=== PATIENT | female | born 1960 | race Hispanic/Latino ===

== ENCOUNTER 2020-01-03 02:33 | Emergency (ER) | payer OTHER, SELFPAY ==
--- NOTE | ~2020-01-03 | CT_ITS ---
EXAMINATION: CT abdomen pelvis w con DATE: 01/03/2020 04:01 INDICATION: Lower abdominal pain, hematochezia TECHNIQUE: Computed tomography (CT) of the abdomen and pelvis was performed with 100 cc Omnipaque 350 intravenous contrast. Automated exposure control and iterative reconstruction technique were employe d. Exam dose: 924.43 mGy-cm total exam DLP. COMPARISON: 03/08/2017 Limited abdominal ultrasound FINDINGS: No consolidation at the lung bases. Coronary artery calcifications. Mild cardiomegaly. Mild pericardial thickening or trace pericardial fluid. Small sliding hiatal hernia. The liver, gallbladder, bile ducts, spleen, pancreas and pancreatic duct are unremarkable. Normal mor phology of the adrenal glands. No renal mass lesion or urinary tract calculus or hydroureteronephrosi s. The urinary bladder, uterus and adnexal areas are unremarkable. There is atherosclerotic calcification of the abdominal aorta and iliac arteries. No abdominal aortic aneurysm. No intraperitoneal or retroperitoneal or pelvic mass lesion or adenopathy or ascites. Normal appendix. Mild thickening of the wall of the rectum and sigmoid colon suggesting possible proc tocolitis. Minimal diverticulosis of the sigmoid colon; no CT evidence of diverticulitis. No bowel ob struction or intraperitoneal free air. Bilateral small fat-containing inguinal hernias. No suspicious osteolytic or osteoblastic lesions are noted. Diffuse idiopathic skeletal hyperostosis of the thoracic spine. IMPRESSION: Mild thickening of the wall the rectum and sigmoid colon suggesting possible proctocolit is Minimal diverticulosis of the sigmoid colon Normal appendix Small sliding hiatal hernia Reviewed, dictated and finalized at [facility]. Reviewed, dictated and finalized at [facility]. [facility] [facility] [employer] IMPRESSION: Mild thickening of the wall the rectum and sigmoid colon suggestin g possible proctocolitis Minimal diverticulosis of the sigmoid colon Normal appendix Small sliding hiatal hernia
[2020-01-03 02:35] VITALS: BP 209/96; PULSE 68; RESP 20; TEMP 36.7; O2SAT 100
--- NOTE | 2020-01-03 02:41 | ED.NAVMDI ---
HPI - Nausea/Vomiting/Diarrhea General Chief complaint: Nausea/Vomiting/Diarrhea Stated complaint: N/V Time Seen by Provider: 01/03/20 02:37 Source: family and RN notes reviewed Mode of arrival: other Limitations: language barrier History of Present Illness HPI Narrative: Pt is a 59 y/o female who presents to the ED with c/o rectal bleeding that began yesterday (01/02/20). Pt's spouse was at bedside and translated for the pt. Pt also reports lower ABD pain, but denies dysuria, rectal pain, N/V/D, and a fever. HPI is limited due to the pt's language barrier. MD elicited complaint: other (rectal bleeding) Onset (ago): day(s) (1) Description of diarrhea: other (none) Associated nausea: No Associated abdominal pain: Yes Location of pain: other (lower abdomen) Pain consistency: other (still present) Associated symptoms: denies other symptoms (limited due to pt's language barrier) Related Data Home Medications Medication Instructions Recorded Confirmed atenolol 50 mg PO DAILY 01/03/20 01/03/20 carbamazepine 100 mg PO Q12H 01/03/20 01/03/20 hydrochlorothiazide 12.5 mg PO DAILY 01/03/20 01/03/20 levothyroxine 25 mcg PO DAILY 01/03/20 01/03/20 losartan 100 mg PO DAILY 01/03/20 01/03/20 lovastatin 40 mg PO DAILY 01/03/20 01/03/20 Allergies Allergy/AdvReac Type Severity Reaction Status Date / Time No Known Allergies Allergy Verified 01/03/20 02:38 Review of Systems Review of Systems: ROS unobtainable: other (limited due to pt's language barrier) Constitutional: Constitutional: Denies fever(s) Gastrointestinal: Gastrointestinal: Reports abdominal pain (lower), Denies diarrhea, Denies nausea, Denies vomiting and Reports other (reports: rectal bleeding; denies: rectal pain) Genitourinary: Genitourinary: Denies dysuria PMFSH Past Medical History Medical History (Updated 01/03/20 @ 05:13 by Justo Sage MD) Epilepsy HTN (hypertension) Hyperlipidemia Hyperthyroidism Migraines Surgical History Surgical History (Updated 01/03/20 @ 02:47 by Tash Fairbanks) Hx of section Social History Social History (Updated 01/03/20 @ 02:47 by Tash Fairbanks) Smoking status: Never smoker Gender identity (if verbalized by the patient): Female Exam Narrative: Exam Narrative: GENERAL: Well-appearing, well-nourished, and in no acute distress. HEAD: Normocephalic, atraumatic. ENT: Mucous membranes moist. CHEST: Clear to auscultation. No respiratory distress. HEART: Regular rate and rhythm. Normal peripheral pulses. ABDOMEN: Soft, mild midline lower abdominal discomfort without rebound or guarding, nondistended, normal active bowel sounds. EXTREMITIES: Normal range of motion. No edema. NEURO: Alert and oriented x3. PSYCH: Normal mood and affect. Course Course Emergency Course: Patient informed of results. Discussed treatment plan. Discharge home with antibiotics as well as pain medication nausea medication. Vital Signs Vital signs: Vital Signs Temperature 98.0 F 01/03/20 02:35 Pulse Rate 68 01/03/20 02:35 Respiratory Rate 20 01/03/20 02:35 Blood Pressure 209/96 H 01/03/20 02:35 Pulse Oximetry 100 01/03/20 02:35 Temperature 98.0 F 01/03/20 02:35 Pulse Rate 65 01/03/20 04:39 Respiratory Rate 16 01/03/20 04:39 Blood Pressure 140/72 01/03/20 04:39 Pulse Oximetry 100 01/03/20 04:39 MDM - Nausea/Vomiting/Diarrhea Lab Data Result diagrams: 01/03/20 02:55 01/03/20 03:46 Labs: Lab Results 01/03/20 01/03/20 01/03/20 Range/Units 02:55 02:58 03:24 WBC 4.7 (4.5-10.0) K/mm3 RBC 4.35 (4.2-5.4) M/mm3 Hgb 13.4 (12.0-15.0) g/dL Hct 40.2 (37.0-47.0) % MCV 92.4 (80-100) fl MCH 30.8 (26-34) pg MCHC 33.3 (32-36) g/dl RDW 11.9 (11.5-14.5) % Plt Count 149 L (150-375) k/mm3 MPV 11.5 H (7.4-10.4) fl Immature Gran % (Auto) 0.2 (0-0.5) % Neut % (Auto) 49.4 (45.5-73.1) % Lymph % (A
[2020-01-03 03:03] LABS: Basophils Percent Auto 0.8 % (0.2-1.2); Eosinophils Absolute Auto 0.2 K/mm3 (0-0.3); Eosinophils Percent Auto 3.2 % (0-4.4); Hematocrit 40.2 % (37.0-47.0); Hemoglobin 13.4 g/dL (12.0-15.0); Immature Granulocyte Absolute 0.01 K/mm3 (0.00-0.031); Immature Granulocyte Percent A 0.2 % (0-0.5); Lymphocytes Absolute Auto 1.79 K/mm3 (0.9-3.2); Lymphocytes Percent Auto 37.9 % (18.3-44.2); Mean Corpuscular HGB Conc 33.3 g/dl (32-36); Mean Corpuscular Hemoglobin 30.8 pg (26-34); Mean Corpuscular Volume 92.4 fl (80-100); Mean Platelet Volume 11.5 fl (7.4-10.4); Monocytes Absolute Auto 0.4 K/mm3 (0.1-0.6); Monocytes Percent Auto 8.5 % (2.6-8.5); Neutrophils Absolute Auto 2.3 K/mm3 (1.3-6.7); Neutrophils Percent Auto 49.4 % (45.5-73.1); Platelet Count Result 149 k/mm3 (150-375); Red Blood Count 4.35 M/mm3 (4.2-5.4); Red Cell Distribution Width 11.9 % (11.5-14.5); White Blood Count 4.7 K/mm3 (4.5-10.0)
[2020-01-03 03:10] LABS: Add Urine Microscopic? YES; Appearance Urine Clear (Clear); Bacteria Urine Trace /hpf; Bilirubin Urine Negative (Negative); Blood Urine Negative (Negative); Color Urine Yellow (Yellow); Glucose Urine UA Negative (Negative); Ketones Urine Negative (Negative); Leukocyte Esterase Ur 2+ LEU/UL (Negative); Mucus Urine Rare /lpf; Nitrate Urine Negative (Negative); Protein Urine Negative (Negative); RBC Urine 0-2 /hpf (0-2); Specific Grav Ur 1.015 (1.001-1.035); Squamous Epithelial Cell Urine Few /hpf (Few); Urobilinogen Urine Negative mg/dL (<2.0); WBC Urine 0-3 /hpf
[2020-01-03] MEDS: ONDANSETRON INJ 4 MG/2 ML VIAL IV PUSH (03:12)
[2020-01-03] MEDS: MORPHINE SULFATE 4 MG/ML INJ IV PUSH (03:29)
[2020-01-03 03:42] LABS: Alanine Aminotransferase 18 U/L (4-35); Albumin Level 3.8 g/dL (3.5-5.1); Alkaline Phosphatase 75 U/L (38-126); Aspartate Amino Transferase 22 U/L (14-36); Bilirubin,Total 0.1 mg/dL (0.2-1.3); Blood Urea Nitrogen 10 mg/dL (7-17); Calcium 8.9 mg/dL (8.4-10.2); Carbon Dioxide 27 mmol/L (22-30); Chloride 104 mmol/L (98-107); Estimated Glomerular Filt Rate > 60; Glucose 113 mg/dL (65-105); Lipase 94 U/L (23-300); Potassium 3.6 mmol/L (3.4-5.0); Sodium 139 mmol/L (137-145)
[2020-01-03 03:48] LABS: Blood Urea Nitrogen 9 mg/dL (8-26); Estimated Glomerular Filt Rate > 60
[2020-01-03 04:39] VITALS: BP 140/72; PULSE 65; RESP 16; O2SAT 100
[2020-01-03 05:28] VITALS: BP 135/70; PULSE 68; RESP 18; O2SAT 98
== END 2020-01-03 05:29 | disposition home or self-care (01) ==
PROVIDERS: Emergency Provider Emergency Medicine; PCP Registered Nurse
DX: K51.30 Ulcerative (chronic) rectosigmoiditis without complications (principal); G40.909 Epilepsy, unspecified, not intractable, without status epilepticus; I10 Essential (primary) hypertension; E78.5 Hyperlipidemia, unspecified; E03.9 Hypothyroidism, unspecified
CPT/HCPCS: 36415; 74177; 80053; 81001; 83690; 85025; 96374; 96375; 99284; J2270; J2405; Q9967

== ENCOUNTER 2020-04-27 15:12 | Emergency (ER) | payer OTHER, SELFPAY ==
--- NOTE | ~2020-04-27 | XR_ITS ---
EXAMINATION: XR tibia fibula RT 2V DATE: 04/27/2020 16:52 INDICATION: Right lower leg injury. TECHNIQUE: 2 views of right tibia and fibula on 3 radiographs were obtained. COMPARISON: None. FINDINGS: There is a fracture of lateral tibial plateau with up to 1.8 cm depression of the articular surface. There is an oblique fracture of fibular head and neck with 2 mm displacement. There is an o blique fracture of distal fibula with medial aspect of the fracture line 1 mm proximal to the level o f the tibial plafond. The distal fracture fragment demonstrates 4 mm posterior displacement. There ar e tiny osteophytes in all 3 compartments of the right knee joint. There is a large right knee joint e ffusion. IMPRESSION: 1. Depression fracture of lateral tibial plateau. 2. Oblique fractures of proximal and distal aspects of the fibula. 3. Large knee joint effusion. Reviewed, dictated and finalized at location [facility].
--- NOTE | ~2020-04-27 | CT_ITS ---
EXAMINATION: CT brain wo con DATE: 04/27/2020 16:57 INDICATION: Head injury. TECHNIQUE: Computed tomography (CT) of the head was performed without intravenous contrast. The mA wa s adjusted according to patient size. Iterative reconstruction technique was employed. The dose-lengt h product was 681.00 mGy-cm. COMPARISON: Head CT 12/15/2005 FINDINGS: There are old infarcts in the left basal ganglia. There is no intracranial hemorrhage, acut e infarction, or abnormal intracranial mass lesion. The ventricles are normal in size. The orbits are normal. There is mild mucosal thickening in the paranasal sinuses. The mastoid air cells are normal. There is right posterior scalp soft tissue swelling. IMPRESSION: 1. 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 Reviewed, dictated and finalized at location [facility].
--- NOTE | ~2020-04-27 | CT_ITS ---
EXAMINATION: CT cervical spine wo con DATE: 04/27/2020 16:57 INDICATION: Head injury. TECHNIQUE: Computed tomography (CT) of the cervical spine was performed without intravenous contrast. Automated exposure control and iterative reconstruction technique were employed. The dose-length pro duct was 486.99 mGy-cm. COMPARISON: None FINDINGS: Bone alignment is normal. Vertebral body heights and intervertebral disc heights are normal . The following disc levels are specifically discussed: C2-C3: There is no uncovertebral joint osteoarthritis. There is no facet joint osteoarthritis. There is no neural foraminal stenosis. There is no central canal stenosis. C3-C4: There is no uncovertebral joint osteoarthritis. There is no facet joint osteoarthritis. There is no neural foraminal stenosis. There is mild central canal stenosis. C4-C5: There is no uncovertebral joint osteoarthritis. There is mild right facet joint osteoarthritis . There is no neural foraminal stenosis. There is no central canal stenosis. C5-C6: There is no uncovertebral joint osteoarthritis. There is no facet joint osteoarthritis. There is no neural foraminal stenosis. There is no central canal stenosis. C6-C7: There is no uncovertebral joint osteoarthritis. There is no facet joint osteoarthritis. There is no neural foraminal stenosis. There is no central canal stenosis. C7-T1: There is no uncovertebral joint osteoarthritis. There is mild bilateral facet joint osteoarthr itis. There is no neural foraminal stenosis. There is no central canal stenosis. IMPRESSION: 1. No fracture. 2. Mild cervical spondylosis. Reviewed, dictated and finalized at location [facility].
--- NOTE | ~2020-04-27 | XR_ITS ---
EXAMINATION: XR ankle RT min 3V DATE: 04/27/2020 15:47 INDICATION: Right ankle injury and swelling. TECHNIQUE: 4 views of right ankle were obtained. COMPARISON: None. FINDINGS: There is an oblique fracture of distal fibula with medial aspect of the fracture line 1 mm distal to the level of the tibial plafond. The distal fracture fragment demonstrates 4 mm lateral dis placement and 3 mm posterior displacement. There is widening of the medial ankle mortise. There are c alcifications distal to medial malleolus. There is mild osteoarthritis of talonavicular joint. There is an enthesophyte at the posterior aspect of calcaneal tuberosity. Ankle soft tissue swelling is not ed. IMPRESSION: 1. Oblique fracture of distal fibula. 2. Widening of the medial ankle mortise. Calcifications distal to medial malleolus may be an acute av ulsion fracture or findings from old injury. Reviewed, dictated and finalized at location [facility]. IMPRESSION: 1. Oblique fracture of distal fibula. 2. Widening of the medial ankle mortise. Calcifications distal to medial malleo charito may be an acute avulsion fracture or findings from old injury.
--- NOTE | ~2020-04-27 | XR_ITS ---
EXAMINATION: XR femur RT min 2V DATE: 04/27/2020 16:52 INDICATION: Fall. TECHNIQUE: 2 views of right femur on 4 radiographs were obtained. COMPARISON: None. FINDINGS: There is a depression fracture of lateral tibial plateau. There is an oblique fracture of f ibular head and neck. The right knee demonstrate tiny osteophytes in all 3 compartments. There is a l arge knee joint effusion. IMPRESSION: 1. Depression fracture of right lateral tibial plateau. 2. Oblique fracture of fibular head and neck. 3. Large right knee joint effusion. Reviewed, dictated and finalized at location [facility].
--- NOTE | ~2020-04-27 | XR_ITS ---
EXAMINATION: XR pelvis 1-2V DATE: 04/27/2020 16:52 INDICATION: Fall. TECHNIQUE: An anteroposterior view of the pelvis was obtained. COMPARISON: None. FINDINGS: Bone alignment is normal. No fracture. There is mild lumbar spondylosis. There is mild oste oarthritis of the hips. IMPRESSION: 1. Mild osteoarthritis of the hips. Reviewed, dictated and finalized at location [facility].
[2020-04-27 15:18] VITALS: BP 144/65; PULSE 62; RESP 18; TEMP 37.2; O2SAT 100
--- NOTE | 2020-04-27 16:13 | ED.GENADULT ---
HPI - General Adult General Chief complaint: Extremity Injury, Lower Stated complaint: fall, ankle injury Time Seen by Provider: 04/27/20 16:12 Source: patient Mode of arrival: ambulatory Limitations: no limitations History of Present Illness HPI narrative: 59-year-old female patient presents to the [facility] with complaints of right leg pain after having a fall today. Patient states she was holding a basket of laundry and tripped and fell down some steps landing on some concrete. Patient states that she hit the entire right side of her body. Patient states that she did hit her head but denies loss of consciousness. Denies any neck pain. Denies any chest pain or shortness of breath. Denies any abdominal pain. Patient is having some right hip pain, leg pain, knee pain lower extremity pain and ankle pain. Patient denies taking anything for pain prior to arrival. Patient is Guamanian-speaking and does have her daughter at the bedside interpreting. Related Data Home Medications Medication Instructions Recorded Confirmed atenolol 50 mg PO DAILY 01/03/20 01/03/20 carbamazepine 100 mg PO Q12H 01/03/20 01/03/20 hydrochlorothiazide 12.5 mg PO DAILY 01/03/20 01/03/20 levothyroxine 25 mcg PO DAILY 01/03/20 01/03/20 losartan 100 mg PO DAILY 01/03/20 01/03/20 lovastatin 40 mg PO DAILY 01/03/20 01/03/20 Allergies Allergy/AdvReac Type Severity Reaction Status Date / Time No Known Allergies Allergy Verified 04/27/20 16:32 Review of Systems Review of Systems: Narrative: CONSTITUTIONAL: Denies fever, chills, or sweats. EYES: Denies visual changes, redness, or discharge. ENT: Denies rhinorrhea, congestion, sore throat, or otalgia. Positive head pain CARDIOVASCULAR: Denies chest pain, palpitations, or edema. RESPIRATORY: Denies cough or dyspnea. GASTROINTESTINAL: Denies abdominal pain, nausea, vomiting, or diarrhea. GENITOURINARY: Denies dysuria or hematuria. SKIN: Denies rash or itching. MUSCULOSKELETAL: Denies back pain, joint pain, or myalgia. Positive right leg pain NEUROLOGIC: Denies headache, numbness, or weakness. PSYCHIATRIC: Denies anxiety or depression. [facility] Past Medical History Medical History Epilepsy HTN (hypertension) Hyperlipidemia Hyperthyroidism Migraines Surgical History Surgical History Hx of section Social History Social History Smoking status: Never smoker Gender identity (if verbalized by the patient): Female Comments At the time of my signature I agree with nursing past medical history, surgical, social, and family history. There is no relevant family history pertinent to the presenting complaint. Exam Narrative: Exam Narrative: GENERAL: Well-appearing, well-nourished, and in no acute distress. HEAD: Normocephalic, patient has what appears to be a hematoma on the right side of the parietal area. No open area no bleeding noted. EYES: PERRLA and EOMI. ENT: Nares clear, no rhinorrhea or epistaxis. Mucous membranes moist. Posterior pharynx no erythema, tonsil larger, exudates or lesions present. Bilateral TMs are clear no erythema or foreign bodies to the canal. NECK: Supple, no lymphadenopathy. No surface trauma, no soft tissue or muscle tenderness or spasm noted. Trachea midline. No subq emphysema or crepitus. No nitza tenderness, step-offs or deformity to firm Palpation at posterior midline. FROM without limitation or pain, normal flexion, extension,Lateral bending, rotation, and axial load. CHEST: Clear to auscultation. No respiratory distress. HEART: Regular rate and rhythm. No murmur heard. Normal peripheral pulses. ABDOMEN: Soft, nontender, nondistended, normal active bowel sounds. EXTREMITIES: Patient has an obvious deformity to the right leg. Patient does have swelling to the right ankle but does have a 2+ DP pulses noted.
--- NOTE | 2020-04-27 16:32 | PC.NURSE ---
pt at xray at this time
[2020-04-27 18:09] VITALS: BP 126/64; PULSE 55; RESP 16; TEMP 36.8; O2SAT 98
[2020-04-27 19:05] VITALS: BP 114/64; PULSE 53; RESP 16; TEMP 36.5; O2SAT 97
== END 2020-04-27 19:15 | disposition short-term general hospital (02) ==
PROVIDERS: Emergency Provider Nurse Practitioner Family; PCP Registered Nurse
DX: S82.141A Displaced bicondylar fracture of right tibia, initial encounter for closed fracture (principal); S82.831A Other fracture of upper and lower end of right fibula, initial encounter for closed fracture; G40.909 Epilepsy, unspecified, not intractable, without status epilepticus; I10 Essential (primary) hypertension; E78.5 Hyperlipidemia, unspecified; E05.90 Thyrotoxicosis, unspecified without thyrotoxic crisis or storm; M16.0 Bilateral primary osteoarthritis of hip; M47.812 Spondylosis without myelopathy or radiculopathy, cervical region; W10.9XXA Fall (on) (from) unspecified stairs and steps, initial encounter
CPT/HCPCS: 29505; 70450; 72125; 72170; 73552; 73590; 73610; 96374; 99285; J3010

== ENCOUNTER 2021-05-18 15:18 | Outpatient (CLI) | payer OTHER, SELFPAY ==
--- NOTE | ~2021-05-18 | MR_ITS ---
EXAMINATION: MR lumbar spine wo con EXAM DATE: 05/18/2021 16:36 INDICATION: Lumbosacral radiculopathy. Low back pain, right leg pain, symptoms one year. TECHNIQUE: Multi-sequential, multiplanar MR images of the lumbar spine were obtained without contrast . Sagittal T1, T2, T2 fat saturation images. Axial T2 weighted images. There is no prior study for comparison. FINDINGS: Some metallic artifact in the retroperitoneum. The conus medullaris terminates at the T12-L 1 level and has normal signal intensity and morphology. The vertebral bodies are aligned in the AP d imension. Vertebral body and disc heights are well-maintained. Lower lumbar disc desiccation. There a re no suspicious marrow signal abnormalities. Level by level evaluation: T12-L1: Disc does not extend beyond the endplate margin. Facet arthropathy: None. Neural foraminal stenosis: No stenosis. Central canal stenosis: No stenosis. L1-L2: Disc does not extend beyond the endplate margin. Facet arthropathy: Mild. Neural foraminal stenosis: No stenosis. Central canal stenosis: No stenosis. L2-L3: There is a mild diffuse disc bulge. Facet arthropathy: Mild to moderate. Neural foraminal stenosis: Mild left. Central canal stenosis: No stenosis. L3-L4: There is a mild diffuse disc bulge. Facet arthropathy: Mild to moderate. Neural foraminal stenosis: Mild to moderate left, mild right. Central canal stenosis: No stenosis. L4-L5: There is a mild to moderate diffuse disc bulge, asymmetric to the right. Facet arthropathy: Mild to moderate. Neural foraminal stenosis: Mild to moderate left, mild right. Central canal stenosis: Mild. L5-S1: [id number] Facet arthropathy: Mild to moderate. Neural foraminal stenosis: Mild to moderate bilateral, right greater than left. Central canal stenosis: Mild. IMPRESSION: 1. Mild to moderate lumbar spondylosis. Reviewed, dictated and finalized at location [facility].
== END 2021-05-18 15:19 | disposition home or self-care (01) ==
PROVIDERS: Visit Provider Registered Nurse
DX: M47.896 Other spondylosis, lumbar region (principal)
CPT/HCPCS: 72148

== ENCOUNTER 2022-02-14 07:39 | Outpatient (CLI) | payer OTHER, SELFPAY ==
--- NOTE | ~2022-02-14 | US_ITS ---
EXAMINATION: US abdomen complete EXAM DATE: 02/14/2022 08:13 INDICATION: Abdominal Distension. TECHNIQUE: Multiple grayscale and Doppler images of the complete abdomen were obtained (by a technolo gist who performed the scan) and subsequently reviewed. Comparison is made to prior examination from 03/08/2017. FINDINGS: The abdominal aorta is normal in caliber. Visualized portion IVC is patent. The pancreatic head a nd body are normal in appearance. The pancreatic tail is not visualized. The liver has normal echogenicity and contour. There are no focal liver lesions identified. There is no evidence of intrahepatic biliary duct dilation. Portal venous flow was seen in the hepatopedal , normal direction and has normal Doppler waveform. Common bile duct measures 5 mm, which is normal. The gallbladder wall is normal in thickness, with ex pected amount of distention. No sonographic evidence of pericholecystic fluid. There is no cholelit hiases. Technologist performing exam reports patient did not demonstrate sonographic Crooks's sign. Please note that this sign is less reliable in patients who have received pain medication. Right kidney: There is normal contour and echogenicity. It measures 10.1 x 3.8 x 5.1 centimeters. There are no focal renal lesions identified. There is no hydronephrosis. Left kidney: There is normal contour and echogenicity. It measures 11.0 x 4.2 x 6.2 centimeters. T here are no focal renal lesions identified. There is no hydronephrosis. The spleen measures 11 centimeters and is morphologically normal. IMPRESSION: 1. Unremarkable complete abdominal ultrasound exam. Reviewed, dictated and finalized at location [facility].
== END 2022-02-14 07:40 | disposition home or self-care (01) ==
PROVIDERS: PCP Registered Nurse; Visit Provider Registered Nurse
DX: R14.0 Abdominal distension (gaseous) (principal)
CPT/HCPCS: 76700

== ENCOUNTER 2022-10-13 09:45 | Emergency (ER) | payer OTHER, SELFPAY ==
--- NOTE | ~2022-10-13 | CT_ITS ---
EXAMINATION: CT abdomen pelvis w con DATE: 10/13/2022 11:29 INDICATION: Left lower quadrant abdominal pain, diarrhea TECHNIQUE: Computed tomography (CT) of the abdomen and pelvis was performed with 100 CC Omnipaque 350 intravenous contrast. Automated exposure control and iterative reconstruction technique were employe d. Exam dose: 1029.42 mGy-cm total exam DLP. COMPARISON: 02/14/2022 20 abdominal ultrasound examination 01/03/2020 CT abdomen pelvis FINDINGS: The lung bases are clear of infiltrate or consolidation. Heart size is within normal range. There is trace pericardial fluid. No pleural effusion. Small sliding hiatal hernia. Diffuse hepatic steatosis. No hepatic, splenic, pancreatic, adrenal or renal space-occupying mass les ion is detected. The gallbladder is present. No gallbladder wall thickening or pericholecystic fluid or fat stranding. No bile duct or pancreatic duct dilatation. No urinary tract calculus or hydroureteronephrosis. The urinary bladder, uterus and adnexal areas are unremarkable. Small bilateral fat-containing inguinal hernias and very small fat-containing umbilical hernia. There is atherosclerotic calcification of the abdominal aorta and iliac arteries but no abdominal aor tic aneurysm. Normal appendix. Minimal sigmoid colon diverticulosis; no CT evidence of diverticulitis. There is thickening of the wall the rectum and colon suggesting possible proctocolitis. No bowel obst ruction or intraperitoneal free air. Diffuse idiopathic skeletal hyperostosis of the thoracic spine. No suspicious osteolytic or osteoblastic lesions. IMPRESSION: Small sliding hiatal hernia Hepatic steatosis Normal appendix Minimal sigmoid diverticulosis; no evidence of diverticulitis Thickening of the wall the rectum and much of the colon suggesting proctocolitis Reviewed, dictated and finalized at [facility]. Reviewed, dictated and finalized at location [facility]. ONAL SERVICE MANAGER IMPRESSION: Small sliding hiatal hernia Hepatic steatosis Normal appendix Minimal sigmoid diverticulosis; no evidence of diverticulitis Thickening of the wall the rectum and much of the colon suggesting proctocoliti s
[2022-10-13 10:06] VITALS: BP 156/84; PULSE 77; RESP 16; TEMP 36.6; O2SAT 100
--- NOTE | 2022-10-13 10:27 | ED.NAVMDI ---
HPI - Nausea/Vomiting/Diarrhea General Chief complaint: Nausea/Vomiting/Diarrhea Stated complaint: diarrhea Time Seen by Provider: 10/13/22 10:19 Limitations: language barrier History of Present Illness HPI Narrative: Patient is a healthy 61-year-old female here for evaluation of diarrhea over the past day and a half. Patient reports about 8 episodes of loose watery stools yesterday and about 3 episodes today. The diarrhea is associated with a diffuse crampy abdominal pain. Patient denies blood or pus in her stools. She states the diarrhea came on after eating Thanksgiving dinner, although her family members ate the same meal and are not having diarrhea. Denies any fevers, nausea, vomiting, recent antibiotic use. She is not immunocompromised. Related Data Home Medications Medication Instructions Recorded Confirmed atenolol 50 mg tablet 50 mg PO DAILY 01/03/20 01/03/20 carbamazepine 100 mg 100 mg PO Q12H 01/03/20 01/03/20 capsule,extended release [id number] hydrochlorothiazide 12.5 mg capsule 12.5 mg PO DAILY 01/03/20 01/03/20 levothyroxine 25 mcg tablet 25 mcg PO DAILY 01/03/20 01/03/20 losartan 100 mg PO DAILY 01/03/20 01/03/20 lovastatin 40 mg tablet 40 mg PO DAILY 01/03/20 01/03/20 Allergies Allergy/AdvReac Type Severity Reaction Status Date / Time No Known Allergies Allergy Verified 10/13/22 11:44 Review of Systems Review of Systems: Gen: Denies fevers or chills Eyes: Denies eye pain or visual change ENT: Denies congestion Respiratory: Denies shortness of breath or cough CV: Denies chest pain or palpitations GI: Reports diarrhea and abdominal pain. Denies nausea, emesis denies burning, urgency, frequency or hematuria Musculoskeletal: Denies back pain or muscle pain Neuro: Denies numbness, tingling, weakness or focal weakness Skin: Denies rash Except as documented, all other systems reviewed and negative [facility] Past Medical History Medical History (Updated 10/13/22 @ 12:17 by Elizabeth Peralta PA-C) Epilepsy HTN (hypertension) Hyperlipidemia Hyperthyroidism Migraines Surgical History Surgical History Hx of section Social History Social History Smoking status: Never smoker Gender identity (if verbalized by the patient): Female Exam Narrative: APPEARANCE: Well appearing, no pain in distress, well-nourished. Head: Normocephalic and atraumatic. EYES: PERRLA/EOMI, conjunctivae clear NOSE: No nasal drainage EARS: External ear normal in appearance THROAT: Oropharynx is clear. Mucous membranes are moist. NECK: Supple. No adenopathy, no masses. RESPIRATORY: Airway patent, respirations nonlabored. Clear to auscultation bilaterally, no rales, rhonchi, wheezing. CARDIOVASCULAR: Regular rate and rhythm without murmurs, rubs, or gallops. ABDOMINAL: Hyperactive bowel sounds. Tender to palpation in left lower quadrant. Soft, nondistended. No rebound tenderness or guarding. MUSCULOSKELETAL: Extremities are warm and well-perfused. Moves all extremities well. No edema. NEURO: Normal speech. No focal neurologic deficits. SKIN: Skin is warm and dry. No rashes. PSYCHIATRIC: Normal affect/mood.. Course Vital Signs Vital signs: Vital Signs Temperature 97.8 F 10/13/22 10:06 Pulse Rate 77 10/13/22 10:06 Respiratory Rate 16 10/13/22 10:06 Blood Pressure 156/84 H 10/13/22 10:06 Pulse Oximetry 100 10/13/22 10:06 Oxygen Delivery Room Air 10/13/22 10:06 Temperature 97.8 F 10/13/22 10:06 Pulse Rate 70 10/13/22 12:42 Respiratory Rate 15 10/13/22 12:42 Blood Pressure 144/82 H 10/13/22 12:42 Pulse Oximetry 100 10/13/22 12:42 Oxygen Delivery Room Air 10/13/22 10:06 MDM - Nausea/Vomiting/Diarrhea MDM Narrative Medical decision making narrative: 61-year-old female here for evaluation of abdominal pain and diarrhea over the past
[2022-10-13 10:42] LABS: Basophils Percent Auto 0.9 % (0.2-1.2); Eosinophils Absolute Auto 0.1 K/mm3 (0-0.3); Eosinophils Percent Auto 2.3 % (0-4.4); Hematocrit 40.7 % (37.0-47.0); Hemoglobin 13.8 g/dL (12.0-15.0); Immature Granulocyte Absolute 0.01 K/mm3 (0.00-0.031); Immature Granulocyte Percent A 0.2 % (0-0.5); Lymphocytes Absolute Auto 1.48 K/mm3 (0.9-3.2); Mean Corpuscular HGB Conc 33.9 g/dl (32-36); Mean Corpuscular Hemoglobin 32.5 pg (26-34); Mean Corpuscular Volume 95.8 fl (80-100); Mean Platelet Volume 10.5 fl (7.4-10.4); Monocytes Absolute Auto 0.3 K/mm3 (0.1-0.6); Monocytes Percent Auto 6.7 % (2.6-8.5); Neutrophils Absolute Auto 2.4 K/mm3 (1.3-6.7); Neutrophils Percent Auto 55.9 % (45.5-73.1); Platelet Count Result 180 k/mm3 (150-375); Red Blood Count 4.25 M/mm3 (4.2-5.4); Red Cell Distribution Width 12.1 % (11.5-14.5); White Blood Count 4.4 K/mm3 (4.5-10.0)
[2022-10-13] MEDS: LACTATED RINGERS 1,000 ML 999 ML IV CONT (10:45)
[2022-10-13] MEDS: DICYCLOMINE HCL INJ 20 MG/2 ML VIAL IM (10:47)
[2022-10-13 10:59] LABS: Alanine Aminotransferase 23 U/L (6-35); Albumin Level 4.5 g/dL (3.5-5.1); Alkaline Phosphatase 65 U/L (38-126); Anion Gap 9 mmol/L (8-16); Aspartate Amino Transferase 29 U/L (14-36); Bilirubin,Total 0.5 mg/dL (0.2-1.3); Blood Urea Nitrogen 11 mg/dL (7-17); Calcium 8.2 mg/dL (8.4-10.2); Carbon Dioxide 23 mmol/L (22-30); Chloride 106 mmol/L (98-107); Estimated CRCL calculation 99 ml/min; Estimated Glomerular Filt Rate > 60; Glucose 100 mg/dL (65-110); Phosphorus 3.5 mg/dL (2.5-4.5); Potassium 4.2 mmol/L (3.4-5.0); Sodium 138 mmol/L (137-145)
[2022-10-13 12:42] VITALS: BP 144/82; PULSE 70; RESP 15; O2SAT 100
== END 2022-10-13 12:43 | disposition home or self-care (01) ==
PROVIDERS: Emergency Provider Physician Assistant; PCP Registered Nurse
DX: K62.89 Other specified diseases of anus and rectum (principal); G40.909 Epilepsy, unspecified, not intractable, without status epilepticus; I10 Essential (primary) hypertension; E78.5 Hyperlipidemia, unspecified; E05.90 Thyrotoxicosis, unspecified without thyrotoxic crisis or storm; K44.9 Diaphragmatic hernia without obstruction or gangrene; K76.0 Fatty (change of) liver, not elsewhere classified; K57.30 Diverticulosis of large intestine without perforation or abscess without bleeding
CPT/HCPCS: 36415; 74177; 80053; 83735; 84100; 85025; 96360; 96372; 99284; J0500; J7120; Q9967

== ENCOUNTER 2023-09-27 08:24 | Outpatient (CLI) | payer OTHER, SELFPAY ==
--- NOTE | ~2023-09-27 | MM_ITS ---
EXAMINATION: MM screening enid BI w donny HISTORY: Screening mammogram TECHNIQUE: Craniocaudal and mediolateral oblique 3-D tomosynthesis images were obtained and synthetic 2-D images were generated. CAD analysis was submitted and interpreted. COMPARISON: 06/14/2019, 06/11/2018 lateral screening mammogram examinations BREAST PARENCHYMAL COMPOSITION: There are scattered areas of fibroglandular density. FINDINGS: There is no evidence of suspicious mass, calcification, or architectural distortion to sugg est malignancy in either breast. There has been no suspicious interval change. IMPRESSION: 1. No mammographic evidence of malignancy. 2. Recommend routine screening mammography in one year. BI-RADS Category 1: Negative Reviewed, dictated and finalized at location B. HT RADIO OPERATOR
== END 2023-09-27 08:25 | disposition home or self-care (01) ==
PROVIDERS: PCP Registered Nurse; Visit Provider Registered Nurse
DX: Z12.31 Encounter for screening mammogram for malignant neoplasm of breast (principal)
CPT/HCPCS: 77063; 77067

== ENCOUNTER 2024-04-30 01:16 | Day surgery (SDC) | payer OTHER, SELFPAY ==
[2024-04-14 15:05] VITALS: BMI 39.2
[2024-04-30 06:47] VITALS: BP 190/80; PULSE 66; RESP 20; TEMP 36.1; O2SAT 99
[2024-04-30] MEDS: LACTATED RINGERS 1,000 ML 150 ML IV CONT (07:01)
[2024-04-30 07:08] VITALS: BP 169/73
[2024-04-30] MEDS: ONDANSETRON INJ 4 MG/2 ML VIAL IV PUSH (07:36)
--- NOTE | 2024-04-30 07:49 | PM.HPGS ---
History of Present Illness History of Present Illness Consent: Risks, benefits, and alternatives have been discussed and questions answered. Patient agrees to proceed with procedure. Chief complaint: Personal Hx. colon polyps Narrative: Tania Corado is a 63 year old female with last colonoscopy 6 years ago Review of Systems Review of Systems: All systems reviewed & are unremarkable except as noted in HPI and below PMFSH Past Medical History Medical History (Updated 04/30/24 @ 07:53 by Junior Coelho MD) Colon cancer screening Epilepsy HTN (hypertension) Hyperlipidemia Hyperthyroidism Migraines Surgical History Surgical History Hx of section Social History Social History Smoking status: Never smoker Alcohol intake: never Substance use: never Substance use type: does not use Living arrangements: with family Gender identity (if verbalized by the patient): Female Spiritual care concerns: No Meds Home Medications and Allergies Home Medications Medication Instructions Recorded Confirmed Type atenolol 50 mg tablet 50 mg PO DAILY 01/03/20 04/15/24 History amlodipine 2.5 mg tablet 2.5 mg PO DAILY 04/15/24 04/15/24 History atorvastatin 40 mg tablet 40 mg PO HS 04/15/24 04/15/24 History carbamazepine 200 mg 300 mg PO TID 04/15/24 04/15/24 History tablet,extended release,12 hr gabapentin 300 mg capsule 900 mg PO HS 04/15/24 04/15/24 History levothyroxine 75 mcg tablet 75 mcg PO DAILY 04/15/24 04/15/24 History losartan 100 1 tablet PO DAILY 04/15/24 04/15/24 History mg-hydrochlorothiazide 12.5 mg tablet mv,Ca,csc-rdaw-sryug acid-lutein 1 tablet PO DAILY 04/15/24 04/15/24 History 18 mg iron-400 mcg-6 mg tablet (One-A-Day Women's Healthy Skin) Allergies Allergy/AdvReac Type Severity Reaction Status Date / Time No Known Allergies Allergy Verified 04/30/24 06:46 Vital Signs Vital Signs - 24 hr 04/30/24 06:47 04/30/24 07:08 Temperature 96.9 F L Pulse Rate 66 Respiratory Rate 20 Blood Pressure 190/80 H 169/73 H Pulse Oximetry 99 Oxygen Delivery Room Air Exam Const: General: comfortable and no acute distress HENMT: Face/Nose/Sinus: Normal nares present Eyes: General: appearance normal, both eyes and all related structures Neck: Neck: no JVD Resp: Auscultation: clear to auscultation bilaterally Cardio: Rate: regular rate Rhythm: regular rhythm GI: Inspection: non-distended GI Palp: Yes Soft to palpation Skin: General skin exam: normal color Neuro: General: gait normal Speech: normal speech Extrem: General: normal to inspection Psych: Mental Status: mental status grossly normal Assessment and Plan Assessment and plan (1) Colon cancer screening: Code(s): Z12.11 - Encounter for screening for malignant neoplasm of colon Status: Acute Assessment and Plan: colonoscopy
--- NOTE | 2024-04-30 08:01 | P.PNAN_ITS ---
Anes - Initial Pre Proc Eval Procedure: Operation Date: 04/30/24 08:00 Proposed Procedures p Colonoscopy - Junior Coelho MD Date/Time: 04/30/24 08:01 Surgeon: Junior Coelho MD Pre Op Diagnosis: Personal Hx. colon polyps Patient Data Age: 63 Gender: F Height: 1.52 m Weight: 87.7 kg Last Vital Signs Temp 96.9 F L 04/30/24 06:47 Pulse 66 04/30/24 06:47 Resp 20 04/30/24 06:47 BP 169/73 H 04/30/24 07:08 Pulse Ox 99 04/30/24 06:47 O2 Del Method Room Air 04/30/24 06:47 Allergies Allergy/AdvReac Type Severity Reaction Status Date / Time No Known Allergies Allergy Verified 04/30/24 06:46 Home Medications Medication Instructions Recorded Confirmed Type atenolol 50 mg tablet 50 mg PO DAILY 01/03/20 04/15/24 History amlodipine 2.5 mg tablet 2.5 mg PO DAILY 04/15/24 04/15/24 History atorvastatin 40 mg tablet 40 mg PO HS 04/15/24 04/15/24 History carbamazepine 200 mg 300 mg PO TID 04/15/24 04/15/24 History tablet,extended release,12 hr gabapentin 300 mg capsule 900 mg PO HS 04/15/24 04/15/24 History levothyroxine 75 mcg tablet 75 mcg PO DAILY 04/15/24 04/15/24 History losartan 100 1 tablet PO DAILY 04/15/24 04/15/24 History mg-hydrochlorothiazide 12.5 mg tablet mv,Ca,pmt-cgsx-wetnu acid-lutein 1 tablet PO DAILY 04/15/24 04/15/24 History 18 mg iron-400 mcg-6 mg tablet (One-A-Day Women's Healthy Skin) Patient hx anesthesia problems: none Family hx anesthesia problems: none Results Review: All pre-operative results and documents have been reviewed as part of the pre- operative evaluation. [facility] Past Medical History Medical History (Updated 04/30/24 @ 07:53 by Junior Coelho MD) Colon cancer screening Epilepsy HTN (hypertension) Hyperlipidemia Hyperthyroidism Migraines Surgical History Surgical History Hx of section Social History Social History Smoking status: Never smoker Alcohol intake: never Substance use: never Substance use type: does not use Living arrangements: with family Gender identity (if verbalized by the patient): Female Spiritual care concerns: No Anes - Eval Final PreProcedure Day of Procedure 04/30/24 08:01 Patient weight: obese Heart: regular rate and rhythm Lungs: clear to auscultation Airway: Mallampati scale class II Neurological: alert and oriented Last oral intake: >/= 8 hours ASA classification: III Emergent: no Anesthetic plan: proceed Anesthesia type and monitoring: general GIVS and standard monitoring Results Review: All pre-operative results and documents have been reviewed as part of the pre- operative evaluation. Informed Consent: The patient's anesthetic plan and its attendant risks and benefits were discussed with the patient/family/POA. Questions were solicited and answers provided to the satisfaction of the patient/family/POA.
[2024-04-30 08:06] VITALS: BP 125/65; PULSE 70; RESP 20; O2SAT 98
[2024-04-30 08:16] VITALS: BP 130/68; PULSE 63; RESP 23; O2SAT 98
[2024-04-30 08:26] VITALS: BP 152/64; PULSE 62; RESP 23; O2SAT 98
== END 2024-04-30 08:36 | disposition home or self-care (01) ==
PROVIDERS: PCP Registered Nurse; Visit Provider Internal Medicine Gastroenterology
PROC: 0DJD8ZZ Inspection of Lower Intestinal Tract, Via Natural or Artificial Opening Endoscopic (ICD-10-PCS; CPT 45378; principal; 2024-04-30 08:00)
DX: Z12.11 Encounter for screening for malignant neoplasm of colon (principal); Z86.010 Personal history of colon polyps; K57.30 Diverticulosis of large intestine without perforation or abscess without bleeding; K64.8 Other hemorrhoids; G40.909 Epilepsy, unspecified, not intractable, without status epilepticus; I10 Essential (primary) hypertension; E78.5 Hyperlipidemia, unspecified; E05.90 Thyrotoxicosis, unspecified without thyrotoxic crisis or storm
CPT/HCPCS: 45378; J2405; J2704; J7120

== ENCOUNTER 2024-08-10 15:43 | Emergency (ER) | payer BC, SELFPAY ==
--- NOTE | 2024-08-10 15:49 | ED.GENADULT ---
HPI - General Adult General Chief complaint: Extremity Problem,Nontraumatic Stated complaint: Body Pain/Swollen Hand Source: patient and RN notes reviewed Mode of arrival: ambulatory Limitations: no limitations History of Present Illness HPI narrative: Patient is a 63-year-old female who presents to the [facility] with complaints of generalized joint pain. Patient states that she has been experiencing bilateral shoulder pain for quite some time. She was told by her primary care physician that it was arthritis. She states that she has been taking Tylenol Arthritis without any relief. Patient states that on Friday, she developed bilateral hand pain with swelling to her 3rd and 4th fingers bilaterally. She states that she feels as if she is unable to make a fist bilaterally without discomfort since the pain and swelling started. She denies known injury. States that she is also experiencing intermittent discomfort to bilateral hips. Denies injury. Denies difficulty walking. Denies leg swelling. Patient denies chest pain, shortness of breath, recent illness, fever. Related Data Home Medications Medication Instructions Recorded Confirmed atenolol 50 mg tablet 50 mg PO DAILY 01/03/20 08/10/24 amlodipine 2.5 mg tablet 2.5 mg PO DAILY 04/15/24 08/10/24 atorvastatin 40 mg tablet 40 mg PO HS 04/15/24 08/10/24 carbamazepine 200 mg 300 mg PO TID 04/15/24 08/10/24 tablet,extended release,12 hr gabapentin 300 mg capsule 900 mg PO HS 04/15/24 08/10/24 levothyroxine 75 mcg tablet 75 mcg PO DAILY 04/15/24 08/10/24 losartan 100 1 tablet PO DAILY 04/15/24 08/10/24 mg-hydrochlorothiazide 12.5 mg tablet mv,Ca,bkj-xzzi-tbtik acid-lutein 1 tablet PO DAILY 04/15/24 08/10/24 18 mg iron-400 mcg-6 mg tablet (One-A-Day Women's Healthy Skin) Allergies Allergy/AdvReac Type Severity Reaction Status Date / Time No Known Allergies Allergy Verified 08/10/24 15:54 Review of Systems Review of Systems: CONSTITUTIONAL: Denies fever, chills, or sweats. EYES: Denies visual changes, redness, or discharge. ENT: Denies otalgia and sore throat CARDIOVASCULAR: Denies chest pain, palpitations, or edema. RESPIRATORY: Denies cough or dyspnea. GASTROINTESTINAL: Denies abdominal pain, nausea, vomiting, or diarrhea. GENITOURINARY: Denies dysuria or hematuria. SKIN: Denies rash or itching. MUSCULOSKELETAL: Denies back pain or myalgia. Reports joint pain. NEUROLOGIC: Denies headache, numbness, or weakness. Pertinent positives per HPI. [facility] Past Medical History Medical History Colon cancer screening Epilepsy HTN (hypertension) Hyperlipidemia Hyperthyroidism Migraines Surgical History Surgical History Hx of section Social History Social History Smoking status: Never smoker Alcohol intake: never Substance use: never Substance use type: does not use Living arrangements: with family Gender identity (if verbalized by the patient): Female Spiritual care concerns: No Comments At the time of my signature, I reviewed and agree with the nursing past medical, surgical, social, and family history. There is no relevant family history pertinent to the patient complaint. Exam Narrative: GENERAL: This is a well-nourished, well-developed patient, in no apparent distress. HEAD: normocephalic, atraumatic. EYES: Sclera clear/white. Vision is grossly intact. EARS: External ears normal. Hearing grossly intact. NOSE: External nose normal with no obvious nasal discharge, nares without redness, no rhinorrhea. THROAT: Mucous membranes moist, posterior pharynx clear. NECK: Neck supple, non-tender without lymphadenopathy, masses or thyromegaly. CARDIOVASCULAR: Regular rate and rhythm without murmurs, gallops, or rubs. RESPIRATORY: Clear to auscultation. Breath cydney
[2024-08-10 15:52] VITALS: BP 136/71; PULSE 55; RESP 16; TEMP 36.4; O2SAT 100
[2024-08-10 15:58] VITALS: BP 136/71; PULSE 55; RESP 16; TEMP 36.4; O2SAT 100
== END 2024-08-10 16:07 | disposition home or self-care (01) ==
PROVIDERS: Emergency Provider Nurse Practitioner
DX: M19.042 Primary osteoarthritis, left hand (principal); M19.041 Primary osteoarthritis, right hand; I10 Essential (primary) hypertension; E78.5 Hyperlipidemia, unspecified; Z79.899 Other long term (current) drug therapy
CPT/HCPCS: 99213; G0463

== ENCOUNTER 2024-08-28 08:53 | Outpatient (CLI) | payer BC, SELFPAY ==
--- NOTE | ~2024-08-28 | XR_ITS ---
EXAM: XR shoulder LT min 2V DATE: 08/28/2024 09:05 HISTORY: Pain of left shoulder joint, GENERAL, LIMITED ROM . COMPARISON: None available. FINDINGS: Decreased mineralization. No fracture or dislocation. No lytic or blastic lesion. Mild deg enerative change at the AC joint and glenohumeral joint. No erosion or periosteal change. Soft tissue s within normal limits. IMPRESSION: Osteopenia. 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 Reviewed, dictated and finalized at location [facility].
== END 2024-08-28 08:54 | disposition home or self-care (01) ==
LOC: ANHIMG 08:54
PROVIDERS: Visit Provider Registered Nurse
DX: M85.812 Other specified disorders of bone density and structure, left shoulder (principal); M19.012 Primary osteoarthritis, left shoulder
CPT/HCPCS: 73030

== ENCOUNTER 2024-12-04 08:41 | Outpatient (CLI) | payer BC, SELFPAY ==
--- NOTE | ~2024-12-04 | XR_ITS ---
EXAMINATION: XR chest 2V Exam Date/Time: 12/04/2024 8:53 INSPECTOR PRECISION HISTORY: Pleuritic pain Comparison: None. RESULT: Lines, tubes, and devices: None. Lungs and pleura: Low volumes with crowding, otherwise clear. Cardiomediastinal silhouette: Stable. Other: No acute osseous or upper abdominal finding. IMPRESSION: No acute cardiopulmonary process. Reviewed, dictated and finalized at location [facility]. ECTOR PRECISION
--- OUTSIDE RECORDS SUMMARY | 2024-12-09 08:38 | XMS_ITS | Patient Health Summary ---
Author Organization [facility] Address [address] [place] [address] Care Team Providers Care Gift Officer Name Role Phone Almita Laurent CLAIMS SUPERVISOR-BRANCH BILLING PAYROLL CLERK Primary Care Pro vider Note from [facility],non-owned Affiliates and Associated Physician Practices is amultiple site organization consisting of ambulatory clinics and hospital sitesin [place], [place], [place] and [place]. This disclosure is being madepursuant to the Care Everywhere program and may not contain all information available regarding this patient. Last updated 18.[facility] Allergies No known active allergies Medications * Be aware that medications may not be up to date on this document. Alwaysverify current medications with the patient. * losartan - hydroCHLOROthiazide (HYZAAR) 50-12.5 MG tablet Take 1 tablet by mouth once daily Reasons: High Blood Pressure Disorder * atenolol (TENORMIN) 50 MG tablet Take 50 mg by mouth once daily Reasons: High Blood Pressure Disorder * lovastatin (MEVACOR) 40 MG tablet Take 40 mg by mouth at bedtime * propranolol (INDERAL) 40 MG tablet Take 40 mg by mouth every 8 hours * gabapentin (NEURONTIN) 300 MG capsule Take 300 mg by mouth 3 times daily Active Problems Problem Noted Date Diagnosed Date Closed fracture of right distal fibula 0 Closed fracture of right distal tibia 04/28/2020 Closed fracture of upper end of right fibula 10/2020 Closed fracture of right tibial plateau 04/28/20 20 Bimalleolar ankle fracture, right, closed, initial encounter 04/28/2020 Fall 04/28/2020 Vitamin D deficiency 04/28/2020 Peripheral tear of lateral m eniscus of right knee as current injury Closed displaced fracture of lateral malleolus of right fibula Social History Tobacco Use Types Packs/Day Years Used Date Smoking Tobacco: Never Smokeless Tobacco: Never Tobacco Cessation:Counseling Given: Yes Alcohol Use Standard Drinks/Week Comments Not Currently 0 (1 standard drink = 0.6 oz pur e alcohol) AUDIT-C Answer Date Recorded Q1: How often do you have a drink containing alc ohol? Never 05/01/2020 Average Number of Drinks Not on file 020 Frequency of Binge Drinking Not on file 04/17 Sex and Gender Information Value Date Recorded Sex Assigned at Not on file Gender Identity Not on file Sexual Orientation Not on file Last Filed Vital Signs Vital Sign Reading Time Taken Comments Blood Pressure 160/77 05/05/2020 12:03 PM CDT Pulse 63 05/05/2020 12:03 PM CDT Temperature 36.7 ??C (98 ??F) 05/05/2020 12:03 PM CDT Respiratory Rate 18 05/05/2020 12:03 PM CDT Oxygen Saturation 97% 05/05/2020 12:03 PM CDT Inhaled Oxygen Concentration - - Weight 81.6 kg (180 lb) 06/11/2021 9:59 AM CDT Height 157.5 cm (5' 2 ) 06/11/2021 9:59 AM CDT Body Mass Index 32.92 06/11/2021 9:59 AM CDT Medical Devices Implanted Type Area Software Database Architect Device Identifier Shelf Expiration Date Model / Serial / Lot Plate 3 Hl Lck Tib Rt Prox Std Crv Alps Implanted:Qty: 1 on 05/03/2020 by Dorothy Acosta MD at [facility] Right: [employer] [id number] / / Screw 3.5mm 18mm 2.5mm Slf-Tap Sm Hex Implanted:Qty: 1 on 05/03/2020 by Dorothy Acosta MD at [facility] Right: Ankle [employer] [id number] / / Screw 4mm 2.5mm 20mm P/T Canc Sm Hex Implanted:Qty: 1 on 05/03/2020 by Dorothy Acosta MD at [facility] Right: Ankle [employer] [id number] / / Screw 4mm 18mm 2.5mm P/T Slf-Tap Sm Hex Implanted:Qty: 1 on 05/03/2020 by Dorothy Acosta MD at [facility] Right: Ankle [employer] [id number] / / Plate 6 Hl 2 Comp Colr 73mm 1/3 Tblr Implanted:Qty: 1 on 05/03/2020 by Dorothy Acosta MD at [facility] Right: Ankle [employer] [id number] / / Screw 3.5mm 60mm 2.2mm Mldir Lck Sq Drv Implanted:Qty: 1 on 05/03/2020 by Dorothy Acosta MD at [facility] Right: [employer] [id number] / / Screw 3.5mm 28mm Ft Nonlock Hex Drv Elb Implanted:Qty: 1 on 05/03/2020 by Dorothy Acosta MD at [facility] Right: [employer] [id number] / / Screw 3.5mm 58mm T15 Slf-Tap Lck Tpr Implanted:Qty: 1 on 05/03/2020 by Dorothy Acosta MD at [facility] Right: [employer] [id number] / / Screw 3.5mm 60mm T15 Lck Slf-Tap Tip Tpr Implanted:Qty: 3 on 05/03/2020 by Dorothy Acosta MD at [facility] Right: [employer] [id number] / / Screw 3.5mm 65mm T15 Lck Slf-Tap Tip Tpr Implanted:Qty: 2 on 05/03/2020 by Dorothy Acosta MD at [facility] Right: [employer] [id number] / / Wire K 1.6mm 150mm 1 End Troc Pnt Ss Sm Implanted:Qty: 1 on 05/03/2020 by Dorothy Acosta MD at [facility] Right: [employer] [id number] / / Screw 3.5mm 14mm 2.5mm Slf-Tap Sm Hex Implanted:Qty: 2 on 05/03/2020 by Dorothy Acosta MD at [facility] Right: Ankle [employer] [id number] / / Explanted Type Area Software Database Architect Device Identifier Shelf Expiration Date Model / Serial / Lot Screw 3.5mm 75mm T15 Lck Lopro Slf-Tap Explanted:Qty: 1 on 05/03/2020 by Dorothy Acosta MD at [facility] Right: [employer] [id number] / / Procedures * XR KNEE RIGHT 3VW(Performed 06/11/2021) Performed for Closed fracture of right tibial plateau with routine healing, subsequent encounter * XR ANKLE RIGHT 3VW OR MORE(Performed 06/11/2021) Performed for Bimalleolar ankle fracture, right, closed, initial encounter * XR ANKLE RIGHT 3VW OR MORE(Performed 03/12/2021) Performed for Closed displaced fracture of lateral malleolus of right fibula with routine healing, subsequent encounter * XR KNEE RIGHT 3VW(Performed 03/12/2021) Performed for Closed fracture of right tibial plateau with routine healing, subsequent encounter * XR KNEE RIGHT 3VW(Performed 10/30/2020) Performed for Closed fracture of right tibial plateau with routine healing, subsequent encounter * XR ANKLE RIGHT 3VW OR MORE(Performed 10/30/2020) Performed for Other closed fracture of distal end of right fibula with routine healing, subsequent encounter * XR KNEE RIGHT 3VW(Performed 09/18/2020) Performed for Closed fracture of right tibial plateau with routine healing, subsequent encounter * XR ANKLE RIGHT 3VW OR MORE(Performed 09/18/2020) Performed for Other closed fracture of distal end of right fibula with routine healing, subsequent encounter * XR KNEE RIGHT 3VW(Performed 07/17/2020) Performed for Closed fracture of right tibial plateau with routine healing, subsequent encounter * XR ANKLE RIGHT 3VW OR MORE(Performed 07/17/2020) Performed for Other closed fracture of distal end of right fibula with routine healing, subsequent encounter * XR ANKLE RIGHT 3VW OR MORE(Performed 06/19/2020) Performed for Closed fracture of right tibial plateau with routine healing, subsequent encounter * XR KNEE RIGHT 3VW(Performed 06/19/2020) Performed for Closed fracture of right tibial plateau with routine healing, subsequent encounter * XR ANKLE RIGHT 3VW OR MORE(Performed 05/22/2020) Performed for Closed displaced fracture of lateral malleolus of right fibula with routine healing, subsequent encounter * XR KNEE RIGHT 3VW(Performed 05/22/2020) Performed for Closed fracture of right tibial plateau with routine healing, subsequent encounter * BASIC METABOLIC PANEL (CALCIUM TOTAL)(Performed 05/05/2020) Performed for Closed fracture of right tibial plateau, initial encounter, Closed fracture of distalend of right fibula, unspecified fracture morphology, initial encounter * CBC W/O DIFFERENTIAL(Performed 05/05/2020) Performed for Closed fracture of right tibial plateau, initial encounter, Closed fracture of distalend of right fibula, unspecified fracture morphology, initial encounter * XR KNEE RIGHT 2VW OR LESS(Performed 05/04/2020) Performed for Closed displaced pilon fracture of right tibia, initial encounter * BASIC METABOLIC PANEL (CALCIUM TOTAL)(Performed 05/04/2020) Performed for Closed fracture of right tibial plateau, initial encounter, Closed fracture of distalend of right fibula, unspecified fracture morphology, initial encounter * CBC W/O DIFFERENTIAL(Performed 05/04/2020) Performed for Closed fracture of right tibial plateau, initial encounter, Closed fracture of distalend of right fibula, unspecified fracture morphology, initial encounter * XR KNEE RIGHT 2VW OR LESS(Performed 05/03/2020) Performed for Closed fracture of right tibial plateau, initial encounter * XR FOOT RIGHT 3VW OR MORE(Performed 05/03/2020) Performed for Closed fracture of distal end of right fibula, unspecified fracture morphology, initial encounter * XR ANKLE RIGHT 3VW OR MORE(Performed 05/03/2020) Performed for Other closed fracture of distal end of right fibula, initial encounter * FL KP SURGERY(Performed 05/03/2020) Performed for Closed fracture of right tibial plateau, initial encounter * ENDOTRACHEAL TUBE NOTE(Performed 05/03/2020) * OPEN REDUCTION INTERNAL FIXATION (ORIF) TIBIAL PLATEAU/PROXIMAL(Performed 05/03/2020) Performed for Closed fracture of right tibial plateau, initial encounter, Closed bimalleolar fracture of right ankle, initial encounter * BASIC METABOLIC PANEL (CALCIUM TOTAL)(Performed 05/03/2020) Performed for Closed fracture of right tibial plateau, initial encounter, Closed fracture of distalend of right fibula, unspecified fracture morphology, initial encounter * CBC W/O DIFFERENTIAL(Performed 05/03/2020) Performed for Closed fracture of right tibial plateau, initial encounter, Closed fracture of distalend of right fibula, unspecified fracture morphology, initial encounter * PTT [facility](Performed 05/02/2020) * PT-INR [facility](Performed 05/02/2020) * BASIC METABOLIC PANEL (CALCIUM TOTAL)(Performed 05/02/2020) Performed for Closed fracture of right tibial plateau, initial encounter, Closed fracture of distalend of right fibula, unspecified fracture morphology, initial encounter * CBC W/O DIFFERENTIAL(Performed 05/02/2020) Performed for Closed fracture of right tibial plateau, initial encounter, Closed fracture of distalend of right fibula, unspecified fracture morphology, initial encounter * ABO TYPE: RETYPE-PATIENT RESULT ONLY(Performed 05/01/2020) * TYPE + SCREEN PANEL(Performed 05/01/2020) * BASIC METABOLIC PANEL (CALCIUM TOTAL)(Performed 05/01/2020) Performed for Closed fracture of right tibial plateau, initial encounter, Closed fracture of distalend of right fibula, unspecified fracture morphology, initial encounter * CBC W/O DIFFERENTIAL(Performed 05/01/2020) Performed for Closed fracture of right tibial plateau, initial encounter, Closed fracture of distalend of right fibula, unspecified fracture morphology, initial encounter * BASIC METABOLIC PANEL (CALCIUM TOTAL)(Performed 04/30/2020) Performed for Closed fracture of right tibial plateau, initial encounter, Closed fracture of distalend of right fibula, unspecified fracture morphology, initial encounter * CBC W/O DIFFERENTIAL(Performed 04/30/2020) Performed for Closed fracture of right tibial plateau, initial encounter, Closed fracture of distalend of right fibula, unspecified fracture morphology, initial encounter * BASIC METABOLIC PANEL (CALCIUM TOTAL)(Performed 04/29/2020) Performed for Closed fracture of right tibial plateau, initial encounter, Closed fracture of distalend of right fibula, unspecified fracture morphology, initial encounter * CBC W/O DIFFERENTIAL(Performed 04/29/2020) Performed for Closed fracture of right tibial plateau, initial encounter, Closed fracture of distalend of right fibula, unspecified fracture morphology, initial encounter * VITAMIN D 25-HYDROXY(Performed 04/28/2020) Performed for Closed fracture of right tibial plateau, initial encounter, Fall, initial encounter * BASIC METABOLIC PANEL (CALCIUM TOTAL)(Performed 04/28/2020) Performed for Closed fracture of right tibial plateau, initial encounter, Closed fracture of distalend of right fibula, unspecified fracture morphology, initial encounter * CBC W/O DIFFERENTIAL(Performed 04/28/2020) Performed for Closed fracture of right tibial plateau, initial encounter, Closed fracture of distalend of right fibula, unspecified fracture morphology, initial encounter * PT EVAL AND TREAT ORTHO/TRAUMA(Performed 04/28/2020) Performed for Closed fracture of right tibial plateau, initial encounter, Closed fracture of distalend of right fibula, unspecified fracture morphology, initial encounter * CT KNEE RIGHT WO CONTRAST(Performed 04/28/2020) Performed for Right leg pain * XR KNEE RIGHT 2VW OR LESS(Performed 04/27/2020) Performed for Right leg pain * XR ANKLE RIGHT 3VW OR MORE(Performed 04/27/2020) Performed for Right leg pain * XR STRESS ANY JOINT(Performed 04/27/2020) Performed for Right leg pain * XR KNEE RIGHT 2VW OR LESS(Performed 04/27/2020) Performed for Right leg pain * XR ANKLE RIGHT 3VW OR MORE(Performed 04/27/2020) Performed for Right leg pain * XR TIBIA FIBULA RIGHT 2VW(Performed 04/27/2020) Performed for Right leg pain Results * XR KNEE RIGHT 3VW (06/11/2021 9:18 AM CDT) Only the most recent of7 resultswithin the time period is included. Anatomical Region Laterality Modality Lower Extremity Radiographic Charisse ging 06/11/2021 9:48 AM CDT Impressions 06/11/2021 9:48 AM CDT IMPRESSION: Internally fixated tibial plateau fracture, unchanged in alignment. This report was electronically signed by CHAS DE LA TORRE MD ??on 06/11/2021 9:48 AM . Narrative 06/11/2021 9:48 AM CDT Exam: ??XR KNEE RIGHT 3VW History: ??S82.141D: Closed fracture of right tibial plateau with routine healing, subsequent encounter Comparison: 03/12/2021 Findings: This patient is status post open reduction and internal fixation of a tibial plateau fracture with a plate, screws, and K wires. The hardware is intact and the osseous alignment is unchanged. The joint spaces are normal. There is no effusion. Procedure Note Chas De La Torre MD - 06/11/2021 Exam: XR KNEE RIGHT 3VW History: S82.141D: Closed fracture of right tibial plateau with routine healing, subsequent encounter Comparison: 03/12/2021 Findings: This patient is status post open reduction and internal fixation of a tibial plateau fracture with a plate, screws, and K wires. The hardwareis intact and the osseous alignment is unchanged. The joint spaces are normal. There is no effusion. IMPRESSION: Internally fixated tibial plateau fracture, unchanged in alignment. This report was electronically signed by CHAS DE LA TORRE MD on06/11/2021 9:48 AM . Dorothy Acosta MD DIAGNOSTIC IMAGING ORDERABLES * XR ANKLE RIGHT 3VW OR MORE (06/11/2021 9:18 AM CDT) Only the most recent of10 resultswithin the time period is included. Anatomical Region Laterality Modality Lower Extremity Radiographic Charisse ging 06/11/2021 9:50 AM CDT Impressions 06/11/2021 9:51 AM CDT IMPRESSION: Distal fibular fracture with internal fixation, unchanged in alignment. This report was electronically signed by CHAS DE LA TORRE MD ??on 06/11/2021 9:51 AM . Narrative 06/11/2021 9:51 AM CDT Exam: ??XR ANKLE RIGHT 3VW History: ??S82.841A: Bimalleolar ankle fracture, right, closed, initial encounter Comparison: 03/12/2021. Findings: Postsurgical changes of open reduction and internal fixation of a distal fibular fracture with a plate and screws are redemonstrated. The hardware is intact and the osseous alignment is unchanged. Small ossific fragments and spurs at the medial malleolus unchanged. The joint spaces are normal. Osteopenia and soft tissue swelling are redemonstrated. Procedure Note Chas De La Torre MD - 06/11/2021 Exam: XR ANKLE RIGHT 3VW History: S82.841A: Bimalleolar ankle fracture, right, closed, initial encounter Comparison: 03/12/2021. Findings: Postsurgical changes of open reduction and internal fixation of a distal fibular fracture with a plate and screws are redemonstrated. Thehardware is intact and the osseous alignment is unchanged. Small ossificfragments and spurs at the medial malleolus unchanged. The joint spaces arenormal. Osteopenia and soft tissue swelling are redemonstrated. IMPRESSION: Distal fibular fracture with internal fixation, unchanged in alignment. This report was electronically signed by CHAS DE LA TORRE MD on06/11/2021 9:51 AM . Dorothy Acosta MD DIAGNOSTIC IMAGING ORDERABLES * (ABNORMAL) CBC W/O DIFFERENTIAL (05/05/2020 1:59 AM CDT) Only the most recent of8 resultswithin the time period is included. WBC 6.3 3.5 - 10.5 10? 3 /uL 05/05/2020 3:[address] [facility] RBC 3.50(L) 3.90 - 5.00 10? 6 /uL 05/05/2020 3:[address] [facility] Hemoglobin 10.8(L) 12.0 - 15.5 g/dL 05/05/2020 3:[address] [facility] Hematocrit 32.3(L) 35.0 - 45.0 % 05/05/2020 3:[address] [facility] MCV 92.3 81.0 - 97.0 fL 05/05/2020 3:11 AM [facility] MCH 30.9 28.0 - 34.0 pg 05/05/2020 3:[address] [facility] MCHC 33.4 32.0 - 36.0 g/dL 05/05/2020 3:11 AM [facility] Platelet Count 204 150 - 400 10? 3 /uL 05/05/2020 3:[address] [facility] RDW-SD 41.4 36.0 - 50.0 fL 05/05/2020 3:[address] [facility] RDW-CV 12.5 11.2 - 14.8 % 05/05/2020 3:[address] [facility] MPV 10.8 9.3 - 12.8 fL 05/05/2020 3:[address] [facility] nRBC Absolute 0.00 0 10? 3 /uL 05/05/2020 3:[address] [facility] nRBC Auto 0.0 0 /100 WBC 05/05/2020 3:[address] [facility] Blood BLOOD SPECIMEN / Unknown Lab Venipuncture / Unknown 05/05/2020 1:59 AM CDT 05/05/2020 2:54 AM CDT Eusebio Pederson MD LAB - HEMATOLOGY ORD ERABLES [address] [address] [phone] * (ABNORMAL) BASIC METABOLIC PANEL (CALCIUM TOTAL) (05/05/2020 1:59 AM CDT) Only the most recent of8 resultswithin the time period is included. BUN 8 7 - 26 mg/dL 05/05/2020 3:[address] [facility] Creatinine 0.5(L) 0.6 - 1.2 mg/dL 05/05/2020 3:[address] [facility] Sodium 139 136 - 145 mmol/L 05/05/2020 3:[address] [facility] Potassium 3.7 3.5 - 4.5 mmol/L 05/05/2020 3:[address] [facility] Chloride 105 98 - 107 mmol/L 05/05/2020 3:[address] [facility] CO2 24 22 - 29 mmol/L 05/05/2020 3:[address] [facility] Glucose 126(H) 70 - 115 mg/dL 05/05/2020 3:34 AM CDT [facility] Calcium 8.5 8.4 - 10.2 mg/dL 05/05/2020 3:34 AM CDT [facility] Anion Gap 14 8 - 18 05/05/2020 3:34 AM CDT [facility] BUN/Creatinine Ratio 16 7 - 23 05/05/2020 3:34 AM CDT [facility] Osmolality Calculated 288 270 - 300 mOsm/kg 05/05/2020 3:34 AM CDT [facility] eGFR >60 >60 mL/min/1.7 3 m2 05/05/2020 3:34 AM CDT [facility] Blood BLOOD SPECIMEN / Unknown Lab Venipuncture / Unknown 05/05/2020 1:59 AM CDT 05/05/2020 2:54 AM CDT Eusebio Pederson MD LAB - CHEMISTRY [facility] [address] [address], [facility] [phone] * XR KNEE RIGHT 2VW OR LESS (05/04/2020 7:44 AM CDT) Only the most recent of4 resultswithin the time period is included. Anatomical Region Laterality Modality Lower Extremity Radiographic Charisse ging 05/04/2020 12:5 5 PM CDT Impressions 05/05/2020 1:58 PM CDT FINDINGS/IMPRESSION: Redemonstrated postoperative appearance of subluxation for a tibial plateau fracture with a fixation plate, multiple screws, and K wire placement. Instrumentation appears intact. Osseous alignment is grossly unchanged. Radiopaque graft material is again seen in the proximal tibial metaphysis. A drain is unchanged in position. External brace is again seen. No new fractures are identified. Dictated by Constance Ferraro MD (residential pest control technician). I, Dr. EBEN GTZ have personally reviewed and interpreted this examination/study. This report was electronically signed by EBEN GTZ ??on 05/05/2020 1:58 PM . Narrative 05/05/2020 1:58 PM CDT EXAMINATION: XR KNEE RIGHT 2VW OR LESS HISTORY: S82.871A: Closed displaced pilon fracture of right tibia, initial encounter COMPARISON: Right knee radiograph dated 05/03/2020 Procedure Note Eben Gtz DO - 05/05/2020 EXAMINATION: XR KNEE RIGHT 2VW OR LESS HISTORY: S82.871A: Closed displaced pilon fracture of right tibia,initial encounter COMPARISON: Right knee radiograph dated 05/03/2020 FINDINGS/IMPRESSION: Redemonstrated postoperative appearance of subluxation for a tibial plateau fracture with a fixation plate, multiple screws, and K wire placement. Instrumentation appears intact. Osseous alignment is grossly unchanged. Radiopaque graft material is again seen in the proximaltibial metaphysis. A drain is unchanged in position. External brace is again seen. No new fractures are identified. Dictated by Constance Ferraro MD (residential pest control technician). IDr. EBEN have personally reviewed and interpreted this examination/study. This report was electronically signed by EBEN GTZ on 05/05/2020 1:58 PM . Caroline Rao MD DIAGNOSTIC IMAGING O RDERABLES * XR FOOT RIGHT 3VW OR MORE (05/03/2020 8:23 PM CDT) Anatomical Region Laterality Modality Ankle / Foot Radiographic Charisse ging 05/04/2020 9:25 AM CDT Impressions 05/05/2020 1:14 PM CDT IMPRESSION: Expected postoperative changes of internal fixation of a tibial plateau fracture. Expected postoperative changes of internal fixation of lateral and posterior malleoli fractures. Dictated by Meron Mejia DO (resident). Dr. EBEN Gill have personally reviewed and interpreted this examination/study. This report was electronically signed by EBEN GTZ ??on 05/05/2020 1:14 PM . Narrative 05/05/2020 1:14 PM CDT ORDER DATE: 05/03/2020 8:23 PM EXAMINATION: XR ANKLE RIGHT 3VW OR MORE, XR FOOT RIGHT 3VW OR MORE, XR KNEE RIGHT 2VW OR LESS HISTORY: S82.831A: Other closed fracture of distal end of right fibula, initial encounter COMPARISON: Right knee and ankle x-rays from 04/27/2020, CT right knee without contrast from 04/28/2020 FINDINGS: Knee: A brace is present which obscures some bony detail. There has been interval plate and screw fixation and K wire placement through the proximal tibial plateau fracture with hardware appearing intact and alignment improved. There is radio dense material seen in the central proximal tibia which may represent grafting material. A drain is present. There are small locules of gas seen in the suprapatellar joint space, likely postoperative. Ankle: Splint material is present which obscures some soft tissue and bony detail. There has been interval plate and screw fixation of the right distal fibula with improvement in alignment of the lateral and posterior malleoli fractures. Hardware appears intact. Foot: Redemonstrated findings as described above. No new findings seen within the foot within the limitation of overlying splint material obscuring some soft tissue and bony detail. Procedure Note Eben Gtz DO - 05/05/2020 ORDER DATE: 05/03/2020 8:23 PM EXAMINATION: XR ANKLE RIGHT 3VW OR MORE, XR FOOT RIGHT 3VW OR MORE, XR KNEE RIGHT 2VW OR LESS HISTORY: S82.831A: Other closed fracture of distal end of right fibula, initial encounter COMPARISON: Right knee and ankle x-rays from 04/27/2020, CT right knee withoutcontrast from 04/28/2020 FINDINGS: Knee: A brace is present which obscures some bony detail. There has been interval plate and screw fixation and K wire placement through the proximal tibial plateau fracture with hardware appearing intact and alignment improved. There is radio dense material seen in the central proximal tibia which may represent grafting material. A drain ispresent. There are small locules of gas seen in the suprapatellar joint space, likely postoperative. Ankle: Splint material is present which obscures some soft tissue and bony detail. There has been interval plate and screw fixation of the right distal fibula with improvement in alignment of the lateral and posterior malleoli fractures. Hardware appears intact. Foot: Redemonstrated findings as described above. No new findings seen within the foot within the limitation of overlying splint material obscuringsome soft tissue and bony detail. IMPRESSION: Expected postoperative changes of internal fixation of a tibial plateau fracture. Expected postoperative changes of internal fixation of lateral and posterior malleoli fractures. Dictated by Meron Mejia DO (resident). I, Dr. EBEN GTZ have personally reviewed and interpreted this examination/study. This report was electronically signed by EBEN GTZ on 05/05/2020 1:14 PM . Osmel Orellana MD DIAGNOSTIC CHARISSE GING ORDERABLES * FL KP SURGERY (05/03/2020 6:25 PM CDT) Narrative [facility] RADIOLOGY - 05/03/2020 6:33 PM CDT Fluoroscopy was used for this exam in the OR. Please see the Operative report. Dorothy Acosta MD FLUOROSCOPY ORDERA BLENiharika [facility] RADIOLOGY * ETT LINE PERFORMABLE (05/03/2020 2:57 PM CDT) Narrative Abdifatah Pacheco, DO - 05/03/2020 2:57 PM CDT Abdifatah Pacheco, DO ? 05/03/2020 ??2:58 PM Endotracheal Tube Placement: ? Patient Location: OR. Intubation Event Date/Time: ??05/03/2020 2:15 PM Procedure: intubation (50331). Procedure Section: ?? Sedation: IV sedation. Indications for Airway Management: ??airway protection Induction: standard IV Patient Position: ??sniffing and supine Mask Ventilation: easy. Blade Type: Soy Blade Size: 3 Laryngoscopy View: grade 1 (full cords) Intubation Adjuncts: stylet Tube: endotracheal tube Placement: oral Tube type: cuff - inflated Tube Size (MM): 7 Depth of Insertion (CM): 22 Measured From: lips Cuff volume (mL): ??10 Cuff Inflated With: air Number of Attempts: 1. Ventilation between attempts: No. Placement Verified By: CO2 monitor, chest auscultation, bilateral breath sounds and direct visualization Tube secured with: ??adhesive tape. Difficult Airway? ??No. Procedure Start Time: 05/03/2020 2:15 PM. Staff Section ?? Anesthesia Provider: Tristan Escalera MD, Performed the procedure Shanice Dawson MD GENERAL ANESTHESIA ORDERABLES * PTT [facility] (05/02/2020 2:27 AM CDT) APTT 26.7 23.0 - 38.4 Seconds 05/02/2020 3:03 AM CDT [facility] Comment:Suggested therapeuti c range for full dose I.V. unfractionated heparin therapy for venous thromboembolism is 71 to 109 seconds. Blood BLOOD SPECIMEN / Unknown Lab Venipuncture / Unknown 05/02/2020 2:27 AM CDT 05/02/2020 2:41 AM CDT Eusebio Pederson MD LAB - COAGULATION OR DERABLES Performing Organization Address City/[facility]/ZIP Co de Phone Number [place] [phone] [phone] * PT-INR [facility] (05/02/2020 2:27 AM CDT) PT 13.4 12.1 - 14.8 Seconds 05/02/2020 3:50 AM CDT [facility] INR 1.1 See Comment 05/02/2020 3:50 AM CDT [facility] Comment:The suggested therap eutic range for standard coumadin (warfarin) therapy is an INR of 2.0-3.0. For high-risk patients (Mechanical Mitral Valve Prosthesis, etc.), the suggested prophylactic therapeutic range is an INR of 2.5-3.5. Blood BLOOD SPECIMEN / Unknown Lab Venipuncture / Unknown 05/02/2020 2:27 AM CDT 05/02/2020 2:41 AM CDT Eusebio Pederson MD LAB - COAGULATION OR DERABLES [address] [id number] [phone] * RETYPE PATIENT (05/01/2020 6:54 AM CDT) ABO 05/01/2020 8:30 AM CDT [facility] Rh Type 05/01/2020 8:30 AM CDT [facility] Typem 05/01/2020 8:30 AM CDT [facility] Interpretation 05/01/2020 8:30 AM CDT [facility] Blood BLOOD SPECIMEN / Unknown Lab Venipuncture / Unknown 05/01/2020 6:54 AM CDT 05/01/2020 7:18 AM CDT Narrative [facility] - 05/01/2020 8:30 AM CDT Re-type confirmed per [facility] Blood Bank policies & procedures. Results documented in department. Dorothy Acosta MD LAB - BLOOD BANK O RDERABLES Performing Organization Address [facility]/ZIP Co de Phone Number [facility] [address] [place] [address] * TYPE + SCREEN PANEL (05/01/2020 6:15 AM CDT) Pathologist [facility] Antibody Screen NEG 0 7:28 AM CDT [facility] ABO Rh O POS 05/01/2020 7:28 AM CDT [facility] Blood Bank BLOOD SPECIMEN / Unknown Lab Venipuncture / Unknown 05/01/2020 6:15 AM CDT 05/01/2020 6:41 AM CDT Eusebio Pederson MD LAB - BLOOD BANK ORD ERABLES Performing Organization Address [facility] de Phone Number [facility] [address] [place] [address] * (ABNORMAL) VITAMIN D 25-HYDROXY (04/28/2020 9:58 AM CDT) Pathologist [facility] Vitamin D, 25 Hydroxy 18.3(L) See comment: ng/mL 04/28/2020 12:34 PM CDT [facility] Comment: The recommendations for 25-Hydroxy Vitamin D clinical decision points are as follows: ? Deficient: ? <20.0 ng/mL ? Insufficient: ??20.0 - 29.9 ng/mL ? Sufficient: ? > or =30.0 ng/mL If the 25-Hydroxy Vitamin D results are inconsitent with clinical evidence, it is recommended that follow-up testing using a method such as LC/MS/MS be performed to confirm the result. Reference: ?The Endocrine Society Clinical Practice Guidelines. 2011 ? Blood BLOOD SPECIMEN / Unknown Lab Venipuncture / Unknown 04/28/2020 9:58 AM CDT 04/28/2020 10:13 AM CDT Keara Arguello CLAIMS SUPERVISOR-CHILD PSYCHOMETRIST LAB - CHEMISTR Y ORDERABLES Performing Organization Address City/State/[facility] Co de Phone Number [address] [address], [facility] [phone] * CT KNEE RIGHT WO CONTRAST (04/28/2020 12:18 AM CDT) Anatomical Region Laterality Modality Lower Extremity Computed Tomogra phy 04/28/2020 12:2 4 AM CDT Impressions 04/28/2020 1:01 PM CDT IMPRESSION: 1. Split depressed fracture of the lateral tibial plateau with approximately 1.3 cm of depression of the fracture fragment. 2. Mildly displaced fracture of the fibular head extending inferiorly into the proximal fibular diaphysis. 3. Knee joint lipohemarthrosis. Report dictated by Gurjit Motta DO (residential pest control technician). I, Dr. Anna SALOMON M.D. have personally reviewed and interpreted this examination/study. This report was electronically signed by Anna SALOMON M.D. ??on 04/28/2020 1:01 PM . Narrative 04/28/2020 1:01 PM CDT EXAMINATION: Computed tomography (CT) of the right knee without contrast HISTORY: M79.604: Right leg pain TECHNIQUE: CT of the right knee was performed without contrast according to standard protocol. COMPARISON: Concurrent right knee radiographs. FINDINGS: There is a split depressed fracture of the lateral tibial plateau with approximately 1.3 cm of depression of the fracture fragment. There is an additional, mildly displaced fracture of the fibular head which extends inferiorly into the proximal fibular diaphysis. The distal femur and patella are intact. There is a knee joint lipohemarthrosis. Mild soft tissue swelling is noted over the anterior aspect of the patella and patellar tendon. Mild fat stranding is noted along the lateral aspect of the knee and lower leg. Posterior splint material is partially imaged. Procedure Note Elise Salomon MD - 04/28/2020 EXAMINATION: Computed tomography (CT) of the right knee without contrast HISTORY: M79.604: Right leg pain TECHNIQUE: CT of the right knee was performed without contrast according to standard protocol. COMPARISON: Concurrent right knee radiographs. FINDINGS: There is a split depressed fracture of the lateral tibial plateau with approximately 1.3 cm of depression of the fracture fragment. There is an additional, mildly displaced fracture of the fibular head which extends inferiorly into the proximal fibular diaphysis. The distal femur and patella are intact. There is a knee joint lipohemarthrosis. Mild soft tissue swelling is noted over the anterior aspect of the patella and patellar tendon. Mild fat stranding is noted along the lateral aspect of the knee and lower leg. Posterior splint material is partially imaged. IMPRESSION: 1. Split depressed fracture of the lateral tibial plateau with approximately 1.3 cm of depression of the fracture fragment. 2. Mildly displaced fracture of the fibular head extending inferiorlyinto the proximal fibular diaphysis. 3. Knee joint lipohemarthrosis. Report dictated by Gurjit Motta DO (residential pest control technician). Dr. Anna Gill M.D. have personally reviewed and interpretedthis examination/study. This report was electronically signed by Anna SALOMON M.D. on 04/28/2020 1:01 PM . Eusebio Pederson MD CT ORDERABLES * XR STRESS ANY JOINT (04/27/2020 11:27 PM CDT) Anatomical Region Laterality Modality Lower Extremity, Upper Extremity Radiographic Imaging 04/28/2020 1:08 PM CDT Impressions 04/28/2020 2:52 PM CDT FINDINGS/IMPRESSION: AP portable stress view only. Redemonstrated comminuted fracture of the lateral malleolus with increased displacement under stress. Widening of the medial clear space up to 9 mm under stress suggest ligamentous injury. Report dictated by Constance Ferraro MD (residential pest control technician). Dr. EBEN Gill have personally reviewed and interpreted this examination/study. This report was electronically signed by EBEN GTZ ??on 04/28/2020 2:52 PM . Narrative 04/28/2020 2:52 PM CDT EXAMINATION: XR STRESS ANY JOINT HISTORY: M79.604: Right leg pain COMPARISON: Right ankle radiograph dated 04/27/2020 at 9:09 PM Procedure Note Eben Gtz DO - 04/28/2020 EXAMINATION: XR STRESS ANY JOINT HISTORY: M79.604: Right leg pain COMPARISON: Right ankle radiograph dated 04/27/2020 at 9:09 PM FINDINGS/IMPRESSION: AP portable stress view only. Redemonstrated comminuted fracture of the lateral malleolus withincreased displacement under stress. Widening of the medial clear space up to 9 mm under stress suggest ligamentous injury. Report dictated by Constance Ferraro MD (residential pest control technician). Dr. EBEN Gill have personally reviewed and interpreted this examination/study. This report was electronically signed by EBEN GTZ on 04/28/2020 2:52 PM . Eusebio Pederson MD DIAGNOSTIC IMAGING O RDERABLES * XR TIBIA FIBULA RIGHT 2VW (04/27/2020 9:27 PM CDT) Anatomical Region Laterality Modality Lower Extremity Radiographic Charisse ging 04/27/2020 10:1 6 PM CDT Impressions 04/28/2020 2:42 PM CDT IMPRESSION: Lateral malleolus, posterior malleolus, fibular head and lateral tibial plateau fractures as described above. Dictated by Jose E Valdez MD (residential pest control technician). Dr. EBEN Gill have personally reviewed and interpreted this examination/study. This report was electronically signed by EBEN GTZ ??on 04/28/2020 2:42 PM . Narrative 04/28/2020 2:42 PM CDT EXAMINATION: 1.XR KNEE RIGHT 2VW OR LESS 2.XR TIBIA FIBULA RIGHT 2VW 3.XR ANKLE RIGHT 3VW OR MORE DATE: 04/27/2020 9:29 PM HISTORY: Right leg pain COMPARISON: No prior study is available for comparison. FINDINGS: Knee: There is a lateral tibial plateau fracture with significant depression of at least 1 cm. There is no significant splitting of the fracture. The medial plateau appears intact. There is mild subluxation of the knee. There is a displaced fibular head fracture. There is a large joint effusion with layering hemorrhage. Tibia-fibula: Redemonstrated lateral tibial plateau and fibular head fractures. There is a displaced lateral tibial plateau fracture, better seen on the ankle radiograph. A splint is present. Ankle: There is a comminuted lateral tibial plateau fracture which starts at approximately the level of the talar dome and extends proximally. A minimally displaced posterior malleolus fracture is suggested on the lateral view. There is no gross disruption of the ankle mortise on this nonstressed view. Procedure Note Eben Gtz, - 04/28/2020 EXAMINATION: 1.XR KNEE RIGHT 2VW OR LESS 2.XR TIBIA FIBULA RIGHT 2VW 3.XR ANKLE RIGHT 3VW OR MORE DATE: 04/27/2020 9:29 PM HISTORY: Right leg pain COMPARISON: No prior study is available for comparison. FINDINGS: Knee: There is a lateral tibial plateau fracture with significant depression of at least 1 cm. There is no significant splitting of the fracture. The medial plateau appears intact. There is mild subluxationof the knee. There is a displaced fibular head fracture. There is a large joint effusion with layering hemorrhage. Tibia-fibula: Redemonstrated lateral tibial plateau and fibular head fractures. There is a displaced lateral tibial plateau fracture, better seen on the ankle radiograph. A splint is present. Ankle: There is a comminuted lateral tibial plateau fracture whichstarts at approximately the level of the talar dome and extends proximally. A minimally displaced posterior malleolus fracture is suggested on the lateral view. There is no gross disruption of the ankle mortise on this nonstressed view. IMPRESSION: Lateral malleolus, posterior malleolus, fibular head and lateral tibial plateau fractures as described above. Dictated by Jose E Valdez MD (residential pest control technician). I, Dr. EBEN GTZ have personally reviewed and interpreted this examination/study. This report was electronically signed by EBEN GTZ on 04/28/2020 2:42 PM . Eusebio Pederson MD [facility]AGNOSTIC [facility] Care Teams Gift Officer Relationship Specialty Start Date End Date Almita Laurent APRN-SOUTH [address] [place] [phone] PCP - General 05/26/19
--- OUTSIDE RECORDS SUMMARY | 2024-12-09 08:38 | XMS_ITS | Referral Summary ---
Author Organization [facility] Address [address] [place] [address] Care Team Providers Care Customer Retention Specialist Name Role Phone Almita Laurent Surinder ADMINISTRATIVE PROFESSIONAL-SENIOR DYNAMICS CRM DEVELOPER Primary Care Pro vider Source Comments [facility],non-owned Affiliates and Associated Physician Practices is amultiple site organization consisting of ambulatory clinics and hospital sitesin [place], [place], [place] and [place]. This disclosure is being madepursuant to the Care Everywhere program and may not contain all information available regarding this patient. Last updated 18.[facility] Allergies No known active allergies Medications * Be aware that medications may not be up to date on this document. Alwaysverify current medications with the patient. Medication Sig Dispensed Refills Start Date End Date Status losartan - hydroCHLOROthiazide (HYZAAR) 50-12.5 MG tabletIndications:Hyperten jennifer Take 1 tablet by mouth once daily Reasons: High Blood Pressure Disorder Active atenolol (TENORMIN) 50 MG tabletIndications:Hyperten jennifer Take 50 mg by mouth once daily Reasons: High Blood Pressure Disorder Active lovastatin (MEVACOR) 40 MG tablet Take 40 mg by mouth at bedtime Active propranolol (INDERAL) 40 MG tablet Take 40 mg by mouth every 8 hours Active gabapentin (NEURONTIN) 300 MG capsule Take 300 mg by mouth 3 times daily Active Active Problems Problem Noted Date Diagnosed Date [...] Mass Index 32.92 06/11/2021 9:59 AM CDT Functional Status Functional Status Response Date of Assess ment Is person deaf or have serious hearing difficult y? No 05/01/2020 Is person blind or have serious difficulty seein g? No 05/01/2020 Does person have serious dif ficulty walking/climbing stairs? No 05/01/2020 Does person have difficulty dressing/bathing? No 05/01/2020 Does person have difficulty doing errands alone? No 05/01/2020 Cognitive Status Response Date of Assessm ent Does person have difficulty concentrating/remembering/making decisions? No 05/01/2020 Plan of Treatment Not on file Goals Goal Patient Goal Type Associated Problems Recent Progress Patient-Stated? Author Mobility General Improving(02/16 9:58 AM CDT) No Roberta Bailey RN Note: Expected end date: ongoing The goal is to maintain or improve your mobility at the optimum level for you. Interventions: Medical Devices Implanted Type [employer] Device Identifier Shelf Expiration Date Model / Serial / Lot Plate 3 Hl Lck Tib Rt Prox Std Crv Alps Implanted:Qty: 1 on 05/03/2020 by Dorothy Acosta MD at [facility] Right: Tibia [employer] [id number] / / Screw 3.5mm 18mm 2.5mm Slf-Tap Sm Hex Implanted:Qty: 1 on 05/03/2020 by Dorothy Acosta MD at [facility] Right: Ankle [employer] [id number] / / Screw 4mm 2.5mm 20mm P/T Canc Sm Hex Implanted:Qty: 1 on 05/03/2020 by Dorothy Acosta MD at [facility] Right: Ankle [employer] [id number] / / Screw 4mm 18mm 2.5mm P/T Slf-Tap Sm Hex Implanted:Qty: 1 on 05/03/2020 by Dorothy Acosta MD at [facility] Right: Ankle [employer] [id number] / / Plate 6 Hl 2 Comp Colr 73mm 1/3 Tblr Implanted:Qty: 1 on 05/03/2020 by Dorothy Acosta MD at [facility] Right: Ankle [employer] [id number] / / Screw 3.5mm 60mm 2.2mm Mldir Lck Sq Drv Implanted:Qty: 1 on 05/03/2020 by Dorothy Acosta MD at [facility] Right: [employer] [id number] / / Screw 3.5mm 28mm Ft Nonlock Hex Drv Elb Implanted:Qty: 1 on 05/03/2020 by Dorothy Acosta MD at [facility] Right: [employer] [id number] / / Screw 3.5mm 58mm T15 Slf-Tap Lck Tpr Implanted:Qty: 1 on 05/03/2020 by Dorothy Acosta MD at [facility] Right: [employer] [id number] / / Screw 3.5mm 60mm T15 Lck Slf-Tap Tip Tpr Implanted:Qty: 3 on 05/03/2020 by Dorothy Acosta MD at [facility] Right: [employer] [id number] / / Screw 3.5mm 65mm T15 Lck Slf-Tap Tip Tpr Implanted:Qty: 2 on 05/03/2020 by Dorothy Acosta MD at [facility] Right: [employer] [id number] / / Wire K 1.6mm 150mm 1 End Troc Pnt Ss Sm Implanted:Qty: 1 on 05/03/2020 by Dorothy Acosta MD at [facility] Right: [employer] [id number] / / Screw 3.5mm 14mm 2.5mm Slf-Tap Sm Hex Implanted:Qty: 2 on 05/03/2020 by Dorothy Acosta MD at [facility] Right: Ankle [employer] [id number] / / Explanted Type [employer] Device Identifier Shelf Expiration Date Model / Serial / Lot Screw 3.5mm 75mm T15 Lck Lopro Slf-Tap Explanted:Qty: 1 on 05/03/2020 by Dorothy Acosta MD at [facility] Right: [employer] [id number] / / Procedures Procedure Name Priority Date/Time Associated Diagnosis Comments BASIC METABOLIC PANEL (CALCIUM TOTAL) Routine 05/05/2020 1:59 AM CDT Closed fracture of right tibial plateau, initial encounter Closed fracture of distal end of right fibula, unspecified fracture morphology, initial encounter from Last 3 Months or Most Recently Relevant to Health Maintenance Results * (ABNORMAL) BASIC METABOLIC PANEL (CALCIUM TOTAL) (05/05/2020 1:59 AM CDT) BUN 8 7 - 26 mg/dL 05/05/2020 3:34 AM [facility] Creatinine 0.5(L) 0.6 - 1.2 mg/dL 05/05/2020 3:34 AM [facility] Sodium 139 136 - 145 mmol/L 05/05/2020 3:34 AM [facility] Potassium 3.7 3.5 - 4.5 mmol/L 05/05/2020 3:34 AM [facility] Chloride 105 98 - 107 mmol/L 05/05/2020 3:34 AM [facility] CO2 24 22 - 29 mmol/L 05/05/2020 3:34 AM [facility] Glucose 126(H) 70 - 115 mg/dL 05/05/2020 3:34 AM [facility] Calcium 8.5 8.4 - 10.2 mg/dL 05/05/2020 3:34 AM [facility] Anion Gap 14 8 - 18 05/05/2020 3:34 AM [facility] BUN/Creatinine Ratio 16 7 - 23 05/05/2020 3:34 AM [facility] Osmolality Calculated 288 270 - 300 mOsm/kg 05/05/2020 3:34 AM [facility] eGFR >60 >60 mL/min/1.7 3 m2 05/05/2020 3:34 AM [facility] Blood BLOOD SPECIMEN / Unknown Lab Venipuncture / Unknown 05/05/2020 1:59 AM CDT 05/05/2020 2:54 AM T Eusebio Pederson MD LAB - CHEMISTRY KELLY ZHOU [facility] Organization Address City/State/ZIP Co de Phone Number [address] [address], [facility] [phone] from Last 3 Months or Most Recently Relevant to Health Maintenance Advance Directives * Full Code (Latest Code Status on File) Date Activated Date Inactivated Comments 04/28/2020 3:46 AM 05/05/2020 5:26 PM Care Teams Customer Retention Specialist Relationship Specialty Start Date End Date Almita Laurent APRN-SOUTH [facility] [place] [phone] PCP - General 05/26/19
--- OUTSIDE RECORDS SUMMARY | 2024-12-09 08:38 | XMS_ITS | Clinical Summary ---
Author Organization [facility] Address [address] [facility] [address] [place] [address] Phone Care Team Providers Care Portal Architect Name Role Phone Almita Laurent APRN Primary Care Provider [phone] Social History Tobacco Use Types Packs/Day Years Used Date Smoking Tobacco: Never Assessed Comments Unknown Sex and Gender Information Value Date Recorded Sex Assigned at Not on file Legal Sex Female 1:15 PM CDT Gender Identity Not on file Sexual Orientation Not on file Plan of Treatment Health Maintenance Due Date Last Done Comments Hepatitis C Virus (HCV) Screening 1961 Pap Smear 1982 Cervical Cancer Screening (CCS) 1991 HPV/Cotest 1991 Cologuard 2011 Immunochemical Fecal Occult Blood 2011 Mammogram 2011 Zoster Immunization (1 of 2) 2011 Pneumococcal Immunization (50+ years) (2 of 2 - PCV) 03/15/2015 03/15/2014 Colonoscopy 01/29/2024 01/28/2019 Colorectal Cancer Screening 01/29/2024 Influenza Immunization (#1) 07/18/202408/17, 07/30/2019, 09/01/2018, Additional history exists SARS-COV-2 Immunization ( season) 2024 09/05/2021, 03/03/2021, 02/03/2021 Respiratory Syncytial Virus (RSV) Immunization (Adult) (1 - 1-dose 75+ series) 2036 01/28/2019 DTaP/Tdap/Td Immunization Discontinued 03/15/2014, 08/2008 Pneumococcal Immunization Combined Discontinued 03/15/2014 TdaP Immunization Completed 03/15/2014, 02/25/2008 Hepatitis B Immunization Aged Out No longer eligible based on patient's age to complete this topic Meningococcal Immunization (ACWY) Aged Out No longer eligible based on patient's age to complete this topic Rotavirus Immunization Aged Out No lo nger eligible based on patient's age to complete this topic Procedures Procedure Name Priority Date/Time Associated Diagnosis Comments COLONOSCOPY Routine 01/28/2019 from Last 3 Months or Most Recently Relevant to Health Maintenance Results * COLONOSCOPY (01/28/2019) Zak T Zain DO PROCEDURE/MINOR SURGICAL ORDERA BLES Final Result from Last 3 Months or Most Recently Relevant to Health Maintenance Care Teams Portal Architect Relationship Specialty Start Date End Date Almita Laurent APRN [address] [place] [address] PCP - General Advanced Practice Nurse 09/02/17
--- OUTSIDE RECORDS SUMMARY | 2024-12-09 08:38 | XMS_ITS | Data Portability ---
Author Organization [facility] Address [address] [place] [address] Care Team Providers Care Balloon Artist Name Role Phone ALMITA MARTINEZ Primary Care Provider [phone] [place] Orthopedic Surgeon VIET DANGELO Neurologist Unavailable Chiropractor Unavailable Assessment No assessment recorded. Plan of Treatment Reminders Order Date Submit Date Provider Last Modified By Organization Details Last Modified Time Details Appointments ANY 30 2024 03:00P Cricket Arzola Not available Not available Not available Lab HbA1c (hemog lobin A1c), blood 2022 023 [email or web address] In-Office Order, Internal Use Only DO Not Attach Compendium DO Not Attach Compendium, Do Not Delete/merge, [id number] 08/08/2023 16:44:47 glucos e, finger stick, blood 2022 023 [email or web address] In-Office Order, Internal Use Only DO Not Attach Compendium DO Not Attach Compendium, Do Not Delete/merge, [id number] 08/08/2023 16:44:47 HbA1c (hemog lobin A1c), blood 2023 024 [email or web address] In-Office Order, Internal Use Only DO Not Attach Compendium DO Not Attach Compendium, Do Not Delete/merge, [id number] 01/08/2024 17:24:05 glucos e, finger stick, blood 2023 024 yarauz In-Office Order, Internal Use Only DO Not Attach Compendium DO Not Attach Compendium, Do Not Delete/merge, [id number] 01/08/2024 17:24:07 HbA1c (hemog lobin A1c), blood 2023 024 thai In-Office Order, Internal Use Only DO Not Attach Compendium DO Not Attach Compendium, Do Not Delete/merge, [id number] 05/04/2024 15:41:26 glucos e, finger stick, blood 2023 024 thai In-Office Order, Internal Use Only DO Not Attach Compendium DO Not Attach Compendium, Do Not Delete/merge, [id number] 05/04/2024 15:41:27 lipid panel, serum 2023 024 ADRIENNE BARTLETT, [address], [address], [place], [address], 05/06/2024 08:34:23 CMP, serum or plasma 2023 024 ADRIENNE BARTLETT, [address], [address], [place], [address], 05/06/2024 08:34:24 urinal ysis, comple te 2023 024 ADRIENNE BARTLETT, Malcolm lucita [address], [address], [place], [address], 05/06/2024 08:34:27 CBC w/ auto diff 2023 024 [facility]ENNE [facility]ARTLETT, [facility] [address], [address], [place], [address], 05/06/2024 08:34:28 TSH, ultra- sensit daphne, serum 2023 024 ADRIENNE BARTLETT, [facility] [address], [address], [place], [address], 05/06/2024 08:34:26 HbA1c (hemog lobin A1c), blood 2023 024 ADRIENNE In-Office Order, Internal Use Only DO Not Attach Compendium DO Not Attach Compendium, Do Not Delete/merge, [id number] 08/29/2024 09:08:46 glucos e, finger stick, blood 2023 024 ADRIENNE In-Office Order, Internal Use Only DO Not Attach Compendium DO Not Attach Compendium, Do Not Delete/merge, [id number] 08/30/2024 09:59:56 TSH, ultra- sensit daphne, serum 2023 ADRIENNE [facility], [address], [address], [place], [address], 08/30/2024 16:12:16 rf (rheum atoid factor ), serum 2023 ADRIENNE [facility], [address], [address], [place], [address], 08/30/2024 16:12:19 ESR (eryth rocyte sedime ntatio n rate), blood 2023 ADRIENNE [facility], [address], [place], [address], 08/30/2024 16:12:18 FER (antin uclear antibo dies) screen , serum 2023 ADRIENNE [facility], [address], [address], [place], [address], 08/30/2024 16:12:15 HbA1c (hemog lobin A1c), blood 2024 025 [email or web address] In-Office Order, Internal Use Only DO Not Attach Compendium DO Not Attach Compendium, Do Not Delete/merge, [id number] 12/01/2024 17:44:50 glucos e, finger stick, blood 2024 025 yarauz In-Office Order, Internal Use Only DO Not Attach Compendium DO Not Attach Compendium, Do Not Delete/merge, [id number] 12/01/2024 17:44:55 Referral gastro entero logist referr al 2023 024 ADRIENNEARABELLA kay MD, [address], [address], [place], [address], 04/30/2024 09:58:34 Procedures None record ed. Surgeries None record ed. Imaging XR, should er, 2 or more view 2023 024 [facility], [address] [address] [facility] [address], [place], [address], 08/28/2024 15:34:47 XR, chest, 2 view 2024 025 [facility], [address], [place], [address], 12/04/2024 15:03:18 MAMMO, screen ing, bilate ral 2024 025 [facility], [address], [place], [address], 12/07/2024 17:09:37 Medication Orders Ozempi c 1 mg/dos e (4 mg/3 mL) subcut aneous pen inject or 2022 023 [place] [facility], [address], [address], [place], [place], [id number], 01/08/2024 16:14:19 gabape ntin 300 mg capsul e 2022 023 [place] [employer] [facility], [address] [place] [address], [id number], 09/02/2023 15:39:47 terbin afine HCl 250 mg tablet 2022 023 [facility], [address] [place] [address], [id number], 12/01/2024 15:10:36 losart an 100 mg-hyd rochlo rothia zide 12.5 mg tablet 2022 023 [facility], [address] [place] [address], [id number], 09/02/2023 15:39:48 atenol ol 50 mg tablet 2022 023 [facility], [address] [place] [address], [id number], 09/02/2023 15:39:52 amlodi pine 2.5 mg tablet 2022 023 [facility], [address] [place] [address], [id number], 09/02/2023 15:39:51 levoth yroxin e 75 mcg tablet 2022 023 [facility], [address] [place] [address], [id number], 09/02/2023 15:39:46 valacy clovir 1 gram tablet 2022 023 [facility], [address] [place] [address], [id number], 08/08/2023 16:44:46 atorva statin 40 mg tablet 2022 023 [facility], [address] [place] [address], [id number], 09/02/2023 15:39:51 carbam azepin e ER 200 mg tablet ,exten ded releas e,12 hr 2022 023 [facility], [address] [place] [address], [id number], 09/03/2023 14:56:10 gabape ntin 300 mg capsul e 2023 024 [facility], [address] [place] [address], [id number], 08/10/2024 18:06:17 losart an 100 mg-hyd rochlo rothia zide 12.5 mg tablet 2023 024 [facility], [address] [place] [address], [id number], 05/03/2024 15:39:28 atenol ol 50 mg tablet 2023 024 [facility], [address] [place] [address], [id number], 05/03/2024 15:39:22 amlodi pine 2.5 mg tablet 2023 024 [facility], [address] [place] [address], [id number], 05/03/2024 15:39:27 levoth yroxin e 75 mcg tablet 2023 024 [facility], [address] [place] [address], [id number], 05/03/2024 15:39:25 valacy clovir 1 gram tablet 2023 024 [facility], [address] [place] [address], [id number], 02/03/2024 16:38:13 atorva statin 40 mg tablet 2023 024 [facility], [address] [place] [address], [id number], 05/03/2024 15:39:26 carbam azepin e ER 200 mg tablet ,exten ded releas e,12 hr 2023 024 [facility], [address] [place] [address], [id number], 05/03/2024 15:39:29 gabape ntin 300 mg capsul e 2023 024 [facility], [address] [place] [address], [id number], 05/04/2024 16:50:11 terbin afine HCl 250 mg tablet 2023 025 [facility], [address] [place] [address], [id number], 12/01/2024 15:21:32 losart an 100 mg-hyd rochlo rothia zide 12.5 mg tablet 2023 024 [facility], [address] [place] [address], [id number], 06/01/2024 15:12:45 atenol ol 50 mg tablet 2023 024 [facility], [address] [place] [address], [id number], 06/01/2024 15:12:46 amlodi pine 2.5 mg tablet 2023 024 [facility], [address] [place] [address], [id number], 06/01/2024 15:12:53 levoth yroxin e 75 mcg tablet 2023 024 [facility], [address] [place] [address], [id number], 06/01/2024 15:12:42 atorva statin 40 mg tablet 2023 024 [facility], [address] [place] [address], [id number], 06/01/2024 15:12:53 carbam azepin e ER 200 mg tablet ,exten ded releas e,12 hr 2023 024 [facility], [address] [place] [address], [id number], 06/07/2024 16:13:18 gabape ntin 300 mg capsul e 2023 [facility], [address] [place] [address], [id number], 11/30/2024 14:51:08 losart an 100 mg-hyd rochlo rothia zide 12.5 mg tablet 2023 [facility], [address] [place] [address], [id number], 11/30/2024 14:51:19 atenol ol 50 mg tablet 2023 [facility], [address] [place] [address], [id number], 11/30/2024 14:51:13 amlodi pine 2.5 mg tablet 2023 [facility], [address] [place] [address], [id number], 11/30/2024 14:51:16 Maxitr ol 3.5 mg/mL- 10,000 unit/m L-0.1% eye drops, suspen jennifer 2023 [facility], [address] [place] [address], [id number], 12/01/2024 15:21:31 levoth yroxin e 75 mcg tablet 2023 [facility], [address] [place] [address], [id number], 09/01/2024 15:57:07 atorva statin 40 mg tablet 2023 [facility], [address] [place] [address], [id number], 11/30/2024 14:51:12 carbam azepin e ER 200 mg tablet ,exten ded releas e,12 hr 2023 024 [facility], [address] [place] [address], [id number], 12/02/2024 14:18:35 Voltar en Arthri tis Pain 1 % topica l gel 2023 025 [facility], [address] [place] [address], [id number], 12/01/2024 15:21:34 Depo-M edrol 80 mg/mL suspen jennifer for inject ion 2023 024 [email or web address] Not available 12/01/2024 15:05:07 levoth yroxin e 75 mcg tablet 2024 025 [facility], [address] [place] [address], [id number], 12/01/2024 16:02:59 benzon atate 200 mg capsul e 2024 025 [facility], [address] [place] [address], [id number], 12/02/2024 14:18:35 gabape ntin 300 mg capsul e 2024 025 [facility], [address] [place] [address], [id number], 12/01/2024 16:24:01 atorva statin 40 mg tablet 2024 025 [facility], [address] [place] [address], [id number], 12/01/2024 16:23:59 carbam azepin e ER 200 mg tablet ,exten ded releas e,12 hr 2024 025 [facility], [address] [place] [address], [id number], 12/01/2024 16:23:59 losart an 100 mg-hyd rochlo rothia zide 12.5 mg tablet 2024 025 [facility], [address] [place] [address], [id number], 12/01/2024 17:38:41 atenol ol 50 mg tablet 2024 025 [facility], [address] [place] [address], [id number], 12/01/2024 16:24:00 amlodi pine 2.5 mg tablet 2024 [facility], [address] [place] [address], [id number], 12/01/2024 16:24:01 Patient TargetsNo targets recorded. Patient Instructions Encounter Date Encounter Id Patient Instructions Last Modified By Organization Details Last Modified Time 08/08/2023 [id number] alergias: instrucciones de cuidado - [allergies: care instructions] yarauz Not available 08/08/2023 16:44:46 C??MO manejar la s alergias: instrucciones de cuidado - [managing your allergies: care instructions] yarauz Not available 08/08/2023 16:44:46 prediabetes: instrucciones de cuidado - [prediabetes: care instructions] yarauz Not available 08/08/2023 16:44:47 A healthy lifestyle: care instructions yarauz Not available 08/08/2023 16:44:47 aprenda sobre la presi??n arterial kristine - [learning about high blood pressure] yarauz Not available 08/08/2023 16:44:46 vacuna contra la influenza (gripe): instrucciones de cuidado - [influenza (flu) vaccine: care instructions] yarauz Not available 08/08/2023 16:44:47 colesterol alto: instrucciones de cuidado - [high cholesterol: care instructions] yarauz Not available 08/08/2023 16:44:47 epilepsia: instrucciones de cuidado - [epilepsy: care instructions] yarauz Not available 08/08/2023 16:44:47 aprenda acerca d el peso saludable - [learning about healthy weight] yarauz Not available 08/08/2023 16:44:47 ??ndice de masa corporal: instrucciones de cuidado - [body mass index: care instructions] yarauz Not available 08/08/2023 16:44:46 A healthy lifestyle: care instructions yarauz Not available 08/08/2023 16:44:47 Hypoglycemia/Hyp er glycemia symptoms Uncontrolled Hypertension potential risks, heart attack, , stroke, kidney failure etc. Hypertension is the silent Killer Take your Hypertension medication daily keep appointments stop concentrated sugars--follow 1500 meal plan exercise 50-60 minutes daily on most days see eye doctor once a year see dentist every 6 months eat small frequent meals do not skip meals/breakfast avoid citric, spicy, fatty foods do not lay down soon after eating--wait at least 2 hours may use??OTC?Tums/P epcid/Omeprazole as needed if symptoms persist return for re-evaluation yarauz Not available 08/08/2023 16:19:44 01/08/2024 [id number] alergias: instrucciones de cuidado - [allergies: care instructions] yarauz Not available 01/08/2024 17:23:56 C??MO manejar la s alergias: instrucciones de cuidado - [managing your allergies: care instructions] yarauz Not available 01/08/2024 17:23:56 prediabetes: instrucciones de cuidado - [prediabetes: care instructions] yarauz Not available 01/08/2024 17:23:57 A healthy lifestyle: care instructions yarauz Not available 01/08/2024 17:23:56 aprenda sobre la presi??n arterial kristine - [learning about high blood pressure] yarauz Not available 01/08/2024 17:23:57 colesterol alto: instrucciones de cuidado - [high cholesterol: care instructions] yarauz Not available 01/08/2024 17:23:57 epilepsia: instrucciones de cuidado - [epilepsy: care instructions] yarauz Not available 01/08/2024 17:23:57 aprenda acerca d el peso saludable - [learning about healthy weight] yarauz Not available 01/08/2024 17:23:56 ??ndice de masa corporal: instrucciones de cuidado - [body mass index: care instructions] yarauz Not available 01/08/2024 17:23:57 Hypoglycemia/Hyp er glycemia symptoms Uncontrolled Hypertension potential risks, heart attack, , stroke, kidney failure etc. Hypertension is the silent Killer Take your Hypertension medication daily keep appointments stop concentrated sugars--follow 1500 meal plan exercise 50-60 minutes daily on most days see eye doctor once a year see dentist every 6 months eat small frequent meals do not skip meals/breakfast avoid citric, spicy, fatty foods do not lay down soon after eating--wait at least 2 hours may use??OTC?Tums/P epcid/Omeprazole as needed if symptoms persist return for re-evaluation yarauz Not available 01/08/2024 17:08:21 05/04/2024 [id number] alergias: instrucciones de cuidado - [allergies: care instructions] yarauz Not available 05/04/2024 15:41:21 C??MO manejar la s alergias: instrucciones de cuidado - [managing your allergies: care instructions] yarauz Not available 05/04/2024 15:41:21 prediabetes: instrucciones de cuidado - [prediabetes: care instructions] yarauz Not available 05/04/2024 15:41:20 A healthy lifestyle: care instructions yarauz Not available 05/04/2024 15:41:21 aprenda sobre la presi??n arterial kristine - [learning about high blood pressure] yarauz Not available 05/04/2024 15:41:21 colesterol alto: instrucciones de cuidado - [high cholesterol: care instructions] yarauz Not available 05/04/2024 15:41:21 epilepsia: instrucciones de cuidado - [epilepsy: care instructions] yarauz Not available 05/04/2024 15:41:21 aprenda acerca d el peso saludable - [learning about healthy weight] yarauz Not available 05/04/2024 15:41:21 ??ndice de masa corporal: instrucciones de cuidado - [body mass index: care instructions] yarauz Not available 05/04/2024 15:41:21 Hypoglycemia/Hyp er glycemia symptoms Uncontrolled Hypertension potential risks, heart attack, , stroke, kidney failure etc. Hypertension is the silent Killer Take your Hypertension medication daily keep appointments stop concentrated sugars--follow 1500 meal plan exercise 50-60 minutes daily on most days see eye doctor once a year see dentist every 6 months eat small frequent meals do not skip meals/breakfast avoid citric, spicy, fatty foods do not lay down soon after eating--wait at least 2 hours may use??OTC?Tums/P epcid/Omeprazole as needed if symptoms persist return for re-evaluation yarauz Not available 05/04/2024 15:25:04 08/27/2024 [id number] alergias: instrucciones de cuidado - [allergies: care instructions] yarauz Not available 08/27/2024 16:58:34 C??MO manejar la s alergias: instrucciones de cuidado - [managing your allergies: care instructions] yarauz Not available 08/27/2024 16:58:34 prediabetes: instrucciones de cuidado - [prediabetes: care instructions] yarauz Not available 08/27/2024 16:58:34 A healthy lifestyle: care instructions yarauz Not available 08/27/2024 16:58:34 shoulder stretches: exercises yarauz Not available 08/27/2024 17:03:05 shoulder arthritis: exercises yarauz Not available 08/27/2024 17:03:05 frozen shoulder: exercises yarauz Not available 08/27/2024 17:03:05 aprenda sobre la presi??n arterial kristine - [learning about high blood pressure] yarauz Not available 08/27/2024 16:58:34 vacuna contra la influenza (gripe): instrucciones de cuidado - [influenza (flu) vaccine: care instructions] yarauz Not available 08/27/2024 17:04:37 colesterol alto: instrucciones de cuidado - [high cholesterol: care instructions] yarauz Not available 08/27/2024 16:58:34 epilepsia: instrucciones de cuidado - [epilepsy: care instructions] yarauz Not available 08/27/2024 16:58:34 aprenda acerca d el peso saludable - [learning about healthy weight] yarauz Not available 08/27/2024 16:58:34 ??ndice de masa corporal: instrucciones de cuidado - [body mass index: care instructions] yarauz Not available 08/27/2024 16:58:34 Hypoglycemia/Hyp er glycemia symptoms Uncontrolled Hypertension potential risks, heart attack, , stroke, kidney failure etc. Hypertension is the silent Killer Take your Hypertension medication daily keep appointments stop concentrated sugars--follow 1500 meal plan exercise 50-60 minutes daily on most days see eye doctor once a year see dentist every 6 months eat small frequent meals do not skip meals/breakfast avoid citric, spicy, fatty foods do not lay down soon after eating--wait at least 2 hours may use??OTC?Tums/P epcid/Omeprazole as needed if symptoms persist return for re-evaluation If you develop: increased pain, swelling, warmth, or redness in your shoulder. Red streaks leading from a place on your shoulder. Pus draining from an area of your shoulder. Swollen lymph nodes in your neck, armpits, or groin. A fever. seek immediate reevaluation yarauz Not available 08/27/2024 17:03:04 12/01/2024 [id number] alergias: instrucciones de cuidado - [allergies: care instructions] yarauz Not available 12/01/2024 15:56:10 C??MO manejar la s alergias: instrucciones de cuidado - [managing your allergies: care instructions] yarauz Not available 12/01/2024 15:56:10 prediabetes: instrucciones de cuidado - [prediabetes: care instructions] yarauz Not available 12/01/2024 15:56:10 pleuritis: instrucciones de cuidado - [pleurisy: care instructions] yarauz Not available 12/01/2024 16:21:12 colesterol alto: instrucciones de cuidado - [high cholesterol: care instructions] yarauz Not available 12/01/2024 15:56:10 A healthy lifestyle: care instructions yarauz Not available 12/01/2024 15:56:10 epilepsia: instrucciones de cuidado - [epilepsy: care instructions] yarauz Not available 12/01/2024 15:56:10 aprenda acerca d e las pruebas de detecci??n del c??ncer de seno - [learning about breast cancer screening] yarauz Not available 12/01/2024 16:16:08 aprenda sobre la presi??n arterial kristine - [learning about high blood pressure] yarauz Not available 12/01/2024 15:56:10 aprenda acerca d el peso saludable - [learning about healthy weight] yarauz Not available 12/01/2024 15:56:10 ??ndice de masa corporal: instrucciones de cuidado - [body mass index: care instructions] yarauz Not available 12/01/2024 15:56:10 Hypoglycemia/Hyp er glycemia symptoms Uncontrolled Hypertension potential risks, heart attack, , stroke, kidney failure etc. Hypertension is the silent Killer Take your Hypertension medication daily keep appointments stop concentrated sugars--follow 1500 meal plan exercise 50-60 minutes daily on most days see eye doctor once a year see dentist every 6 months eat small frequent meals do not skip meals/breakfast avoid citric, spicy, fatty foods do not lay down soon after eating--wait at least 2 hours may use??OTC?Tums/P epcid/Omeprazole as needed if symptoms persist return for re-evaluation If you develop: increased pain, swelling, warmth, or redness in your shoulder. Red streaks leading from a place on your shoulder. Pus draining from an area of your shoulder. Swollen lymph nodes in your neck, armpits, or groin. A fever. seek immediate reevaluation thai Not available 12/01/2024 15:49:24 Reason for Referral [employer] Referral for Adenomatous polyp of colon Adenomatous polyp of colon Referring Physician: Almita Martinez, Family Medicine, Encounter Date: 01/08/2024 Results Created Date Observation Date Name Description Value Unit Range Abnormal Flag Note LastModifiedBy Organization Detail LastModifiedTime 08/08/20 23 08/08/2023 HbA1c (hemo globi n A1c), blood HbA1c 5.5 Not Available In-Office Order Internal Use Only DO Not Attach Compendium DO Not Attach Compendium, Do Not Delete/merge, [id number] 08/08/2023 15:42:52 08/08/20 23 08/08/2023 gluco se, finge rstic k, blood Blood Glucose: mg/dl 102 Not Available In-Off ice Order Internal Use Only DO Not Attach Compendium DO Not Attach Compendium, Do Not Delete/merge, [id number] 08/08/2023 15:42:57 01/08/20 24 01/08/2024 HbA1c (hemo globi n A1c), blood HbA1c 5.7 Not Available In-Office Order Internal Use Only DO Not Attach Compendium DO Not Attach Compendium, Do Not Delete/merge, 01/08/2024 16:12:02 01/08/20 24 01/08/2024 gluco se, finge rstic k, blood Blood Glucose: mg/dl 89 Not Available In-Off ice Order Internal Use Only DO Not Attach Compendium DO Not Attach Compendium, Do Not Delete/merge, 01/08/2024 16:12:11 05/04/20 24 05/04/2024 HbA1c (hemo globi n A1c), blood HbA1c 5.8 Not Available In-Office Order Internal Use Only DO Not Attach Compendium DO Not Attach Compendium, Do Not Delete/merge, [id number] 05/04/2024 15:07:40 05/04/20 24 05/04/2024 gluco se, finge rstic k, blood Blood Glucose: mg/dl 95 Not Available In-Off ice Order Internal Use Only DO Not Attach Compendium DO Not Attach Compendium, Do Not Delete/merge, [id number] 05/04/2024 15:07:41 05/05/20 24 05/06/2024 LIPID PANEL cholesterol, total 165 mg/dL 100-19 9 Not Available [facility] ([facility]) [address] [place], [address], 05/06/2024 08:34:23 05/05/20 24 05/06/2024 LIPID PANEL triglyceride s 90 mg/dL 0-149 Not Available [facility] ([facility]) [address] [place], [address], 05/06/2024 08:34:23 05/05/20 24 05/06/2024 LIPID PANEL HDL cholesterol 63 mg/dL >39 Not Available [facility] ([facility]) [address] [place], [address], 05/06/2024 08:34:23 05/05/20 24 05/06/2024 LIPID PANEL VLDL cholesterol joni 17 mg/dL 5-40 Not Available [facility] ([facility]) [address] [place], [address], 05/06/2024 08:34:23 05/05/20 24 05/06/2024 LIPID PANEL LDL chol calc ([facility]) 85 mg/dL 0-99 Not Available [facility] ([facility]) [address] [place], [address], 05/06/2024 08:34:23 05/05/20 24 05/06/2024 COMP. METAB OLIC PANEL (14) glucose 131 mg/dL 70-99 above high normal Not Available [facility] ([facility]) [address] [place], [address], 05/06/2024 08:34:24 05/05/20 24 05/06/2024 COMP. METAB OLIC PANEL (14) BUN 12 mg/dL 8-27 Not Available [facility] ([facility]) [address] [facility] [place], [address], 05/06/2024 08:34:24 05/05/20 24 05/06/2024 COMP. METAB OLIC PANEL (14) creatinine 0.52 mg/dL 0.57-1 .00 below low normal Not Available [facility] ([facility]) [address] [facility] [place], [address], 05/06/2024 08:34:24 05/05/20 24 05/06/2024 COMP. METAB OLIC PANEL (14) eGFR 105 mL/mi n/1.7 3 >59 Not Available [facility] ([facility]) [address] [facility] [place], [address], 05/06/2024 08:34:24 05/05/20 24 05/06/2024 COMP. METAB OLIC PANEL (14) BUN/creatini ne ratio 23 12-28 Not Available [facility] ([facility]) [address] [facility] [place], [address], 05/06/2024 08:34:24 05/05/20 24 05/06/2024 COMP. METAB OLIC PANEL (14) sodium 142 mmol/ L 134-14 4 Not Available [facility] ([facility]) [address] [place], [address], 05/06/2024 08:34:24 05/05/20 24 05/06/2024 COMP. METAB OLIC PANEL (14) potassium 4.1 mmol/ L 3.5-5. 2 Not Available [facility] ([facility]) [address] [place], [address], 05/06/2024 08:34:24 05/05/20 24 05/06/2024 COMP. METAB OLIC PANEL (14) chloride 104 mmol/ L 96-106 Not Available [facility] ([facility]) [address] [place], [address], 05/06/2024 08:34:24 05/05/20 24 05/06/2024 COMP. METAB OLIC PANEL (14) carbon dioxide, total 24 mmol/ L Not Available [facility] ([facility]) [address] [place], [address], 05/06/2024 08:34:24 05/05/20 24 05/06/2024 COMP. METAB OLIC PANEL (14) calcium 9.1 mg/dL 8.7-10 .3 Not Available [facility] ([facility]) [address] [place], [address], 05/06/2024 08:34:24 05/05/20 24 05/06/2024 COMP. METAB OLIC PANEL (14) protein, total 6.3 g/dL 6.0-8. 5 Not Available [facility] ([facility]) [address] [place], [address], 05/06/2024 08:34:24 05/05/20 24 05/06/2024 COMP. METAB OLIC PANEL (14) albumin 4.3 g/dL 3.9-4. 9 Not Available [facility] ([facility]) [address] [place], [address], 05/06/2024 08:34:24 05/05/20 24 05/06/2024 COMP. METAB OLIC PANEL (14) globulin, total 2.0 g/dL 1.5-4. 5 Not Available [facility] ([facility]) [address] [place], [address], 05/06/2024 08:34:24 05/05/20 24 05/06/2024 COMP. METAB OLIC PANEL (14) bilirubin, total 0.3 mg/dL 0.0-1. 2 Not Available [facility] ([facility]) [address] [place], [address], 05/06/2024 08:34:24 05/05/20 24 05/06/2024 COMP. METAB OLIC PANEL (14) alkaline phosphatase 84 IU/L 44-121 Not Available [facility] ([facility]) [address] [facility], [place], [address], 05/06/2024 08:34:24 05/05/20 24 05/06/2024 COMP. METAB OLIC PANEL (14) AST (SGOT) 26 IU/L 0-40 Not Available [facility] ([facility]) [address] [facility], [place], [address], 05/06/2024 08:34:24 05/05/20 24 05/06/2024 COMP. METAB OLIC PANEL (14) ALT (SGPT) 23 IU/L 0-32 Not Available [facility] ([facility]) [address] [facility], [place], [address], 05/06/2024 08:34:24 05/05/20 24 05/06/2024 MICRO SCOPI C EXAMI NATIO N WBC NONE SEEN /hpf 0-5 Not Available [facility] ([facility]) [address] [facility], [place], [address], 05/06/2024 08:34:25 05/05/20 24 05/06/2024 MICRO SCOPI C EXAMI NATIO N RBC 0-2 /hpf 0-2 Not Available [facility] ([facility]) [address] [facility], [place], [address], 05/06/2024 08:34:25 05/05/20 24 05/06/2024 MICRO SCOPI C EXAMI NATIO N epithelial cells (non renal) 0-10 /hpf 0-10 Not Available [facility] ([facility]) [address] [facility], [place], [address], 05/06/2024 08:34:25 05/05/20 24 05/06/2024 MICRO SCOPI C EXAMI NATIO N casts NONE SEEN /lpf nonese en Not Available [facility] ([facility]) [address] [facility], [place], [address], 05/06/2024 08:34:25 05/05/20 24 05/06/2024 MICRO SCOPI C EXAMI NATIO N bacteria NONE SEEN nonese en/few Not Available [facility] ([facility]) [address] [facility], [place], [address], 05/06/2024 08:34:25 05/05/20 24 05/06/2024 TSH RFX ON ABNOR MAL TO FREE T4 TSH 4.440 uIU/m L 0.450- 4.500 Not Available [facility] ([facility]) [address] [facility], [place], [address], 05/06/2024 08:34:26 05/05/20 24 05/06/2024 URINA LYSIS , COMPL ETE specific gravity 1.021 1.005- 1.030 Not Available [facility] ([facility]) [address] [facility], [place], [address], 05/06/2024 08:34:27 05/05/20 24 05/06/2024 URINA LYSIS , COMPL ETE pH 6.0 5.0-7. 5 Not Available [facility] ([facility]) [address] [facility], [place], [address], 05/06/2024 08:34:27 05/05/20 24 05/06/2024 URINA LYSIS , COMPL ETE urine-color YELLOW yellow Not Available [facility] ([facility]) [address] [facility], [place], [address], 05/06/2024 08:34:27 05/05/20 24 05/06/2024 URINA LYSIS , COMPL ETE appearance CLEAR clear Not Available [facility] ([facility]) [address] [facility], [place], [address], 05/06/2024 08:34:27 05/05/20 24 05/06/2024 URINA LYSIS , COMPL ETE WBC esterase NEGATI VE negati ve Not Available [facility] ([facility]) [address] [place], [address], 05/06/2024 08:34:27 05/05/20 24 05/06/2024 URINA LYSIS , COMPL ETE protein NEGATI VE negati ve/tra ce Not Available [facility] ([facility]) [address] [place], [address], 05/06/2024 08:34:27 05/05/20 24 05/06/2024 URINA LYSIS , COMPL ETE glucose NEGATI VE negati ve Not Available [facility] ([facility]) [address] [place], [address], 05/06/2024 08:34:27 05/05/20 24 05/06/2024 URINA LYSIS , COMPL ETE ketones NEGATI VE negati ve Not Available [facility] ([facility]) [address] [place], [address], 05/06/2024 08:34:27 05/05/20 24 05/06/2024 URINA LYSIS , COMPL ETE occult blood NEGATI VE negati ve Not Available [facility] ([facility]) [address] [place], [address], 05/06/2024 08:34:27 05/05/20 24 05/06/2024 URINA LYSIS , COMPL ETE bilirubin NEGATI VE negati ve Not Available [facility] ([facility]) [address] [place], [address], 05/06/2024 08:34:27 05/05/20 24 05/06/2024 URINA LYSIS , COMPL ETE urobilinogen ,semi-qn 0.2 mg/dL 0.2-1. 0 Not Available [facility] ([facility]) [address] [facility], [place], [address], 05/06/2024 08:34:27 05/05/20 24 05/06/2024 URINA LYSIS , COMPL ETE nitrite, urine NEGATI VE negati ve Not Available [facility] ([facility]) [address] [facility], [place], [address], 05/06/2024 08:34:27 05/05/20 24 05/06/2024 URINA LYSIS , COMPL ETE microscopic examination COMMEN T Micro scopi c follo ws if indic ated. Not Available [facility] ([facility]) [address] [facility], [place], [address], 05/06/2024 08:34:27 05/05/20 24 05/06/2024 URINA LYSIS , COMPL ETE microscopic examination SEE BELOW: Micro scopi c was indic ated and was perfo rmed. Not Available [facility] ([facility]) [address] [facility], [place], [address], 05/06/2024 08:34:27 05/05/20 24 05/06/2024 CBC WITH DIFFE RENTI AL/PL ATELE T WBC 3.5 x10e3 /uL 3.4-10 .8 Not Available [facility] ([facility]) [address] [facility], [place], [address], 05/06/2024 08:34:28 05/05/20 24 05/06/2024 CBC WITH DIFFE RENTI AL/PL ATELE T RBC 4.08 x10e6 /uL 3.77-5 .28 Not Available [facility] ([facility]) [address] [facility], [place], [address], 05/06/2024 08:34:28 05/05/20 24 05/06/2024 CBC WITH DIFFE RENTI AL/PL ATELE T hemoglobin 13.1 g/dL 11.1-1 5.9 Not Available [facility] ([facility]) [address] [facility], [place], [address], 05/06/2024 08:34:28 05/05/20 24 05/06/2024 CBC WITH DIFFE RENTI AL/PL ATELE T hematocrit 38.7 % 34.0-4 6.6 Not Available [facility] ([facility]) [address] [facility], [place], [address], 05/06/2024 08:34:28 05/05/20 24 05/06/2024 CBC WITH DIFFE RENTI AL/PL ATELE T MCV 95 fL 79-97 Not Available [facility] ([facility]) [address] [facility], [place], [address], 05/06/2024 08:34:28 05/05/20 24 05/06/2024 CBC WITH DIFFE RENTI AL/PL ATELE T MCH 32.1 pg 26.6-3 3.0 Not Available [facility] ([facility]) [address] [facility], [place], [address], 05/06/2024 08:34:28 05/05/20 24 05/06/2024 CBC WITH DIFFE RENTI AL/PL ATELE T MCHC 33.9 g/dL 31.5-3 5.7 Not Available [facility] ([facility]) [address] [place], [address], 05/06/2024 08:34:28 05/05/20 24 05/06/2024 CBC WITH DIFFE RENTI AL/PL ATELE T RDW 11.6 % 11.7-1 5.4 below low normal Not Available [facility] ([facility]) [address] [place], [address], 05/06/2024 08:34:28 05/05/20 24 05/06/2024 CBC WITH DIFFE RENTI AL/PL ATELE T platelets 156 x10e3 /uL 150-45 0 Not Available [facility] ([facility]) [address] [place], [address], 05/06/2024 08:34:28 05/05/20 24 05/06/2024 CBC WITH DIFFE RENTI AL/PL ATELE T neutrophils 50 % notest ab. Not Available [facility] ([facility]) [address] [facility], [place], [address], 05/06/2024 08:34:28 05/05/20 24 05/06/2024 CBC WITH DIFFE RENTI AL/PL ATELE T lymphs 37 % notest ab. Not Available [facility] ([facility]) [address] [facility], [place], [address], 05/06/2024 08:34:28 05/05/20 24 05/06/2024 CBC WITH DIFFE RENTI AL/PL ATELE T monocytes 8 % notest ab. Not Available [facility] ([facility]) [address] [facility], [place], [address], 05/06/2024 08:34:28 05/05/20 24 05/06/2024 CBC WITH DIFFE RENTI AL/PL ATELE T eos 4 % notest ab. Not Available [facility] ([facility]) [address] [facility], [place], [address], 05/06/2024 08:34:28 05/05/20 24 05/06/2024 CBC WITH DIFFE RENTI AL/PL ATELE T basos 1 % notest ab. Not Available [facility] ([facility]) [address] [facility], [place], [address], 05/06/2024 08:34:28 05/05/20 24 05/06/2024 CBC WITH DIFFE RENTI AL/PL ATELE T neutrophils (absolute) 1.7 x10e3 /uL 1.4-7. 0 Not Available [facility] ([facility]) [address] [facility], [place], [address], 05/06/2024 08:34:28 05/05/20 24 05/06/2024 CBC WITH DIFFE RENTI AL/PL ATELE T lymphs (absolute) 1.3 x10e3 /uL 0.7-3. 1 Not Available [facility] ([facility]) [address] [facility], [place], [address], 05/06/2024 08:34:28 05/05/20 24 05/06/2024 CBC WITH DIFFE RENTI AL/PL ATELE T monocytes(ab solute) 0.3 x10e3 /uL 0.1-0. 9 Not Available [facility] ([facility]) [address] [facility], [place], [address], 05/06/2024 08:34:28 05/05/20 24 05/06/2024 CBC WITH DIFFE RENTI AL/PL ATELE T eos (absolute) 0.1 x10e3 /uL 0.0-0. 4 Not Available [facility] ([facility]) [address] [facility], [place], [address], 05/06/2024 08:34:28 05/05/20 24 05/06/2024 CBC WITH DIFFE RENTI AL/PL ATELE T baso (absolute) 0.0 x10e3 /uL 0.0-0. 2 Not Available [facility] ([facility]) [address] [facility], [place], [address], 05/06/2024 08:34:28 05/05/20 24 05/06/2024 CBC WITH DIFFE RENTI AL/PL ATELE T immature granulocytes 0 % notest ab. Not Available [facility] ([facility]) [address] [facility], [place], [address], 05/06/2024 08:34:28 05/05/20 24 05/06/2024 CBC WITH DIFFE RENTI AL/PL ATELE T immature grans (abs) 0.0 x10e3 /uL 0.0-0. 1 Not Available [facility] ([facility]) [address] [place], [address], 05/06/2024 08:34:28 08/28/2008/29/2024 GLUCO SE glucose 141 mg/dL 70-99 above high normal Not Available [facility] ([facility]) [address] [facility], [place], [address], 08/29/2024 09:08:46 08/28/2008/29/2024 HEMOG LOBIN A1C hemoglobin A1C 6.3 % 4.8-5. 6 above high normal Predi abete s: 5.7 - 6.4 Diabe olvin: >6.4 Glyce doris contr ol for adult s with diabe olvin: <7.0 Not Available [facility] ([facility]) [address] [facility], [place], [address], 08/29/2024 09:08:46 08/28/2008/30/2024 ANTIN UCLEA R AB MULTI PLEX RFX 9 FER direct POSITI VE negati ve abnormal Not Available [facility] ([facility]) [address] [place], [address], 08/30/2024 16:12:15 08/28/2008/30/2024 ANTIN UCLEA R AB MULTI PLEX RFX 9 anti-DNA (ds) Ab qn <1 IU/mL 0-9 Negat daphen <5 Equiv ocal 5 - 9 Posit daphne >9 Not Available [facility] ([facility]) [address] [place], [address], 08/30/2024 16:12:15 08/28/2008/30/2024 ANTIN UCLEA R AB MULTI PLEX RFX 9 retail office manager antibodies <0.2 Not Available [facility] ([facility]) [address] [place], [address], 08/30/2024 16:12:15 08/28/2008/30/2024 ANTIN UCLEA R AB MULTI PLEX RFX 9 palma antibodies <0.2 Not Available [facility] ([facility]) [address] [facility], [place], [address], 08/30/2024 16:12:15 08/28/20 24 08/30/2024 ANTIN UCLEA R AB MULTI PLEX RFX 9 antisclerode rma-70 antibodies <0.2 Not Available [facility] ([facility]) [address] [facility], [place], [address], 08/30/2024 16:12:15 08/28/2008/30/2024 ANTIN UCLEA R AB MULTI PLEX RFX 9 sjogren's anti-ss-A <0.2 Not Available [facility] ([facility]) [address] [facility], [place], [address], 08/30/2024 16:12:15 08/28/20 24 08/30/2024 ANTIN UCLEA R AB MULTI PLEX RFX 9 sjogren's anti-ss-B <0.2 Not Available [facility] ([facility]) [address] [place], [address], 08/30/2024 16:12:15 08/28/20 24 08/30/2024 ANTIN UCLEA R AB MULTI PLEX RFX 9 antichromati n antibodies 0.2 ai 0.0-0. 9 Not Available [facility] ([facility]) [address] [place], [address], 08/30/2024 16:12:15 08/28/2008/30/2024 ANTIN UCLEA R AB MULTI PLEX RFX 9 anti-margarette-1 <0.2 ai 0.0-0. 9 Not Available [facility] ([facility]) [address] [place], [address], 08/30/2024 16:12:15 08/28/20 24 08/30/2024 ANTIN UCLEA R AB MULTI PLEX RFX 9 anti-centrom ere B antibodies >8.0 above high normal Not Available [facility] ([facility]) [address], [place], [address], 08/30/2024 16:12:15 08/28/20 24 08/30/2024 ANTIN UCLEA R AB MULTI PLEX RFX 9 see below: COMMEN T [employer]oa ntibo dy Disea se Assoc iatio n ----- ----- ----- ----- ----- ----- ----- ----- ----- ----- ----- ----- Condi tion Frequ ency ----- ----- ----- ----- - ----- ----- ----- ----- ---- ----- ---- Antin uclea r Antib j carlos, SLE, mixed conne ctive Direc t (FER- D) tissu e disea ses ----- ----- ----- ----- - ----- ----- ----- ----- ---- ----- ---- dsDNA SLE 40 - 60% ----- ----- ----- ----- - ----- ----- ----- ----- ---- ----- ---- Chrom atin Drug induc ed SLE 90% SLE 48 - 97% ----- ----- ----- ----- - ----- ----- ----- ----- ---- ----- ---- SSA (Ro) SLE 25 - 35% Sjogr en's Syndr ome 40 - 70% Neona jayy Lupus 100% ----- ----- ----- ----- - ----- ----- ----- ----- ---- ----- ---- SSB (La) SLE 10% Sjogr en's Syndr ome 30% ----- ----- ----- ----- - ----- ----- ----- ----- --- ----- ---- Sm (anti -Collin h) SLE 15 - 30% ----- ----- ----- ----- - ----- ----- ----- ----- --- ----- ---- BILINGUAL INSIDE SALES REPRESENTATIVE Mixed Conne ctive Tissu e Disea se 95% (U1 nRNP, SLE 30 - 50% anti- ribon ucleo prote in) Polym yosit is and/o r [place] tomyo sitis 20% ----- ----- ----- ----- - ----- ----- ----- ----- ---- ----- ---- Scl-7 0 (anti DNA Scler oderm a (diff use) 20 - 35% topoi randall ase) Crest 13% ----- ----- ----- ----- - ----- ----- ----- ----- ---- ----- ---- Margarette-1 Polym yosit is and/o r [place] tomyo sitis 20 - 40% ----- ----- ----- ----- - ----- ----- ----- ----- ---- ----- ---- Centr omere B Scler oderm a - Crest varia nt 80% Not Available [facility] ([facility]) [address] [facility], [place], [address], 08/30/2024 16:12:15 08/28/20 24 08/29/2024 TSH RFX ON ABNOR MAL TO FREE T4 TSH 1.900 uIU/m L 0.450- 4.500 Not Available [facility] ([facility]) [address] [facility], [place], [address], 08/30/2024 16:12:16 08/28/20 24 08/29/2024 SEDIM ENTAT ION RATE- WESTE RGREN sedimentatio n rate-westerg urszula 6 mm/HR 0-40 Not Available [facility] ([facility]) [address] [facility], [place], [address], 08/30/2024 16:12:18 08/28/20 24 08/29/2024 RHEUM ATOID FACTO R (RF) rheumatoid factor (rf) 10.0 IU/mL <14.0 Not Available [facility] ([facility]) [address] [facility], [place], [address], 08/30/2024 16:12:19 12/01/19 25 12/01/2024 HbA1c (hemo globi n A1c), blood HbA1c 6.1 Not Available In-Office Order Internal Use Only DO Not Attach Compendium DO Not Attach Compendium, Do Not Delete/merge, [id number] 12/01/2024 15:48:55 12/01/19 25 12/01/2024 gluco se, finge rstic k, blood Blood Glucose: mg/dl 123 Not Available In-Off ice Order Internal Use Only DO Not Attach Compendium DO Not Attach Compendium, Do Not Delete/merge, [id number] 12/01/2024 15:48:55 09/29/20 23 09/27/2023 MAMMO , scree kaiden, bilat eral No observ ation record ed. [facility] [address] [facility] [address], [place], [address], 10/02/2023 14:32:55 08/28/20 24 08/28/2024 XR, madi ann, 2 or more view No observ ation record ed. [facility] [address], [place], [address], 12/01/2024 15:52:49 12/04/19 25 12/04/2024 XR, chest , 2 view No observ ation record ed. [facility] [address], [place], [address], 12/07/2024 11:24:37 12/07/19 25 12/07/2024 MAMMO , scree kaiden, bilat eral No observ ation record ed. [facility] [address], [place], [address], 12/08/2024 10:06:41 Result Notes None recorded. Problems Name Problem SNOMED Code Status Onset Date Resolution Date Notes Provider Name and Address Organization Details Recorded Time Polyp of colon 15700839 Completed 201808/30/2020 Rosa Isela Argueta RN null, [place] - [facility] 0 10:23:19 Hemorrhoi ds 31251311 Completed 201808/30/2020 Rosa Isela Argueta RN null, [place] - [facility] 0 10:22:56 Body mass index 30+ - obesity 278483202 Active 2018 Not Available [facility] 3 17:10:16 Subclinic al hypothyro idism 72902305 Active 2019 Not Available [facility] 3 17:10:16 Colitis 20336692 Completed 201910/29/2021 Rosa Isela Argueta RN null, [place] - [facility] 1 15:11:55 Hiatal hernia 92596464 Active 2019 Not Available [facility] 3 17:10:17 Inguinal hernia 357220509 Active 2019 Not Available [facility] 3 17:10:16 Vitamin D deficienc y 37541907 Active 2019 Not Available [facility] 3 17:10:16 Lumbosacr al radiculop athy 0303441 Active 2021 Not Available [facility] 3 17:10:16 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 488950658 Active 2021 Not Available [facility] 3 17:10:16 Diverticu losis of colon 086648758 Active 2021 Not Available [facility] 3 17:10:17 Osteoarth ritis of knee 548571767 Active 2021 Not Available [facility] 3 17:10:16 [place] polyp of colon 083235301 Active 2021 Not Available [facility] 3 17:10:16 Depressio n screening Active 2021 Not Available [facility] 3 17:10:16 Epigastri c pain 87304572 Active 2021 Not Available [facility] 3 17:10:17 Venous stasis 14816730 Active 2021 Not Available [facility] 3 17:10:17 Obesity 165445379 Active 2022 Not Available [facility] 3 17:10:16 Exposure to herpes simplex virus Active 2022 Not Available [facility] 3 17:10:16 Postmenop ausal state 70589294 Active 2022 Not Available [facility] 3 17:10:17 Herpes simplex 16018810 Active 2023 CRICKET Catalan Attn: Accounting ,[address] [place], [address] , [place] - [facility] 4 15:27:39 Mixed hyperlipi demia 384072196 Active 2023 CRICKET Catalan Attn: Accounting ,[address] [facility] [place], [address] , [place] [facility] 4 15:30:59 Multiple skin tags on neck 035444097 Active 2023 CRICKET Catalan Attn: Accounting ,[address] [place], [address] , [place] [facility] 4 15:31:29 Pain of left shoulder joint 44482258402 946944 Active 2023 CRICKET Catalan Attn: Accounting ,[address] [facility], [place], [address] , [place] - [facility] 4 17:16:26 Multiple joint pain 64662502 Active 2024 CRICKET Catalan Attn: Accounting ,[address] [facility], [place], [address] , [place] - [facility] 5 15:54:23 Glucose level outside reference range 899670917 Completed 08/08/2017 Rosa Isela Argueta RN null, [place] - [facility] 7 16:34:19 Allergic rhinitis 12016017 Active Not Available [facility] 3 17:10:17 Impaired glucose tolerance 9491205 Active Not Available [facility] 17:10:17 Obesity 989656442 Completed 01/05/2019 CRICKET Catalan Attn: Accounting ,[address] [facility], [place], [address] , [place] - [facility] 3 17:08:19 Acute sinusitis 77067347 Completed 08/08/2017 Rosa Isela Argueta RN null, [place] [facility] 7 16:34:24 Venous stasis 11645129 Completed 08/30/2020 CRICKET Catalan Attn: Accounting ,[address] [place], [address] , [place] [facility] 3 17:08:19 Foot callus 575281660 Completed 08/08/2017 Rosa Isela Argueta RN null, [place] [facility] 7 16:34:32 Essential hypertens ion 23844768 Active Not Available [facility] 3 17:10:16 Hyperlipi demia 23614972 Active Not Available [facility] 3 17:10:16 Seizure disorder 879563177 Active Not Available [facility] 3 17:10:16 Migraine 57519908 Active Not Available [facility] 17:10:16 Morbid obesity 415380082 Completed 08/30/2020 CHIKIS Fang, [facility] 0 10:23:14 Heel pain 0012927 Completed 08/08/2017 CHIKIS Fang, [facility] 7 16:34:37 Tinea pedis 4157641 Completed 08/08/2017 CHIKIS Fang, [facility] 7 16:35:04 Notes:Some problems listed i n Document: #[id number] could not be added to this patient's chart. Please review this document and add these problems to the patient's chart manually as needed. Problem Notes None recorded. Procedures Surgical History Date Name Laterality Status Provider Name and Address Organization Details Recorded Time 05/04/20 24 Skin Tag Removal completed CRICKET Catalan Attn: Accounting,[address] [place], [address], [facility] 05/07/2024 15:32:36 04/30/20 24 colonoscopy completed Yao Art MA [facility] 05/04/2024 15:16:40 09/27/20 23 Date of Last Mammogram completed Rosa Isela Argueta RN [facility] 01/08/2024 16:09:13 06/20/20 23 Date of Last Pap Smear completed Rosa Isela Argueta RN [facility] 01/08/2024 16:09:47 Knee Surgery completed Yao Art [facility] 05/26/2020 16:41:49 Caesarean Section completed Rosa Isela Argueta RN [facility] 11/25/2014 15:44:27 Tubal Ligation completed Rosa Isela Argueta RN [facility] 11/25/2014 15:32:49 Imaging Results Imaging Date Name Status LastModified by Organiz ation Details LastModified Time 09/27/2023 MAMMO, screening, bilateral completed [address] [place] [address], [address], 10/02/2023 14:32:55 08/28/2024 XR, shoulder, 2 or more view completed [address], [address], 12/01/2024 15:52:49 12/04/2024 XR, chest, 2 view completed [place] [address], [place], [address], 12/07/2024 11:24:37 12/07/2024 MAMMO, screening, bilateral completed [place] [id number], [place], [address], 12/08/2024 10:06:41 Procedure Notes None recorded. Medical Equipment None Reported. Allergies No known drug allergies Medications Name Sig Start Date Stop Date Status Note LastModified by Organization Details LastModified Time amoxicill in 500 mg capsule TIC BY MOUTH THREE TIMES DAILY UNTIL GONE FOR INFECTIO N 08/08 completed Not Available Not Available Not Available Miralax 17 gram/dose oral powder Take 17 g every day by oral route. 09/19 completed Not Available Not Available Not Available atorvasta tin 40 mg tablet Take 1 tablet every day by oral route, for choleste rol. 2024 active Not Available Not Available Not Avai lable metformin 500 mg tablet TAKE ONE TABLET BY MOUTH EVERY DAY FOR DIABETES active Not Available Not Available No t Available Topamax 25 mg tablet Take 1 tablet 3 times a day by oral route. active Not Available Not Available No t Available azithromy cally 250 mg tablet TAKE 2 TABLETS (500 MG) BY ORAL ROUTE ONCE DAILY FOR 1 DAY THEN 1 TABLET (250 MG) BY ORAL ROUTE ONCE DAILY FOR 4 DAYS 12/01 completed Not Available Not Available Not Available benzonata te 200 mg capsule Take 1 capsule 3 times a day by oral route, for cough. 2024 active Not Available Not Available Not Avai lable valacyclo vir 1 gram tablet TAKE ONE TABLET BY MOUTH EVERY DAY active Not Available Not Available No t Available meloxicam 15 mg tablet Take 1 tablet every day by oral route. 06/13 completed Not Available Not Available Not Available carbamaze pine ER 100 mg tablet,ex tended release,1 2 hr TAKE TWO TABLETS BY MOUTH EVERY 12 HOURS active Not Available Not Available No t Available famotidin e 40 mg tablet Take 1 tablet every day by oral route. 04/27 completed Not Available Not Available Not Available lovastati n 40 mg tablet TAKE ONE TABLET BY MOUTH EVERY DAY AT dinner FOR CHOLESTE ROL 08/08 completed Not Available Not Available Not Available clotrimaz ole 1 % vaginal cream Insert 1 applicat orful every day by vaginal route at bedtime. 03/04 completed Not Available Not Available Not Available amlodipin e 2.5 mg tablet Take 1 tablet every day by oral route, for for Hyperten jennifer. 2024 active Not Available Not Available Not Avai lable metronida zole 500 mg tablet Take 1 tablet twice a day by oral route for 7 days. 02/15 completed Not Available Not Available Not Available sulfameth oxazole 800 mg-trimet hoprim 160 mg tablet TAKE ONE TABLET BY MOUTH EVERY TWELVE HOURS FOR 10 DAYS 12/20 completed Not Available Not Available Not Available aspirin 81 mg tablet,de layed release Take 1 tablet twice a day by oral route. 12/18 completed ortho Not Available Not Available Not Available triamcino lone acetonide 0.1 % topical cream APPLY TO THE AFFECTED AREA(S) TWO TIMES A DAY active Not Available Not Available No t Available Depo-Medr ol 80 mg/mL suspensio n for injection Take 1 mL every day by injectio n route for 1 day. 12/01 completed Not Available Not Available Not Available levothyro xine 25 mcg tablet Take 1 tablet every day by oral route. 02/04 completed Not Available Not Available Not Available levothyro xine 75 mcg tablet Take 1 tablet every day by oral route, for thyroid. 2024 active Not Available Not Available Not Avai lable Tessalon Perles 100 mg capsule Take 1 capsule 3 times a day by oral route. 12/01 completed Not Available Not Available Not Available terbinafi ne HCl 250 mg tablet Take 1 tablet every day by oral route. 12/01 completed Not Available Not Available Not Available clonidine HCl 0.2 mg tablet Take 1 tablet every day by oral route. 06/13 completed Not Available Not Available Not Available propranol ol 40 mg tablet Take 1 tablet twice a day by oral route. 2023 active Not Available Not Available Not Avai lable amoxicill in 875 mg tablet TAKE ONE TABLET BY MOUTH EVERY TWELVE HOURS 12/20 completed Not Available Not Available Not Available Metrogel Vaginal 0.75 % (37.5 mg/5 gram) Insert 1 applicat orful every day by vaginal route at bedtime for 5 days. 06/13 completed Not Available Not Available Not Available captopril 12.5 mg tablet Take 1 tablet every day by oral route. 05/22 completed Not Available Not Available Not Available dicyclomi ne 20 mg tablet Take 1 tablet 4 times a day by oral route. 08/30 completed Not Available Not Available Not Available carbamaze pine ER 200 mg tablet,ex tended release,1 2 hr Take 1 tablet 3 times a day by oral route. 2024 active Not Available Not Available Not Avai lable levothyro xine 50 mcg tablet Take 1 tablet every day by oral route. 02/05 completed Not Available Not Available Not Available ferrous sulfate 325 mg (65 mg iron) tablet Take 1 tablet every day by oral route. 04/27 completed Not Available Not Available Not Available neomycin- polymyxin -dexameth 3.5 mg/mL-10, 000 unit/mL-0 .1% eye drops INSTILL ONE DROP IN THE AFFECTED EYE(S) EVERY 3 TO 4 HOURS 12/01 completed Not Available Not Available Not Available gabapenti n 300 mg capsule Take 3 capsules every day by oral route at bedtime, for arthriti s. 2024 active Not Available Not Available Not Avai lable omeprazol e 20 mg capsule,d elayed release TAKE ONE CAPSULE BY MOUTH TWO TIMES A DAY 12/01 completed Not Available Not Available Not Available hydroxyzi ne HCl 25 mg tablet Take 1 tablet every day by oral route. 04/27 completed Not Available Not Available Not Available ergocalci ferol (vitamin D2) 1,250 mcg (50,000 unit) capsule TAKE ONE CAPSULE BY MOUTH EVERY WEEK 01/08 completed Not Available Not Available Not Available Pepcid 20 mg tablet Take 1 tablet twice a day by oral route. 12/01 completed Not Available Not Available Not Available methylpre dnisolone 4 mg tablets in a dose pack Follow the package directio ns 08/08 completed Not Available Not Available Not Available ketoconaz ole 2 % topical cream APPLY TO THE AFFECTED AREA(S) BY TOPICAL ROUTE ONCE DAILY 12/01 completed Not Available Not Available Not Available fluticaso ne propionat e 50 mcg/actua tion nasal spray,kane [place] 1 spray twice a day by intranas al route. 12/01 completed Not Available Not Available Not Available atenolol 50 mg tablet Take 1 tablet every day by oral route, for hyperten jennifer. 2024 active Not Available Not Available Not Avai lable naproxen 500 mg tablet TAKE ONE TABLET BY MOUTH TWICE DAILY 01/06 completed Not Available Not Available Not Available amoxicill in 875 mg-potass ium clavulana te 125 mg tablet Take 1 tablet every 12 hours by oral route for 10 days. 12/18 completed Not Available Not Available Not Available enoxapari n 40 mg/0.4 mL subcutane ous syringe Inject 0.4 mL every day by subcutan eous route. 09/19 completed ortho Not Available Not Available Not Available azithromy cally 500 mg tablet TAKE ONE TABLET BY MOUTH EVERY DAY FOR 3 DAYS 12/20 completed Not Available Not Available Not Available Topamax 50 mg tablet Take 2 tablets twice a day by oral route. 08/03 completed migraine prophyla xis Not Available Not Available Not Available Dulcolax Stool Softener (docusate ) 100 mg capsule Take 1 capsule every day by oral route. 12/29 completed Not Available Not Available Not Available ketorolac 60 mg/2 mL intramusc ular syringe 10/15 completed Not Available Not Available Not Available losartan 100 mg-hydroc hlorothia zide 12.5 mg tablet Take 1 tablet every day by oral route, for hyperten jennifer. 2024 active Not Available Not Available Not Avai lable Calcium 600 + D(3) 600 mg-10 mcg (400 unit) tablet 1-2 tabs by mouth daily 2021 active Not Available Not Available Not Avai lable salicylic acid 26 % topical liquid Apply by topical route. 10/15 completed Not Available Not Available Not Available Zyrtec 10 mg capsule Take by oral route. active Not Available Not Available No t Available Vitamin D3 50 mcg (2,000 unit) capsule Take 1 capsule every day by oral route. 2019 active Not Available Not Available Not Avai lable Hair,Skin and Nails (folic acid-biot in) 66.7 mcg-1,000 mcg tablet Take 1 tablet every day by oral route. 09/19 completed Not Available Not Available Not Available Ozempic 0.25 mg or 0.5 mg (2 mg/1.5 mL) subcutane ous pen injector Inject 1 mg every week by subcutan eous route. 08/08 completed Not Available Not Available Not Available Voltaren Arthritis Pain 1 % topical gel APPLY 2 GRAMS TO THE AFFECTED AREA(S) BY TOPICAL ROUTE 4 TIMES PER DAY 12/01 completed Not Available Not Available Not Available Ozempic 1 mg/dose (4 mg/3 mL) subcutane ous pen injector Inject 1 mg every week by subcutan eous route. 10/15 completed DENIED by insuranc e Not Available Not Available Not Available Vitals Date Recorded Body height Provider Name an d Address Organization Details Last Updated DateTime 08/08/2023 149.86 cm Rosa Isela Argueta RN [place] - [facility] 2022 15:53:59 Date Recorded Body mass index (BMI) Body weight Provider Name and Address Organization Details Last Updated DateTime 08/08/2023 40.2 kg/m2 59497.88 g Rosa Isela Argueta RN [place] [facility] 08/08/2023 15:53:53 Date Recorded Heart rate Provider Name an d Address Organization Details Last Updated DateTime 08/08/2023 68 /min Rosa Isela Argueta RN [facility] 2022 16:00:25 Date Recorded Body temperature Provider Name a nd Address Organization Details Last Updated DateTime 08/08/2023 97.9 [degF] Rosa Isela Argueta RN [facility] 08/08/2023 16:00:53 Date Recorded Body height Provider Name an d Address Organization Details Last Updated DateTime 01/08/2024 149.86 cm Rosa Isela Argueta RN [facility] 2023 16:03:40 Date Recorded Body mass index (BMI) Provider Name and Address Organization Details Last Updated DateTime 01/08/2024 40.4 kg/m2 Yao Art MA [facility] 01/08/2024 16:28:58 Date Recorded Body weight Provider Name an d Address Organization Details Last Updated DateTime 01/08/2024 61975.47 g Yao bailey MA [facility] 01/08/2024 16:28:59 Date Recorded Body temperature Provider Name a nd Address Organization Details Last Updated DateTime 01/08/2024 97.8 [degF] Yao Art MA [facility] 01/08/2024 16:29:28 Date Recorded Heart rate Provider Name an d Address Organization Details Last Updated DateTime 01/08/2024 58 /min Yao bailey MA [facility] 01/08/2024 16:29:42 Date Recorded Oxygen saturation Oxygen saturation in Arterial blood by Pulse oximetry Provider Name and Address Organization Details Last Updated DateTime 01/08/2024 98 % 98 % EMMANUELLE Arthur [facility] 01/08/2024 16:29:44 Date Recorded Body height Provider Name an d Address Organization Details Last Updated DateTime 05/04/2024 149.86 cm Yao bailey MA [facility] 05/04/2024 15:05:59 Date Recorded Body mass index (BMI) Body weight Provider Name and Address Organization Details Last Updated DateTime 05/04/2024 40.4 kg/m2 45404.47 g EMMANUELLE Arthur [facility] 05/04/2024 15:17:50 Date Recorded Body temperature Provider Name a nd Address Organization Details Last Updated DateTime 05/04/2024 97.9 [degF] Yao Art [facility] 05/04/2024 15:18:18 Date Recorded Heart rate Provider Name an d Address Organization Details Last Updated DateTime 05/04/2024 58 /min Yao bailey MA [facility] 05/04/2024 15:18:27 Date Recorded Body height Provider Name an d Address Organization Details Last Updated DateTime 08/27/2024 149.86 cm Rosa Isela Argueta RN [facility] 2023 15:57:49 Date Recorded Body mass index (BMI) Body weight Provider Name and Address Organization Details Last Updated DateTime 08/27/2024 40.5 kg/m2 91700.27 g Ragini Mckeon MA [facility] 08/27/2024 16:08:39 Date Recorded Body temperature Provider Name a nd Address Organization Details Last Updated DateTime 08/27/2024 98.2 [degF] Ragini Mckeon MA [facility] 08/27/2024 16:09:14 Date Recorded Oxygen saturation Oxygen saturation in Arterial blood by Pulse oximetry Provider Name and Address Organization Details Last Updated DateTime 08/27/2024 96 % 96 % Ragini Mckeon MA [facility] 08/27/2024 16:09:35 Date Recorded Heart rate Provider Name an d Address Organization Details Last Updated DateTime 08/27/2024 60 /min Ragini brothers MA [facility] 08/27/2024 16:09:36 Date Recorded Body height Provider Name an d Address Organization Details Last Updated DateTime 11/26/2024 149.86 cm CRICKET Catalan Attn: Accounting [facility], [place], [address], [facility] 11/26/2024 16:49:43 Date Recorded Body height Provider Name an d Address Organization Details Last Updated DateTime 12/01/2024 149.86 cm Rosa Isela Argueta RN [facility] 2024 15:04:48 Date Recorded Body mass index (BMI) Provider Name and Address Organization Details Last Updated DateTime 12/01/2024 41.3 kg/m2 Yao Art [place] [facility] 12/01/2024 15:12:02 Date Recorded Body weight Provider Name an d Address Organization Details Last Updated DateTime 12/01/2024 50658.64 g Yao bailey MA [facility] 12/01/2024 15:12:03 Date Recorded Oxygen saturation Oxygen saturation in Arterial blood by Pulse oximetry Provider Name and Address Organization Details Last Updated DateTime 12/01/2024 98 % 98 % Yao Art MA [facility] 12/01/2024 15:13:53 Date Recorded Heart rate Provider Name an d Address Organization Details Last Updated DateTime 12/01/2024 62 /min Yao bailey [place] - [facility] 12/01/2024 15:13:54 Date Recorded Body temperature Provider Name a nd Address Organization Details Last Updated DateTime 12/01/2024 98.1 [degF] Yao Art MA [facility] 12/01/2024 15:16:34 Date Recorded Systolic blood pressure Diastolic blood pressure Provider Name and Address Organization Details Last Updated DateTime 08/08/2023 120 mm[Hg] 72 mm[Hg] Rosa Isela Argueta RN [facility] 08/08/2023 16:00:31 Date Recorded Systolic blood pressure Diastolic blood pressure Provider Name and Address Organization Details Last Updated DateTime 01/08/2024 118 mm[Hg] 74 mm[Hg] Yao Art [place] [facility] 01/08/2024 16:31:17 Date Recorded Systolic blood pressure Diastolic blood pressure Provider Name and Address Organization Details Last Updated DateTime 05/04/2024 120 mm[Hg] 64 mm[Hg] Yao Art [place] [facility] 05/04/2024 15:19:37 Date Recorded Systolic blood pressure Diastolic blood pressure Provider Name and Address Organization Details Last Updated DateTime 08/27/2024 100 mm[Hg] 70 mm[Hg] Ragini Mckeon [place] [facility] 08/27/2024 16:10:58 Date Recorded Systolic blood pressure Diastolic blood pressure Provider Name and Address Organization Details Last Updated DateTime 12/01/2024 130 mm[Hg] 80 mm[Hg] Yao Art [place] [facility] 12/01/2024 15:17:32 Social History Question Answer Notes LastModified by Organizat ion Details LastModified Time Tobacco Smoking Status Never Smoker Linda [place], [place] - [facility] 11/25/2014 15:39:46 Do You Have An Advance Directive? No [email or web address] Information not available 11/25/2014 What Is Your Level Of Alcohol Consumption? None [email or web address] Information not available 11/25/2014 Are You Blind Or Do You Have Difficulty Seeing? No Information not available 12/29/2020 What Is Your Level Of Caffeine Consumption? Moderate Information not available 04/27/2021 How Much Tobacco Do You Chew? None [email or web address] Information not available 11/25/2014 In The 14 Days Before Symptom Onset, Have You Had Close Contact With A Laboratory-confir med COVID-19 While That Case Was Ill? No Information not available 04/18/2023 In The 14 Days Before Symptom Onset, Have You Had Close Contact With A Person Who Is Under Investigation For COVID-19 While That Person Was Ill? No Information not available 04/18/2023 Have You Been To An Area Known To Be High Risk For COVID-19? No Information not available 05/22/2022 Are You Currently Employed? Yes Information not available 04/27/2021 Are You Deaf Or Do You Have Serious Difficulty Hearing? No Information not available 12/29/2020 What Type Of Diet Are You Following? REGULAR [email or web address] Information not available 11/25/2014 Do You Or Have You Ever Used E-cigarettes Or Vape? 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 No [email or web address] Information not available 11/25/2014 Hard Of Hearing Or Deaf In One Or Both Ears? No [email or web address] Information not available 11/25/2014 Legally Blind In One Or Both Eyes? No Information no t available 11/25/2014 Marital Status [email or web address] Informati on not available 11/25/2014 What Was The Date Of Your Most Recent Tobacco Screening? 12/01/2024 Information not available 12/01/2024 How Many Children Do You Have? 4 Information not available 04/27/2021 Performs Monthly Self-breast Exam? Yes [email or web address] Information no t available 11/25/2014 What Is Your Relationship Status? Information not available 04/18/2023 Do You Use Your Seat Belt Or Car Seat Routinely? Yes Information not available 12/29/2020 Seat Belts Used Routinely Yes [email or web address] Information not available 11/25/2014 Smoke Alarm In Home Yes Information not available 11/25/2014 Do You Have Smoke And Carbon Monoxide Detectors In Your Home? Yes Information not available 12/29/2020 Are You Passively Exposed To Smoke? No Information no t available 12/29/2020 Do You Or Have You Ever Used Smokeless Tobacco? Never Used Smokeless Tobacco Information not available 11/22/2019 How Much Tobacco Do You Smoke? No Information not available 11/25/2014 General Stress Level Medium Information not available 11/25/2014 Do You Feel Stressed (tense, Restless, Nervous, Or Anxious, Or Unable To Sleep At Night)? [id number] Information not available 04/18/2023 Do You Use Any Illicit Or Recreational Drugs? No Information not available 12/29/2020 Do You Use Sunscreen Routinely? Yes [email or web address] Information not available 11/25/2014 Sex: Female Functional Status Question Answer Note LastModified by Organization D etails LastModified Time Are you able to care for yourself? Yes Information n ot available 12/29/2020 What is your exercise level? None Information not available 12/29/2020 Mental Status None recorded. Family History Relationship Description Onset Age of this Age Resolved Age Notes LastModified by Organization Details LastModified Time Mother Essential hypertension Not available 06/13/2016 16:18:35 Father Alive Not availab le 06/13/2016 16:18:35 Father Hypercholest erolemia yarauz Not available 2017 17:07:48 Father Heart disease 60 [email or web address] Not available 2017 17:10:24 Sister Essential hypertension 45 [email or web address] Not available 17:10:48 Sister Hypercholest erolemia yarauz Not available 2017 17:11:00 Sister Cerebrovascu lar accident 47 [email or web address] Not available 16:35:03 Sister Cyst of breast [email or web address] Not available 2018 16:35:40 Sister Essential hypertension yarauz Not available 14:13:51 Brother Cerebrovascu lar accident 48 [email or web address] Not available 16:35:03 Medical History Condition Response High Blood Pressure Y High Cholesterol Y Seizures/Epilepsy Y Allergies Y Gynecological History Statement/Question Response Abnormal Pap N Date of Last Mammogram 09/27/2023 Date of LMP 11/17/2011 On BCP's at Conception? N STIs/STDs N Age at Menarche 9 Current Control Method Tubal Ligat ion Age at First Child 24 If Post Menopausal, Age at Menopause 51 Sexually Active? Y Date of Last Pap Smear 06/20/2023 Sexual Problems? N Obstetrics History GPAL:G 4 P 0 0 0 4 Type Value Living 4 Total 4 Immunizations Vaccine Type Date Status Note Provider Nam e and Address Organization Details Recorded Time COVID-19, mRNA, LNP-S, PF, 30 mcg/0.3 mL dose 1 completed Not Available [facility] 10/15/2023 17:10:17 SARS-COV-2 (COVID-19) vaccine, UNSPECIFIED 1 completed Not Available [facility] 10/15/2023 17:10:17 Influenza, split virus, quadrivalent, preservative 1 completed Not Available [facility] 10/15/2023 17:10:17 zoster recombinant 3 completed Not Available [facility] 10/15/2023 17:10:17 zoster recombinant 3 completed Not Available [facility] 10/15/2023 17:10:17 Influenza, split virus, quadrivalent, PF 6 completed Not Available [facility] 12/04/2019 02:32:38 Influenza, split virus, quadrivalent, preservative 7 completed Not Available [facility] 12/04/2019 02:34:20 Influenza, split virus, quadrivalent, PF 8 completed Not Available [facility] 12/04/2019 02:47:21 Tdap 8 completed Not Available [facility] 10/15/2023 17:10:17 Influenza, split virus, quadrivalent, PF 3 completed Not Available [facility] 10/15/2023 17:10:17 Influenza, split virus, quadrivalent, preservative 9 completed Not Available [facility] 12/04/2019 02:45:26 Influenza, split virus, quadrivalent, preservative 0 completed Rosa Isela Argueta RN null, [place] [facility] 08/30/2020 12:12:34 COVID-19, mRNA, LNP-S, PF, 30 mcg/0.3 mL dose 1 completed Rosa Isela Argu[place] [facility] 09/05/2021 16:47:53 Tdap 2 completed Yao Art [place], [place] [facility] 01/29/2022 17:16:47 Influenza, split virus, quadrivalent, PF 2 completed CRICKET Catalan Attn: Accounting[address] [place], [address], [place] [facility] 08/26/2022 10:33:37 Influenza, split virus, trivalent, preservative 5 completed Not Available [facility] 12/04/2019 02:32:12 Influenza, split virus, quadrivalent, PF 3 completed Rosa Isela Argu[place], [place] [facility] 08/08/2023 16:59:58 Pneumococcal conjugate PCV 13 4 completed CRICKET Catalan Attn: Accounting[address] [place], [address], [place] [facility] 01/12/2024 17:44:31 Influenza, split virus, trivalent, preservative 4 completed Ragini Mckeon MA [facility], [place] - [facility] 08/27/2024 17:31:08 Past Encounters Encounter ID Performer Location Encounter Start Date Encounter Closed Date Diagnosis/Indication Diagnosis SNOMED-CT Code Diagnosis ICD10 Code Diagnosis Note [id number] KENN Hong [facility] [address] [address] 11/25/2014 15:04:28 11/28/2014 19:14:41 Essential hypertension 79995098 will stop Clonidine 0.1 mg as pt not having hot flashes 3 years with no menses Hyperlipidemia 68305126 Seizure disorder 518629199 Migraine 05855672 will increase Topamax 25mg bid to 50 mg bid Morbid obesity 175020016 Heel pain 9910566 Tinea pedis 0338548 milka ent completed 5 months of Lamisil 250mg now symptoms have cleared [id number] [facility] [address] [address] 03/24/2015 14:55:01 03/31/2015 16:31:59 Allergic rhinitis 97513521 Essential hypertension 17038476 will stop Clonidine 0.1 mg as pt not having hot flashes 3 years with no menses Hyperlipidemia 28855726 Discussed test results stressed diet, weight loss, exercise will continue with current therapy Seizure disorder [id number] patient to continue Topiramate 50mg bid for this problem Morbid obesity 407486357 stressed diet weight loss and exercise she has lost 9 pounds since last visit she has been watching her diet Migraine [id number] will continue Topamax 50 mg bid Heel pain 0930781 resol ed she is now using heel cups Impaired g lucose tolerance 0803543 [id number] Almita Martinez [facility] [address] [address] 03/30/2015 16:40:50 04/04/2015 13:32:23 Hyperlipidemia 88456236 Discussed test results stressed diet, weight loss, exercise will continue with current therapy [id number] [facility] [address] [address] 05/26/2015 12:30:08 06/06/2015 17:52:22 Screening for malignant neoplasm of breast 696679005 Gynecologi c examination 41486928 calcium rich foods handout vitamin D 2000 iu daily exercise weight loss diet Obesity 599086933 [id number] [facility] [address] [place] [address] 08/11/2015 15:52:07 08/17/2015 13:45:59 Allergic rhinitis 57540971 Essential hypertension 73174147 Hyperlipidemia 70439392 Discussed test results stressed diet, weight loss, exercise will continue with current therapy Seizure disorder 557783511 patient to continue Topiramate 50mg bid for this problem Morbid obesity 802522057 stressed diet weight loss and exercise she has lost4 pounds since last visit she has been watching her diet Migraine 72454967 will continue Topamax 50 mg bid Impaired g lucose tolerance 4171350 Acute sinusitis 95419196 [id number] [facility] [address] [place] [address] 12/20/2015 15:48:43 12/28/2015 16:32:28 Allergic rhinitis 84340228 J30.9 Essential hypertension 62886648 I10 Hyperlipidemia 80541313 E78.5 stressed diet, weight loss, exercise will continue with current therapy Seizure disorder 0455160 02 G40.909 patient to continue Topiramate 50mg bid for this problem Morbid obesity 862385999 E66.01 stressed diet weight loss and exercise she has lost4 pounds since last visit she has been watching her diet Migraine 58925602 G43.90 9 will continue Topamax 50 mg bid Impaired g lucose tolerance 1193272 R73.02 Tinea pedis 4407651 B35. 3 Venous stasis 06940311 I 87.8 elevate legs wear support hose lose [facility] [id number] [facility] [address] [place] [address] 06/13/2016 15:38:11 06/16/2016 19:10:32 Essential hypertension 40979044 I10 The patient is under increased stress secondary to in the family Denies any CP or SOB + Headaches and visual changes Hyperlipidemia 38872731 E78.5 stressed diet, weight loss, exercise will continue with current therapy Seizure disorder 3666527 02 G40.909 The patient lopez been having auras experienci ng bad taste in mouth which in the past correlated with her having a seizure Will increase Topiramate 50mg bid to 100mg bid for this problem--p atient to proceed initially taking Topamax 50mg in the morning and then 100mg at night for1- 2 weeks she then can increase to 100mg bid Discussed potential side effects Will consider Neurology consult Will consider EEG Morbid obesity 953729187 E66.01 stressed diet weight loss and exercise she has lost6 pounds since last visit she has been watching her diet Migraine 89280816 G43.90 9 The patient is under increased stress secondary to in the family Has been having breakthrou gh migraines for last week The patient will increase Topamax 50 mg bid to 100mg bid--patie nt to proceed initially taking Topamax 50mg in the morning and then 100mg at night for 2 weeks she then can increase to 100mg bid Impaired g lucose tolerance 0742840 R73.02 Tinea pedis 6177328 B35. 3 Venous stasis 52918015 I 87.8 elevate legs wear support hose lose weight Foot callus 501430692 L8 4 use corn and callouses treatment may need to wrap toe/area with mole skin [id number] [facility] [address] [address] 10/15/2016 15:57:57 10/16/2016 18:06:47 Hyperlipidemia 41732292 E78.5 stressed diet, weight loss, exercise will continue with current therapy Essential hypertension 72639627 I10 continue present meds Allergic rhinitis 752329 04 J30.9 Impaired g lucose tolerance 7287123 R73.02 Morbid obesity 223693043 E66.01 stressed diet weight loss and exercise she has gained lost 6 pounds since last visit she has been watching her diet Migraine 75468751 G43.90 9 Has not been having breakthrou gh migraines for last week The patient will continue Topamax 50 mg at noon one then 2 at night--edin l proceed 2 bid tomorrow Obesity 823555761 E66.9 diet weight loss and exercise Seizure disorder 0281036 02 G40.909 The patient lopez been having auras experienci ng bad taste in mouth which in the past correlated with her having a seizure Will continue Topiramate 100mg bid for this problem--a s patient not having any auras now Discussed potential side effects Will consider Neurology consult Will consider EEG Acute pharyngitis 095293 003 J02.9 Right uppe r quadrant pain 865809752 R10.11 Muscle pain 11223737 M79 .1 warm compressio n to right deltoid area may try using a wrist splint if symptoms persist will send for Nerve conduction Study [id number] Almita Martinez [facility] [address] [address] 02/14/2017 15:47:58 02/17/2017 21:58:11 Essential hypertension 76575907 I10 continue present meds Hyperlipidemia 04492101 E78.5 stressed diet, weight loss, exercise will continue with current therapy Allergic rhinitis 144970 04 J30.9 Impaired g lucose tolerance 6261562 R73.02 HA1C 6.0 Morbid obesity 622393245 E66.01 stressed diet weight loss and exercise she has gained lost 6 pounds since last visit she has been watching her diet Migraine 25497494 G43.90 9 Has not been having breakthrou gh migraines for last week The patient will continue Topamax 50 mg at noon one then 2 at night--edin l proceed 2 bid tomorrow Obesity 638726473 E66.9 diet weight loss and exercise Seizure disorder 1553828 02 G40.909 The patient lopez been having auras experienci ng bad taste in mouth which in the past correlated with her having a seizure Will continue Topiramate 100mg bid for this problem--a s patient not having any auras now Discussed potential side effects Will consider Neurology consult Will consider EEG Right uppe r quadrant pain 761485047 R10.11 Abnormal l iver function 16470033 K76.89 [id number] Almita Martinez [facility] [address] [place] [address] 4 08/08/2017 16:04:14 08/19/2017 10:02:44 Essential hypertension 74733970 I10 continue present meds Hyperlipidemia 20465923 E78.5 stressed diet, weight loss, exercise will continue with current therapy Allergic rhinitis 518900 04 J30.9 otc meds Impaired g lucose tolerance 3574702 R73.02 HA1C 6.0 Morbid obesity 132216412 E66.01 stressed diet weight loss and exercise she has gained lost 6 pounds since last visit she has been watching her diet Migraine 56178999 G43.90 9 Has not been having breakthrou gh migraines for last week The patient will continue Topamax 50 mg at noon one then 2 at night--edin l proceed 2 bid tomorrow Obesity 510883398 E66.9 diet weight loss and exercise Seizure disorder 8788081 02 G40.909 The patient lopez been having auras experienci ng bad taste in mouth which in the past correlated with her having a seizure Will continue Topiramate 100mg bid for this problem--a s patient not having any auras now Discussed potential side effects Will consider Neurology consult Will consider EEG Abnormal l iver function 34473877 K76.89 last measuremen t wnl HIV screening 441815352 Z11.4 Screening for malignant neoplasm of colon 230471318 Z12.11 [id number] Gael Ng [facility] [address] [address] 08/11/2017 15:50:37 08/19/2017 09:48:26 HIV screening 358951225 Z11.4 Abnormal l iver function 17161513 K76.89 [id number] Almita Martinez [facility] [address] [place] [address] 12/08/2017 15:47:55 12/16/2017 16:44:20 Essential hypertension 11253581 I10 continue present meds Hyperlipidemia 58343130 E78.5 stressed diet, weight loss, exercise will continue with current therapy Allergic rhinitis 141532 04 J30.9 otc meds Impaired g lucose tolerance 4506746 R73.02 HA1C 6.0 Morbid obesity 005869400 E66.01 stressed diet weight loss and exercise she has gained 6 pounds since last visit Migraine 58812428 G43.90 9 The patient will continue Topamax 50 mg at noon 2 then 2 at night will use Naprosyn for breakthrou gh headaches Obesity 584041188 E66.9 diet weight loss and exercise Seizure disorder 5898240 02 G40.909 The patient lopez been having auras experienci ng bad taste in mouth which in the past correlated with her having a seizure Will continue Topiramate 100mg bid for this problem--a s patient not having any auras now Discussed potential side effects Will consider Neurology consult Will consider EEG Screening for malignant neoplasm of breast 194840555 Z12.31 patient had last mammogram on 06/2015=nor mal needs one she is overdue [id number] [facility] [address] [place] [address] 04/06/2018 15:40:39 04/07/2018 08:31:54 Essential hypertension 20998187 I10 continue present meds Hyperlipidemia 93796804 E78.5 stressed diet, weight loss, exercise will continue with current therapy Allergic rhinitis 693189 04 J30.9 otc meds Impaired g lucose tolerance 2137509 R73.02 HA1C 6.0 Migraine 68395187 G43.90 9 The patient will continue Topamax 50 mg at noon 2 then 2 at night will use Naprosyn for breakthrou gh headaches Obesity 138788121 E66.9 diet weight loss and exercise Seizure disorder 7770988 02 G40.909 The patient lopez been having auras experienci ng bad taste in mouth which in the past correlated with her having a seizure Will continue Topiramate 100mg bid for this problem--a s patient not having any auras now Discussed potential side effects Will consider Neurology consult Will consider EEG Tinea pedis 3421394 B35. 3 [id number] Almita Martinez [facility] [address] [place] [address] 06/08/2018 15:49:54 06/15/2018 13:18:46 Gynecologic examination 25779933 Z01.419 calcium rich foods handout vitamin D 2000 iu daily exercise weight loss diet Obesity 808146743 E66.9 diet weight loss and exercise Screening for malignant neoplasm of breast 136516855 Z12.31 patient had last mammogram on 06/2015=nor mal needs one she is overdue Screening for malignant neoplasm of colon 370823758 Z12.11 Patient has been referred for colonoscop y in the past. SHe has not had it done yet. [id number] [address] [place], [place] [address] 09/01/2018 16:00:40 09/10/2018 17:35:38 Essential hypertension 37985855 I10 continue present meds Hyperlipidemia 89747066 E78.5 stressed diet, weight loss, exercise will continue with current therapy Allergic rhinitis 153252 04 J30.9 otc meds Impaired g lucose tolerance 0332572 R73.02 04/2018 HA1C 5.5 Migraine 67938188 G43.90 9 The patient will continue Topamax 50 mg at noon 2 then 2 at night will use Naprosyn for breakthrou gh headaches Obesity 650938980 E66.9 diet weight loss and exercise Seizure disorder 0886300 02 G40.909 Will continue Topiramate 100mg bid for this problem--a s patient not having any auras now Discussed potential side effects Will consider Neurology consult Will consider EEG Tinea pedis 4958559 B35. 3 Administra tion of influenza vaccine 20328597 Z23 Venous stasis 93763047 I 87.8 elevate legs wear support hose lose weight Pain in bi lateral legs 4507656601 2584032 M79.604 M79.605 [id number] [facility] [address] [place] [address] 01/05/2019 15:51:47 01/07/2019 09:52:20 Essential hypertension 15390442 I10 continue present meds Hyperlipidemia 99238176 E78.5 stressed diet, weight loss, exercise will continue with current therapy Migraine 55149528 G43.90 9 The patient will continue Topamax 50 mg at noon 2 then 2 at night will use Naprosyn for breakthrou gh headaches Allergic rhinitis 841854 04 J30.9 otc meds Impaired g lucose tolerance 5918254 R73.02 04/2018 HA1C 5.5 Obesity 920542571 E66.9 diet weight loss and exercise Seizure disorder 3026608 02 G40.909 Will continue Topamax 100mg bid for this problem--a s patient not having any auras now Discussed potential side effects Will consider Neurology consult Will consider EEG Venous stasis 64701599 I 87.8 elevate legs wear support hose lose weight Depression screening 171 270538 Z13.31 negative [id number] [facility] [address] [place] [address] 01/29/2019 11:46:37 01/29/2019 17:46:13 Gynecologic examination 32092305 Z01.411 Calcium Rich foods handout Vitamin D daily SBE teaching/ handout Screening for malignant neoplasm of breast 468585243 Z12.31 patient had last mammogram on 06/08/2018= normal Urinary tr act infectious disease 28067720 N39.0 Menopause present 970962 006 N95.1 calcium 1800mg daily in diet or supplement Vitamin D 800-2000 IU daily [id number] [facility] [address] [address] 05/26/2019 13:59:52 05/28/2019 08:13:28 Essential hypertension 78127115 I10 continue present meds Seizure disorder 8020354 02 G40.909 Will add Tegretol 100mg XR take at night x1 week then will increase to bid for seizure management --as patient has had 2 recent seizures after no seizures for 30 years--the patient was previously on Tegretol 200mg bid back in 2012-she was switched to Topamax for migraine management and seizure Discussed potential side effects Will send to Neurology consult Will order EEG Hyperlipidemia 94739424 E78.5 stressed diet, weight loss, exercise will continue with current therapy Migraine 40635453 G43.90 9 The patient will continue Topamax 50 mg at noon 2 then 2 at night will use Naprosyn for breakthrou gh headaches Allergic rhinitis 980498 04 J30.9 otc meds Impaired g lucose tolerance 6413338 R73.02 04/2018 HA1C 5.5 Obesity 294158187 E66.9 diet weight loss and exercise Venous stasis 88093682 I 87.8 elevate legs wear support hose lose weight Vitamin D deficiency 347 98515 E55.9 Morbid obesity 529249691 E66.01 stressed diet weight loss and exercise she has lost 4.5 pounds since last visit [id number] Almita Martinez [facility] [address] [address] 07/30/2019 15:53:58 08/05/2019 10:44:18 Essential hypertension 91596783 I10 continue present meds Seizure disorder 7052904 02 G40.909 Patient to continue Tegretol (carbameza pine) 100mg XR take at night x1 week then will increase to bid for seizure management --as patient has had 2 recent seizures after no seizures for 30 years--the patient was previously on Tegretol 200mg bid back in 2012-she was switched to Topamax for migraine management and seizure Discussed potential side effects Patient to follow upwith Neurology Hyperlipidemia 62757988 E78.5 stressed diet, weight loss, exercise will continue with current therapy Migraine 67119535 G43.90 9 Will start Propranolo l 40mg 1 p.o. bid The patient will continue Topamax 50 mg at noon 2 then 2 at night until Neurologis t stops it on f/uwill use Naprosyn for breakthrou gh headaches Allergic rhinitis 804007 04 J30.9 otc meds Impaired g lucose tolerance 0422796 R73.02 05/2019 HA1C 5.5 Obesity 787702582 E66.9 diet weight loss and exercise Diffuse alopecia 4887464 07 L65.9 Topamax will not be refilledNe urologist will stop it at end of month Administra tion of influenza vaccine 88126810 Z23 Acute left otitis media 992948208 H66.92 Body mass index 30+ - obesity 770354264 Z68.33 BMI 33.1Health y weight range 100-808 [id number] [facility]i [facility] [address] [address] 11/22/2019 15:58:59 11/23/2019 09:49:50 Allergic rhinitis 15838129 J30.9 otc meds Acute fron jayy sinusitis 31648789 J01.10 [id number] [facility]enicosteffi [facility] [address] [place] [address] 12/01/2019 15:56:31 12/02/2019 11:09:43 Essential hypertension 63431655 I10 continue present meds Hyperlipidemia 73809761 E78.5 stressed diet, weight loss, exercise will continue with current therapy Seizure disorder 8863863 02 G40.909 Patient to continue Tegretol (carbameza pine) 100mg XR take at night x1 week then will increase to bid for seizure management --as patient has had 2 recent seizures after no seizures for 30 years--the patient was previously on Tegretol 200mg bid back in 2012-she was switched to Topamax for migraine management and seizure Discussed potential side effects Migraine 43597550 G43.90 9 Will continue Propranolo l 40mg 1 p.o. bid The patient has been weaned off Topamax by neurologis twill use Naprosyn for breakthrou gh headaches Allergic rhinitis 343483 04 J30.9 otc meds Impaired g lucose tolerance 9465435 R73.02 05/2019 HA1C 5.5 Obesity 787057311 E66.9 diet weight loss and exercise Body mass index 30+ - obesity 743436142 Z68.33 BMI 33.1Health y weight range 100-125 Subclinica l hypothyroidism 78984661 E02 Depression screening 171 735546 Z13.31 negative [id number] Almita Martinez [facility] [address] [address] 01/14/2020 16:24:20 01/14/2020 18:48:05 Colitis 77007944 K52.9 eat small frequent meals do not skip meals/suri kfast avoid citric, spicy, fatty foods do not lay down soon after eating--wa it at least 2 hours may use OTC Tums/Pepci d/Ranitidi ne as needed if symptoms persist return for re-evaluat ion Follow-up visit 71907901 9 Z09 still having abdominal bloating discomfort but no bleeding Hiatal hernia 33595780 K 44.9 Patient has abdominal bloating and discomfort Inguinal hernia 47503802 0 K40.90 may send for surgical consult [id number] [facility] [address] [address] 02/16/2020 11:42:16 02/17/2020 12:38:00 Essential hypertension 42498996 I10 continue present meds Hyperlipidemia 05534710 E78.5 stressed diet, weight loss, exercise will continue with current therapy Seizure disorder 7273966 02 G40.909 Patient to continue Tegretol (carbameza pine) 100mg XR take at night x1 week then will increase to bid for seizure management --as patient has had 2 recent seizures after no seizures for 30 years--the patient was previously on Tegretol 200mg bid back in 2012-she was switched to Topamax for migraine management and seizure Discussed potential side effects Migraine 40208884 G43.90 9 Will continue Propranolo l 40mg 1 p.o. bid The patient has been weaned off Topamax by neurologis twill use Naprosyn for breakthrou gh headaches Allergic rhinitis 170847 04 J30.9 otc meds-advis ed to start MARTITA as having some allergy symptoms Impaired g lucose tolerance 7751853 R73.02 05/2019 HA1C 5.5 Obesity 346893317 E66.9 diet weight loss and exercise Body mass index 30+ - obesity 083528840 Z68.33 BMI 33.1Health y weight range 100-125 Subclinica l hypothyroidism 61110945 E02 Viral myalgia 754300840 M79.10 achy legs arms prior to having colitis 2 months ago [id number] Almita Martinez [facility] [address] [place] [address] 05/26/2020 16:36:02 05/29/2020 06:18:31 Subclinical hypothyroidism 15059264 E02 Hyperlipidemia 81912709 E78.5 stressed diet, weight loss, exercise will continue with current therapy Essential hypertension 50217501 I10 continue present meds Seizure disorder 4063595 02 G40.909 Patient to continue Tegretol (carbameza pine) 100mg XR take at night x1 week then will increase to bid for seizure management --as patient has had 2 recent seizures after no seizures for 30 years--the patient was previously on Tegretol 200mg bid back in 2012-she was switched to Topamax for migraine management and seizure Discussed potential side effects Migraine 51464452 G43.90 9 Will continue Propranolo l 40mg 1 p.o. bid The patient has been weaned off Topamax by neurologis twill use Naprosyn for breakthrou gh headaches Allergic rhinitis 626704 04 J30.9 otc meds-advis ed to start MARTITA as having some allergy symptoms Impaired g lucose tolerance 5316857 R73.02 05/2019 HA1C 5.5 Obesity 538186983 E66.9 diet weight loss and exercise Body mass index 30+ - obesity 635858977 Z68.33 BMI 33.1Health y weight range 100-125 Constipation 52277114 K5 9.00 Fracture o f tibial plateau 790474454 S82.101D continue follow ups with Ortho Fracture of ankle 750941 01 S82.91XD continue follow ups with Ortho Anemia 997201218 D64.9 Iron rich foods every day Take Iron therapy as directed with vitamina C source Vitamin D deficiency 347 01109 E55.9 vitamin D 2000 IU daily+ calcium rich foods [id number] [facility] [address] [place], [place] [address] 4 08/30/2020 10:09:52 09/01/2020 02:48:24 Persistent insomnia 296356662 G47.09 Patient has tried Melatonin not helpingPat ient has tried Benadryl not helpingPat ient has tried herbal teas not helpingWil l try Hydroxyzin e Administra tion of influenza vaccine 88117379 Z23 [id number] Almita Martinez [facility] [address] [place] [address] 09/19/2020 14:34:21 09/20/2020 07:00:35 Essential hypertension 96297391 I10 continue present meds Hyperlipidemia 68401629 E78.5 stressed diet, weight loss, exercise will continue with current therapy Subclinica l hypothyroidism 82250869 E02 Seizure disorder 7053091 02 G40.909 Patient to continue Tegretol (carbameza pine) 100mg XR take at night x1 week then will increase to bid for seizure management --as patient has had 2 recent seizures after no seizures for 30 years--the patient was previously on Tegretol 200mg bid back in 2012-she was switched to Topamax for migraine management and seizure Discussed potential side effects Migraine 40849133 G43.90 9 Will continue Propranolo l 40mg 1 p.o. bid The patient has been weaned off Topamax by neurologis twill use Naprosyn for breakthrou gh headaches Allergic rhinitis 468122 04 J30.9 otc meds-advis ed to start MARTITA as having some allergy symptoms Impaired g lucose tolerance 6693314 R73.02 05/2019 HA1C 5.5 Obesity 690281989 E66.9 diet weight loss and exercise Body mass index 30+ - obesity 148349408 Z68.33 BMI 33.1Health y weight range 100-125 Constipation 31580741 K5 9.00 Fracture o f tibial plateau 747840905 S82.101D continue follow ups with Orthostart ed gabapentin 300mg 1 three times daily by orthopedic Fracture of ankle 328753 01 S82.91XD continue follow ups with Orthostart ed gabapentin 300mg 1 three times daily by orthopedic Anemia 316593613 D64.9 Iron rich foods every day Take Iron therapy as directed with vitamina C source Vitamin D deficiency 347 61031 E55.9 vitamin D 2000 IU daily+ calcium rich foods Persistent insomnia 1919 04395 G47.09 Patient has tried Melatonin not helpingPat ient has tried Benadryl not helpingPat ient has tried herbal teas not helpingWil l try Hydroxyzin e [id number] Almita Martinez [facility] [address] [address] 12/29/2020 15:30:09 01/01/2021 12:19:02 Essential hypertension 90696534 I10 continue present meds Hyperlipidemia 51338404 E78.5 stressed diet, weight loss, exercise will continue with current therapyLas t lipid levelcho 220trig 145HDL 57LDL 137 Subclinica l hypothyroidism 82982526 E02 TSH 3.0 Seizure disorder 8457187 02 G40.909 Patient to continue Tegretol (carbameza pine) 100mg XR take at night x1 week then will increase to bid for seizure management --as patient has had 2 recent seizures after no seizures for 30 years--the patient was previously on Tegretol 200mg bid back in 2012-she was switched to Topamax for migraine management and seizure Discussed potential side effects Migraine 00033465 G43.90 9 Will continue Propranolo l 40mg 1 p.o. bid The patient has been weaned off Topamax by neurologis twill use Naprosyn for breakthrou gh headaches Allergic rhinitis 514883 04 J30.9 otc meds-advis ed to start MARTITA as having some allergy symptoms Impaired g lucose tolerance 9916830 R73.02 05/2019 HA1C 5.511/14/2 020 HA1c 5.9 Obesity 621624367 E66.9 diet weight loss and exercise Body mass index 30+ - obesity 160848392 Z68.33 BMI 33.1Health y weight range 100-125 Fracture o f tibial plateau 283543557 S82.101D continue follow ups with Orthostart ed gabapentin 300mg 1 three times daily by orthopedic Fracture of ankle 050185 01 S82.91XD continue follow ups with Orthostart ed gabapentin 300mg 1 three times daily by orthopedic Anemia 120657137 D64.9 Iron rich foods every day Take Iron therapy as directed with vitamina C source Vitamin D deficiency 347 44763 E55.9 vitamin D 2000 IU daily+ calcium rich foods Persistent insomnia 1919 46869 G47.09 Patient has tried Melatonin not helpingPat ient has tried Benadryl not helpingPat ient has tried herbal teas not helpingWil l try Melatonin gummies Depression screening 171 389938 Z13.31 negative [id number] Almita Martinez [facility] [address] [address] 04/27/2021 15:19:31 05/01/2021 14:03:04 Essential hypertension 98274327 I10 continue present meds Hyperlipidemia 64798878 E78.5 stressed diet, weight loss, exercise will continue with current therapyLas t lipid levelcho 220trig 145HDL 57LDL 137 Subclinica l hypothyroidism 62613470 E02 TSH 3.0 Migraine 13338627 G43.90 9 Will continue Propranolo l 40mg 1 p.o. bid The patient has been weaned off Topamax by neurologis twill use Naprosyn for breakthrou gh headaches Anemia 776638172 D64.9 Iron rich foods every day Take Iron therapy as directed with vitamina C source Last CBC normal 09/30/2020 Seizure disorder 1803524 02 G40.909 Patient to continue Tegretol (carbameza pine) 100mg XR take at night x1 week then will increase to bid for seizure management --as patient has had 2 recent seizures after no seizures for 30 years--the patient was previously on Tegretol 200mg bid back in 2012-she was switched to Topamax for migraine management and seizure Discussed potential side effects Allergic rhinitis 111521 04 J30.9 otc meds-advis ed to start MARTITA as having some allergy symptoms Impaired g lucose tolerance 0289152 R73.02 05/2019 HA1C 5.511/14/2 020 HA1c 5.9 Obesity 185077265 E66.9 diet weight loss and exercise Body mass index 30+ - obesity 018438237 Z68.33 BMI 33.1Health y weight range 100-125 Fracture o f tibial plateau 810986674 S82.101D continue follow ups with Orthostart ed gabapentin 300mg 1 three times daily by orthopedic Fracture of ankle 289207 01 S82.91XD continue follow ups with Orthostart ed gabapentin 300mg 1 three times daily by orthopedic Vitamin D deficiency 347 48985 E55.9 vitamin D 2000 IU daily+ calcium rich foods Persistent insomnia 1919 43092 G47.09 Patient has tried Melatonin not helpingPat ient has tried Benadryl not helpingPat ient has tried herbal teas not helpingWil l try Melatonin gummies Lumbosacra l radiculopathy 2075963 M54.17 R>L [id number] Almita Martinez [facility] [address] [place] [address] 07/27/2021 15:19:13 07/30/2021 07:24:20 Essential hypertension 12643510 I10 continue present meds12019BUN 12creatini ne 0.61eGFR 100 Hyperlipidemia 44200994 E78.5 stressed diet, weight loss, exercise will continue with current therapyLas t lipid level 09/30/2020 cho 220trig 145HDL 57LDL 137 Subclinica l hypothyroidism 95517325 E02 05/12/2021T SH 2.16 better Migraine 71974748 G43.90 9 Will continue Propranolo l 40mg 1 p.o. bid The patient has been weaned off Topamax by neurologis twill use Naprosyn for breakthrou gh headaches Anemia 928447478 D64.9 Iron rich foods every day Take Iron therapy as directed with vitamina C source Last CBC normal 09/30/2020 Seizure disorder 1440126 02 G40.909 Patient to continue Tegretol (carbameza pine) 100mg XR take at night x1 week then will increase to bid for seizure management --as patient has had 2 recent seizures after no seizures for 30 years--the patient was previously on Tegretol 200mg bid back in 2012-she was switched to Topamax for migraine management and seizure Discussed potential side effects Allergic rhinitis 451424 04 J30.9 otc meds-advis ed to start MARTITA as having some allergy symptoms Impaired g lucose tolerance 3458799 R73.02 05/2019 HA1C 5.511/14/ 020 HA1c 5.9 Obesity 466827787 E66.9 diet weight loss and exercise Body mass index 30+ - obesity 013660015 Z68.33 BMI 33.1Health y weight range 100-125 Fracture o f tibial plateau 552151216 S82.101D continue follow ups with Orthostart ed gabapentin 300mg 1 three times daily by orthopedic patient wants to continue Gabapentin 300mg (same dosage) Vitamin D deficiency 347 33007 E55.9 vitamin D 2000 IU daily+ calcium rich foods Persistent insomnia 1919 28494 G47.09 Patient has tried Melatonin not helpingPat ient has tried Benadryl not helpingPat ient has tried herbal teas not helpingWil l try Melatonin gummies Lumbosacra l radiculopathy 7724900 M54.17 R>LMRI LSS w/o contrast on 05/18/2021 shows DJD, OA, lumbar spondylosi spatient aware of results refuses pain mgmt referral for nowill restart Gabapentin 300mg tid Degenerati ve joint disease involving multiple joints 300938074 M15.9 R>LMRI LSS w/o contrast on 05/18/2021 shows DJD, OA, lumbar spondylosi spatient aware of results refuses pain mgmt referral for nowill restart Gabapentin 300mg tid [id number] Rosa Isela Argueta RN [facility] [address] [address] 09/05/2021 15:41:35 09/10/2021 06:43:43 Administration of SARS-CoV-2 antigen vaccine 128592745 Z23 [id number] [facility] [address] [place] [address] 10/29/2021 15:04:39 10/30/2021 06:40:02 Subclinical hypothyroidism 67514910 E02 05/12/2021T SH 2.16 better Seizure disorder 6497533 02 G40.909 Patient to continue Tegretol (carbameza pine) 100mg XR take at night x1 week then will increase to bid for seizure management --as patient has had 2 recent seizures after no seizures for 30 years--the patient was previously on Tegretol 200mg bid back in 2012-she was switched to Topamax for migraine management and seizure Discussed potential side effects Essential hypertension 39465095 I10 continue present meds12019BUN 12creatini ne 0.61eGFR 100 Hyperlipidemia 27880028 E78.5 stressed diet, weight loss, exercise will continue with current therapyLas t lipid level 09/30/2020 cho 220trig 145HDL 57LDL 137 Migraine 24263062 G43.90 9 Will continue Propranolo l 40mg 1 p.o. bid The patient has been weaned off Topamax by neurologis twill use Naprosyn for breakthrou gh headaches Anemia 178112905 D64.9 Iron rich foods every day Take Iron therapy as directed with vitamina C source Last CBC normal 09/30/2020 Allergic rhinitis 211728 04 J30.9 otc meds-advis ed to start MARTITA as having some allergy symptoms Impaired g lucose tolerance 9347955 R73.02 05/2019 HA1C 5.511/14/2 020 HA1c 5.9 Obesity 190971335 E66.9 diet weight loss and exercise Body mass index 30+ - obesity 591249493 Z68.33 BMI 33.1Health y weight range 100-125 Fracture o f tibial plateau 050375059 S82.101D continue follow ups with Orthostart ed gabapentin 300mg 1 three times daily by orthopedic patient wants to continue Gabapentin 300mg (same dosage) Vitamin D deficiency 347 59377 E55.9 vitamin D 2000 IU daily+ calcium rich foods Persistent insomnia 1919 23343 G47.09 Patient has tried Melatonin not helpingPat ient has tried Benadryl not helpingPat ient has tried herbal teas not helpingWil l try Melatonin gummies Lumbosacra l radiculopathy 9948429 M54.17 R>LMRI LSS w/o contrast on 05/18/2021 shows DJD, OA, lumbar spondylosi spatient aware of results refuses pain mgmt referral for nowill restart Gabapentin 300mg tid Degenerati ve joint disease involving multiple joints 524363076 M15.9 R>LMRI LSS w/o contrast on 05/18/2021 shows DJD, OA, lumbar spondylosi spatient aware of results refuses pain mgmt referral for nowcontinu e Gabapentin 300mg tid Bilateral chronic serous otitis 804936003 H65.23 [id number] [facility] [address] [place] [address] 12/18/2021 16:26:35 12/19/2021 10:55:26 Lumbosacral radiculopathy 7377016 M54.17 R>LMRI LSS w/o contrast on 05/18/2021 shows DJD, OA, lumbar spondylosi spatient aware of results refused pain mgmt referral in the past but wishes to go nowcontinu e Gabapentin 300mg tidPatient referred to pain mgmt - has appt next week Bilateral hip joint pain [id number] 3330164 M25.551 M25.552 04/27/2020 xrays shows Oa Osteoarthr itis of knee 149094842 M17.9 04/27/2020 XR femur shows tiny osteophyte s [id number] Almita Martinez [facility] [address] [place] [address] 01/29/2022 15:29:22 02/01/2022 07:01:49 Hyperlipidemia 40718142 E78.5 stressed diet, weight loss, exercise will continue with current xplrput12cho 220trig 145HDL 57LDL 137 12/31/2021 cho 194trig 131HDL 52LDL 126non-HDL 142 Seizure disorder 8577054 02 G40.909 Patient to continue Tegretol (carbameza pine) 100mg XR take at night x1 week then will increase to bid for seizure management --as patient has had 2 recent seizures after no seizures for 30 years--the patient was previously on Tegretol 200mg bid back in 2012-she was switched to Topamax for migraine management and seizure Discussed potential side effects Vitamin D deficiency 347 21915 E55.9 vitamin D 2000 IU daily+ calcium rich foods Essential hypertension 52890496 I10 continue present meds11BUN 9creatinin e 0.54eGFR 104 Subclin[facility] l hypothyroidism 32266454 E02 05/12/2021T SH 2.16 /2 07/2021TSH 2.7 Migraine 16956728 G43.90 9 Will continue Propranolo l 40mg 1 p.o. bid The patient has been weaned off Topamax by neurologis twill use Naprosyn for breakthrou gh headaches Allergic rhinitis 215052 04 J30.9 otc meds-advis ed to start MARTITA as having some allergy symptoms Impaired g lucose tolerance 8142913 R73.02 05/2019 HA1C 5.511/14/2 020 HA1c 5.912/29/2 021 HA1C 6.4 Obesity 285774133 E66.9 diet weight loss and exercise Body mass index 30+ - obesity 350765944 Z68.33 BMI 40.1Health y weight range 100-125 Lumbosacra l radiculopathy 2691037 M54.17 R>LMRI LSS w/o contrast on 05/18/2021 shows DJD, OA, lumbar spondylosi spatient aware of results refuses pain mgmt referral for nowill restart Gabapentin 300mg tid Degenerati ve joint disease involving multiple joints 188947100 M15.9 R>LMRI LSS w/o contrast on 05/18/2021 shows DJD, OA, lumbar spondylosi spatient aware of results refuses pain mgmt referral for nowcontinu e Gabapentin 300mg tid Swollen abdomen 90523931 R14.0 Diverticul osis of colon 256301095 K57.30 high fiber dietie metamucil or fibercon Hiatal hernia 52016211 K 44.9 Patient has abdominal bloating and discomfort after mealswill try pepcid 20mg bid Adenomatou s polyp of colon 512750876 D12.6 01/28/2019 colonoscop y shows adenomatou s polypneeds repeat colonoscop y in 2023 Vaginitis 58171289 N76.0 Administra tion of diphtheria, pertussis, and tetanus vaccine 132259388 Z23 Numbness of hand 7139694 04 R20.0 anni finger numbnessco ntinue wrist splintstry NSAIDS PRNMay need a NCS/Neurol ogy referral at later time Depression screening 171 521081 Z13.31 negative [id number] Almita Martinez, [facility] [address] [place] [address] 03/04/2022 15:36:35 03/06/2022 14:21:22 Essential hypertension 43926333 I10 BP Goal: {{Less than 140/90* Le ss than 150/90}}BP Controlled : {{yes no*} }Healthy Weight: {{4'10= 91-118 lbs 4'11= 94-123 lbs 5'= 97-127 lbs 5'1= 100-131 lbs* 5'2= 104-135 5' 3= 107-140 lbs 5'4= 110-144 lbs 5'5= 115-149 lbs 5'6= 118-154 lbs 5'7= 121-158 lbs 5'8= 125-163 lbs 5'9= 128-168 lbs 5'10= 132-173 lbs 5'11= 136-178 lbs 6'= 140-183 lbs 6'1= 144-188 lbs 6'2= 148-193 lbs 6'3= 152-199 lbs 6'4= 156-204 lbs}}Discu ssed: Low sodium balanced diet, moderate exercise at least 3-4 times per week for an average of 40 minutesNex t Visit: {{1 2 3* 4 5 6 7 8 9 10 11 12} }{{week(s) month(s)* }}11/14/20 21BUN 9creatinin e 0.54eGFR 104 02/02/2022 BUN 10Creat 0.69 continue Losartan 100mg/Hydr ochlorothi azide 12.5mg dailyconti nue Atenolol 50mg one tab dailystart amlodipine 2.5mg dailycheck b/p at home keep logB/P elevated today L arm 180/100 will give Captopril 12.5mg onceRechec k b/p 172/92 L arm after 15 minutes after 5 more minutes 138/92 L arm Subclinica l hypothyroidism 26596210 E02 05/12/2021T SH 2.16 rquafu91/2 07/2021TSH 2.703/19/ 022TSH 3.17 Body mass index 30+ - obesity 539391944 Z68.33 BMI 41Healthy weight range 100-125 Swollen abdomen 61188441 R14.0 she had been having mid epigastric abdominal pain and swelling after eating. It is uncomforta ble. She denies any nausea or vomiting. She denies blood per os or rectum. She was given a trial Pepcid 20mg bid. Patient does have history of hiatal hernia. Her amylase/li pase, H Pylori, hepatic function were all normal. Her abdominal u/s was all normal. CT abd/Pelvis from [facility] shows sliding hiatal herniadive rticulosis of sigmoid colonbilat eral fat containing inguinal herniaspat ient tried on Pepcid 20mg bid did not helpWill try on Omeprazole 20mg bid 1/2 hour before mealswill send for EGD Hiatal hernia 10866937 K 44.9 Patient has abdominal bloating and discomfort after mealsTried pepcid 20mg bid not helpingPat ient will now try Omeprazole 20mg bidGet an EGD Epigastric pain 03770780 R10.13 she had been having mid epigastric abdominal pain and swelling after eating. It is uncomforta ble. She denies any nausea or vomiting. She denies blood per os or rectum. She was given a trial Pepcid 20mg bid. Patient does have history of hiatal hernia. Her amylase/li pase, H Pylori, hepatic function were all normal. Her abdominal u/s was all normal. CT abd/Pelvis from [facility] shows sliding hiatal herniadive rticulosis of sigmoid colonbilat eral fat containing inguinal herniaspat ient tried on Pepcid 20mg bid did not helpWill try on Omeprazole 20mg bid 1/2 hour before mealswill send for EGD Lumbosacra l radiculopathy 1354106 M54.17 R>LMRI LSS w/o contrast on 05/18/2021 shows DJD, OA, lumbar spondylosi sPatient aware of results getting telehealth with pain mgmtShe voices concern as pain management doctor she was sent to has not seen her in person and at the last phone consult sent her a medrol dose oleg for her hands/wris t when he is supposed to be treating her low back/radic ulopathy going down leg to foot.Kerry nue Gabapentin 300mg tidWill review consult note from pain management Venous stasis 38374172 I 87.8 elevate legs wear support hose lose weight [id number] Almita Martinez [facility] [address] [place] [address] 05/22/2022 15:26:04 05/23/2022 15:41:54 Essential hypertension 66234842 I10 BP Goal: {{Less than 140/90* Le ss than 150/90}}BP Controlled : {{yes no*} }Healthy Weight: {{4'10= 91-118 lbs 4'11= 94-123 lbs 5'= 97-127 lbs 5'1= 100-131 lbs* 5'2= 104-135 5' 3= 107-140 lbs 5'4= 110-144 lbs 5'5= 115-149 lbs 5'6= 118-154 lbs 5'7= 121-158 lbs 5'8= 125-163 lbs 5'9= 128-168 lbs 5'10= 132-173 lbs 5'11= 136-178 lbs 6'= 140-183 lbs 6'1= 144-188 lbs 6'2= 148-193 lbs 6'3= 152-199 lbs 6'4= 156-204 lbs}}Discu ssed: Low sodium balanced diet, moderate exercise at least 3-4 times per week for an average of 40 minutesNex t Visit: {{1 2 3* 4 5 6 7 8 9 10 11 12} }{{week(s) month(s)* }}11/14/20 21BUN 9creatinin e 0.54eGFR 104 02/02/2022 BUN 10Creat 0.69 continue Losartan 100mg/Hydr ochlorothi azide 12.5mg dailyconti nue Atenolol 50mg one tab dailystart amlodipine 2.5mg dailycheck b/p at home keep logB/P elevated today L arm 180/100 will give Captopril 12.5mg onceRechec k b/p 172/92 L arm after 15 minutes after 5 more minutes 138/92 L arm Hyperlipidemia 70538049 E78.5 stressed diet, weight loss, exercise will continue with current hpgiiyl94cho 220trig 145HDL 57LDL 137 12/31/2021 cho 194trig 131HDL 52LDL 126non-HDL 142 Subclinica l hypothyroidism 01084988 E02 05/12/2021T SH 2.16 itfnqr21/2 07/2021TSH 2.703/05/01 022TSH 3.17 Allergic rhinitis 263776 04 J30.9 otc meds-advis ed to start MARTITA as having some allergy symptoms Impaired g lucose tolerance 4803012 R73.02 05/2019 HA1C 5.511/14/2 020 HA1c 5.912/29/2 021 HA1C 6.407/06/2 022 HA1C 6.3 Body mass index 30+ - obesity 394291082 Z68.33 BMI 40Healthy weight range 100-125 Epigastric pain 44012672 R10.13 she had been having mid epigastric abdominal pain and swelling after eating. It is uncomforta ble. She denies any nausea or vomiting. She denies blood per os or rectum. She was given a trial Pepcid 20mg bid. Patient does have history of hiatal hernia. Her amylase/li pase, H Pylori, hepatic function were all normal. Her abdominal u/s was all normal. CT abd/Pelvis from [facility] shows sliding hiatal herniadive rticulosis of sigmoid colonbilat eral fat containing inguinal herniaspat ient tried on Pepcid 20mg bid did not helpWill try on Omeprazole 20mg bid 1/2 hour before mealswill send for EGD Hiatal hernia 29368446 K 44.9 Patient has abdominal bloating and discomfort after mealsTried pepcid 20mg bid not helpingPat ient will now try Omeprazole 20mg bidGet an EGD Lumbosacra l radiculopathy 8497416 M54.17 R>LMRI LSS w/o contrast on 05/18/2021 shows DJD, OA, lumbar spondylosi sPatient aware of results getting telehealth with pain mgmtShe voices concern as pain management doctor she was sent to has not seen her in person and at the last phone consult sent her a medrol dose oleg for her hands/wris t when he is supposed to be treating her low back/radic ulopathy going down leg to foot.Will review consult note from pain management -pt doesnt want to continue consult with pain mgmt at this timewill have the patient increase gabapentin 600mg at HS to 900mg at HS Venous stasis 86296511 I 87.8 elevate legs wear support hose lose weight Depression screening 171 227796 Z13.31 negative [id number] TEO [facility] [address] [address] 08/23/2022 15:39:55 08/26/2022 11:46:07 Essential hypertension 62503055 I10 BP Goal: {{Less than 140/90* Le ss than 150/90}}BP Controlled : {{yes no*} }Healthy Weight: {{4'10= 91-118 lbs 4'11= 94-123 lbs 5'= 97-127 lbs 5'1= 100-131 lbs* 5'2= 104-135 5' 3= 107-140 lbs 5'4= 110-144 lbs 5'5= 115-149 lbs 5'6= 118-154 lbs 5'7= 121-158 lbs 5'8= 125-163 lbs 5'9= 128-168 lbs 5'10= 132-173 lbs 5'11= 136-178 lbs 6'= 140-183 lbs 6'1= 144-188 lbs 6'2= 148-193 lbs 6'3= 152-199 lbs 6'4= 156-204 lbs}}Discu ssed: Low sodium balanced diet, moderate exercise at least 3-4 times per week for an average of 40 minutesNex t Visit: {{1 2 3* 4 5 6 7 8 9 10 11 12} }{{week(s) month(s)* }}11/14/20 21BUN 9creatinin e 0.54eGFR 104 02/02/2022 BUN 10Creat 0.69 continue Losartan 100mg/Hydr ochlorothi azide 12.5mg dailyconti nue Atenolol 50mg one tab dailystart amlodipine 2.5mg dailycheck b/p at home keep logB/P elevated today L arm 180/100 will give Captopril 12.5mg onceRechec k b/p 172/92 L arm after 15 minutes after 5 more minutes 138/92 L arm Hyperlipidemia 65075708 E78.5 stressed diet, weight loss, exercise will continue with current vdehgzs20cho 220trig 145HDL 57LDL 137 12/31/2021 cho 194trig 131HDL 52LDL 126non-HDL 142 Impaired g lucose tolerance 3780243 R73.02 05/2019 HA1C 5.511//2 020 HA1c 5.912// 021 HA1C 6.407/04/18 022 HA1C 6.310/05/18 022 HA1C 5.4did not tolerate metformins tarted on Ozempic 0.25mg once weekly on 05/22/2022 Has lost 11 poundsPati ent wants to continue treatment Subclinica l hypothyroidism 40570743 E02 05/12/2021T SH 2.16 /2 07/2021TSH 2.703/05/01 022TSH 3.17 Allergic rhinitis 830352 04 J30.9 ot meds-advis ed to start MARTITA as having some allergy symptoms Body mass index 30+ - obesity 799503349 Z68.33 BMI 38.1Health y weight range 100-125 Epigastric pain 62101506 R10.13 she had been having mid epigastric abdominal pain and swelling after eating. It is uncomforta ble. She denies any nausea or vomiting. She denies blood per os or rectum. She was given a trial Pepcid 20mg bid. Patient does have history of hiatal hernia. Her amylase/li pase, H Pylori, hepatic function were all normal. Her abdominal u/s was all normal. CT abd/Pelvis from [facility] shows sliding hiatal herniadive rticulosis of sigmoid colonbilat eral fat containing inguinal herniaspat ient tried on Pepcid 20mg bid did not helpWill try on Omeprazole 20mg bid 1/2 hour before mealsNeeds to get EGD Hiatal hernia 83005369 K 44.9 Patient has abdominal bloating and discomfort after mealsTried pepcid 20mg bid not helpingPat ient will now try Omeprazole 20mg bidGet an EGD-referr al given on 03/04/2022- patient did not want to go to [facility] Lumbosacra l radiculopathy 7632977 M54.17 R>LMRI LSS w/o contrast on 05/18/2021 shows DJD, OA, lumbar spondylosi sPatient aware of results getting telehealth with pain mgmtShe voices concern as pain management doctor she was sent to has not seen her in person and at the last phone consult sent her a medrol dose oleg for her hands/wris t when he is supposed to be treating her low back/radic ulopathy going down leg to foot.Will review consult note from pain management -pt doesnt want to continue consult with pain mgmt at this timewill have the patient increase gabapentin 600mg at HS to 900mg at HS Venous stasis 51744834 I 87.8 elevate legs wear support hose lose weight Depression screening 171 844284 Z13.31 PHQ2-9 negative Administra tion of influenza vaccine 50955337 Z23 Mental hea lth screening 713916491 Z13.39 NADIRA-7 negative Eruption 117171914 R21 Onychomyco sis of toenails 113862560 B35.1 Great toenails dark black thickened Diarrhea 03319014 R19.7 Traveler's diarrhea Acute sero us otitis media of left ear 5581629648 281495 H65.02 [id number] TEO Catalan[facility] [address] [address] 12/20/2022 15:24:39 12/25/2022 10:48:57 Subclinical hypothyroidism 54565922 E02 05/12/2021T SH 2.16 /2 07/2021TSH 2.703/05/01 022TSH 3.1705/2021TSH 1.79 Hyperlipidemia 15055472 E78.5 stressed diet, weight loss, exercise will continue with current jppwutp76cho 220trig 145HDL 57LDL 137 12/31/2021 cho 194trig 131HDL 52LDL 126non-HDL 142 Essential hypertension 14891091 I10 BP Goal: {{Less than 140/90* Le ss than 150/90}}BP Controlled : {{yes no*} }Healthy Weight: {{4'10= 91-118 lbs 4'11= 94-123 lbs 5'= 97-127 lbs 5'1= 100-131 lbs* 5'2= 104-135 5' 3= 107-140 lbs 5'4= 110-144 lbs 5'5= 115-149 lbs 5'6= 118-154 lbs 5'7= 121-158 lbs 5'8= 125-163 lbs 5'9= 128-168 lbs 5'10= 132-173 lbs 5'11= 136-178 lbs 6'= 140-183 lbs 6'1= 144-188 lbs 6'2= 148-193 lbs 6'3= 152-199 lbs 6'4= 156-204 lbs}}Discu ssed: Low sodium balanced diet, moderate exercise at least 3-4 times per week for an average of 40 minutesNex t Visit: {{1 2 3* 4 5 6 7 8 9 10 11 12} }{{week(s) month(s)* }}11/14/20 21BUN 9creatinin e 0.54eGFR 104 02/02/2022 BUN 10Creat 0.69 continue Losartan 100mg/Hydr ochlorothi azide 12.5mg dailyconti nue Atenolol 50mg one tab dailystart amlodipine 2.5mg dailycheck b/p at home keep logB/P elevated today L arm 180/100 will give Captopril 12.5mg onceRechec k b/p 172/92 L arm after 15 minutes after 5 more minutes 138/92 L arm Impaired g lucose tolerance 3441637 R73.02 05/2019 HA1C 5.511/14/2 020 HA1c 5.912/29/2 021 HA1C 6.407/06/2 022 HA1C 6.310/07/2 022 HA1C 5.402/03/2 023 HA1C 5.4did not tolerate metformins tarted on Ozempic 0.25mg once weekly on 05/22/2022 Has lost 11 poundsPati ent wants to continue treatment Obesity 819638235 E66.9 diet weight loss and exerciseBM I 38.5Health y weight range 100-125 Allergic rhinitis 127495 04 J30.9 otc meds-advis ed to start MARTITA as having some allergy symptoms Body mass index 30+ - obesity 166721371 Z68.33 BMI 38.5Health y weight range 100-125 Epigastric pain 14320728 R10.13 she had been having mid epigastric abdominal pain and swelling after eating. It is uncomforta ble. She denies any nausea or vomiting. She denies blood per os or rectum. She was given a trial Pepcid 20mg bid. Patient does have history of hiatal hernia. Her amylase/li pase, H Pylori, hepatic function were all normal. Her abdominal u/s was all normal. CT abd/Pelvis from [facility] shows sliding hiatal herniadive rticulosis of sigmoid colonbilat eral fat containing inguinal herniaspat ient tried on Pepcid 20mg bid did not helpWill try on Omeprazole 20mg bid 1/2 hour before mealsNeeds to get EGD Hiatal hernia 80458908 K 44.9 Patient has abdominal bloating and discomfort after mealsTried pepcid 20mg bid not helpingPat ient will now try Omeprazole 20mg bidGet an EGD-referr al given on 03/04/2022- patient did not want to go to [facility] Lumbosacra l radiculopathy 9260589 M54.17 R>LMRI LSS w/o contrast on 05/18/2021 shows DJD, OA, lumbar spondylosi sPatient aware of results getting telehealth with pain mgmtShe voices concern as pain management doctor she was sent to has not seen her in person and at the last phone consult sent her a medrol dose oleg for her hands/wris t when he is supposed to be treating her low back/radic ulopathy going down leg to foot.Will review consult note from pain management -pt doesnt want to continue consult with pain mgmt at this timewill have the patient increase gabapentin 600mg at HS to 900mg at HS [facility] screening 880260504 Z13.39 NADIRA-7 negative Venous stasis 67739279 I 87.8 elevate legs wear support hose lose weight Depression screening 171 618806 Z13.31 PHQ2-9 negative Onychomyco sis of toenails 534241880 B35.1 Great toenails dark black thickened Exposure t o herpes simplex virus 1754796169 61739 Z20.828 Positive for HSV Adenomatou s polyp of colon 946963467 D12.6 01/28/2019 colonoscop y shows adenomatou s polypneeds repeat colonoscop y in [id number] Almita Martinez [facility] [address] [address] 04/18/2023 15:28:07 04/21/2023 15:08:50 Body mass index 30+ - obesity 517188149 Z68.33 BMI 38.Healthy weight range 100-125 Hyperlipidemia 76813406 E78.5 stressed diet, weight loss, exercise will continue with current owswcbe36cho 220trig 145HDL 57LDL 137 12/31/2021 cho 194trig 131HDL 52LDL 126non-HDL 142 Essential hypertension 40096883 I10 BP Goal: {{Less than 140/90* Le ss than 150/90}}BP Controlled : {{yes no*} }Healthy Weight: {{4'10= 91-118 lbs 4'11= 94-123 lbs 5'= 97-127 lbs 5'1= 100-131 lbs* 5'2= 104-135 5' 3= 107-140 lbs 5'4= 110-144 lbs 5'5= 115-149 lbs 5'6= 118-154 lbs 5'7= 121-158 lbs 5'8= 125-163 lbs 5'9= 128-168 lbs 5'10= 132-173 lbs 5'11= 136-178 lbs 6'= 140-183 lbs 6'1= 144-188 lbs 6'2= 148-193 lbs 6'3= 152-199 lbs 6'4= 156-204 lbs}}Discu ssed: Low sodium balanced diet, moderate exercise at least 3-4 times per week for an average of 40 minutesNex t Visit: {{1 2 3* 4 5 6 7 8 9 10 11 12} }{{week(s) month(s)* }}11/14/20 21BUN 9creatinin e 0.54eGFR 104 02/02/2022 BUN 10Creat 0.69 continue Losartan 100mg/Hydr ochlorothi azide 12.5mg dailyconti nue Atenolol 50mg one tab dailystart amlodipine 2.5mg dailycheck b/p at home keep log Impaired g lucose tolerance 7594415 R73.02 05/2019 HA1C 5.511/14/2 020 HA1c 5.912/29/2 021 HA1C 6.407/06/2 022 HA1C 6.310/07/2 022 HA1C 5.402/03/2 023 HA1C 5.4did not tolerate metformin Patient wants to continue treatment [facility] hypothy[facility] 60581679 E02 05/12/2021T SH 2.16 eubikq35/2 07/2021TSH 2.703/19/2 022TSH 3.1705/2021TSH 1.79 Obesity 668844218 E66.9 diet weight loss and exerciseBM I 38.5Health y weight range 100-125 Allergic rhinitis 870431 04 J30.9 otc meds-advis ed to start MARTITA as having some allergy symptoms Epigastric pain 36205537 R10.13 she had been having mid epigastric abdominal pain and swelling after eating. It is uncomforta ble. She denies any nausea or vomiting. She denies blood per os or rectum. She was given a trial Pepcid 20mg bid. Patient does have history of hiatal hernia. Her amylase/li pase, H Pylori, hepatic function were all normal. Her abdominal u/s was all normal. CT abd/Pelvis from [facility] shows sliding hiatal herniadive rticulosis of sigmoid colonbilat eral fat containing inguinal herniaspat ient tried on Pepcid 20mg bid did not helpWill try on Omeprazole 20mg bid 1/2 hour before mealsNeeds to get EGD Hiatal hernia 48920481 K 44.9 Patient has abdominal bloating and discomfort after mealsTried pepcid 20mg bid not helpingPat ient will now try Omeprazole 20mg bidGet an EGD-referr al given on 03/04/2022- patient did not want to go to [facility] Lumbosacra l radiculopathy 6792845 M54.17 R>LMRI LSS w/o contrast on 05/18/2021 shows DJD, OA, lumbar spondylosi sPatient aware of results getting telehealth with pain mgmtShe voices concern as pain management doctor she was sent to has not seen her in person and at the last phone consult sent her a medrol dose oleg for her hands/wris t when he is supposed to be treating her low back/radic ulopathy going down leg to foot.Will review consult note from pain management -pt doesnt want to continue consult with pain mgmt at this timewill have the patient increase gabapentin 600mg at HS to 900mg at HS Venous stasis 26952993 I 87.8 elevate legs wear support hose lose weight Onychomyco sis of toenails 389976506 B35.1 Great toenails dark black thickened Depression screening 171 935505 Z13.31 PHQ2-9 negative [facility] screening 207459873 Z13.39 NADIRA-7 negative Adenomatou s polyp of colon 521141847 D12.6 01/28/2019 colonoscop y shows adenomatou s polypneeds repeat colonoscop y in 9436-3195 Herpes simplex 11254533 B00.9 Seizure disorder 2192648 02 G40.909 Patient to continue Tegretol (carbameza pine) 100mg XR take at night x1 week then will increase to bid for seizure management --as patient has had 2 recent seizures after no seizures for 30 years--the patient was previously on Tegretol 200mg bid back in 2012-she was switched to Topamax for migraine management and seizure [id number] TEO Catalan[facility] [address] [address] 06/20/2023 15:31:27 06/23/2023 14:13:05 Gynecologic examination 76288874 Z01.411 Calcium Rich foods handout Vitamin D daily SBE teaching/ handout Screening for malignant neoplasm of breast 445334151 Z12.31 patient had last mammogram on 06/08/2018= normal Depression screening 171 291199 Z13.31 PHQ2-9 negative [facility] screening 260379391 Z13.39 NADIRA-7 negative Postmenopausal state 764 76987 Z78.0 vitamin DCalciumwe ight bearing exercises Diverticul osis of colon 432373802 K57.30 high fiber dietie metamucil or fibercon Internal hemorrhoids 904 13985 K64.8 ? ? increase waterincre ase fiber Change in stool consistency 542693167 R19.5 passed two balls in stool last weekshe brought them in a container for eval Screening for disorder 248456440 Z13.9 [id number] Almita Martinez [facility] [address] [place] [address] 08/08/2023 15:20:56 08/11/2023 14:30:17 Hyperlipidemia 69630063 E78.5 stressed diet, weight loss, exercise will continue with current pytedfn09cho 220trig 145HDL 57LDL 137 12/31/2021 cho 194trig 131HDL 52LDL 126non-HDL 142 05/03/2023 cho 189Trig 157HDL 57LDL 105 Essential hypertension 80428897 I10 BP Goal: {{Less than 140/90* Le ss than 150/90}}BP Controlled : {{yes no*} }Healthy Weight: {{4'10= 91-118 lbs 4'11= 94-123 lbs 5'= 97-127 lbs 5'1= 100-131 lbs* 5'2= 104-135 5' 3= 107-140 lbs 5'4= 110-144 lbs 5'5= 115-149 lbs 5'6= 118-154 lbs 5'7= 121-158 lbs 5'8= 125-163 lbs 5'9= 128-168 lbs 5'10= 132-173 lbs 5'11= 136-178 lbs 6'= 140-183 lbs 6'1= 144-188 lbs 6'2= 148-193 lbs 6'3= 152-199 lbs 6'4= 156-204 lbs}}Discu ssed: Low sodium balanced diet, moderate exercise at least 3-4 times per week for an average of 40 minutesNex t Visit: {{1 2 3* 4 5 6 7 8 9 10 11 12} }{{week(s) month(s)* }}11/14/20 21BUN 9creatinin e 0.54eGFR 104 02/02/2022 BUN 10Creat 0.69 continue Losartan 100mg/Hydr ochlorothi azide 12.5mg dailyconti nue Atenolol 50mg one tab dailystart amlodipine 2.5mg dailycheck b/p at home keep log Impaired g lucose tolerance 6687245 R73.02 05/2019 HA1C 5.511/14/2 020 HA1c 5.912/29/2 021 HA1C 6.407/06/2 022 HA1C 6.310/07/2 022 HA1C 5.402/03/2 023 HA1C 5.4did not tolerate metformin Patient wants to continue treatment Allergic rhinitis 218371 04 J30.9 otc meds-advis ed to start MARTITA as having some allergy symptoms Migraine 62548969 G43.90 9 Will continue Propranolo l 40mg 1 p.o. bidThe patient has been weaned off Topamax by neurologis twill use Naprosyn for breakthrou gh headaches Seizure disorder 7933394 02 G40.909 Patient to continue Tegretol (carbameza pine) 100mg XR take at night x1 week then will increase to bid for seizure management --as patient has had 2 recent seizures after no seizures for 30 years--the patient was previously on Tegretol 200mg bid back in 2012-she was switched to Topamax for migraine management and seizurePat ient started taking Carbamezap ine ER 200mg 1 p.o. tid [facility] hypothyroidism 99697318 E02 05/12/2021T SH 2.16 omvfhr56/2 07/2021TSH 2.703/19/2 022TSH 3.1705/2021TSH 1.7906/2022TSH 1.90 Body mass index 30+ - obesity 507336791 Z68.33 BMI 40Healthy weight range 100-125 Obesity 389694723 E66.9 diet weight loss and exerciseBM I 40Healthy weight range 100-125 Epigastric pain 92023536 R10.13 she had been having mid epigastric abdominal pain and swelling after eating. It is uncomforta ble. She denies any nausea or vomiting. She denies blood per os or rectum. She was given a trial Pepcid 20mg bid. Patient does have history of hiatal hernia. Her amylase/li pase, H Pylori, hepatic function were all normal. Her abdominal u/s was all normal. CT abd/Pelvis from [facility] shows sliding hiatal herniadive rticulosis of sigmoid colonbilat eral fat containing inguinal herniaspat ient tried on Pepcid 20mg bid did not helpWill try on Omeprazole 20mg bid 1/2 hour before mealsNeeds to get EGD Hiatal hernia 09694425 K 44.9 Patient has abdominal bloating and discomfort after mealsTried pepcid 20mg bid not helpingPat ient will now try Omeprazole 20mg bidGet an EGD-referr al given on 03/04/2022- patient did not want to go to [facility] Lumbosacra l radiculopathy 0039957 M54.17 R>LMRI LSS w/o contrast on 05/18/2021 shows DJD, OA, lumbar spondylosi sPatient aware of results getting telehealth with pain mgmtShe voices concern as pain management doctor she was sent to has not seen her in person and at the last phone consult sent her a medrol dose oleg for her hands/wris t when he is supposed to be treating her low back/radic ulopathy going down leg to foot.Will review consult note from pain management -pt doesnt want to continue consult with pain mgmt at this timewill have the patient increase gabapentin 600mg at HS to 900mg at HS Venous stasis 07729455 I 87.8 elevate legs wear support hose lose weight Onychomyco sis of toenails 954224006 B35.1 Great toenails dark black thickened Adenomatou s polyp of colon 951288955 D12.6 01/28/2019 colonoscop y shows adenomatou s polypneeds repeat colonoscop y in 8186-5934 Herpes simplex 71745097 B00.9 Gave prophylaxi s treatment for 1 year Depression screening 171 688465 Z13.31 PHQ2-9 negative [facility] screening 783896209 Z13.39 NADIRA-7 negative Administra tion of influenza vaccine 81899916 Z23 [id number] Almita Martinez, [facility] [address] [place] [address] 01/08/2024 15:54:18 01/14/2024 11:19:19 Essential hypertension 69060749 I10 BP Goal: {{Less than 140/90* Le ss than 150/90}}BP Controlled : {{yes no*} }Healthy Weight: {{4'10= 91-118 lbs 4'11= 94-123 lbs 5'= 97-127 lbs 5'1= 100-131 lbs* 5'2= 104-135 5' 3= 107-140 lbs 5'4= 110-144 lbs 5'5= 115-149 lbs 5'6= 118-154 lbs 5'7= 121-158 lbs 5'8= 125-163 lbs 5'9= 128-168 lbs 5'10= 132-173 lbs 5'11= 136-178 lbs 6'= 140-183 lbs 6'1= 144-188 lbs 6'2= 148-193 lbs 6'3= 152-199 lbs 6'4= 156-204 lbs}}Discu ssed: Low sodium balanced diet, moderate exercise at least 3-4 times per week for an average of 40 minutesNex t Visit: {{1 2 3* 4 5 6 7 8 9 10 11 12} }{{week(s) month(s)* }}11/14/20 21BUN 9creatinin e 0.54eGFR 104 02/02/2022 BUN 10Creat 0.69 continue Losartan 100mg/Hydr ochlorothi azide 12.5mg dailyconti nue Atenolol 50mg one tab dailystart amlodipine 2.5mg dailycheck b/p at home keep log Hyperlipidemia 37455552 E78.5 stressed diet, weight loss, exercise will continue with current ceddvys69cho 220trig 145HDL 57LDL 137 12/31/2021 cho 194trig 131HDL 52LDL 126non-HDL 142 05/03/2023 cho 189Trig 157HDL 57LDL 105 Seizure disorder 7572625 02 G40.909 Patient to continue Tegretol (carbameza pine) 100mg XR take at night x1 week then will increase to bid for seizure management --as patient has had 2 recent seizures after no seizures for 30 years--the patient was previously on Tegretol 200mg bid back in 2012-she was switched to Topamax for migraine management and seizurePat ient started taking Carbamezap ine ER 200mg 1 p.o. tid Migraine 03240347 G43.90 9 Will continue Propranolo l 40mg 1 p.o. bidThe patient has been weaned off Topamax by neurologis twill use Naprosyn for breakthrou gh headaches [facility] hypothyroidism 87617196 E02 05/12/2021T SH 2.16 orzklp03/2 07/2021TSH 2.703/19/2 022TSH 3.1705/2021TSH 1.7906/2022TSH 1.90 Body mass index 30+ - obesity 780698738 Z68.33 BMI 40.4Health y weight range 100-125 Obesity 185058873 E66.9 diet weight loss and exerciseBM I 40Healthy weight range 100-125 Impaired g lucose tolerance 9428086 R73.02 05/2019 HA1C 5.511/14/2 020 HA1c 5.912/29/2 021 HA1C 6.407/06/2 022 HA1C 6.310/07/2 022 HA1C 5.402/03/2 023 HA1C 5.4did not tolerate metformin Patient wants to continue treatment Allergic rhinitis 407011 04 J30.9 otc meds-advis ed to start MARTITA as having some allergy symptoms Epigastric pain 25311175 R10.13 she had been having mid epigastric abdominal pain and swelling after eating. It is uncomforta ble. She denies any nausea or vomiting. She denies blood per os or rectum. She was given a trial Pepcid 20mg bid. Patient does have history of hiatal hernia. Her amylase/li pase, H Pylori, hepatic function were all normal. Her abdominal u/s was all normal. CT abd/Pelvis from [facility] shows sliding hiatal herniadive rticulosis of sigmoid colonbilat eral fat containing inguinal herniaspat ient tried on Pepcid 20mg bid did not helpWill try on Omeprazole 20mg bid 1/2 hour before mealsNeeds to get EGD Hiatal hernia 97181525 K 44.9 Patient has abdominal bloating and discomfort after mealsTried pepcid 20mg bid not helpingPat ient will now try Omeprazole 20mg bidGet an EGD-referr al given on 03/04/2022- patient did not want to go to [facility] Lumbosacra l radiculopathy 4198313 M54.17 R>LMRI LSS w/o contrast on 05/18/2021 shows DJD, OA, lumbar spondylosi sPatient aware of results getting telehealth with pain mgmtShe voices concern as pain management doctor she was sent to has not seen her in person and at the last phone consult sent her a medrol dose oleg for her hands/wris t when he is supposed to be treating her low back/radic ulopathy going down leg to foot.Will review consult note from pain management -pt doesnt want to continue consult with pain mgmt at this timewill have the patient increase gabapentin 600mg at HS to 900mg at HS Venous stasis 63997633 I 87.8 elevate legs wear support hose lose weight Onychomyco sis of toenails 818883403 B35.1 Great toenails dark black thickened Adenomatou s polyp of colon 785270684 D12.6 01/28/2019 colonoscop y shows adenomatou s polypneeds repeat colonoscop y in 2023 Herpes simplex 46917842 B00.9 Gave prophylaxi s treatment for 1 year Depression screening 171 522525 Z13.31 PHQ2-9 negative [facility] 074137975 Z13.39 NADIRA-7 negative Administra tion of pneumococcal vaccine 81461621 Z23 [id number] TEO Catalan[facility] [address] [place] [address] 05/04/2024 14:59:26 05/10/2024 09:26:40 Essential hypertension 22635156 I10 BP Goal: {{Less than 140/90* Le ss than 150/90}}BP Controlled : {{yes no*} }Healthy Weight: {{4'10= 91-118 lbs 4'11= 94-123 lbs 5'= 97-127 lbs 5'1= 100-131 lbs* 5'2= 104-135 5' 3= 107-140 lbs 5'4= 110-144 lbs 5'5= 115-149 lbs 5'6= 118-154 lbs 5'7= 121-158 lbs 5'8= 125-163 lbs 5'9= 128-168 lbs 5'10= 132-173 lbs 5'11= 136-178 lbs 6'= 140-183 lbs 6'1= 144-188 lbs 6'2= 148-193 lbs 6'3= 152-199 lbs 6'4= 156-204 lbs}}Discu ssed: Low sodium balanced diet, moderate exercise at least 3-4 times per week for an average of 40 minutesNex t Visit: {{1 2 3* 4 5 6 7 8 9 10 11 12} }{{week(s) month(s)* }}11/14/20 21BUN 9creatinin e 0.54eGFR 104 02/02/2022 BUN 10Creat 0.69 05/03/2023 BUN 9Creat 0.58eGFR 103 continue Losartan 100mg/Hydr ochlorothi azide 12.5mg dailyconti nue Atenolol 50mg one tab dailyconti nue amlodipine 2.5mg dailycheck b/p at home keep log Hyperlipidemia 25849460 E78.5 stressed diet, weight loss, exercise will continue with current eejrsjm18cho 220trig 145HDL 57LDL 137 12/31/2021 cho 194trig 131HDL 52LDL 126non-HDL 142 05/03/2023 cho 189Trig 157HDL 57LDL 105 05/05/2024 cho 165trig 90HDL 63LDL 85??Avoid all breads, potatoes, cereal, pasta, rice, margarine, refined sugars, milk yogurt, ice cream, juices, soda (including diet), beer, and manmade or manufactur ed desserts.? ? Enjoy steak, fish, chicken (no skin), pork, butter, vegetables , beans, nuts, whole eggs,?? cheese (low fat or skim), cream in your coffee. Aries davila hypothyroidism 02854042 E02 05/12/2021T SH 2.16 elqajx32/2 07/2021TSH 2.703/19/2 022TSH 3.1705/2021TSH 1.7906/2022TSH 1.90 Body mass index 30+ - obesity 834974738 Z68.33 BMI 40.4Health y weight range 100-125 Impaired g lucose tolerance 1180712 R73.02 05/2019 HA1C 5.511/14/2 020 HA1c 5.912/29/2 021 HA1C 6.407/06/2 022 HA1C 6.310/07/2 022 HA1C 5.402/03/2 023 HA1C 5.4did not tolerate metformin Patient wants to continue treatment Obesity 037264763 E66.8 diet weight loss and exerciseBM I 40.4Health y weight range 100-125 Seizure disorder 5376411 02 G40.909 Patient to continue Tegretol (carbameza pine) 100mg XR take at night x1 week then will increase to bid for seizure management --as patient has had 2 recent seizures after no seizures for 30 years--the patient was previously on Tegretol 200mg bid back in 2012-she was switched to Topamax for migraine management and seizurePat ient started taking Carbamezap ine ER 200mg 1 p.o. tid Migraine 05014979 G43.90 9 Will continue Propranolo l 40mg 1 p.o. bidThe patient has been weaned off Topamax by neurologis twill use Naprosyn for breakthrou gh headaches Allergic rhinitis 574798 04 J30.9 otc meds-advis ed to start MARTITA as having some allergy symptoms Epigastric pain 14817890 R10.13 she had been having mid epigastric abdominal pain and swelling after eating. It is uncomforta ble. She denies any nausea or vomiting. She denies blood per os or rectum. She was given a trial Pepcid 20mg bid. Patient does have history of hiatal hernia. Her amylase/li pase, H Pylori, hepatic function were all normal. Her abdominal u/s was all normal. CT abd/Pelvis from [facility] shows sliding hiatal herniadive rticulosis of sigmoid colonbilat eral fat containing inguinal herniaspat ient tried on Pepcid 20mg bid did not helpWill try on Omeprazole 20mg bid 1/2 hour before mealsNeeds to get EGD Hiatal hernia 77853524 K 44.9 Patient has abdominal bloating and discomfort after mealsTried pepcid 20mg bid not helpingPat ient will now try Omeprazole 20mg bidGet an EGD-referr al given on 03/04/2022- patient did not want to go to [facility] Lumbosacra l radiculopathy 6716777 M54.17 R>LMRI LSS w/o contrast on 05/18/2021 shows DJD, OA, lumbar spondylosi sPatient aware of results getting telehealth with pain mgmtShe voices concern as pain management doctor she was sent to has not seen her in person and at the last phone consult sent her a medrol dose oleg for her hands/wris t when he is supposed to be treating her low back/radic ulopathy going down leg to foot.Will review consult note from pain management -pt doesnt want to continue consult with pain mgmt at this timewill have the patient increase gabapentin 600mg at HS to 900mg at HS Venous stasis 95752836 I 87.8 elevate legs wear support hose lose weight Onychomyco sis of toenails 897623849 B35.1 Great toenails dark black thickened Adenomatou s polyp of colon 646849355 D12.6 01/28/2019 colonoscop y shows adenomatou s polypneeds repeat colonoscop y in 2023Had normal repeat colonoscop y on 04/30/2024 no polyps seen but had hemorrhoid s and diverticul osis Herpes simplex 99073674 B00.9 Gave prophylaxi s treatment for 1 year Depression screening 171 926301 Z13.31 PHQ2-9 negative Mixed hyperlipidemia 267 683848 E78.2 stressed diet, weight loss, exercise will continue with current wknneyu45cho 220trig 145HDL 57LDL 137 12/31/2021 cho 194trig 131HDL 52LDL 126non-HDL 142 05/03/2023 cho 189Trig 157HDL 57LDL 105 05/05/2024 cho 165trig 90HDL 63LDL 85??Avoid all breads, potatoes, cereal, pasta, rice, margarine, refined sugars, milk yogurt, ice cream, juices, soda (including diet), beer, and manmade or manufactur ed desserts.? ? Enjoy steak, fish, chicken (no skin), pork, butter, vegetables , beans, nuts, whole eggs,?? cheese (low fat or skim), cream in your coffee. Multiple s kin tags on neck 928507549 L91.8 patient wants removal of 2 skin tag s on neck bothering her with clothesPat ient doesnt want tissue to send for pathology secondary to insurance [id number] Almita Martinez [facility] [address] [address] 08/27/2024 15:54:34 08/30/2024 09:57:25 Mixed hyperlipidemia 411412962 E78.2 stressed diet, weight loss, exercise will continue with current qzsdkxh78cho 220trig 145HDL 57LDL 137 12/31/2021 cho 194trig 131HDL 52LDL 126non-HDL 142 05/03/2023 cho 189Trig 157HDL 57LDL 105 05/05/2024 cho 165trig 90HDL 63LDL 85Avoid all breads, potatoes, cereal, pasta, rice, margarine, refined sugars, milk yogurt, ice cream, juices, soda (including diet), beer, and manmade or manufactur ed desserts. Enjoy steak, fish, chicken (no skin), pork, butter, vegetables , beans, nuts, whole eggs, cheese (low fat or skim), cream in your coffee.man ages with LSM and Atorvastat in 40mg daily Essential hypertension 20288956 I10 BP Goal: {{Less than 140/90* Le ss than 150/90}}BP Controlled : {{yes no*} }Healthy Weight: {{4'10= 91-118 lbs 4'11= 94-123 lbs 5'= 97-127 lbs 5'1= 100-131 lbs* 5'2= 104-135 5' 3= 107-140 lbs 5'4= 110-144 lbs 5'5= 115-149 lbs 5'6= 118-154 lbs 5'7= 121-158 lbs 5'8= 125-163 lbs 5'9= 128-168 lbs 5'10= 132-173 lbs 5'11= 136-178 lbs 6'= 140-183 lbs 6'1= 144-188 lbs 6'2= 148-193 lbs 6'3= 152-199 lbs 6'4= 156-204 lbs}}Discu ssed: Low sodium balanced diet, moderate exercise at least 3-4 times per week for an average of 40 minutesNex t Visit: {{1 2 3* 4 5 6 7 8 9 10 11 12} }{{week(s) month(s)* }}11/14/20 21BUN 9creatinin e 0.54eGFR 104 02/02/2022 BUN 10Creat 0.69 05/03/2023 BUN 9Creat 0.58eGFR 103 continue Losartan 100mg/Hydr ochlorothi azide 12.5mg dailyconti nue Atenolol 50mg one tab dailyconti nue amlodipine 2.5mg dailycheck b/p at home keep log [facility] hypothy[facility] 44305978 E02 05/12/2021T SH 2.16 djkhuj86/2 07/2021TSH 2.703/05/01 022TSH 3.1705/2021TSH 1.7906/2022TSH 1.9006/2023TSH 4.440 pt voices taking medication Body mass index 30+ - obesity 296419885 Z68.33 BMI 40.4Health y weight range 100-125 Seizure disorder 7500264 02 G40.909 Patient to continue Tegretol (carbameza pine) 100mg XR take at night x1 week then will increase to bid for seizure management --as patient has had 2 recent seizures after no seizures for 30 years--the patient was previously on Tegretol 200mg bid back in 2012-she was switched to Topamax for migraine management and seizurePat ient started taking Carbamezap ine ER 200mg 1 p.o. tid Hyperlipidemia 97960112 E78.5 stressed diet, weight loss, exercise will continue with current xiebgxg12cho 220trig 145HDL 57LDL 137 12/31/2021 cho 194trig 131HDL 52LDL 126non-HDL 142 05/03/2023 cho 189Trig 157HDL 57LDL 105 05/05/2024 cho 165trig 90HDL 63LDL 85Avoid all breads, potatoes, cereal, pasta, rice, margarine, refined sugars, milk yogurt, ice cream, juices, soda (including diet), beer, and manmade or manufactur ed desserts. Enjoy steak, fish, chicken (no skin), pork, butter, vegetables , beans, nuts, whole eggs, cheese (low fat or skim), cream in your coffee. Impaired g lucose tolerance 2076867 R73.02 05/2019 HA1C 5.511/14/2 020 HA1c 5.912//2 021 HA1C 6.407//2 022 HA1C 6.310/07/2 022 HA1C 5.402/03/2 023 HA1C 5.4did not tolerate metformin Patient wants to continue treatment with LSM Obesity 901552812 E66.01 diet weight loss and exerciseBM I 40.4Health y weight range 100-125 Migraine 92547811 G43.90 9 Will continue Propranolo l 40mg 1 p.o. bidThe patient has been weaned off Topamax by neurologis twill use Naprosyn for breakthrou gh headaches Allergic rhinitis 303367 04 J30.9 otc meds-advis ed to start MARTITA as having some allergy symptoms Epigastric pain 99531570 R10.13 she had been having mid epigastric abdominal pain and swelling after eating. It is uncomforta ble. She denies any nausea or vomiting. She denies blood per os or rectum. She was given a trial Pepcid 20mg bid. Patient does have history of hiatal hernia. Her amylase/li pase, H Pylori, hepatic function were all normal. Her abdominal u/s was all normal. CT abd/Pelvis from [facility] shows sliding hiatal herniadive rticulosis of sigmoid colonbilat eral fat containing inguinal herniaspat ient tried on Pepcid 20mg bid did not helpWill try on Omeprazole 20mg bid 1/2 hour before mealsNeeds to get EGD Hiatal hernia [id number] K 44.9 Patient has abdominal bloating and discomfort after mealsTried pepcid 20mg bid not helpingPat ient will now try Omeprazole 20mg bidGet an EGD-referr al given on 03/04/2022- patient did not want to go to [facility] Lumbosacra l radiculopathy [id number] M54.17 R>LMRI LSS w/o contrast on 05/18/2021 shows DJD, OA, lumbar spondylosi sPatient aware of results getting telehealth with pain mgmtShe voices concern as pain management doctor she was sent to has not seen her in person and at the last phone consult sent her a medrol dose oleg for her hands/wris t when he is supposed to be treating her low back/radic ulopathy going down leg to foot.Will review consult note from pain management -pt doesnt want to continue consult with pain mgmt at this timewill have the patient increase gabapentin 600mg at HS to 900mg at HS Venous stasis [id number] I 87.8 elevate legs wear support hose lose weight Adenomatou s polyp of colon [id number] D12.6 01/28/2019 colonoscop y shows adenomatou s polypneeds repeat colonoscop y in 2023Had normal repeat colonoscop y on 04/30/2024 no polyps seen but had hemorrhoid s and diverticul osis Herpes simplex 75057231 B00.9 Gave prophylaxi s treatment for 1 year Multiple joint pain 3567 8005 M25.50 c/o left shoulder pain, neck pain, hand pain, back painswelli ng of handsdropp ing thingsfeel s weak Pain of le ft shoulder joint [id number] M25.512 seen at [facility] for this problemtak ing Gabapentin 300mg 3 at nightNapro syn 500mgadvis ed on NSAIDS BBBdoesnt want to go to PT right now Administra tion of influenza vaccine 81204782 Z23 Subconjunc tival hemorrhage of left eye [id number] 04466 H11.32 [id number] Almita Martinez, SOW MANAGER-[facility] [address] [place] [address] 12/01/2024 14:58:42 12/02/2024 13:09:54 Essential hypertension [id number] I10 BP Goal: {{Less than 140/90* Le ss than 150/90}}BP Controlled : {{yes* no} }Healthy Weight: {{4'10= 91-118 lbs 4'11= 94-123 lbs 5'= 97-127 lbs 5'1= 100-131 lbs* 5'2= 104-135 5' 3= 107-140 lbs 5'4= 110-144 lbs 5'5= 115-149 lbs 5'6= 118-154 lbs 5'7= 121-158 lbs 5'8= 125-163 lbs 5'9= 128-168 lbs 5'10= 132-173 lbs 5'11= 136-178 lbs 6'= 140-183 lbs 6'1= 144-188 lbs 6'2= 148-193 lbs 6'3= 152-199 lbs 6'4= 156-204 lbs}}Discu ssed: Low sodium balanced diet, moderate exercise at least 3-4 times per week for an average of 40 minutesNex t Visit: {{1 2 3* 4 5 6 7 8 9 10 11 12} }{{week(s) month(s)* }}11/14/20 21BUN 9creatinin e 0.54eGFR 104 02/02/2022 BUN 10Creat 0.69 05/03/2023 BUN 9Creat 0.58eGFR 103 continue Losartan 100mg/Hydr ochlorothi azide 12.5mg dailyconti nue Atenolol 50mg one tab dailyconti nue amlodipine 2.5mg dailycheck b/p at home keep log Hyperlipidemia 32710215 E78.5 stressed diet, weight loss, exercise will continue with current podbnnj82cho 220trig 145HDL 57LDL 137 12/31/2021 cho 194trig 131HDL 52LDL 126non-HDL 142 05/03/2023 cho 189Trig 157HDL 57LDL 105 05/05/2024 cho 165trig 90HDL 63LDL 85Avoid all breads, potatoes, cereal, pasta, rice, margarine, refined sugars, milk yogurt, ice cream, juices, soda (including diet), beer, and manmade or manufactur ed desserts. Enjoy steak, fish, chicken (no skin), pork, butter, vegetables , beans, nuts, whole eggs, cheese (low fat or skim), cream in your coffee. Migraine 04689843 G43.90 9 Will continue Propranolo l 40mg 1 p.o. bidThe patient has been weaned off Topamax by neurologis twill use Naprosyn for breakthrou gh headaches Seizure disorder [id number] 02 G40.909 Patient to continue Tegretol (carbameza pine) 100mg XR take at night x1 week then will increase to bid for seizure management --as patient has had 2 recent seizures after no seizures for 30 years--the patient was previously on Tegretol 200mg bid back in 2012-she was switched to Topamax for migraine management and seizurePat ient started taking Carbamezap ine ER 200mg 1 p.o. tid Body mass index 30+ - obesity 919514616 Z68.33 BMI 41.3Health y weight range 100-125 Mixed hyperlipidemia 267 410569 E78.2 stressed diet, weight loss, exercise will continue with current goxvegc79cho 220trig 145HDL 57LDL 137 12/31/2021 cho 194trig 131HDL 52LDL 126non-HDL 142 05/03/2023 cho 189Trig 157HDL 57LDL 105 05/05/2024 cho 165trig 90HDL 63LDL 85Avoid all breads, potatoes, cereal, pasta, rice, margarine, refined sugars, milk yogurt, ice cream, juices, soda (including diet), beer, and manmade or manufactur ed desserts. Enjoy steak, fish, chicken (no skin), pork, butter, vegetables , beans, nuts, whole eggs, cheese (low fat or skim), cream in your coffee.man ages with LSM and Atorvastat in 40mg daily Subclinica l hypothyroidism 06544242 E02 05/12/2021T SH 2.16 iszdfc53/2 07/2021TSH 2.703/05/01 022TSH 3.1705/2021TSH 1.7906/2022TSH 1.9006/2023TSH 4.440 pt voices taking medication 08/28/2024 TSH 1.9 Impaired g lucose tolerance 8117906 R73.02 05/2019 HA1C 5.511/14/2 020 HA1c 5.912/29/2 021 HA1C 6.407/06/2 022 HA1C 6.310/07/2 022 HA1C 5.402/03/2 023 HA1C 5.410/14/2 024 HA1C 6.3%did not tolerate metformin Patient wants to continue treatment with L[facility] Obesity 224264411 E66.01 diet weight loss and exerciseBM I 41.3Health y weight range 100-125 Allergic rhinitis 681164 04 J30.9 otc meds-advis ed to start MARTITA as having some allergy symptoms Epigastric pain 28057421 R10.13 she had been having mid epigastric abdominal pain and swelling after eating. It is uncomforta ble. She denies any nausea or vomiting. She denies blood per os or rectum. She was given a trial Pepcid 20mg bid. Patient does have history of hiatal hernia. Her amylase/li pase, H Pylori, hepatic function were all normal. Her abdominal u/s was all normal. CT abd/Pelvis from [facility] shows sliding hiatal herniadive rticulosis of sigmoid colonbilat eral fat containing inguinal herniaspat ient tried on Pepcid 20mg bid did not helpWill try on Omeprazole 20mg bid 1/2 hour before mealsNeeds to get EGD Hiatal hernia 80789583 K 44.9 Patient has abdominal bloating and discomfort after mealsTried pepcid 20mg bid not helpingPat ient will now try Omeprazole 20mg bidGet an EGD-referr al given on 03/04/2022- patient did not want to go to [facility] she feels better from this problem on 12/01/2024 Lumbosacra l radiculopathy 9557971 M54.17 R>LMRI LSS w/o contrast on 05/18/2021 shows DJD, OA, lumbar spondylosi sPatient aware of results getting telehealth with pain mgmtShe voices concern as pain management doctor she was sent to has not seen her in person and at the last phone consult sent her a medrol dose oleg for her hands/wris t when he is supposed to be treating her low back/radic ulopathy going down leg to foot.Will review consult note from pain management -pt doesnt want to continue consult with pain mgmt at this timewill have the patient increase gabapentin 600mg at HS to 900mg at HS Venous stasis 93001319 I 87.8 elevate legs wear support hose lose weight Adenomatou s polyp of colon 543457937 D12.6 01/28/2019 colonoscop y shows adenomatou s polypneeds repeat colonoscop y in 2023Had normal repeat colonoscop y on 04/30/2024 no polyps seen but had hemorrhoid s and diverticul osis Herpes simplex 37922388 B00.9 Gave prophylaxi s treatment for 1 year Multiple joint pain 3567 8005 M25.50 c/o left shoulder pain, neck pain, hand pain, back painswelli ng of handsdropp ing thingsfeel s weak2023 FER positivean ti-centrom ere B antibodies >8+Patient given referral to rheumatolo gist t has appt 12/10/2024 Pain of le ft shoulder joint [id number] 9237033 M25.512 seen at [facility] for this problemtak ing Gabapentin 300mg 3 at nightNapro syn 500mgadvis ed on NSAIDS BBBdoesnt want to go to PT right noworder for shoulder x ray given on 10/2024 shoulder xray shows osteopenia weight bearing exercises, calcium plus vitamin W3ttifthtm cular arthritis of L shoulder Postnasal discharge on posterior wall of pharynx 011897022 R09.82 Screening for malignant neoplasm of breast 889619288 Z12.31 patient had last mammogram on 06/08/2018= normal Pleuritic pain 0830150 R 07.81 R chest wallvoltar en gel prn Health Concerns Section Related Observation LastModified by Organization Detai ls LastModified Time None Recorded Concern Status LastModified by Organization Details LastModified Time None Recorded Advance Directives Directive N: Payers Encounter Date Sequence Insurance Name Policy Number Policy Byers Covered Member ID Byers Member ID Guarantor Name 08/08/2023 2 *SELF PAY* Tita Corado 08/08/2023 1 [facility] [id number] Tania Corado [id number] Tania Garciairez 01/08/2024 1 [facility] [id number] Tania Garciairez [id number] Tania Garciairez 05/04/2024 1 [facility] [id number] Tania Corado [id number] Tania Garciairez 08/27/2024 1 [employer] [id number] Tania Corado [id number] Tania Corado 12/01/2024 2 *SELF PAY* Tita Corado 12/01/2024 1 [employer] [id number] Tania Corado [id number] Tania Corado Notes Date Note Type Note Provider Name and Address Organization Details Recorded Time 08/08/20 23 text/htm l HeadacheReported bypatient.Onset/Timing:better Context:not related to trauma Associated Symptoms:no vomiting; no sensitivity to light; tearing/watery eyes; no confusion; no slurred speech; no preceeding aura; no double vision; normal feeling/sensation; no motor paralysis; no dizziness; no sleep disturbances; no nosebleeds; no hoarseness; no sore throat; no hearing lossHyperlipidemiaReported bypatient.Control:usually well controlled; improving; at goal Compliance:compliant; compliant with diet; exercises Complications:no coronary artery disease; no peripheral artery disease; no cardiovascular disease Risk Factors:hypertension;obesityHy pertension F/UReported bypatient.Associated Symptoms:no dizziness; no lightheadedness; no chest pain; no shortness of breath; no palpitations; no edema; no calf pain with exertion Lifestyle:regular exercise; limiting/avoiding salt Medications:taking medications as directed; no side effects from medicationSeizureReported bypatient.Onset/Timing:age/jorge e of onset: 15; no seizures in 30 years until now Context:warnings; automatisms; loss of awareness Aggravating Factors:triggers Alleviating Factors:medications that helped; Topamax Associated Symptoms:no incontinence; no amnesia; no tongue biting; no Johnathan's paralysis; no postictal soreness; no postictal fatigue/tiredness; no postictal headache; no postictal confusion; no physical trauma from seizure; no muscle twitches; no dizziness; no weak spells; no hearing loss; no ringing/roaring in ears; no fullness in ears; no nausea; no vomiting; no palpitations; no moodiness; no headache; no problems with sleep; no memory troubleSinusitis/AllergyReport ed bypatient.Associated Symptoms:no nasal discharge; no fever; no weight loss; no hemoptysis; no hematemesis; no difficulty breathing; no feeling of strangulation; no nausea or vomiting; no headache; no facial pain; no sinus pain; no sore throat; no thick phlegm in throat; no nasal passage blockage; no ear fullness; no eye itching; no pain behind the eyes; no skin itching;nasal discharge from both nostrils;constantly clearing the throat;nasal itching Onset/Timing:resolved Quality:no pain; no itching; no hoarseness; no throbbing; minimal discomfort; improving Duration:resolved Severity:no pain; does not limit daily activities; no frequent breathing through the mouth; no nosebleeds (epistaxis); no snoring Context:no recent upper respiratory infection; no recent sick contacts; not worse with seasonal allergen exposure; not worse around animals; not worse around pollen; not worse around dust; not worse around molds; not worse with environmental exposure; not worse when mowing grass; not worse with certain foods; not worse with odors Risk Factors:no current smoking or tobacco use; no history of smoking; no increased stress; no family history of allergies; no history of nasal trauma; no allergy to aspirin; no history of nasal polyps; no history of asthma; no chemotherapy; no DM; no HIV; no immunodeficiency Aggravating factors:not worse with change in medication; not worse during an upper respiratory infection (a cold); not worse when allergies are active 62y/o HF presents for medication refills she feels fairly well. She has not seen Neurology lately. Initially she saw neurologist for recurrence of seizures. SHe has not had any other seizures. She was ordered higher dose of carbamazapine 100mg (2) tabs bid. . She has been taking Carbamezapine XR 200mg 1 tid.. She wants to continue to get carbamazapine from this office.She denies any migraines. She is watching her diet and trying to lose weight but not exercising.Her TSH still showing subclinical hypothyroidism.She denies any CP, syncope, pre-syncope, edema, headache or SOB. She is aware her MRI shows degenerative disk disease at several levels. Has now consulted pain management via telephone. Reports she was told to lose weight and stretching exercises. Reports that she has been having mid epigastric abdominal pain and swelling after eating. It is uncomfortable. She denies any nausea or vomiting. She denies blood per os or rectum. She did not get EGD yet.Also c/o anni wrist /hand /fingers numbness for a few months she is using wrist splints. She doesnt want to take Metformin 500mg feels its makes her hair fall off. She reports she has to get ozempic via mail service or [employer] to get coverage.The patient wants to get influenza vaccine. She has no contraindication. CRICKET Catalan Attn: Accounting,[address] [place] [address], [id number], [facility] 08/08/2023 16:55:57 01/08/20 24 text/htm l HeadacheReported bypatient.Onset/Timing:better Context:not related to trauma Associated Symptoms:no vomiting; no sensitivity to light; tearing/watery eyes; no confusion; no slurred speech; no preceeding aura; no double vision; normal feeling/sensation; no motor paralysis; no dizziness; no sleep disturbances; no nosebleeds; no hoarseness; no sore throat; no hearing lossHyperlipidemiaReported bypatient.Control:usually well controlled; improving; at goal Compliance:compliant; compliant with diet; exercises Complications:no coronary artery disease; no peripheral artery disease; no cardiovascular disease Risk Factors:hypertension;obesityHy pertension F/UReported bypatient.Associated Symptoms:no dizziness; no lightheadedness; no chest pain; no shortness of breath; no palpitations; no edema; no calf pain with exertion Lifestyle:regular exercise; limiting/avoiding salt Medications:taking medications as directed; no side effects from medicationSeizureReported bypatient.Onset/Timing:age/jorge e of onset: 15; no seizures in 30 years until now Context:warnings; automatisms; loss of awareness Aggravating Factors:triggers Alleviating Factors:medications that helped; Topamax Associated Symptoms:no incontinence; no amnesia; no tongue biting; no Johnathan's paralysis; no postictal soreness; no postictal fatigue/tiredness; no postictal headache; no postictal confusion; no physical trauma from seizure; no muscle twitches; no dizziness; no weak spells; no hearing loss; no ringing/roaring in ears; no fullness in ears; no nausea; no vomiting; no palpitations; no moodiness; no headache; no problems with sleep; no memory troubleSinusitis/AllergyReport ed bypatient.Associated Symptoms:no nasal discharge; no fever; no weight loss; no hemoptysis; no hematemesis; no difficulty breathing; no feeling of strangulation; no nausea or vomiting; no headache; no facial pain; no sinus pain; no sore throat; no thick phlegm in throat; no nasal passage blockage; no ear fullness; no eye itching; no pain behind the eyes; no skin itching;nasal discharge from both nostrils;constantly clearing the throat;nasal itching Onset/Timing:resolved Quality:no pain; no itching; no hoarseness; no throbbing; minimal discomfort; improving Duration:resolved Severity:no pain; does not limit daily activities; no frequent breathing through the mouth; no nosebleeds (epistaxis); no snoring Context:no recent upper respiratory infection; no recent sick contacts; not worse with seasonal allergen exposure; not worse around animals; not worse around pollen; not worse around dust; not worse around molds; not worse with environmental exposure; not worse when mowing grass; not worse with certain foods; not worse with odors Risk Factors:no current smoking or tobacco use; no history of smoking; no increased stress; no family history of allergies; no history of nasal trauma; no allergy to aspirin; no history of nasal polyps; no history of asthma; no chemotherapy; no DM; no HIV; no immunodeficiency Aggravating factors:not worse with change in medication; not worse during an upper respiratory infection (a cold); not worse when allergies are active 63y/o HF presents for medication refills she feels fairly well. She has not seen Neurology lately. Initially she saw neurologist for recurrence of seizures. SHe has not had any other seizures. She was ordered higher dose of carbamazapine 100mg (2) tabs bid. . She has been taking Carbamezapine XR 200mg 1 tid.. She wants to continue to get carbamazapine from this office.She denies any migraines. She is watching her diet and trying to lose weight but not exercising.Her TSH still showing subclinical hypothyroidism.She denies any CP, syncope, pre-syncope, edema, headache or SOB. She is aware her MRI shows degenerative disk disease at several levels. Has now consulted pain management via telephone. Reports she was told to lose weight and stretching exercises. Reports that she has been having mid epigastric abdominal pain and swelling after eating. It is uncomfortable. She denies any nausea or vomiting. She denies blood per os or rectum. She did not get EGD yet.Also c/o anni wrist /hand /fingers numbness for a few months she is using wrist splints. She doesnt want to take Metformin 500mg feels its makes her hair fall off. She reports she has to get ozempic via mail service or [employer] to get coverage. TEO Catalan- Attn: Accounting,[address] [place], [address], [place] [facility] 01/12/2024 17:46:08 05/04/20 24 text/htm l HeadacheReported bypatient.Onset/Timing:better Context:not related to trauma Associated Symptoms:no vomiting; no sensitivity to light; tearing/watery eyes; no confusion; no slurred speech; no preceeding aura; no double vision; normal feeling/sensation; no motor paralysis; no dizziness; no sleep disturbances; no nosebleeds; no hoarseness; no sore throat; no hearing lossHyperlipidemiaReported bypatient.Control:usually well controlled; improving; at goal Compliance:compliant; compliant with diet; exercises Complications:no coronary artery disease; no peripheral artery disease; no cardiovascular disease Risk Factors:hypertension;obesityHy pertension F/UReported bypatient.Associated Symptoms:no dizziness; no lightheadedness; no chest pain; no shortness of breath; no palpitations; no edema; no calf pain with exertion Lifestyle:regular exercise; limiting/avoiding salt Medications:taking medications as directed; no side effects from medicationSeizureReported bypatient.Onset/Timing:age/jorge e of onset: 15; no seizures in 30 years until now Context:warnings; automatisms; loss of awareness Aggravating Factors:triggers Alleviating Factors:medications that helped; Topamax Associated Symptoms:no incontinence; no amnesia; no tongue biting; no Johnathan's paralysis; no postictal soreness; no postictal fatigue/tiredness; no postictal headache; no postictal confusion; no physical trauma from seizure; no muscle twitches; no dizziness; no weak spells; no hearing loss; no ringing/roaring in ears; no fullness in ears; no nausea; no vomiting; no palpitations; no moodiness; no headache; no problems with sleep; no memory troubleSinusitis/AllergyReport ed bypatient.Associated Symptoms:no nasal discharge; no fever; no weight loss; no hemoptysis; no hematemesis; no difficulty breathing; no feeling of strangulation; no nausea or vomiting; no headache; no facial pain; no sinus pain; no sore throat; no thick phlegm in throat; no nasal passage blockage; no ear fullness; no eye itching; no pain behind the eyes; no skin itching;nasal discharge from both nostrils;constantly clearing the throat;nasal itching Onset/Timing:resolved Quality:no pain; no itching; no hoarseness; no throbbing; minimal discomfort; improving Duration:resolved Severity:no pain; does not limit daily activities; no frequent breathing through the mouth; no nosebleeds (epistaxis); no snoring Context:no recent upper respiratory infection; no recent sick contacts; not worse with seasonal allergen exposure; not worse around animals; not worse around pollen; not worse around dust; not worse around molds; not worse with environmental exposure; not worse when mowing grass; not worse with certain foods; not worse with odors Risk Factors:no current smoking or tobacco use; no history of smoking; no increased stress; no family history of allergies; no history of nasal trauma; no allergy to aspirin; no history of nasal polyps; no history of asthma; no chemotherapy; no DM; no HIV; no immunodeficiency Aggravating factors:not worse with change in medication; not worse during an upper respiratory infection (a cold); not worse when allergies are active 63y/o HF presents for medication refills she feels fairly well. She has not seen Neurology lately. Initially she saw neurologist for recurrence of seizures. SHe has not had any other seizures. She was ordered higher dose of carbamazapine 100mg (2) tabs bid. . She has been taking Carbamezapine XR 200mg 1 tid.. She wants to continue to get carbamazapine from this office.She denies any migraines. She is watching her diet and trying to lose weight but not exercising.Her TSH still showing subclinical hypothyroidism.She denies any CP, syncope, pre-syncope, edema, headache or SOB. She is aware her MRI shows degenerative disk disease at several levels. Has now consulted pain management via telephone. Reports she was told to lose weight and stretching exercises. Reports that she has been having mid epigastric abdominal pain and swelling after eating. It is uncomfortable. She denies any nausea or vomiting. She denies blood per os or rectum. She did not get EGD yet. She had a normal colonoscopy 04/2024 revealing internal hemorrhoids and diverticulosis. SHe is to get a repeat colonoscopy in 10 years.Also c/o anni wrist /hand /fingers numbness for a few months she is using wrist splints. She doesnt want to take Metformin 500mg feels its makes her hair fall off. CRICKET Catalan Attn: Accounting,[address] [place] [address], [id number], [place] - [facility] 05/07/2024 15:33:17 08/27/20 24 text/htm l HeadacheReported bypatient.Onset/Timing:better Context:not related to trauma Associated Symptoms:no vomiting; no sensitivity to light; tearing/watery eyes; no confusion; no slurred speech; no preceeding aura; no double vision; normal feeling/sensation; no motor paralysis; no dizziness; no sleep disturbances; no nosebleeds; no hoarseness; no sore throat; no hearing lossHyperlipidemiaReported bypatient.Control:usually well controlled; improving; at goal Compliance:compliant; compliant with diet; exercises Complications:no coronary artery disease; no peripheral artery disease; no cardiovascular disease Risk Factors:hypertension;obesityHy pertension F/UReported bypatient.Associated Symptoms:no dizziness; no lightheadedness; no chest pain; no shortness of breath; no palpitations; no edema; no calf pain with exertion Lifestyle:regular exercise; limiting/avoiding salt Medications:taking medications as directed; no side effects from medicationSeizureReported bypatient.Onset/Timing:age/jorge e of onset: 15; no seizures in 30 years until now Context:warnings; automatisms; loss of awareness Aggravating Factors:triggers Alleviating Factors:medications that helped; Topamax Associated Symptoms:no incontinence; no amnesia; no tongue biting; no Johnathan's paralysis; no postictal soreness; no postictal fatigue/tiredness; no postictal headache; no postictal confusion; no physical trauma from seizure; no muscle twitches; no dizziness; no weak spells; no hearing loss; no ringing/roaring in ears; no fullness in ears; no nausea; no vomiting; no palpitations; no moodiness; no headache; no problems with sleep; no memory troubleSinusitis/AllergyReport ed bypatient.Associated Symptoms:no nasal discharge; no fever; no weight loss; no hemoptysis; no hematemesis; no difficulty breathing; no feeling of strangulation; no nausea or vomiting; no headache; no facial pain; no sinus pain; no sore throat; no thick phlegm in throat; no nasal passage blockage; no ear fullness; no eye itching; no pain behind the eyes; no skin itching;nasal discharge from both nostrils;constantly clearing the throat;nasal itching Onset/Timing:resolved Quality:no pain; no itching; no hoarseness; no throbbing; minimal discomfort; improving Duration:resolved Severity:no pain; does not limit daily activities; no frequent breathing through the mouth; no nosebleeds (epistaxis); no snoring Context:no recent upper respiratory infection; no recent sick contacts; not worse with seasonal allergen exposure; not worse around animals; not worse around pollen; not worse around dust; not worse around molds; not worse with environmental exposure; not worse when mowing grass; not worse with certain foods; not worse with odors Risk Factors:no current smoking or tobacco use; no history of smoking; no increased stress; no family history of allergies; no history of nasal trauma; no allergy to aspirin; no history of nasal polyps; no history of asthma; no chemotherapy; no DM; no HIV; no immunodeficiency Aggravating factors:not worse with change in medication; not worse during an upper respiratory infection (a cold); not worse when allergies are active 63y/o HF presents for medication refills she feels fairly well. She has not seen Neurology lately. Initially she saw neurologist for recurrence of seizures. SHe has not had any other seizures. She was ordered higher dose of carbamazapine 100mg (2) tabs bid. . She has been taking Carbamezapine XR 200mg 1 tid. She wants to continue to get carbamazapine from this office.She denies any migraines. She is watching her diet and trying to lose weight but not exercising.Her TSH still showing subclinical hypothyroidism.She denies any CP, syncope, pre-syncope, edema, headache or SOB. She is aware her MRI shows degenerative disk disease at several levels. Has now consulted pain management via telephone. Reports she was told to lose weight and stretching exercises. Also c/o anni wrist /hand /fingers numbness for a few months she is using wrist splints. She is c/o left shoulder pain, neck pain, hand pain, back pain for several weeks. She has some swelling of hands/fingers and she is dropping things while at work. She feels weak. She doesnt want to go to PT at present time. She wonders if she is eligible for disability. Advised will need to check with disability office.She woke up with red left eye a few days ago denies any pain or drainage.Reports that she has been having mid epigastric abdominal pain and swelling after eating. It is uncomfortable. She denies any nausea or vomiting. She denies blood per os or rectum. She did not get EGD yet. She had a normal colonoscopy 04/2024 revealing internal hemorrhoids and diverticulosis. SHe is to get a repeat colonoscopy in 10 years.She doesnt want to take Metformin 500mg feels its makes her hair fall off.Patient wants to get influenza vaccine. She has no contraindications. CRICKET Catalan Attn: Accounting,[address] [place], [address], [facility] 08/27/2024 17:23:18 12/01/19 25 text/htm l HeadacheReported bypatient.Onset/Timing:better Context:not related to trauma Associated Symptoms:no vomiting; no sensitivity to light; tearing/watery eyes; no confusion; no slurred speech; no preceeding aura; no double vision; normal feeling/sensation; no motor paralysis; no dizziness; no sleep disturbances; no nosebleeds; no hoarseness; no sore throat; no hearing lossHyperlipidemiaReported bypatient.Control:usually well controlled; improving; at goal Compliance:compliant; compliant with diet; exercises Complications:no coronary artery disease; no peripheral artery disease; no cardiovascular disease Risk Factors:hypertension;obesityHy pertension F/UReported bypatient.Associated Symptoms:no dizziness; no lightheadedness; no chest pain; no shortness of breath; no palpitations; no edema; no calf pain with exertion Lifestyle:regular exercise; limiting/avoiding salt Medications:taking medications as directed; no side effects from medicationSeizureReported bypatient.Onset/Timing:age/jorge e of onset: 15; no seizures in 30 years until now Context:warnings; automatisms; loss of awareness Aggravating Factors:triggers Alleviating Factors:medications that helped; Topamax Associated Symptoms:no incontinence; no amnesia; no tongue biting; no Johnathan's paralysis; no postictal soreness; no postictal fatigue/tiredness; no postictal headache; no postictal confusion; no physical trauma from seizure; no muscle twitches; no dizziness; no weak spells; no hearing loss; no ringing/roaring in ears; no fullness in ears; no nausea; no vomiting; no palpitations; no moodiness; no headache; no problems with sleep; no memory troubleSinusitis/AllergyReport ed bypatient.Associated Symptoms:no nasal discharge; no fever; no weight loss; no hemoptysis; no hematemesis; no difficulty breathing; no feeling of strangulation; no nausea or vomiting; no headache; no facial pain; no sinus pain; no sore throat; no thick phlegm in throat; no nasal passage blockage; no ear fullness; no eye itching; no pain behind the eyes; no skin itching;nasal discharge from both nostrils;constantly clearing the throat;nasal itching Onset/Timing:resolved Quality:no pain; no itching; no hoarseness; no throbbing; minimal discomfort; improving Duration:resolved Severity:no pain; does not limit daily activities; no frequent breathing through the mouth; no nosebleeds (epistaxis); no snoring Context:no recent upper respiratory infection; no recent sick contacts; not worse with seasonal allergen exposure; not worse around animals; not worse around pollen; not worse around dust; not worse around molds; not worse with environmental exposure; not worse when mowing grass; not worse with certain foods; not worse with odors Risk Factors:no current smoking or tobacco use; no history of smoking; no increased stress; no family history of allergies; no history of nasal trauma; no allergy to aspirin; no history of nasal polyps; no history of asthma; no chemotherapy; no DM; no HIV; no immunodeficiency Aggravating factors:not worse with change in medication; not worse during an upper respiratory infection (a cold); not worse when allergies are active 64y/o HF presents for medication refills she feels fairly well. She has not seen Neurology lately. Initially she saw neurologist for recurrence of seizures. SHe has not had any other seizures. She was ordered higher dose of carbamazapine 100mg (2) tabs bid. . She has been taking Carbamezapine XR 200mg 1 tid. She wants to continue to get carbamazapine from this office.She denies any migraines. She is watching her diet and trying to lose weight but not exercising.Her TSH still showing subclinical hypothyroidism.She denies any CP, syncope, pre-syncope, edema, headache or SOB. She is aware her MRI shows degenerative disk disease at several levels. Has now consulted pain management via telephone. Reports she was told to lose weight and stretching exercises. Also c/o anni wrist /hand /fingers numbness for a few months she is using wrist splints. She is c/o left shoulder pain, neck pain, hand pain, back pain for several weeks. She has some swelling of hands/fingers and she is dropping things while at work. She feels weak. She doesnt want to go to PT at present time. She has been using arthritis creams to help her with discomfort.Her 08/2024 labs came back positive for FER and anti-centromere B antibodies >8+. Her L shoulder xray shows osteopenia and polyarticular arthritis of the shoulder. She was referred to media sales representative for further management and has appointment at end of month.Reports that she has been having mid epigastric abdominal pain and swelling after eating. It is uncomfortable. She denies any nausea or vomiting. She denies blood per os or rectum. She did not get EGD yet. She had a normal colonoscopy 04/2024 revealing internal hemorrhoids and diverticulosis. SHe is to get a repeat colonoscopy in 10 years.She doesnt want to take Metformin 500mg feels its makes her hair fall off. Her HA1C today is 6.1.She has had a cold for over 2 weeks she continues to cough worse at night. She has taken multiple otc cough medicines but yet she is still coughing some mucous. She denies any fever. Reports her sister told her to get Tessalon Perles. Reports she has been having some R lateral chest wall pain for a few days. It hurts to breathe in sometimes.Patient is requesting an order for mammogram as she is due. CRICKET Catalan Attn: Accounting,[address] [place] [address], [phone], [facility] 12/01/2024 17:46:20 OBGyn Episode Ob Episode Information Episode Created Date Number of Fetuses Patient Bloodtype Patient rh Status Prepregnancy Weight lbs Domestic Partner Domestic Partner Phone Father Name Mail Order Biller Status 05/26/20 15 1 CLOSED Fetus Data First Name Last Name Admitted to NICU Weight (g) Sex Living Outcome Pediatric Complications Fetus ID Race Codes Race Delivery Type [id number] Cody Calculation Initial Cody Date Initial Exam Date Initial Exam Provider Initial Ultrasound Date Last Menstrual Period Date Ultra Sound Weeks Gestation 0 Eighteen To Twenty Week Cody Update Ultra Sound Date Fundal Height At Umbil Quickening Date Ultra Sound Latest Weeks Gestation Final Cody Confirmed By Final Cody Confirmed Date Final Cody Date Ultra Sound Latest Days Gestation 0 0 Menstrual History Last Menstrual Date Menses Monthly On Bcp Conception Prior Menses Frequency Hcg Plus Date Menarche Onset Age Delivery Information Delivery Date Delivery Type Labor Anesthesia Weeks Gestation Incision Type Labor Labor Length Hrs Delivered By Post Complications Tubal Sterilization Discharge Date Comments 0 Discharge Information Feeding Method Contraceptive Method Maternal HG B and HCT Levels Ob Episode Information Episode Created Date Number of Fetuses Patient Bloodtype Patient rh Status Prepregnancy Weight lbs Domestic Partner Domestic Partner Phone Father Name Mail Order Biller Status 05/26/20 15 1 CLOSED Fetus Data First Name Last Name Admitted to NICU Weight (g) Sex Living Outcome Pediatric Complications Fetus ID Race Codes Race Delivery Type [id number] Vaginal Cody Calculation Initial Cody Date Initial Exam Date Initial Exam Provider Initial Ultrasound Date Last Menstrual Period Date Ultra Sound Weeks Gestation 0 Eighteen To Twenty Week Cody Update Ultra Sound Date Fundal Height At Umbil Quickening Date Ultra Sound Latest Weeks Gestation Final Cody Confirmed By Final Cody Confirmed Date Final Cody Date Ultra Sound Latest Days Gestation 0 0 Menstrual History Last Menstrual Date Menses Monthly On Bcp Conception Prior Menses Frequency Hcg Plus Date Menarche Onset Age Delivery Information Delivery Date Delivery Type Labor Anesthesia Weeks Gestation Incision Type Labor Labor Length Hrs Delivered By Post Complications Tubal Sterilization Discharge Date Comments 7 Discharge Information Feeding Method Contraceptive Method Maternal HG B and HCT Levels Ob Episode Information Episode Created Date Number of Fetuses Patient Bloodtype Patient rh Status Prepregnancy Weight lbs Domestic Partner Domestic Partner Phone Father Name Mail Order Biller Status 05/26/20 15 1 CLOSED Fetus Data First Name Last Name Admitted to NICU Weight (g) Sex Living Outcome Pediatric Complications Fetus ID Race Codes Race Delivery Type [id number] Vaginal Cody Calculation Initial Cody Date Initial Exam Date Initial Exam Provider Initial Ultrasound Date Last Menstrual Period Date Ultra Sound Weeks Gestation 0 Eighteen To Twenty Week Cody Update Ultra Sound Date Fundal Height At Umbil Quickening Date Ultra Sound Latest Weeks Gestation Final Cody Confirmed By Final Cody Confirmed Date Final Cody Date Ultra Sound Latest Days Gestation 0 0 Menstrual History Last Menstrual Date Menses Monthly On Bcp Conception Prior Menses Frequency Hcg Plus Date Menarche Onset Age Delivery Information Delivery Date Delivery Type Labor Anesthesia Weeks Gestation Incision Type Labor Labor Length Hrs Delivered By Post Complications Tubal Sterilization Discharge Date Comments 4 Discharge Information Feeding Method Contraceptive Method Maternal HG B and HCT Levels Ob Episode Information Episode Created Date Number of Fetuses Patient Bloodtype Patient rh Status Prepregnancy Weight lbs Domestic Partner Domestic Partner Phone Father Name Mail Order Biller Status 05/26/20 15 1 CLOSED Fetus Data First Name Last Name Admitted to NICU Weight (g) Sex Living Outcome Pediatric Complications Fetus ID Race Codes Race Delivery Type [id number] Vaginal Cody Calculation Initial Cody Date Initial Exam Date Initial Exam Provider Initial Ultrasound Date Last Menstrual Period Date Ultra Sound Weeks Gestation 0 Eighteen To Twenty Week Cody Update Ultra Sound Date Fundal Height At Umbil Quickening Date Ultra Sound Latest Weeks Gestation Final Cody Confirmed By Final Cody Confirmed Date Final Cody Date Ultra Sound Latest Days Gestation 0 0 Menstrual History Last Menstrual Date Menses Monthly On Bcp Conception Prior Menses Frequency Hcg Plus Date Menarche Onset Age Delivery Information Delivery Date Delivery Type Labor Anesthesia Weeks Gestation Incision Type Labor Labor Length Hrs Delivered By Post Complications Tubal Sterilization Discharge Date Comments 9 Discharge Information Feeding Method Contraceptive Method Maternal HG B and HCT Levels
--- OUTSIDE RECORDS SUMMARY | 2024-12-09 08:38 | XMS_ITS | Clinical Summary ---
Author Organization [facility] [employer] Address [address] [place] [address] Care Team Providers Care Administrative Services Assistant Name Role Phone Almita Laurent DANCE HALL HOSTESS-BLOCKER AND POLISHER GOLD WHEEL Primary Care Pro vider Source Comments [facility],non-owned Affiliates and Associated Physician Practices is amultiple site organization consisting of ambulatory clinics and hospital sitesin [place], [place]. This disclosure is being madepursuant to the Care Everywhere program and may not contain all information available regarding this patient. Last updated 18.[facility] [employer] Allergies No known active allergies Medications * [...] Mass Index 32.92 06/11/2021 9:59 AM CDT Plan of Treatment Health Maintenance Due Date Last Done Comments COLOGUARD (AGES 45-75) - COLON CA SCREENING 1961 COLON MONITORING 1961 COLONOSCOPY - COLON CA SCREENING 1961 CT COLONOGRAPHY - COLON CA SCREENING 1961 Colorectal Cancer Screening 1961 FIT - COLON CA SCREENING 1961 FLEX SIG - COLON CA SCREENING 1961 PAP SMEAR 1961 HIV SCREENING 1976 HEPATITIS C SCREENING 11/20/1979 DTAP/TDAP/TD VACCINES (1 - Tdap) 1980 PNEUMOCOCCAL VACCINE 50+ (1 of 1 - PCV) 2011 ZOSTER VACCINE (1 of 2) 2011 MAMMOGRAM 02/22/2015 02/22/2013 Respiratory Syncytial Virus (RSV) Vaccine Pt: or over 60 yrs (1 - Risk 60-74 years 1-dose series) 2021 SCREENING FOR DIABETES 05/05/2023 0, 05/04/2020, 05/03/2020, Additional history exists COVID-19 VACCINE ( - 2023- season) 2024 INFLUENZA VACCINE (#1) 2024 DEPRESSION SCREENING 11/17/2024 HEPATITIS B VACCINE Aged Out No longe r eligible based on patient's age to complete this topic HIB VACCINE Aged Out No longer eligi ble based on patient's age to complete this topic HPV VACCINE Aged Out No longer eligi ble based on patient's age to complete this topic MENINGOCOCCAL (Group B) VACCINE Aged Out No longer eligible based on patient's age to complete this topic MENINGOCOCCAL VACCINE Aged Out No ruddy mati eligible based on patient's age to complete this topic PNEUMOCOCCAL VACCINE Aged Out No long er eligible based on patient's age to complete this topic Goals Goal Patient Goal Type Associated Problems Recent Progress Patient-Stated? Author Mobility General Improving(02/16 9:58 AM CDT) Roberta Irving, RN Note: Expected end date: ongoing The goal is to maintain or improve your mobility at the optimum level for you. Interventions: Medical Devices Implanted Type Area Power Regulator Device Identifier Shelf Expiration Date Model / Serial / Lot Plate 3 Hl Lck Tib Rt Prox Std Crv Alps Implanted:Qty: 1 on 05/03/2020 by Dorothy Acosta MD at [facility] Right: [employer] [id number] / / Screw 3.5mm 18mm 2.5mm Slf-Tap Sm Hex Implanted:Qty: 1 on 05/03/2020 by Dorothy Acosta MD at [facility] Right: [employer] [id number] / / Screw 4mm 2.5mm 20mm P/T Canc Sm Hex Implanted:Qty: 1 on 05/03/2020 by Dorothy cAosta MD at [facility] Right: [employer] [id number] / / Screw 4mm 18mm 2.5mm P/T Slf-Tap Sm Hex Implanted:Qty: 1 on 05/03/2020 by Dorothy Acosta MD at [facility] Right: [employer] [id number] / / Plate 6 Hl 2 Comp Colr 73mm 1/3 Tblr Implanted:Qty: 1 on 05/03/2020 by Dorothy Acosta MD at [facility] Right: [employer] [id number] / / Screw 3.5mm 60mm 2.2mm Mldir Lck Sq Drv Implanted:Qty: 1 on 05/03/2020 by Dorothy Acosta MD at [facility] Right: [employer] [id number] / / Screw 3.5mm 28mm Ft Nonlock Hex Drv Elb Implanted:Qty: 1 on 05/03/2020 by Dorothy Acosta MD at [facility] Right: [employer] [id number] / / Screw 3.5mm 58mm T15 Slf-Tap Lck Tpr Implanted:Qty: 1 on 05/03/2020 by Dorothy Acosta MD at [facility] Right: [employer] [id number] / / Screw 3.5mm 60mm T15 Lck Slf-Tap Tip Tpr Implanted:Qty: 3 on 05/03/2020 by Dorothy Acosta MD at [facility] Right: [employer] [id number] / / Screw 3.5mm 65mm T15 Lck Slf-Tap Tip Tpr Implanted:Qty: 2 on 05/03/2020 by Dorothy Acosta MD at [facility] Right: [employer] [id number] / / Wire K 1.6mm 150mm 1 End Troc Pnt Ss Sm Implanted:Qty: 1 on 05/03/2020 by Dorothy Acosta MD at [facility] Right: [employer] [id number] / / Screw 3.5mm 14mm 2.5mm Slf-Tap Sm Hex Implanted:Qty: 2 on 05/03/2020 by Dorothy Acosta MD at [facility] Right: [employer] [id number] / / Explanted Type Area Power Regulator Device Identifier Shelf Expiration Date Model / Serial / Lot Screw 3.5mm 75mm T15 Lck Lopro Slf-Tap Explanted:Qty: 1 on 05/03/2020 by Dorothy Acosta MD at [facility] Right: [employer] [id number] / / Procedures Procedure Name Priority Date/Time [...] 7 - 26 mg/dL 05/05/2020 3:34 AM [facility] Creatinine 0.5(L) 0.6 - 1.2 mg/dL 05/05/2020 3:34 AM [facility] Sodium 139 136 - 145 mmol/L 05/05/2020 3:34 AM [facility] Potassium 3.7 3.5 - 4.5 mmol/L 05/05/2020 3:34 AM [facility] Chloride 105 98 - 107 mmol/L 05/05/2020 3:34 AM [facility] CO2 24 22 - 29 mmol/L 05/05/2020 3:34 AM [facility] Glucose 126(H) 70 - 115 mg/dL 05/05/2020 3:34 AM T [facility] Calcium 8.5 8.4 - 10.2 mg/dL 05/05/2020 3:34 AM T [facility] Anion Gap 14 8 - 18 05/05/2020 3:34 AM T [facility] BUN/Creatinine Ratio 16 7 - 23 05/05/2020 3:34 AM T [facility] Osmolality Calculated 288 270 - 300 mOsm/kg 05/05/2020 3:34 AM T [facility] eGFR >60 >60 mL/min/1.7 3 m2 05/05/2020 3:34 AM T [facility] Blood BLOOD SPECIMEN / Unknown Lab Venipuncture / Unknown 05/05/2020 1:59 AM CDT 05/05/2020 2:54 AM CDT Eusebio Pederson MD LAB - CHEMISTRY KELLY [facility] Organization Address City/State/[facility] Co de Phone Number [facility] [address] [place] [phone] [phone] from Last 3 Months or Most Recently Relevant to Health Maintenance Advance Directives * Full Code (Latest Code Status on File) Date Activated Date Inactivated Comments 04/28/2020 3:46 AM 05/05/2020 5:26 PM Care Teams Administrative Services Assistant Relationship Specialty Start Date End Date Almita Laurent, DAISY-SOUTH [address] [place] [phone] PCP - General 05/26/19
--- OUTSIDE RECORDS SUMMARY | 2024-12-09 08:39 | XMS_ITS | Referral Summary ---
Author Organization [facility] Address [address] [place] [address] Care Team Providers Care Hospice Fellow Name Role Phone Mehran Sterlingsteffi ISA Primary Care Provider [phone] Allergies No known active allergies Medications atenoloL (TENORMIN) 50 mg tablet Take 50 mg by mouth daily Active losartan-hydroC HLOROthiazide (HYZAAR) 50-12.5 mg per tablet Take 1 tablet by mouth daily Active lovastatin (MEVACOR) 40 mg tablet Take 40 mg by mouth nightly Active propranoloL (INDERAL) 40 mg tablet Take 40 mg by mouth every 8 (eight) hours Active carBAMazepine ER (CARBATROL) 200 mg 12 hr capsule Take 1 capsule (200 mg total) by mouth 2 (two) times a day 180 capsule 3 07/18/2020 Active Active Problems Problem Noted Date Diagnosed Date 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 She has no tolerability issues with medication. I have renewed her carbamazepine ER 200 mg b.i.d., and I plan on seeing her back on a yearly or as needed basis. Medication monitoring encounter 07/18/2020 Assessment & Plan (07/18/2020 4:31 PM CDT): I will obtain a carbamazepine level, CBC, electrolyte panel for medication monitoring of her carbamazepine usage. 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 Gender Identity Not on file Sexual Orientation Not on file Last Filed Vital Signs Vital Sign Reading Time Taken Comments Blood Pressure 130/72 07/18/2020 3:53 PM CDT Pulse 77 07/18/2020 3:53 PM CDT Temperature 36.5 ??C (97.7 ??F) 07/18/2020 3:53 PM CD T Respiratory Rate - - Oxygen Saturation - - Inhaled Oxygen Concentration - - Weight 95.2 kg (209 lb 12.8 oz) 07/18/2020 3:53 PM CDT Height 157.5 cm (5' 2 ) 07/18/2020 3:53 PM CDT Body Mass Index 38.37 07/18/2020 3:53 PM CDT Plan of Treatment Not on file Insurance [employer] Care Teams Hospice Fellow Relationship Specialty Start Date End Date Almita Laurent NP [address] [place] [address] PCP - General Nurse Practitioner 06/21/20
--- OUTSIDE RECORDS SUMMARY | 2024-12-09 08:39 | XMS_ITS | Continuity of Care Document ---
Author Organization [employer] [facility] Address [address] [facility] [address] [place] [address] Phone Care Team Providers Care Fiber Design Engineer Name Role Phone Will PT, ABBY, Staci Unavailable Unavailable Procedures Procedure Date Therapeutic Activities Neuromuscular Re-Ed Manual Therapy Therapeutic Exercise Hot or Cold Pack Therapeutic Activities Therapeutic Exercise Hot or Cold Pack Neuromuscular Re-Ed Manual Therapy Neuromuscular Re-Ed Therapeutic Activities Manual Therapy Therapeutic Exercise Hot or Cold Pack Therapeutic Activities Neuromuscular Re-Ed Manual Therapy Therapeutic Exercise Neuromuscular Re-Ed Therapeutic Activities Manual Therapy Therapeutic Exercise Therapeutic Activities Neuromuscular Re-Ed Therapeutic Exercise Manual Therapy Hot or Cold Pack Therapeutic Activities Neuromuscular Re-Ed Therapeutic Exercise Hot or Cold Pack Manual Therapy Therapeutic Activities Hot or Cold Pack Therapeutic Exercise Neuromuscular Re-Ed Manual Therapy Therapeutic Activities Therapeutic Exercise Hot or Cold Pack Neuromuscular Re-Ed Manual Therapy Therapeutic Activities Progress Note Therapeutic Exercise Neuromuscular Re-Ed Hot or Cold Pack Therapeutic Activities Manual Therapy Therapeutic Exercise Neuromuscular Re-Ed Hot or Cold Pack Therapeutic Activities Manual Therapy Therapeutic Exercise Neuromuscular Re-Ed Hot or Cold Pack Neuromuscular Re-Ed Therapeutic Activities Therapeutic Exercise Hot or Cold Pack Manual Therapy Therapeutic Exercise Therapeutic Activities Neuromuscular Re-Ed Hot or Cold Pack Manual Therapy Therapeutic Activities Neuromuscular Re-Ed Therapeutic Exercise Manual Therapy Hot or Cold Pack Therapeutic Activities Therapeutic Exercise Neuromuscular Re-Ed Manual Therapy Hot or Cold Pack Therapeutic Activities Neuromuscular Re-Ed Therapeutic Exercise Hot or Cold Pack Manual Therapy Neuromuscular Re-Ed Therapeutic Activities Therapeutic Exercise Manual Therapy Hot or Cold Pack Manual Therapy Neuromuscular Re-Ed Therapeutic Activities Therapeutic Exercise Hot or Cold Pack Therapeutic Activities Hot or Cold Pack Neuromuscular Re-Ed Manual Therapy Therapeutic Exercise PT Evaluation Moderate Complexity Neuromuscular Re-Ed Therapeutic Exercise Advance Directives Directive Yes / No Effective Date File Name No Information Encounters Encounter Description Practice Location Reason(s) For Visit Diagnoses Date Provider Providers Copied on Encounter [facility] [address], [place], [place], [id number], tel:[phone] [place] No Information 1 Lehnen Staci. . Referring Provider: María Ulrich, [address] [place] [address], [address]. tel:[phone] [facility] [address], [place], [place], [id number], [place] tel:[phone] [place] No Information 1 Lehnen Staci. . Referring Provider: María Ulrich, [address] [place] [address], [address]. tel:[phone] [facility] [address] [place] [address], [place], [place], [id number], tel:[phone] [place] No Information 1 Lehnen Staci. . Referring Provider: María Ulrich, [address] [place] [address], [address]. tel:[phone] [facility] [address] [address], [place], [place], [id number], tel:[phone] [place] No Information 1 Lehnen Staci. . Referring Provider: María Ulrich [address] [place] [address], [address]. tel:[phone] [facility] [address] [address], [place], [place], [id number], [place] tel:[phone] [place] No Information 0 0 Lehnen Staci. . Referring Provider: María Ulrich, [address] [place] [address], [address]. tel:[phone] [facility] [address] [facility] [address], [place], [place], [id number], [place] tel:[phone] [place] No Information Dec-2 8-202 [address] [place] [address] [facility], [address], [place], [address], [place]. tel:[phone] Referring Provider: María Ulrich, [address] [place] [address], [address]. tel:[phone], [place], [place], [id number], [place] tel:[phone] [place] No Information Dec-2 3-202 [place] [address] [facility], [address], [place], [address], [place]. tel:[phone] Referring Provider: María Ulrich, [address] [place] [address], [address]. tel:[phone] [facility] [address] [place], [place] [address], [place], [place], [address], [place] tel:[phone] [place] No Information Dec-2 1-202 0 Lehnen Staci. . Referring Provider: María Ulrich, [address] [place] [address], [address]. tel:[phone] [address], [place], [address], [place] tel:[phone] [place] No Information Dec-1 4202 0 Lehnen Staci. . Referring Provider: María Ulrich [address] [place] [address], [address]. tel:[phone], [place], [place], [address], [place] tel:[phone] [place] No Information Dec-1 1-202 0 Lehnen Staci. . Referring Provider: María Ulrich, [address] [place] [address], [address]. tel:[phone], [place], [place], [address], [place] tel:[phone] [place] No Information Dec-0 7-202 0 [place] Janelle. . Referring Provider: María Ulrich, [address] [place] [address], [address]. tel:[phone] [facility] [address] [place], [place] [address], [place], [place], [address], tel:[phone] [place] No Information Dec-0 4-202 0 Lehnen Staci. . Referring Provider: María Ulrich, [address] [place] [address], [address]. tel:[phone] [address], [place], [address], [place] tel:[phone] [place] No Information Nov-3 0-202 0 Lehnen Staci. . Referring Provider: María Ulrich, [address] [place] [address], [address]. tel:[phone] [facility] [address] [place], [place] [address], [place], [id number], [place] tel:[phone] [place] No Information Nov-2 7-202 0 Lehnen Staci. . Referring Provider: María Ulrich, [address] [place] [address], [address]. tel:[phone] [address], [place], [address], [place] tel:[phone] [place] No Information Nov-2 3-202 0 Lehnen Staci. . Referring Provider: María Ulrich, [address] [place] [address], [address]. tel:[phone] [facility] [address] [place], [place] [address], [place], [place], [address], [place] tel:[phone] [place] No Information Nov-2 0-202 0 Lehnen Staci. . Referring Provider: María Ulrich [address] [place] [address], [address]. tel:[phone] [address] [address] [address], [place], [place], [address], tel:[phone] [place] No Information 6 0 Lehnen Staci. . Referring Provider: María Ulrich, [address] [place] [address], [address]. tel:[phone] [address], [place], [id number], tel:[phone] [place] No Information 3-202 0 Lehnen Staci. . Referring Provider: María Ulrich, [address] [place] [address], [address]. tel:[phone] [address] [address], [place], [place], [address], tel:[phone] [place] No Information 9202 0 Lehnen Staci. . Referring Provider: María Ulrich, [address] [place] [address], [address]. tel:[phone], [id number], tel:[phone] [place] No Information 0 6202 0 Lehnen Staci. . Referring Provider: María Ulrich, [address] [place] [address], [address]. tel:[phone], [id number], tel:[phone] [place] No Information 0 4-202 0 [place] Maribell. . Referring Provider: María Ulrich [address] [place] [address], [address]. tel:[phone] Family History Family Member Type Diagnosis Age At Onset No Information Payers Payer name Insurance type Covered republican ID Eusebio domingo(s) Nakul [id number] Social History Type Description Quantity Date Captured Comments Sex Female Smoking Status No Information Chief Complaint And Reason For Visit No Information Reason For Referral Reason For Referral No Information History Of Present Illness Encounter Date Complaint History Of Prese nt Illness No Information Functional Status Date Functional Assessmen t No Information Instructions Date Instruction Additional Infor branden Giving encouragement to exercise Related to Overweight Assessments Type Assessment Date No Information Patient Care Teams Name Effective Dates (start - stop) Status Members No Information
--- OUTSIDE RECORDS SUMMARY | 2024-12-09 08:39 | XMS_ITS | Clinical Summary ---
Author Organization [facility] [place] [facility] Address [address] [place] [address] Care Team Providers Care Recreation Programmer Name Role Phone Mehran Sterlingsteffi ISA Primary Care Provider [phone] Allergies No known active allergies Medications atenoloL [...] usage. Fall 04/28/2020 Vitamin D deficiency 04/28/2020 Surgical History Surgery Date Site/Laterality Comments LEG SURGERY SECTION EAR SURGERY Medical History Medical History Date Comments Seizures (HCC) Family History Medical History Relation Name Comments Hypertension Brother 1 No Known Problems Brother 2 Hypertension Brother 3 Diabetes Father Heart attack Father Hypertension Mother No Known Problems Sister 1 No Known Problems Sister 2 No Known Problems Sister 3 Diabetes Sister 4 Hypertension Sister 4 Stroke Sister 4 Relation Name Status Comments Brother 1 Alive Brother 2 Alive Brother 3 Alive Father Alive Mother Alive Sister 1 Alive Sister 2 Alive Sister 3 Alive Sister 4 Alive Social History Tobacco Use Types Packs/Day Years Used Date Smoking Tobacco: Never Smokeless Tobacco: Never Comments Unknown Sex and Gender Information Value Date Recorded Sex Assigned at Not on file 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 Gender Identity Not on file Sexual Orientation Not on file Obstetrics History Last Filed Vital Signs Vital Sign Reading [...] 07/18/2020 3:53 PM CDT Plan of Treatment Health Maintenance Due Date Last Done Comments Cervical Cancer Screening 1961 Colon Cancer Screening-Colonoscopy 1961 Depression Screening 1961 Hepatitis C Screening 1961 Hepatitis B Screening 1979 Regular Well Visit/Exam 18-64 1979 Zoster Vaccine (1 of 2) 2011 Breast Cancer Screening-Mammogram 02/22/2014 02/22/2013, 02/22/2013 DTaP/Tdap/Td Vaccine (3 - Td or Tdap) 03/15/2024 03/15/2014, 02/25/2008 Influenza Vaccine (#1) 2024 9, 09/01/2018, 08/11/2017, Additional history exists Pneumococcal vaccine <65 Aged Out 03/15/2014 No longer eligible based on patient's age to complete this topic Insurance [employer] OOS Care Teams Recreation Programmer Relationship Specialty Start Date End Date Almita Laurent NP [address] [place] [address] PCP - General Nurse Practitioner 06/21/20
== END 2024-12-04 08:42 | disposition home or self-care (01) ==
PROVIDERS: Visit Provider Registered Nurse
DX: R07.81 Pleurodynia (principal)
CPT/HCPCS: 71046

== ENCOUNTER 2024-12-07 15:35 | Outpatient (CLI) | payer BC, SELFPAY ==
--- NOTE | ~2024-12-07 | MM_ITS ---
EXAMINATION: MM screening enid BI w donny HISTORY: Screening TECHNIQUE: Craniocaudal and mediolateral oblique 3-D tomosynthesis images were obtained and synthetic 2-D images were generated. CAD analysis was submitted and interpreted. COMPARISON: Comparison to multiple prior studies sequentially, with oldest reviewed study dated 06/11. BREAST PARENCHYMAL COMPOSITION: Not Dense: The breasts are almost entirely fatty. FINDINGS: There is no evidence of suspicious mass, calcification, or architectural distortion to sugg est malignancy in either breast. There has been no suspicious interval change. IMPRESSION: 1. No mammographic evidence of malignancy. 2. Recommend routine screening mammography in one year. BI-RADS Category 1: Negative Reviewed, dictated and finalized at location A. ITORY DEVELOPMENT MANAGER
--- OUTSIDE RECORDS SUMMARY | 2024-12-09 19:52 | XMS_ITS | Referral Summary ---
Author Organization 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
--- OUTSIDE RECORDS SUMMARY | 2024-12-09 19:52 | XMS_ITS | Clinical Summary ---
Author Organization [facility] Address [address] [place] [address] Phone Care Team Providers Care Sales Representative Church Furniture Name Role Phone Unavailable Primary Care Provider Unavailabl e Family History Medical History Relation Name Comments Breast Cancer Neg Hx Ovarian Cancer Neg Hx Social History Tobacco Use Types Packs/Day Years Used Date Smoking Tobacco: Never Assessed Comments Unknown Sex and Gender Information Value Date Recorded Sex Assigned at Not on file Legal Sex Female 8:58 AM CDT Gender Identity Not on file Sexual Orientation Not on file Plan of Treatment Health Maintenance Due Date Last Done Comments DTAP/TDAP/TD VACCINES (1 - Tdap) 1980 CERVICAL CANCER SCREENING 1991 COLORECTAL SCREENING 2006 Colorectal Cancer Screening 2006 FIT-DNA Q 3 years 2006 FIT/FOBT Q 1 year 2006 Flex Sig/CT Colonography Q 5 years 2006 ZOSTER VACCINE (1 of 2) 2011 BREAST CANCER SCREENING 02/22/2014 02/22/2013 INFLUENZA VACCINE (#1) 2024 RSV VACCINE (60+ or ) (1 - 1-dose 75+ series) 2036 PNEUMOCOCCAL VACCINE 0-64 YEARS Aged Out No longer eligible based on patient's age to complete this topic Procedures Procedure Name Priority Date/Time Associated Diagnosis Comments MAMMO SCREEN BILAT W OR WO CAD Routine 02/22/2013 1:08 PM CDT Other screening mammogram from Last 3 Months or Most Recently Relevant to Health Maintenance Results * MAMMO DIGITAL SCREEN BILAT (02/22/2013 1:08 PM CDT) Anatomical Region Laterality Modality Breast Bilateral Mammography 02/22/2013 1:07 PM CDT Narrative 02/24/2013 7:44 AM CDT BILATERAL DIGITAL SCREENING MAMMOGRAM WITH CAD , ??Feb 22, 2013 01:07:00 PM INDICATION: Routine screening. TECHNIQUE: Standard images were obtained of both breasts on a digital system. ??CAD was utilized. ?? COMPARISON: Made to multiple prior studies from [facility] dating back to June 2002. BREAST COMPOSITION: Predominantly fatty replaced. FINDINGS: No dominant masses, suspicious calcifications, parenchymal asymmetry or areas of architectural distortion are identified in either breast. OVERALL ASSESSMENT: ??BI-RADS Category 1: Negative. RECOMMENDATIONS: Recommend continued annual mammography. Dictated from [facility] Procedure Note Og Arnold MD - 02/24/2013 BILATERAL DIGITAL SCREENING MAMMOGRAM WITH CAD , Feb 22, 2013 01:07:00 PM INDICATION: Routine screening. TECHNIQUE: Standard images were obtained of both breasts on a digital system. CAD was utilized. COMPARISON: Made to multiple prior studies from [facility] dating back to June 2002. BREAST COMPOSITION: Predominantly fatty replaced. FINDINGS: No dominant masses, suspicious calcifications, parenchymal asymmetry or areas of architectural distortion are identified in either breast. OVERALL ASSESSMENT: BI-RADS Category 1: Negative. RECOMMENDATIONS: Recommend continued annual mammography. Dictated from [facility] Only [facility] MAMMO ORDERABLES Final Res ult from Last 3 Months or Most Recently Relevant to Health Maintenance
--- OUTSIDE RECORDS SUMMARY | 2024-12-09 19:52 | XMS_ITS | Clinical Summary ---
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
--- OUTSIDE RECORDS SUMMARY | 2024-12-09 19:52 | XMS_ITS | Clinical Summary ---
Author Organization [facility] [employer] Address [address] [place] [address] Care Team Providers Care Lacquer Maker Name Role Phone Almita Laurent SCORER HELPER-DELIVERY MAN Primary Care Pro vider Source Comments [facility],non-owned Affiliates and Associated Physician Practices is amultiple site organization consisting of ambulatory clinics and hospital sitesin [place], [place], [place] and [place]. This disclosure is being madepursuant to the Care Everywhere program and may not contain all information available regarding this patient. Last updated 18.[facility] [employer] Allergies No known active allergies Medications * [...] you. Interventions: Medical Devices Implanted Type Area Corporate Giving Manager Device Identifier Shelf Expiration Date Model / Serial / Lot Plate 3 Hl Lck Tib Rt Prox Std Crv Alps Implanted:Qty: 1 on 05/03/2020 by Dorothy Acosta MD at [facility] Right: [employer] [id number] / / Screw 3.5mm 18mm 2.5mm Slf-Tap Sm Hex Implanted:Qty: 1 on 05/03/2020 by Dorothy Acosta MD at [facility] Right: [employer] [id number] / / Screw 4mm 2.5mm 20mm P/T Canc Sm Hex Implanted:Qty: 1 on 05/03/2020 by Dorothy Acosta MD at [facility] Right: [employer] [id number] / / Screw 4mm 18mm 2.5mm P/T Slf-Tap Sm Hex Implanted:Qty: 1 on 05/03/2020 by Dorothy Acosta MD at [facility] Right: [employer] [id number] / / Plate 6 Hl 2 Comp Colr 73mm 1/3 Tblr Implanted:Qty: 1 on 05/03/2020 by Dorothy Acosta MD at [facility] Right: Ank[employer] [id number] / / Screw 3.5mm 60mm 2.2mm Mldir Lck Sq Drv Implanted:Qty: 1 on 05/03/2020 by Dorothy Acosta MD at [facility] Right: [employer] [id number] / / Screw 3.5mm 28mm Ft Nonlock Hex Drv Elb Implanted:Qty: 1 on 05/03/2020 by Dorothy Acosta MD at [facility] Right: [employer] [id number] / / Screw 3.5mm 58mm T15 Slf-Tap Lck Tpr Implanted:Qty: 1 on 05/03/2020 by Dorothy Acosta MD at [facility] Right: [employer] [id number] / / Screw 3.5mm 60mm T15 Lck Slf-Tap Tip Tpr Implanted:Qty: 3 on 05/03/2020 by Dorothy Acosta MD at [facility] Right: [employer] [id number] / / Screw 3.5mm 65mm T15 Lck Slf-Tap Tip Tpr Implanted:Qty: 2 on 05/03/2020 by Dorothy Acosta MD at [facility] Right: [employer] [id number] / / Wire K 1.6mm 150mm 1 End Troc Pnt Ss Sm Implanted:Qty: 1 on 05/03/2020 by Dorothy Acosta MD at [facility] Right: [employer] [id number] / / Screw 3.5mm 14mm 2.5mm Slf-Tap Sm Hex Implanted:Qty: 2 on 05/03/2020 by Dorothy Acosta MD at [facility] Right: Ankle [employer] [id number] / / Explanted Type Area Corporate Giving Manager Device Identifier Shelf Expiration Date Model / Serial / Lot Screw 3.5mm 75mm T15 Lck Lopro Slf-Tap Explanted:Qty: 1 on 05/03/2020 by Dorothy Acosta MD at [facility] Right: [employer] [id number] / / Procedures Procedure Name Priority Date/Time [...] 26 mg/dL 05/05/2020 3:34 AM [facility] Creatinine 0.5(L) 0.6 - 1.2 mg/dL 05/05/2020 3:34 AM [facility] Sodium 139 136 - 145 mmol/L 05/05/2020 3:34 AM [facility] Potassium 3.7 3.5 - 4.5 mmol/L 05/05/2020 3:34 AM [facility] Chloride 105 98 - 107 mmol/L 05/05/2020 3:34 AM [facility] CO2 24 22 - 29 mmol/L 05/05/2020 3:34 AM [facility] Glucose 126(H) 70 - 115 mg/dL 05/05/2020 3:34 AM [facility] Calcium 8.5 8.4 - 10.2 mg/dL 05/05/2020 3:34 AM [facility] Anion Gap 14 8 - 18 05/05/2020 3:34 AM T [facility] BUN/Creatinine Ratio 16 7 - 23 05/05/2020 3:34 AM T [facility] Osmolality Calculated 288 270 - 300 mOsm/kg 05/05/2020 3:34 AM T [facility] eGFR >60 >60 mL/min/1.7 3 m2 05/05/2020 3:34 AM T [facility] Blood BLOOD SPECIMEN / Unknown Lab Venipuncture / Unknown 05/05/2020 1:59 AM CDT 05/05/2020 2:54 AM CDT Eusebio Pederson MD LAB - CHEMISTRY [facility] Address City/State/[place] Phone Number [facility] [address] [place] [phone] [phone] from Last 3 Months or Most Recently Relevant to Health Maintenance Advance Directives * Full Code (Latest Code Status on File) Date Activated Date Inactivated Comments 04/28/2020 3:46 AM 05/05/2020 5:26 PM Care Teams Lacquer Maker Relationship Specialty Start Date End Date Almita Laurent, [facility]TH [address] [place] [address] PCP - General 05/26/19
--- OUTSIDE RECORDS SUMMARY | 2024-12-09 19:52 | XMS_ITS | Clinical Summary ---
Author Organization [facility] Address [address] [facility] [address] [place] [address] Phone Care Team Providers Care Paint Line Supervisor Name Role Phone Almita Laurent APRN Primary Care Provider [phone] Social History Tobacco Use Types Packs/Day Years [...] Recently Relevant to Health Maintenance Care Teams Paint Line Supervisor Relationship Specialty Start Date End Date Almita Laurent APRN [address] [place] [address] PCP - General Advanced Practice Nurse 09/02/17
--- OUTSIDE RECORDS SUMMARY | 2024-12-09 19:52 | XMS_ITS | Patient Health Summary ---
Author Organization [facility] Address [address] [place] [address] Care Team Providers Care Senior Compliance Officer Name Role Phone Almita Laurent ADVERTISING MATERIAL DISTRIBUTOR-BAKING FACTORY WORKER Primary Care Pro vider Note from [facility],non-owned Affiliates and Associated Physician Practices is amultiple site organization consisting of ambulatory clinics and hospital sitesin [place], [place], [place] and [place]. This disclosure is being madepursuant to the Care Everywhere program and may not contain all information available regarding this patient. Last updated 18.[facility] Allergies No known active allergies Medications * [...] AM CDT Medical Devices Implanted Type Area Overlock Hemmer Device Identifier Shelf Expiration Date Model / Serial / Lot Plate 3 Hl Lck Tib Rt Prox Std Crv Alps Implanted:Qty: 1 on 05/03/2020 by Dorothy Aocsta MD at [facility] Right: [employer] 8162-35-803 / / Screw 3.5mm 18mm 2.5mm Slf-Tap Sm Hex Implanted:Qty: 1 on 05/03/2020 by Dorothy Acosta MD at [facility] Right: [employer] [id number] / / Screw 4mm 2.5mm 20mm P/T Canc Sm Hex Implanted:Qty: 1 on 05/03/2020 by Dorothy Acosta MD at [facility] Right: [employer] [id number] / / Screw 4mm 18mm 2.5mm P/T Slf-Tap Sm Hex Implanted:Qty: 1 on 05/03/2020 by Dorothy Acosta MD at [facility] Right: [employer] [id number] / / Plate 6 Hl 2 Comp Colr 73mm 1/3 Tblr Implanted:Qty: 1 on 05/03/2020 by Dorothy Acosta MD at [facility] Right: [employer] [id number] / / Screw 3.5mm 60mm 2.2mm Mldir Lck Sq Drv Implanted:Qty: 1 on 05/03/2020 by Dorothy Acosta MD at [facility] Right: [employer] 8163-35-060 / / Screw 3.5mm 28mm Ft Nonlock Hex Drv Elb Implanted:Qty: 1 on 05/03/2020 by Dorothy Acosta MD at [facility] Right: [employer] 8150-37-028 / / Screw 3.5mm 58mm T15 Slf-Tap Lck Tpr Implanted:Qty: 1 on 05/03/2020 by Dorohty Acosta MD at [facility] Right: [employer] 8161-35-058 / / Screw 3.5mm 60mm T15 Lck Slf-Tap Tip Tpr Implanted:Qty: 3 on 05/03/2020 by Dorothy Acosta MD at [facility] Right: [employer] [id number] / / Screw 3.5mm 65mm T15 Lck Slf-Tap Tip Tpr Implanted:Qty: 2 on 05/03/2020 by Dorothy Acosta MD at [facility] Right: [employer] 8161-35-065 / / Wire K 1.6mm 150mm 1 End Troc Pnt Ss Sm Implanted:Qty: 1 on 05/03/2020 by Dorothy Acosta MD at [facility] Right: [employer] [id number] / / Screw 3.5mm 14mm 2.5mm Slf-Tap Sm Hex Implanted:Qty: 2 on 05/03/2020 by Dorothy Acosta MD at [facility] Right: [employer] [id number] / / Explanted Type Area Overlock Hemmer Device Identifier Shelf Expiration Date Model / Serial / Lot Screw 3.5mm 75mm T15 Lck Lopro Slf-Tap Explanted:Qty: 1 on 05/03/2020 by Dorothy Acosta MD at [facility] Right: [employer] [id number] / / Procedures * XR KNEE RIGHT [...] 81.0 - 97.0 fL 05/05/2020 3:11 AM [facility] MCH 30.9 28.0 - 34.0 pg 05/05/2020 3:[address] [facility] MCHC 33.4 32.0 - 36.0 g/dL 05/05/2020 3:11 AM [facility] Platelet Count 204 150 - 400 10? [...] Pederson MD LAB - HEMATOLOGY ORD ERABLES [address] [address] [phone] * (ABNORMAL) BASIC METABOLIC PANEL (CALCIUM TOTAL) [...] - 10.2 mg/dL 05/05/2020 3:34 AM CDT [facility] Anion Gap 14 8 - 18 05/05/2020 3:[address] [facility] BUN/Creatinine Ratio 16 7 - 23 05/05/2020 3:[address] [facility] Osmolality Calculated 288 270 - 300 mOsm/kg 05/05/2020 3:[address] [facility] eGFR >60 >60 mL/min/1.7 3 m2 05/05/2020 3:[address] [facility] Blood BLOOD SPECIMEN / Unknown Lab Venipuncture / Unknown 05/05/2020 1:59 AM CDT 05/05/2020 2:54 AM CDT Eusebio Pederson MD LAB - CHEMISTRY KELLY ZHOU [address] [address], [facility] [phone] * XR KNEE RIGHT 2VW OR LESS [...] are identified. Dictated by Constance Ferraro MD (memory care program resident). I, Dr. EBEN GTZ have personally reviewed [...] are identified. Dictated by Constance Ferraro MD (memory care program resident). IDr. EBEN have personally reviewed and interpreted [...] KP SURGERY (05/03/2020 6:25 PM CDT) Narrative [facility] - 05/03/2020 6:33 PM CDT Fluoroscopy was used for this exam in the OR. Please see the Operative report. Dorothy Acosta MD FLUOROSCOPY ORDERA BLENiharika [facility] * ETT LINE PERFORMABLE (05/03/2020 2:57 PM CDT) Narrative Abdifatah Pacheco, DO - 05/03/2020 2:57 PM CDT Abdifatah Pacheco, DO ? 05/03/2020 ??2:58 PM Endotracheal Tube Placement: ? Patient Location: OR. Intubation Event Date/Time: ??05/03/2020 2:15 PM Procedure: intubation (25971). Procedure Section: ?? Sedation: IV sedation. Indications [...] Dawson MD GENERAL ANESTHESIA ORDERABLES * PTT [facility] (05/02/2020 2:27 AM CDT) APTT 26.7 23.0 - 38.4 Seconds 05/02/2020 3:[address] [facility] Comment:Suggested therapeuti c range for full dose I.V. unfractionated heparin therapy for venous thromboembolism is 71 to 109 seconds. Blood BLOOD SPECIMEN / Unknown Lab Venipuncture / Unknown 05/02/2020 2:27 AM CDT 05/02/2020 2:41 AM CDT Eusebio Pederson MD LAB - COAGULATION OR DERABLES Performing Organization Address City/[facility]/ZIP Co de Phone Number [place] [phone] [phone] * PT-INR [facility] (05/02/2020 2:27 AM CDT) PT 13.4 12.1 - 14.8 Seconds 05/02/2020 3:[address] [facility] INR 1.1 See Comment 05/02/2020 3:[address] [facility] Comment:The suggested therap eutic range for standard coumadin (warfarin) therapy is an INR of 2.0-3.0. For high-risk patients (Mechanical Mitral Valve Prosthesis, etc.), the suggested prophylactic therapeutic range is an INR of 2.5-3.5. Blood BLOOD SPECIMEN / Unknown Lab Venipuncture / Unknown 05/02/2020 2:27 AM CDT 05/02/2020 2:41 AM CDT Eusebio Pederson MD LAB - COAGULATION OR DERABLES [address] [address] [phone] * RETYPE PATIENT (05/01/2020 6:54 AM CDT) ABO 05/01/2020 8:30 AM CDT [facility] Rh Type 05/01/2020 8:30 AM CDT [facility] Typem 05/01/2020 8:30 AM CDT [facility] Interpretation 05/01/2020 8:30 AM CDT [facility] Blood BLOOD SPECIMEN / Unknown Lab Venipuncture / Unknown 05/01/2020 6:54 AM CDT 05/01/2020 7:18 AM CDT Narrative [facility] - 05/01/2020 8:30 AM CDT Re-type confirmed per [facility] Blood Bank policies & procedures. Results documented in department. Dorothy Acosta MD LAB - BLOOD BANK O RDERABLES Performing Organization Address [facility]/ZIP Co de Phone Number [facility] [address] [place] [address] * TYPE + SCREEN PANEL (05/01/2020 6:15 AM CDT) Pathologist [facility] Antibody Screen NEG 0 7:28 AM CDT [facility] ABO Rh O POS 05/01/2020 7:28 AM CDT [facility] Blood Bank BLOOD SPECIMEN / Unknown Lab Venipuncture / Unknown 05/01/2020 6:15 AM CDT 05/01/2020 6:41 AM CDT Eusebio Pederson MD LAB - BLOOD BANK ORD ERABLES Performing Organization Address [facility] de Phone Number [facility] [address] [place] [address] * (ABNORMAL) VITAMIN D 25-HYDROXY (04/28/2020 9:58 AM CDT) Pathologist [facility] Vitamin D, 25 Hydroxy 18.3(L) See comment: ng/mL 04/28/2020 12:34 PM CDT [facility] Comment: The recommendations for 25-Hydroxy [...] CDT 04/28/2020 10:13 AM CDT Keara Arguello ADVERTISING MATERIAL DISTRIBUTOR-SHINGLES ROOFER HELPER LAB - CHEMISTR Y ORDERABLES Performing Organization Address City/State/[facility] Co de Phone Number [address] [address], [facility] [phone] * CT KNEE RIGHT WO CONTRAST (04/28/2020 [...] lipohemarthrosis. Report dictated by Gurjit Motta DO (memory care program resident). I, Dr. Anna SALOMON M.D. have personally [...] lipohemarthrosis. Report dictated by Gurjit Motta DO (memory care program resident). Dr. Anna Gill M.D. have personally reviewed [...] injury. Report dictated by Constance Ferraro MD (memory care program resident). Dr. EBEN Gill have personally reviewed and [...] injury. Report dictated by Constance Ferraro MD (memory care program resident). Dr. EBEN Gill have personally reviewed and [...] above. Dictated by Jose E Valdez MD (memory care program resident). Dr. EBEN Gill have personally reviewed and [...] above. Dictated by Jose E Valdez MD (memory care program resident). I, Dr. EBEN GTZ have personally reviewed and interpreted this examination/study. This report was electronically signed by EBEN GTZ on 04/28/2020 2:42 PM . Eusebio Pederson MD [facility] Care Teams Senior Compliance Officer Relationship Specialty Start Date End Date Almita Laurent APRN-SOUTH [address] [place] [id number] PCP - General 05/26/19
--- OUTSIDE RECORDS SUMMARY | 2024-12-09 19:52 | XMS_ITS | Referral Summary ---
Author Organization [facility] Address [address] [place] [address] Care Team Providers Care Research Methods Instructor Name Role Phone Almita Laurent Surinder DIGITAL TECHNICIAN-COMPUTER EDUCATION TEACHER Primary Care Pro vider Source Comments [facility],non-owned Affiliates and Associated Physician Practices is amultiple site organization consisting of ambulatory clinics and hospital sitesin [place], [place], [place] and [place]. This disclosure is being madepursuant to the Care Everywhere program and may not contain all information available regarding this patient. Last updated 18.[facility] Allergies No known active allergies Medications * [...] you. Interventions: Medical Devices Implanted Type Area Associate Media Planner Device Identifier Shelf Expiration Date Model / Serial / Lot Plate 3 Hl Lck Tib Rt Prox Std Crv Alps Implanted:Qty: 1 on 05/03/2020 by Dorothy Acosta MD at [facility] Right: [employer] 8162-35-803 / / Screw 3.5mm 18mm 2.5mm Slf-Tap Sm Hex Implanted:Qty: 1 on 05/03/2020 by Dorothy Acosta MD at [facility] Right: [employer] [id number] / / Screw 4mm 2.5mm 20mm P/T Canc Sm Hex Implanted:Qty: 1 on 05/03/2020 by Dorothy Acosta MD at [facility] Right: [employer] [id number] / / Screw 4mm 18mm 2.5mm P/T Slf-Tap Sm Hex Implanted:Qty: 1 on 05/03/2020 by Dorothy Acosta MD at [facility] Right: [employer] [id number] / / Plate 6 Hl 2 Comp Colr 73mm 1/3 Tblr Implanted:Qty: 1 on 05/03/2020 by Dorothy Acosta MD at [facility] Right: [employer] [id number] / / Screw 3.5mm 60mm 2.2mm Mldir Lck Sq Drv Implanted:Qty: 1 on 05/03/2020 by Dorothy Acosta MD at [facility] Right: [employer] 8163-35-060 / / Screw 3.5mm 28mm Ft Nonlock Hex Drv Elb Implanted:Qty: 1 on 05/03/2020 by Dorothy Acosta MD at [facility] Right: [employer] 8150-37-028 / / Screw 3.5mm 58mm T15 Slf-Tap Lck Tpr Implanted:Qty: 1 on 05/03/2020 by Dorothy Acosta MD at [facility] Right: [employer] 8161-35-058 / / Screw 3.5mm 60mm T15 Lck Slf-Tap Tip Tpr Implanted:Qty: 3 on 05/03/2020 by Dorothy Acosta MD at [facility] Right: [employer] [id number] / / Screw 3.5mm 65mm T15 Lck Slf-Tap Tip Tpr Implanted:Qty: 2 on 05/03/2020 by Dorothy Acosta MD at [facility] Right: [employer] 8161-35-065 / / Wire K 1.6mm 150mm 1 End Troc Pnt Ss Sm Implanted:Qty: 1 on 05/03/2020 by Dorothy Acosta MD at [facility] Right: [employer] [id number] / / Screw 3.5mm 14mm 2.5mm Slf-Tap Sm Hex Implanted:Qty: 2 on 05/03/2020 by Dorothy Acosta MD at [facility] Right: [employer] [id number] / / Explanted Type Area Associate Media Planner Device Identifier Shelf Expiration Date Model / Serial / Lot Screw 3.5mm 75mm T15 Lck Lopro Slf-Tap Explanted:Qty: 1 on 05/03/2020 by Dorothy Acosta MD at [facility] Right: [employer] [id number] / / Procedures Procedure Name Priority Date/Time [...] 7 - 26 mg/dL 05/05/2020 3:34 AM [facility] Creatinine 0.5(L) 0.6 - 1.2 mg/dL 05/05/2020 3:34 AM [facility] Sodium 139 136 - 145 mmol/L 05/05/2020 3:34 AM [facility] Potassium 3.7 3.5 - 4.5 mmol/L 05/05/2020 3:34 AM [facility] Chloride 105 98 - 107 mmol/L 05/05/2020 3:34 AM [facility] CO2 24 22 - 29 mmol/L 05/05/2020 3:34 AM [facility] Glucose 126(H) 70 - 115 mg/dL 05/05/2020 3:34 AM [facility] Calcium 8.5 8.4 - 10.2 mg/dL 05/05/2020 3:34 AM [facility] Anion Gap 14 8 - 18 05/05/2020 3:34 AM [facility] BUN/Creatinine Ratio 16 7 - 23 05/05/2020 3:34 AM [facility] Osmolality Calculated 288 270 - 300 mOsm/kg 05/05/2020 3:34 AM [facility] eGFR >60 >60 mL/min/1.7 3 m2 05/05/2020 3:34 AM [facility] Blood BLOOD SPECIMEN / Unknown Lab Venipuncture / Unknown 05/05/2020 1:59 AM CDT 05/05/2020 2:54 AM T Eusebio Pederson MD LAB - CHEMISTRY KELLY ZHOU [facility] Organization Address City/State/ZIP Co de Phone Number [address] [address], [facility] [phone] from Last 3 Months or Most Recently Relevant to Health Maintenance Advance Directives * Full Code (Latest Code Status on File) Date Activated Date Inactivated Comments 04/28/2020 3:46 AM 05/05/2020 5:26 PM Care Teams Research Methods Instructor Relationship Specialty Start Date End Date Almita Laurent APRN-SOUTH [facility] [place] [phone] PCP - General 05/26/19
== END 2024-12-07 15:36 | disposition home or self-care (01) ==
PROVIDERS: Visit Provider Registered Nurse
DX: Z12.31 Encounter for screening mammogram for malignant neoplasm of breast (principal)
CPT/HCPCS: 77063; 77067

== ENCOUNTER 2025-04-12 11:08 | Emergency (ER) | payer BC, SELFPAY ==
--- NOTE | ~2025-04-12 | XR_ITS ---
Clinical Indication: Weakness PA and lateral views of the chest: Comparison: 12/04/2024 Findings: The lungs are clear, without evidence of focal consolidation or pleural effusion. Cardiome diastinal silhouette is within normal limits. Bones and soft tissues are unremarkable. Impression: Normal chest. Reviewed, dictated and finalized at location . Impression: Normal chest.
--- OUTSIDE RECORDS SUMMARY | 2025-04-12 11:10 | XMS_ITS | Clinical Summary ---
Author Organization [facility] Address [address] [facility] [address] [place] [address] Phone Care Team Providers Care Associate Loan Officer Name Role Phone Almita Laurent APRN Primary Care Provider [phone]- [phone] Social History Tobacco Use Types Packs/Day Years [...] Recently Relevant to Health Maintenance Care Teams Associate Loan Officer Relationship Specialty Start Date End Date Almita Laurent APRN [address] [place] [address] PCP - General Advanced Practice Nurse 09/02/17
--- OUTSIDE RECORDS SUMMARY | 2025-04-12 11:11 | XMS_ITS | Data Portability ---
Author Organization [facility] Richard Schumacher Address [address] [place] [address] Care Team Providers Care Private Equity Associate Name Role Phone ALMITA MARTINEZ Primary Care Provider PHOEBE AL Orthopedic Surgeon [phone] VIET DANGELO Neurologist Unavailable Chiropractor Unavailable Assessment No assessment recorded. Plan of Treatment Reminders Order Date Submit Date Provider Last Modified By Organization Details Last Modified Time Details Appointments ANY 2024 03:30P M TEO Catalan-Bc Not available Not available Not available ANY 2024 03:15P M TEO Catalan-Anival Not available Not available Not available Lab TSH + free T4, serum 2024 025 [facility], [facility] [facility], [address], [place], [address], 03/27/2025 09:12:17 T3, free, serum or plasma 2024 025 [facility], [address] [facility], [address], [place], [address], 03/27/2025 09:12:18 HbA1c (hemoglob in A1c), blood 2024 025 thai In-Office Order, Internal Use Only DO Not Attach Compendium DO Not Attach Compendium, Do Not Delete/merge, [id number] 12/01/2024 17:44:50 glucose, fingersti ck, blood 2024 025 [facility] Order, Internal Use Only DO Not Attach Compendium DO Not Attach Compendium, Do Not Delete/merge, [id number] 12/01/2024 17:44:55 HbA1c (hemoglob in A1c), blood 2023 ADRIENNE In-Office Order, Internal Use Only DO Not Attach Compendium DO Not Attach Compendium, Do Not Delete/merge, [id number] 08/29/2024 09:08:46 glucose, fingersti ck, blood 2023 ADRIENNE In-Office Order, Internal Use Only DO Not Attach Compendium DO Not Attach Compendium, Do Not Delete/merge, [id number] 08/30/2024 09:59:56 TSH, ultra-sen sitive, serum 2023 [facility], [address], [address], [place], [address], 08/30/2024 16:12:16 rf (rheumato id factor), serum 2023 [facility], [address] [facility] [address] [facility] [address], [address], [place], [address], 08/30/2024 16:12:19 ESR (erythroc yte sedimenta tion rate), blood 2023 [facility], [address] [facility], [address], [place], [address], 08/30/2024 16:12:18 FER (antinucl ear antibodie s) screen, serum 2023 [facility], [address] [facility] [address], [address], [place], [address], 08/30/2024 16:12:15 HbA1c (hemoglob in A1c), blood 2023 thai In-Office Order, Internal Use Only DO Not Attach Compendium DO Not Attach Compendium, Do Not Delete/merge, [id number] 05/04/2024 15:41:26 glucose, fingersti ck, blood 2023 024 [email or web address] In-Office Order, Internal Use Only DO Not Attach Compendium DO Not Attach Compendium, Do Not Delete/merge, [id number] 05/04/2024 15:41:27 lipid panel, serum 2023 024 [facility], [address], [place], [address], 05/06/2024 08:34:23 CMP, serum or plasma 2023 024 [facility], [address] [facility] [address], [place], [address], 05/06/2024 08:34:24 urinalysi s, complete 2023 024 [facility], [address] [facility] [facility] [address], [address], [place], [address], 05/06/2024 08:34:27 CBC w/ auto diff 2023 024 [facility], [address] [facility] [address], [place], [address], 05/06/2024 08:34:28 TSH, ultra-sen sitive, serum 2023 024 [facility], [address] [address], [address], [place], [address], 05/06/2024 08:34:26 HbA1c (hemoglob in A1c), blood 2023 024 thai In-Office Order, Internal Use Only DO Not Attach Compendium DO Not Attach Compendium, Do Not Delete/merge, [id number] 01/08/2024 17:24:05 glucose, fingersti ck, blood 2023 024 thai In-Office Order, Internal Use Only DO Not Attach Compendium DO Not Attach Compendium, Do Not Delete/merge, [id number] 01/08/2024 17:24:07 Referral gastroent erologist referral 2023 024 ADRIENNE kay MD, [address], [address], [place], [address], 04/30/2024 09:58:34 Procedures None recorded. Surgeries None recorded. Imaging XR, chest, 2 view 2024 025 [facility], [facility] [address], [place], [address], 12/04/2024 15:03:18 MAMMO, screening , bilateral 2024 025 [facility], [facility] [address], [place], [address], 12/07/2024 17:09:37 XR, shoulder, 2 or more view 2023 024 [facility], [facility] [address], [place], [address], 08/28/2024 15:34:47 Medication Orders levothyro xine 75 mcg tablet 2024 025 [facility], [address] [place] [address], [id number], 03/10/2025 16:51:29 gabapenti n 300 mg capsule 2024 025 [facility], [address] [place] [address], [id number], 03/10/2025 16:51:29 atorvasta tin 40 mg tablet 2024 025 [employer] [facility], [address] [place] [address], [id number], 03/10/2025 16:51:28 propranol ol 40 mg tablet 2024 025 [facility], [address] [place] [address], [id number], 03/10/2025 16:51:29 carbamaze pine ER 200 mg tablet,ex tended release,1 2 hr 2024 [facility], [address] [place] [address], [id number], 03/10/2025 16:51:27 losartan 100 mg-hydroc hlorothia zide 12.5 mg tablet 2024 025 [facility], [address] [place] [address], [id number], 03/10/2025 16:51:29 atenolol 50 mg tablet 2024 025 [facility], [address] [place] [address], [id number], 03/10/2025 16:51:28 amlodipin e 2.5 mg tablet 2024 025 [facility], [address] [place] [address], [id number], 03/10/2025 16:51:27 levothyro xine 75 mcg tablet 2024 025 [facility], [address] [place] [address], [id number], 12/01/2024 16:02:59 benzonata te 200 mg capsule 2024 025 [facility], [address] [place] [address], [id number], 03/10/2025 15:44:10 gabapenti n 300 mg capsule 2024 025 [facility], [address] [place] [address], [id number], 12/01/2024 16:24:01 atorvasta tin 40 mg tablet 2024 [facility], [address] [place] [address], [id number], 02/28/2025 13:35:10 carbamaze pine ER 200 mg tablet,ex tended release,1 2 hr 2024 [facility], [address] [place] [address], [id number], 02/28/2025 13:34:11 losartan 100 mg-hydroc hlorothia zide 12.5 mg tablet 2024 [facility], [address] [place] [address], [id number], 02/28/2025 13:34:11 atenolol 50 mg tablet 2024 [facility], [address] [place] [address], [id number], 02/28/2025 13:34:11 amlodipin e 2.5 mg tablet 2024 [facility], [address] [place] [address], [id number], 02/28/2025 13:34:11 gabapenti n 300 mg capsule 2023 [facility], [address] [place] [address], [id number], 11/30/2024 14:51:08 losartan 100 mg-hydroc hlorothia zide 12.5 mg tablet 2023 [facility], [address] [place] [address], [id number], 11/30/2024 14:51:19 atenolol 50 mg tablet 2023 [facility], [address] [place] [address], [id number], 11/30/2024 14:51:13 amlodipin e 2.5 mg tablet 2023 [facility], [address] [place] [address], [id number], 11/30/2024 14:51:16 Maxitrol 3.5 mg/mL-10, 000 unit/mL-0 .1% eye drops,kane pension 2023 [facility], [address] [place] [address], [id number], 12/01/2024 15:21:31 levothyro xine 75 mcg tablet 2023 [facility], [address] [place] [address], [id number], 09/01/2024 15:57:07 atorvasta tin 40 mg tablet 2023 [facility], [address] [place] [address], [id number], 11/30/2024 14:51:12 carbamaze pine ER 200 mg tablet,ex tended release,1 2 hr 2023 [facility], [address] [place] [address], [id number], 12/02/2024 14:18:35 Voltaren Arthritis Pain 1 % topical gel 2023 [facility], [address] [place] [address], [id number], 12/01/2024 15:21:34 Depo-Medr ol 80 mg/mL suspensio n for injection 2023 [email or web address] Not available 12/01/2024 15:05:07 gabapenti n 300 mg capsule 2023 024 [facility], [address] [place] [address], [id number], 05/04/2024 16:50:11 terbinafi ne HCl 250 mg tablet 2023 025 [facility], [address] [place] [address], [id number], 12/01/2024 15:21:32 losartan 100 mg-hydroc hlorothia zide 12.5 mg tablet 2023 024 [facility], [address] [place] [address], [id number], 06/01/2024 15:12:45 atenolol 50 mg tablet 2023 024 [facility], [address] [place] [address], [id number], 06/01/2024 15:12:46 amlodipin e 2.5 mg tablet 2023 024 [facility], [address] [place] [address], [id number], 06/01/2024 15:12:53 levothyro xine 75 mcg tablet 2023 024 [facility], [address] [place] [address], [id number], 06/01/2024 15:12:42 atorvasta tin 40 mg tablet 2023 024 [facility], [address] [place] [address], [id number], 06/01/2024 15:12:53 carbamaze pine ER 200 mg tablet,ex tended release,1 2 hr 2023 024 [facility], [address] [place] [address], [id number], 06/07/2024 16:13:18 gabapenti n 300 mg capsule 2023 [facility], [address] [place] [address], [id number], 08/10/2024 18:06:17 losartan 100 mg-hydroc hlorothia zide 12.5 mg tablet 2023 [facility], [address] [place] [address], [id number], 05/03/2024 15:39:28 atenolol 50 mg tablet 2023 [facility], [address] [place] [address], [id number], 05/03/2024 15:39:22 amlodipin e 2.5 mg tablet 2023 024 [facility], [address] [place] [address], [id number], 05/03/2024 15:39:27 levothyro xine 75 mcg tablet 2023 024 [facility], [address] [place] [address], [id number], 05/03/2024 15:39:25 valacyclo vir 1 gram tablet 2023 024 [facility], [address] [place] [address], [id number], 02/03/2024 16:38:13 atorvasta tin 40 mg tablet 2023 024 [facility], [address] [place] [address], [id number], 05/03/2024 15:39:26 carbamaze pine ER 200 mg tablet,ex tended release,1 2 hr 2023 024 [facility], [address] [place] [address], [id number], 05/03/2024 15:39:29 Patient TargetsNo targets recorded. Patient Instructions Encounter Date Encounter Id Patient Instructions Last Modified By Organization Details Last Modified Time 01/08/2024 [id number] alergias: instrucciones de cuidado - [allergies: care instructions] [email or web address] Not available 01/08/2024 17:23:56 C MO manejar las alergias: instrucciones de cuidado - [managing your allergies: care instructions] [email or web address] Not available 01/08/2024 17:23:56 prediabetes: instrucciones de cuidado - [prediabetes: care instructions] [email or web address] Not available 01/08/2024 17:23:57 A healthy lifestyle: care instructions [email or web address] Not available 01/08/2024 17:23:56 aprenda sobre la presi n arterial kristine - [learning about high blood pressure] [email or web address] Not available 01/08/2024 17:23:57 colesterol alto: instrucciones de cuidado - [high cholesterol: care instructions] [email or web address] Not available 01/08/2024 17:23:57 epilepsia: instrucciones de cuidado - [epilepsy: care instructions] [email or web address] Not available 01/08/2024 17:23:57 aprenda acerca d el peso saludable - [learning about healthy weight] [email or web address] Not available 01/08/2024 17:23:56 ndice de masa corporal: instrucciones de cuidado - [...] after eating--wait at least 2 hours may use OTC Tums/Pepcid/Omepra zole as needed if symptoms persist return for re-evaluation [email or web address] Not available 01/08/2024 17:08:21 05/04/2024 [id number] alergias: instrucciones de cuidado - [allergies: care instructions] [email or web address] Not available 05/04/2024 15:41:21 C MO manejar las alergias: instrucciones de cuidado - [managing your allergies: care instructions] [email or web address] Not available 05/04/2024 15:41:21 prediabetes: instrucciones de cuidado - [prediabetes: care instructions] [email or web address] Not available 05/04/2024 15:41:20 A healthy lifestyle: care instructions [email or web address] Not available 05/04/2024 15:41:21 aprenda sobre la presi n arterial kristine - [learning about high blood pressure] [email or web address] Not available 05/04/2024 15:41:21 colesterol alto: instrucciones de cuidado - [high cholesterol: care instructions] [email or web address] Not available 05/04/2024 15:41:21 epilepsia: instrucciones de cuidado - [epilepsy: care instructions] [email or web address] Not available 05/04/2024 15:41:21 aprenda acerca d el peso saludable - [learning about healthy weight] [email or web address] Not available 05/04/2024 15:41:21 ndice de masa corporal: instrucciones de cuidado - [...] after eating--wait at least 2 hours may use OTC Tums/Pepcid/Omepra zole as needed if symptoms persist return for re-evaluation [email or web address] Not available 05/04/2024 15:25:04 08/27/2024 [id number] alergias: instrucciones de cuidado - [allergies: care instructions] [email or web address] Not available 08/27/2024 16:58:34 C MO manejar las alergias: instrucciones de cuidado - [managing your [...] Not available 08/27/2024 17:03:05 aprenda sobre la presi n arterial kristine - [learning about high blood [...] healthy weight] [email or web address] Not available 08/27/2024 16:58:34 ndice de masa corporal: instrucciones de cuidado - [...] after eating--wait at least 2 hours may use OTC Tums/Pepcid/Omepra zole as needed if symptoms persist return for re-evaluation If you develop: increased pain, swelling, warmth, or redness in your shoulder. Red streaks leading from a place on your shoulder. Pus draining from an area of your shoulder. Swollen lymph nodes in your neck, armpits, or groin. A fever. seek immediate reevaluation [email or web address] Not available 08/27/2024 17:03:04 12/01/2024 [id number] alergias: instrucciones de cuidado - [allergies: care instructions] [email or web address] Not available 12/01/2024 15:56:10 C MO manejar las alergias: instrucciones de cuidado - [managing your [...] aprenda acerca d e las pruebas de detecci n del c ncer de seno - [learning about breast cancer screening] [email or web address] Not available 12/01/2024 16:16:08 aprenda sobre la presi n arterial kristine - [learning about high blood pressure] [email or web address] Not available 12/01/2024 15:56:10 aprenda acerca d el peso saludable - [learning about healthy weight] [email or web address] Not available 12/01/2024 15:56:10 ndice de masa corporal: instrucciones de cuidado - [...] after eating--wait at least 2 hours may use OTC Tums/Pepcid/Omepra zole as needed if symptoms persist return for re-evaluation If you develop: increased pain, swelling, warmth, or redness in your shoulder. Red streaks leading from a place on your shoulder. Pus draining from an area of your shoulder. Swollen lymph nodes in your neck, armpits, or groin. A fever. seek immediate reevaluation [email or web address] Not available 12/01/2024 15:49:24 03/10/2025 [id number] alergias: instrucciones de cuidado - [allergies: care instructions] [email or web address] Not available 03/10/2025 16:42:31 C MO manejar las alergias: instrucciones de cuidado - [managing your allergies: care instructions] Not available 03/10/2025 16:42:30 prediabetes: instrucciones de cuidado - [prediabetes: care instructions] Not available 03/10/2025 16:42:30 colesterol alto: instrucciones de cuidado - [high cholesterol: care instructions] [email or web address] Not available 03/10/2025 16:42:31 epilepsia: instrucciones de cuidado - [epilepsy: care instructions] [email or web address] Not available 03/10/2025 16:42:31 aprenda sobre la presi n arterial kristine - [learning about high blood pressure] [email or web address] Not available 03/10/2025 16:42:31 A healthy lifestyle: care instructions [email or web address] Not available 03/10/2025 16:42:31 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 [employer]ician Referral for Adenomatous polyp of colon Adenomatous polyp of colon Referring Physician: Almita Martinez, Family Medicine, Encounter Date: 01/08/2024 Results Created Date Observation Date Name Description Value Unit Range Abnormal Flag Note LastModifiedBy Organization Detail LastModifiedTime 01/08/20 24 01/08/2024 HbA1c (hemo globi n A1c), blood HbA1c 5.7 Not Available In-Office Order Internal Use Only DO Not Attach Compendium DO Not Attach Compendium, Do Not Delete/merge, [id number] 01/08/2024 16:12:02 01/08/20 24 01/08/2024 gluco se, finge rstic k, blood Blood Glucose: mg/dl 89 Not Available In-Off ice Order Internal Use Only DO Not Attach Compendium DO Not Attach Compendium, Do Not Delete/merge, [id number] 01/08/2024 16:12:11 05/04/20 24 05/04/2024 HbA1c (hemo globi n A1c), blood HbA1c 5.8 Not Available In-Office Order Internal Use Only DO Not Attach Compendium DO Not Attach Compendium, Do Not Delete/merge, [id number] 05/04/2024 15:07:40 05/04/20 24 05/04/2024 gluco se, finge rstic k, blood Blood Glucose: mg/dl 95 Not Available In-Off ice Order Internal Use Only DO Not Attach Compendium DO Not Attach Compendium, Do Not Delete/merge, [id number] 05/04/2024 15:07:41 05/05/20 24 05/06/2024 LIPID PANEL cholesterol, total 165 mg/dL 100-19 9 Not Available [facility] ([facility]) [address] [facility], [place], [address], 05/06/2024 08:34:23 05/05/20 24 05/06/2024 LIPID PANEL triglyceride s 90 mg/dL 0-149 Not Available [facility] ([facility]) [address] [place], [address], 05/06/2024 08:34:23 05/05/20 24 05/06/2024 LIPID PANEL HDL cholesterol 63 mg/dL >39 Not Available [facility] ([facility]) [address] [place], [address], 05/06/2024 08:34:23 05/05/20 24 05/06/2024 LIPID PANEL VLDL cholesterol joni 17 mg/dL 5-40 Not Available [facility] ([facility]) [address] [place], [address], 05/06/2024 08:34:23 05/05/20 24 05/06/2024 LIPID PANEL LDL chol calc ([facility]) 85 mg/dL 0-99 Not Available [facility] ([facility]) [address] [place], [address], 05/06/2024 08:34:23 05/05/20 24 05/06/2024 COMP. METAB OLIC PANEL (14) glucose 131 mg/dL 70-99 above high normal Not Available [facility] ([facility]) [address] [place], [address], 05/06/2024 08:34:24 05/05/20 24 05/06/2024 COMP. METAB OLIC PANEL (14) BUN 12 mg/dL 8-27 Not Available [facility] ([facility]) [address] [place], [address], 05/06/2024 08:34:24 05/05/20 24 05/06/2024 COMP. METAB OLIC PANEL (14) creatinine 0.52 mg/dL 0.57-1 .00 below low normal Not Available [facility] ([facility]) [address] [place], [address], 05/06/2024 08:34:24 05/05/20 24 05/06/2024 COMP. METAB OLIC PANEL (14) eGFR 105 mL/mi n/1.7 3 >59 Not Available [facility] ([facility]) [address] [facility] [place], [address], 05/06/2024 08:34:24 05/05/20 24 05/06/2024 COMP. METAB OLIC PANEL (14) BUN/creatini ne ratio 23 12-28 Not Available [facility] ([facility]) [address] [facility] [place], [address], 05/06/2024 08:34:24 05/05/20 24 05/06/2024 COMP. METAB OLIC PANEL (14) sodium 142 mmol/ L 134-14 4 Not Available [facility] ([facility]) [address] [facility], [place], [address], 05/06/2024 08:34:24 05/05/20 24 05/06/2024 COMP. METAB OLIC PANEL (14) potassium 4.1 mmol/ L 3.5-5. 2 Not Available [facility] ([facility]) [address] [facility] [place], [address], 05/06/2024 08:34:24 05/05/20 24 05/06/2024 COMP. METAB OLIC PANEL (14) chloride 104 mmol/ L 96-106 Not Available [facility] ([facility]) [address] [facility] [place], [address], 05/06/2024 08:34:24 05/05/20 24 05/06/2024 COMP. METAB OLIC PANEL (14) carbon dioxide, total 24 mmol/ L 20-29 Not Available [facility] ([facility]) [address] [facility] [place], [address], 05/06/2024 08:34:24 05/05/20 24 05/06/2024 COMP. METAB OLIC PANEL (14) calcium 9.1 mg/dL 8.7-10 .3 Not Available [facility] ([facility]) [address] [place], [address], 05/06/2024 08:34:24 05/05/20 24 05/06/2024 COMP. METAB OLIC PANEL (14) protein, total 6.3 g/dL 6.0-8. 5 Not Available [facility] ([facility]) [address] [place], [address], 05/06/2024 08:34:24 05/05/20 24 05/06/2024 COMP. METAB OLIC PANEL (14) albumin 4.3 g/dL 3.9-4. 9 Not Available [facility] ([facility]) [address] [place], [address], 05/06/2024 08:34:24 05/05/20 24 05/06/2024 COMP. METAB OLIC PANEL (14) globulin, total 2.0 g/dL 1.5-4. 5 Not Available [facility] ([facility]) [address] [place], [address], 05/06/2024 08:34:24 05/05/20 24 05/06/2024 COMP. METAB OLIC PANEL (14) bilirubin, total 0.3 mg/dL 0.0-1. 2 Not Available [facility] ([facility]) [address] [place], [address], 05/06/2024 08:34:24 05/05/20 24 05/06/2024 COMP. METAB OLIC PANEL (14) alkaline phosphatase 84 IU/L 44-121 Not Available [facility] ([facility]) [address] [place], [address], 05/06/2024 08:34:24 05/05/20 24 05/06/2024 COMP. METAB OLIC PANEL (14) AST (SGOT) 26 IU/L 0-40 Not Available [facility] ([facility]) [address] [place], [address], 05/06/2024 08:34:24 05/05/20 24 05/06/2024 COMP. METAB OLIC PANEL (14) ALT (SGPT) 23 IU/L 0-32 Not Available [facility] ([facility]) [address] [facility], [place], [address], 05/06/2024 08:34:24 05/05/20 24 05/06/2024 MICRO SCOPI C EXAMI NATIO N WBC NONE SEEN /hpf 0-5 Not Available [facility] ([facility]) [address] [facility], [place], [address], 05/06/2024 08:34:25 05/05/20 24 05/06/2024 MICRO SCOPI C EXAMI NATIO N RBC 0-2 /hpf 0-2 Not Available [facility] ([facility]) [address] [facility], [place], [address], 05/06/2024 08:34:25 05/05/20 24 05/06/2024 MICRO SCOPI C EXAMI NATIO N epithelial cells (non renal) 0-10 /hpf 0-10 Not Available [facility] ([facility]) [address] [facility], [place], [address], 05/06/2024 08:34:25 05/05/20 24 05/06/2024 MICRO SCOPI C EXAMI NATIO N casts NONE SEEN /lpf nonese en Not Available [facility] ([facility]) [address] [facility], [place], [address], 05/06/2024 08:34:25 05/05/20 24 05/06/2024 MICRO SCOPI C EXAMI NATIO N bacteria NONE SEEN nonese en/few Not Available [facility] ([facility]) [address] [facility], [place], [address], 05/06/2024 08:34:25 05/05/20 24 05/06/2024 TSH RFX ON ABNOR MAL TO FREE T4 TSH 4.440 uIU/m L 0.450- 4.500 Not Available [facility] ([facility]) [address] [place], [address], 05/06/2024 08:34:26 05/05/20 24 05/06/2024 URINA LYSIS , COMPL ETE specific gravity 1.021 1.005- 1.030 Not Available [facility] ([facility]) [address] [place], [address], 05/06/2024 08:34:27 05/05/20 24 05/06/2024 URINA LYSIS , COMPL ETE pH 6.0 5.0-7. 5 Not Available [facility] ([facility]) [address] [facility], [place], [address], 05/06/2024 08:34:27 05/05/20 24 05/06/2024 URINA LYSIS , COMPL ETE urine-color YELLOW yellow Not Available [facility] ([facility]) [address] [place], [address], 05/06/2024 08:34:27 05/05/20 24 05/06/2024 URINA LYSIS , COMPL ETE appearance CLEAR clear Not Available [facility] ([facility]) [address] [place], [address], 05/06/2024 08:34:27 05/05/20 24 05/06/2024 URINA LYSIS , COMPL ETE WBC esterase NEGATI VE negati ve Not Available [facility] ([facility]) [address] [place], [address], 05/06/2024 08:34:27 05/05/20 24 05/06/2024 URINA LYSIS , COMPL ETE protein NEGATI VE negati ve/tra ce Not Available [facility] ([facility]) [address] [place], [address], 05/06/2024 08:34:27 05/05/20 24 05/06/2024 URINA LYSIS , COMPL ETE glucose NEGATI VE negati ve Not Available [facility] ([facility]) [address] [place], [address], 05/06/2024 08:34:27 05/05/20 24 05/06/2024 URINA LYSIS , COMPL ETE ketones NEGATI VE negati ve Not Available [facility] ([facility]) [address] [place], [address], 05/06/2024 08:34:27 05/05/20 24 05/06/2024 URINA LYSIS , COMPL ETE occult blood NEGATI VE negati ve Not Available [facility] ([facility]) [address] [place], [address], 05/06/2024 08:34:27 05/05/20 24 05/06/2024 URINA LYSIS , COMPL ETE bilirubin NEGATI VE negati ve Not Available [facility] ([facility]) [address] [place], [address], 05/06/2024 08:34:27 05/05/20 24 05/06/2024 URINA LYSIS , COMPL ETE urobilinogen ,semi-qn 0.2 mg/dL 0.2-1. 0 Not Available [facility] ([facility]) [address] [place], [address], 05/06/2024 08:34:27 05/05/20 24 05/06/2024 URINA LYSIS , COMPL ETE nitrite, urine NEGATI VE negati ve Not Available [facility] ([facility]) [address] [place], [address], 05/06/2024 08:34:27 05/05/20 24 05/06/2024 URINA LYSIS , COMPL ETE microscopic examination COMMEN T Micro scopi c follo ws if indic ated. Not Available [facility] ([facility]) [address] [facility], [place], [address], 05/06/2024 08:34:27 05/05/20 24 05/06/2024 URINA LYSIS , COMPL ETE microscopic examination SEE BELOW: Ayo nettles c was indic ated and was perfo rmed. Not Available [facility] ([facility]) [address] [facility], [place], [address], 05/06/2024 08:34:27 05/05/20 24 05/06/2024 CBC WITH DIFFE RENTI AL/PL ATELE T WBC 3.5 x10e3 /uL 3.4-10 .8 Not Available [facility] ([facility]) [address] [facility], [place], [address], 05/06/2024 08:34:28 05/05/20 24 05/06/2024 CBC WITH DIFFE RENTI AL/PL ATELE T RBC 4.08 x10e6 /uL 3.77-5 .28 Not Available [facility] ([facility]) [address] [facility], [place], [address], 05/06/2024 08:34:28 05/05/20 24 05/06/2024 CBC WITH DIFFE RENTI AL/PL ATELE T hemoglobin 13.1 g/dL 11.1-1 5.9 Not Available [facility] ([facility]) [address] [place], [address], 05/06/2024 08:34:28 05/05/20 24 05/06/2024 CBC WITH DIFFE RENTI AL/PL ATELE T hematocrit 38.7 % 34.0-4 6.6 Not Available [facility] ([facility]) [address] [place], [address], 05/06/2024 08:34:28 05/05/20 24 05/06/2024 CBC WITH DIFFE RENTI AL/PL ATELE T MCV 95 fL 79-97 Not Available [facility] ([facility]) [address] [facility], [place], [address], 05/06/2024 08:34:28 05/05/20 24 05/06/2024 CBC WITH DIFFE RENTI AL/PL ATELE T MCH 32.1 pg 26.6-3 3.0 Not Available [facility] ([facility]) [address] [facility], [place], [address], 05/06/2024 08:34:28 05/05/20 24 05/06/2024 CBC WITH DIFFE RENTI AL/PL ATELE T MCHC 33.9 g/dL 31.5-3 5.7 Not Available [facility] ([facility]) [address] [facility], [place], [address], 05/06/2024 08:34:28 05/05/20 24 05/06/2024 CBC WITH DIFFE RENTI AL/PL ATELE T RDW 11.6 % 11.7-1 5.4 below low normal Not Available [facility] ([facility]) [address] [facility], [place], [address], 05/06/2024 08:34:28 05/05/20 24 05/06/2024 CBC WITH DIFFE RENTI AL/PL ATELE T platelets 156 x10e3 /uL 150-45 0 Not Available [facility] ([facility]) [address] [place], [address], 05/06/2024 08:34:28 05/05/20 24 05/06/2024 CBC WITH DIFFE RENTI AL/PL ATELE T neutrophils 50 % notest ab. Not Available [facility] ([facility]) [address] [facility], [place], [address], 05/06/2024 08:34:28 05/05/20 24 05/06/2024 CBC WITH DIFFE RENTI AL/PL ATELE T lymphs 37 % notest ab. Not Available [facility] ([facility]) [address] [facility], [place], [address], 05/06/2024 08:34:28 05/05/20 24 05/06/2024 CBC WITH DIFFE RENTI AL/PL ATELE T monocytes 8 % notest ab. Not Available [facility] ([facility]) [address] [facility], [place], [address], 05/06/2024 08:34:28 05/05/20 24 05/06/2024 CBC WITH DIFFE RENTI AL/PL ATELE T eos 4 % notest ab. Not Available [facility] ([facility]) [address] [facility], [place], [address], 05/06/2024 08:34:28 05/05/20 24 05/06/2024 CBC WITH DIFFE RENTI AL/PL ATELE T basos 1 % notest ab. Not Available [facility] ([facility]) [address] [facility], [place], [address], 05/06/2024 08:34:28 05/05/20 24 05/06/2024 CBC WITH DIFFE RENTI AL/PL ATELE T neutrophils (absolute) 1.7 x10e3 /uL 1.4-7. 0 Not Available [facility] ([facility]) [address] [facility], [place], [address], 05/06/2024 08:34:28 05/05/20 24 05/06/2024 CBC WITH DIFFE RENTI AL/PL ATELE T lymphs (absolute) 1.3 x10e3 /uL 0.7-3. 1 Not Available [facility] ([facility]) [address] [facility], [place], [address], 05/06/2024 08:34:28 05/05/20 24 05/06/2024 CBC WITH DIFFE RENTI AL/PL ATELE T monocytes(ab solute) 0.3 x10e3 /uL 0.1-0. 9 Not Available [facility] ([facility]) [address] [facility] [place], [address], 05/06/2024 08:34:28 05/05/20 24 05/06/2024 CBC WITH DIFFE RENTI AL/PL ATELE T eos (absolute) 0.1 x10e3 /uL 0.0-0. 4 Not Available [facility] ([facility]) [address] [facility], [place], [address], 05/06/2024 08:34:28 05/05/20 24 05/06/2024 CBC WITH DIFFE RENTI AL/PL ATELE T baso (absolute) 0.0 x10e3 /uL 0.0-0. 2 Not Available [facility] ([facility]) [address] [facility], [place], [address], 05/06/2024 08:34:28 05/05/20 24 05/06/2024 CBC WITH DIFFE RENTI AL/PL ATELE T immature granulocytes 0 % notest ab. Not Available [facility] ([facility]) [address] [facility], [place], [address], 05/06/2024 08:34:28 05/05/20 24 05/06/2024 CBC WITH DIFFE RENTI AL/PL ATELE T immature grans (abs) 0.0 x10e3 /uL 0.0-0. 1 Not Available [facility] ([facility]) [address] [place], [address], 05/06/2024 08:34:28 08/28/20 24 08/29/2024 GLUCO SE glucose 141 mg/dL 70-99 above high normal Not Available [facility] ([facility]) [address] [place], [address], 08/29/2024 09:08:46 08/28/20 24 08/29/2024 HEMOG LOBIN A1C hemoglobin A1C 6.3 % 4.8-5. 6 above high normal Predi abete s: 5.7 - 6.4 Diabe olvin: >6.4 Glyce doris contr ol for adult s with diabe olvin: <7.0 Not Available [facility] ([facility]) [address] [facility], [place], [address], 08/29/2024 09:08:46 08/28/2008/30/2024 ANTIN UCLEA R AB MULTI PLEX RFX 9 FER direct POSITI VE negati ve abnormal Not Available [facility] ([facility]) [address] [facility], [place], [address], 08/30/2024 16:12:15 08/28/2008/30/2024 ANTIN UCLEA R AB MULTI PLEX RFX 9 anti-DNA (ds) Ab qn <1 IU/mL 0-9 Negat daphne <5 Equiv ocal 5 - 9 Posit daphne >9 Not Available [facility] ([facility]) [address] [facility], [place], [address], 08/30/2024 16:12:15 08/28/2008/30/2024 ANTIN UCLEA R AB MULTI PLEX RFX 9 suggestion clerk antibodies <0.2 Not Available [facility] ([facility]) [address] [place], [address], 08/30/2024 16:12:15 08/28/2008/30/2024 ANTIN UCLEA R AB MULTI PLEX RFX 9 palma antibodies <0.2 Not Available [facility] ([facility]) [address] [place], [address], 08/30/2024 16:12:15 08/28/2008/30/2024 ANTIN UCLEA R AB MULTI PLEX RFX 9 antisclerode rma-70 antibodies <0.2 Not Available [facility] ([facility]) [address] [place] [address], [address], 08/30/2024 16:12:15 08/28/2008/30/2024 ANTIN UCLEA R AB MULTI PLEX RFX 9 sjogren's anti-ss-A <0.2 Not Available [facility] ([facility]) [address] [facility], [place], [address], 08/30/2024 16:12:15 08/28/20 24 08/30/2024 ANTIN UCLEA R AB MULTI PLEX RFX 9 sjogren's anti-ss-B <0.2 Not Available [facility] ([facility]) [address] [facility], [place], [address], 08/30/2024 16:12:15 08/28/2008/30/2024 ANTIN UCLEA R AB MULTI PLEX RFX 9 antichromati n antibodies 0.2 ai 0.0-0. 9 Not Available [facility] ([facility]) [address] [place], [address], 08/30/2024 16:12:15 08/28/20 24 08/30/2024 ANTIN UCLEA R AB MULTI PLEX RFX 9 anti-margarette-1 <0.2 ai 0.0-0. 9 Not Available [facility] ([facility]) [address] [place], [address], 08/30/2024 16:12:15 08/28/20 24 08/30/2024 ANTIN UCLEA R AB MULTI PLEX RFX 9 anti-centrom ere B antibodies >8.0 above high normal Not Available [facility] ([facility]) [address] [place], [address], 08/30/2024 16:12:15 08/28/2008/30/2024 ANTIN UCLEA R AB MULTI PLEX RFX 9 see below: [employer] [...] ----- ----- ----- ----- --- ----- ---- [employer] ct[employer] Tissu e Disea se 95% (U1 nRNP, SLE 30 - 50% anti- ribon ucleo prote in) Polym yosit is and/o r [facility] tomyo sitis 20% ----- ----- ----- ----- - ----- ----- ----- ----- ---- ----- ---- Scl-7 0 (anti DNA Scler oderm a (diff use) 20 - 35% topoi randall ase) Crest 13% ----- ----- ----- ----- - ----- ----- ----- ----- ---- ----- ---- Margarette-1 Polym yosit is and/o r [facility] tomyo sitis 20 - 40% ----- ----- ----- ----- - ----- ----- ----- ----- ---- ----- ---- Centr omere B Scler oderm a - Crest varia nt 80% Not Available [facility] ([facility]) [address] [place], [address], 08/30/2024 16:12:15 08/28/2008/29/2024 TSH RFX ON ABNOR MAL TO FREE T4 TSH 1.900 uIU/m L 0.450- 4.500 Not Available [facility] ([facility]) [address] [place], [address], 08/30/2024 16:12:16 08/28/2008/29/2024 SEDIM ENTAT ION RATE- HANNAH RGREN sedimentatio n rate-chanelle urszula 6 mm/HR 0-40 Not Available [facility] ([facility]) [address] [facility], [place], [address], 08/30/2024 16:12:18 08/28/2008/29/2024 RHEUM ATOID FACTO R (RF) rheumatoid factor (rf) 10.0 IU/mL <14.0 Not Available [facility]) [address] [facility], [place], [address], 08/30/2024 16:12:19 12/01/19 25 12/01/2024 HbA1c (hemo globi n A1c), blood HbA1c 6.1 Not Available In-Office Order Internal Use Only DO Not Attach Compendium DO Not Attach Compendium, Do Not Delete/merge, 12/01/2024 15:48:55 12/01/19 25 12/01/2024 gluco se, finge rstic k, blood Blood Glucose: mg/dl 123 Not Available In-Off ice Order Internal Use Only DO Not Attach Compendium DO Not Attach Compendium, Do Not Delete/merge, 12/01/2024 15:48:55 12/10/19 25 12/10/2024 CBC W Auto Diffe renti al panel - Blood leukocytes [#/volume] in blood by automated count 4.1 K/uL low: 3.6K/u Lhigh: 11.2K/ uL White Blood Count 4.1 3.6 - 11.2 K/uL [facility] Not Available Not Available 12/28/2024 11:03:57 12/10/19 25 12/10/2024 CBC W Auto Diffe renti al panel - Blood erythrocytes [#/volume] in blood by automated count 4.12 text: 3.63 - 4.92 M/uL RBC 4.12 3.63 - 4.92 M/uL [facility] Not Available Not Available 12/28/2024 11:03:57 12/10/19 25 12/10/2024 CBC W Auto Diffe renti al panel - Blood hemoglobin [mass/volume ] in blood 13.3 g/dL low: 11.9g/ dLhigh : 15.5g/ dL Hemog lobin 13.3 11.9 - 15.5 g/dL [facility] Not Available Not Available 12/28/2024 11:03:57 12/10/19 25 12/10/2024 CBC W Auto Diffe renti al panel - Blood hematocrit [volume fraction] of blood by automated count 39.2 % low: 36.1%h igh: 44.3% Hemat ocrit 39.2 36.1 - 44.3 % [facility] Not Available Not Available 12/28/2024 11:03:57 12/10/19 25 12/10/2024 CBC W Auto Diffalicia kamara panel - Blood MCV [entitic volume] by automated count 95.1 fL low: 80fLhi gh: 97.6fL MCV 95.1 80.0 - 97.[address] [facility] Not Available Not Available 12/28/2024 11:03:57 12/10/19 25 12/10/2024 CBC W Auto Diffalicia kamara panel - Blood MCH [entitic mass] by automated count 32.2 pg low: 26.7pg high: 33.7pg MCH 32.2 26.7 - 33.[address] [facility] Not Available Not Available 12/28/2024 11:03:57 12/10/19 25 12/10/2024 CBC W Auto Diffalicia kamara panel - Blood MCHC [mass/volume ] by automated count 33.8 g/dL low: 32.7g/ dLhigh : 35.5g/ dL MCHC 33.8 32.7 - 35.5 g/dL [facility] Not Available Not Available 12/28/2024 11:03:57 12/10/19 25 12/10/2024 CBC W Auto Diffalicia kamara panel - Blood erythrocyte distribution width [ratio] by automated count 12.7 % low: 12.3%h igh: 17% RBC Dist Width 12.7 12.3 - 17.0 % [facility] Not Available Not Available 12/28/2024 11:03:57 12/10/19 25 12/10/2024 CBC W Auto Diffalicia kamara panel - Blood platelets [#/volume] in blood by automated count 178 K/uL low: 140K/u Lhigh: 440K/u L Plate let Count 178 140 - 440 K/uL [facility] Not Available Not Available 12/28/2024 11:03:57 12/10/19 25 12/10/2024 CBC W Auto Diffe renti al panel - Blood platelet mean volume [entitic volume] in blood by automated count 9.5 fL low: 6.8fLh igh: 10.4fL MPV 9.5 6.8 - 10.[address] [facility] Not Available Not Available 12/28/2024 11:03:57 12/10/19 25 12/10/2024 CBC W Auto Diffe renti al panel - Blood neutrophils/ 100 leukocytes in blood by automated count 52.9 % low: 38.7%h igh: 74.5% Neutr ophil s % 52.9 38.7 - 74.5 % [facility] Not Available Not Available 12/28/2024 11:03:57 12/10/19 25 12/10/2024 CBC W Auto Diffe renti al panel - Blood lymphocytes/ 100 leukocytes in blood by automated count 31.8 % low: 20%hig h: 54.3% Lymph ocyte % 31.8 20.0 - 54.3 % [facility] Not Available Not Available 12/28/2024 11:03:57 12/10/19 25 12/10/2024 CBC W Auto Diffe renti al panel - Blood monocytes/10 0 leukocytes in blood by automated count 9.1 % low: 4.3%hi gh: 13.5% Monoc ytes % 9.1 4.3 - 13.5 % [facility] Not Available Not Available 12/28/2024 11:03:57 12/10/19 25 12/10/2024 CBC W Auto Diffe renti al panel - Blood eosinophils/ 100 leukocytes in blood by automated count 5.6 % low: 0%high : 6% Eosin ophil s % 5.6 0.0 - 6.0 % [facility] Not Available Not Available 12/28/2024 11:03:57 12/10/19 25 12/10/2024 CBC W Auto Diffe renti al panel - Blood basophils/10 0 leukocytes in blood by automated count 0.6 % low: 0%high : 3% Basop hil % 0.6 0.0 - 3.0 % [facility] Not Available Not Available 12/28/2024 11:03:57 12/10/19 25 12/10/2024 CBC W Auto Diffe renti al panel - Blood neutrophils [#/volume] in blood by automated count 2.2 K/uL low: 1.8K/u Lhigh: 6.6K/u L Absol [place] Neutr ophil 2.2 1.8 - 6.6 K/uL [facility] Not Available Not Available 12/28/2024 11:03:57 12/10/19 25 12/10/2024 CBC W Auto Diffe renti al panel - Blood lymphocytes [#/volume] in blood by automated count 1.3 K/uL low: 0.8K/u Lhigh: 3.3K/u L Absol [place] Lymph ocyte 1.3 0.8 - 3.3 K/uL [facility] Not Available Not Available 12/28/2024 11:03:57 12/10/19 25 12/10/2024 CBC W Auto Diffe renti al panel - Blood monocytes [#/volume] in blood by automated count 0.4 K/uL low: 0.2K/u Lhigh: 1.2K/u L Absol [place] Monoc yte 0.4 0.2 - 1.2 K/uL [facility] Not Available Not Available 12/28/2024 11:03:57 12/10/19 25 12/10/2024 CBC W Auto Diffe renti al panel - Blood eosinophils [#/volume] in blood by automated count 0.2 K/uL low: 0K/uLh igh: 0.5K/u L Absol [place] Eosin ophil 0.2 0.0 - 0.5 K/uL [facility] Not Available Not Available 12/28/2024 11:03:57 12/10/19 25 12/10/2024 CBC W Auto Diffe renti al panel - Blood basophils [#/volume] in blood by automated count 0 K/uL low: 0K/uLh igh: 0.2K/u L Absol [place] Basop hil 0.0 0.0 - 0.2 K/uL [facility] Not Available Not Available 12/28/2024 11:03:57 12/10/19 25 12/10/2024 CBC W Auto Diffe renti al panel - Blood nucleated erythrocytes /100 leukocytes [ratio] in blood by automated count 0.2 text: 0.0 - 0.4 /100 WBC Nucle ated RBC % 0.2 0.0 - 0.4 /[address] [facility] Not Available Not Available 12/28/2024 11:03:57 12/10/19 25 12/10/2024 C react daphne prote in [Mass /volu me] in Serum or Plasm a C reactive protein [mass/volume ] in serum or plasma <3.0 high: 5mg/L C-Lubna ctive Prote in, Acute <3.0 <5.0 mg/L [facility] Not Available Not Available 12/28/2024 11:03:57 12/10/19 25 12/10/2024 Compr [employer]ens daphne metab olic 2000 panel - Serum or Plasm a protein [mass/volume ] in serum or plasma 6.9 g/dL low: 6.1g/d Lhigh: 8.4g/d L Total Prote in 6.9 6.1 - 8.4 g/dL [facility] Not Available Not Available 12/28/2024 11:03:57 12/10/19 25 12/10/2024 Compr [employer]ens daphne metab olic 2000 panel - Serum or Plasm a albumin [mass/volume ] in serum or plasma by bromocresol green (bcg) dye binding method 4.5 g/dL low: 3.5g/d Lhigh: 5.2g/d L Album in 4.5 3.5 - 5.2 g/dL [facility] Not Available Not Available 12/28/2024 11:03:57 12/10/19 25 12/10/2024 Compr [employer]ens daphne metab olic 2000 panel - Serum or Plasm a calcium [mass/volume ] in serum or plasma 9 mg/dL low: 8.6mg/ dLhigh : 10.3mg /dL Calci um 9.0 8.6 - 10.3 mg/dL [facility] Not Available Not Available 12/28/2024 11:03:57 12/10/19 25 12/10/2024 Compr ehens daphne metab olic 1999 panel - Serum or Plasm a urea nitrogen [mass/volume ] in serum or plasma 12 mg/dL low: 7mg/dL high: 23mg/d L BUN 12 7 - 23 mg/dL [facility] Not Available Not Available 12/28/2024 11:03:57 12/10/19 25 12/10/2024 Compr [employer] daphne [employer] olic 1999 panel - Serum or Plasm a bilirubin.to jayy [mass/volume ] in serum or plasma 0.25 mg/dL low: 0.2mg/ dLhigh : 1.4mg/ dL Total Bilir ubin 0.25 0.20 - 1.40 mg/dL [facility] Not Available Not Available 12/28/2024 11:03:57 12/10/19 25 12/10/2024 Compr [employer] daphne [employer] olic 1999 panel - Serum or Plasm a alkaline phosphatase [enzymatic activity/vol ume] in serum or plasma 105 text: 35 - 129 IU/L Alk Phos, Total 105 35 - 129 IU/L [facility] Not Available Not Available 12/28/2024 11:03:57 12/10/19 25 12/10/2024 Compr [employer] d[employer]ne [employer]lic 2000 panel - Serum or Plasm a aspartate aminotransfe rase [enzymatic activity/vol ume] in serum or plasma 21 text: 11 - 47 IU/L AST (SGOT ) 21 11 - 47 IU/L [facility] Not Available Not Available 12/28/2024 11:03:57 12/10/19 25 12/10/2024 Compr [employer] [place] [employer]lic 2000 panel - Serum or Plasm a alanine aminotransfe rase [enzymatic activity/vol ume] in serum or plasma by no addition of P-5'-P 21 text: 6 - 53 IU/L ALT (SGPT ) 21 6 - 53 IU/L [facility] Not Available Not Available 12/28/2024 11:03:57 12/10/19 25 12/10/2024 Compr [employer] [place] daphne [employer] olic 2000 panel - Serum or Plasm a creatinine [mass/volume ] in serum or plasma 0.51 mg/dL low: 0.6mg/ dLhigh : 1.1mg/ dL low Creat inine 0.51 (L) 0.60 - 1.10 mg/dL [facility] Not Available Not Available 12/28/2024 11:03:57 12/10/19 25 12/10/2024 Compr [employer]ens daphne metab olic 1999 panel - Serum or Plasm a sodium [moles/volum e] in serum or plasma 139 mmol/ L low: 135mmo l/Lhig h: 145mmo l/L Sodiu m 139 135 - 145 mmol/ L [facility] Not Available Not Available 12/28/2024 11:03:57 12/10/19 25 12/10/2024 Compr ehens daphne metab olic 1999 panel - Serum or Plasm a potassium [moles/volum e] in serum or plasma 4.1 mmol/ L low: 3.3mmo l/Lhig h: 5.1mmo l/L Potas sium 4.1 3.3 - 5.1 mmol/ L [facility] Not Available Not Available 12/28/2024 11:03:57 12/10/19 25 12/10/2024 Compr [employer]ens daphne metab olic 1999 panel - Serum or Plasm a chloride [moles/volum e] in serum or plasma 103 mmol/ L low: 95mmol /Lhigh : 107mmo l/L Chlor dayami 103 95 - 107 mmol/ L [facility] Not Available Not Available 12/28/2024 11:03:57 12/10/19 25 12/10/2024 Compr [employer]ens daphne metab olic 1999 panel - Serum or Plasm a bicarbonate [moles/volum e] in serum or plasma 26 mmol/ L low: 21mmol /Lhigh : 29mmol /L CO2 Yael nt 26 21 - 29 mmol/ L [facility] Not Available Not Available 12/28/2024 11:03:57 12/10/19 25 12/10/2024 Compr [employer]ens daphne metab olic 1999 panel - Serum or Plasm a glucose [mass/volume ] in serum or plasma 119 mg/dL low: 64mg/d Lhigh: 99mg/d L high Gluco se 119 (H) 64 - 99 mg/dL [facility] Not Available Not Available 12/28/2024 11:03:57 12/10/19 25 12/10/2024 Compr [employer]ens daphne metab olic 1999 panel - Serum or Plasm a glomerular filtration rate/1.73 sq M.predicted among non-blacks [volume rate/area] in serum, plasma or blood by creatinine-b ased formula (MDRD) >90.0 text: >60.0 mL/min /1.73 m2 eGFR >90.0 >60.0 mL/mi n/1.[address] [facility] Not Available Not Available 12/28/2024 11:03:57 12/10/19 25 12/10/2024 Compr ehens daphne metab olic 2000 panel - Serum or Plasm a interpretati on and review of laboratory results Abnorm al Not Available Not Available 11:03:57 03/26/2003/27/2025 TSH+F REE T4 TSH 1.700 uIU/m L 0.450- 4.500 Not Available [facility] ([facility]) [address] [place], [address], 03/27/2025 09:12:17 03/26/20 25 03/27/2025 TSH+F REE T4 T4,free(dire ct) 1.03 NG/dL 0.82-1 .77 Not Available [facility] ([facility]) [address] [place], [address], 03/27/2025 09:12:17 03/26/20 25 03/27/2025 TRIIO DOTHY INNA E (T3), FREE triiodothyro nine (T3), free 2.6 pg/mL 2.0-4. 4 Not Available [facility] ([facility]) [address] [place], [address], 03/27/2025 09:12:18 08/28/20 24 08/28/2024 XR, shoul ann, 2 or more view No observ ation record ed. [facility] [address], [place], [address], 12/01/2024 15:52:49 12/04/19 25 12/04/2024 XR, chest , 2 view No observ ation record ed. [place] [id number], [place], [address], 12/07/2024 11:24:37 12/07/19 25 12/07/2024 MAMMO , marifer richey, bilat marylinl No observ ation record ed. [facility] [address], [place], [address], 12/08/2024 10:06:41 Result Notes None recorded. Problems Name Problem SNOMED Code Status Onset Date Resolution Date Notes Provider Name and Address Organization Details Recorded Time Polyp of colon 52836629 Completed 201808/30/2020 Rosa Isela Argueta RN null, [place] - [facility] 0 10:23:19 Hemorrhoi ds 26629769 Completed 201808/30/2020 Rosa Isela Argueta RN [place], [place] - [facility] 0 10:22:56 Body mass index 30+ - obesity 635233815 Active 2018 Not Available [facility] 3 17:10:16 Subclinic al hypothyro idism 19473631 Active 2019 Not Available [facility] 3 17:10:16 Colitis 55853893 Completed 201910/29/2021 Rosa Isela Argueta RN null, [place] - [facility] 1 15:11:55 Hiatal hernia 22298375 Active 2019 Not Available [facility] 3 17:10:17 Inguinal hernia 338974495 Active 2019 Not Available [facility] 3 17:10:16 Vitamin D deficienc y 19136105 Active 2019 Not Available [facility] 3 17:10:16 Lumbosacr al radiculop athy 5485085 Active 2021 Not Available [facility] 3 17:10:16 Generaliz ed osteoarth ritis 245475632 Active 2021 Not Available [facility] 3 17:10:16 Diverticu losis of colon 791842871 Active 2021 Not Available [facility] 3 17:10:17 Osteoarth ritis of knee 625848192 Active 2021 Not Available [facility] 3 17:10:16 Adenomato us polyp of colon 915202439 Active 2021 Not Available [facility] 3 17:10:16 Depressio n screening Active 2021 Not Available [facility] 3 17:10:16 Epigastri c pain 28220884 Active 2021 Not Available [facility] 3 17:10:17 Venous stasis 80161524 Active 2021 Not Available [facility] 3 17:10:17 Obesity 699982342 Active 2022 Not Available [facility] 3 17:10:16 Exposure to herpes simplex virus Active 2022 Not Available [facility] 3 17:10:16 Postmenop ausal state 38551313 Active 2022 Not Available [facility] 3 17:10:17 Herpes simplex 32076471 Active 2023 Almita Martinez [facility] Attn: Accounting ,[address] [place], [address] , [place] [facility] 4 15:27:39 Mixed hyperlipi demia 882372795 [facility] ,[address] [place], [address] , [place] [facility] 4 15:30:59 Multiple skin tags on neck 483714326 [facility] 2023 [facility] Accounting ,[address] [place], [address] , [place] [facility] 4 15:31:29 Pain of left shoulder joint 55013903505 209817 Active 2023 TEO Catalan- Attn: Accounting ,[address] [place], [address] , [place] [facility] 4 17:16:26 Pain of multiple joints 37635791 Active 2024 DOLORES Catalan Attn: Accounting ,[address] [place], [address] , [place] [facility] 5 15:54:23 Glucose level outside reference range 097643954 Completed 08/08/2017 CHIKIS Fang, [place] [facility] 7 16:34:19 Allergic rhinitis 94381790 Active Not Available [facility] 3 17:10:17 Impaired glucose tolerance 3593550 Active Not Available [facility] 3 17:10:17 Obesity 479614240 Completed 01/05/2019 DOLORES Catalan Attn: Accounting ,[address] [place], [address] , [place] [facility] 3 17:08:19 Acute sinusitis 20826821 Completed 08/08/2017 CHIKIS Fnag, [place] [facility] 7 16:34:24 Venous stasis 48001288 Completed 08/30/2020 DOLORES Catalan Attn: Accounting ,[address] [place], [address] , [place] [facility] 3 17:08:19 Foot callus 956689904 Completed 08/08/2017 CHIKIS Fang, [place] [facility] 7 16:34:32 Essential hypertens ion 63683379 Active Not Available [facility] 3 17:10:16 Hyperlipi demia 74667400 Active Not Available [facility] 3 17:10:16 Seizure disorder 616721682 Active Not Available [facility] 3 17:10:16 Migraine 35832265 Active Not Available [facility] 3 17:10:16 Morbid obesity 750825414 Completed 08/30/2020 Rosa Isela Argueta RN null, [place] [facility] 0 10:23:14 Heel pain 2135240 Completed 08/08/2017 CHIKIS Fang, [facility] 7 16:34:37 Tinea pedis 8927767 Completed 08/08/2017 CHIKIS Fang, [facility] 7 16:35:04 Notes:Some problems listed i n Document: #[id number] could not be added to this patient's chart. Please review this document and add these problems to the patient's chart manually as needed. Problem Notes None recorded. Procedures Surgical History Date Name Laterality Status Provider Name and Address Organization Details Recorded Time 05/04/20 24 Skin Tag Removal completed DOLORES Catalan Attn: Accounting,[address] [facility], [place], [address], [facility] 05/07/2024 15:32:36 04/30/20 24 colonoscopy completed Yao Art MA [facility] 05/04/2024 15:16:40 09/27/20 23 Date of Last Mammogram completed Rosa Isela Argueta RN [facility] 01/08/2024 16:09:13 06/20/20 23 Date of Last Pap Smear completed Rosa Isela Argueta RN [facility] 01/08/2024 16:09:47 Knee Surgery completed Yao Art [facility] 05/26/2020 16:41:49 Caesarean Section completed Rosa Isela Argueta RN [facility] 11/25/2014 15:44:27 Tubal Ligation completed Rosa Isela Argueta RN [facility] 11/25/2014 15:32:49 Imaging Results None recorded. Procedure Notes None recorded. Medical Equipment None [...] Not Available benzonata te 200 mg capsule TAKE ONE CAPSULE BY MOUTH THREE TIMES DAILY, IN THE MORNING, AT MID-DAY & AT BEDTIME FOR COUGH 03/10 completed Not Available Not Available Not Available valacyclo vir 1 gram tablet TAKE ONE [...] tablet twice a day by oral route. 2024 active [...] e 50 mcg/actua tion nasal spray,[employer] 1 spray twice a day by intranas [...] Details Last Updated DateTime 11/26/2024 149.86 cm DOLORES Catalan Attn: Accounting,[address] [place], [address], [facility] 11/26/2024 16:49:43 Date Recorded Body height Provider Name an d Address Organization Details Last Updated DateTime 12/01/2024 149.86 cm Rosa Isela Argueta RN [facility] 2024 15:04:48 Date Recorded Body mass index (BMI) Body weight Oxygen saturation Oxygen saturation in Arterial blood by Pulse oximetry Heart rate Body temperature Systolic And Diastolic Provider Name and Address Organization Details Last Updated DateTime 5 41.3 kg/m2 43348.6 4 g 98 % 98 % 62 /min 98.1 [degF] 130/80 mm[Hg] Yao Art MA [facility] 5 15:17:32 Date Recorded Body height Provider Name an d Address Organization Details Last Updated DateTime 01/08/2024 149.86 cm Rosa Isela Argueta RN [facility] 2023 16:03:40 Date Recorded Body mass index (BMI) Body weight Body temperature Heart rate Oxygen saturation Oxygen saturation in Arterial blood by Pulse oximetry Systolic And Diastolic Provider Name and Address Organization Details Last Updated DateTime 4 40.4 kg/m2 39828.4 7 g 97.8 [degF] 58 /min 98 % 98 % 118/74 mm[Hg] Yao Art MA [facility] 4 16:31:17 Date Recorded Body height Provider Name an d Address Organization Details Last Updated DateTime 03/10/2025 149.86 cm Yao bailey MA [facility] 03/10/2025 15:37:11 Date Recorded Body mass index (BMI) Body weight Body temperature Oxygen saturation Oxygen saturation in Arterial blood by Pulse oximetry Heart rate Systolic And Diastolic Provider Name and Address Organization Details Last Updated DateTime 5 42.4 kg/m2 96616 g 97.9 [degF] 97 % 97 % 64 /min 128/80 mm[Hg] Ragini brothers MA [facility] 5 16:08:01 Date Recorded Body height Body mass index (BMI) Body weight Body temperature Heart rate Systolic And Diastolic Provider Name and Address Organization Details Last Updated DateTime 4 149.86 cm 40.4 kg/m2 09344.4 7 g 97.9 [degF] 58 /min 120/64 mm[Hg] Yao Art MA [facility] 15:19:37 Date Recorded Body height Provider Name an d Address Organization Details Last Updated DateTime 08/27/2024 149.86 cm Rosa Isela Argueta RN [facility] 2023 15:57:49 Date Recorded Body mass index (BMI) Body weight Body temperature Oxygen saturation Oxygen saturation in Arterial blood by Pulse oximetry Heart rate Systolic And Diastolic Provider Name and Address Organization Details Last Updated DateTime 4 40.5 kg/m2 15645.2 7 g 98.2 [degF] 96 % 96 % 60 /min 100/70 mm[Hg] Ragini brothers MA [facility] 4 16:10:58 Social History Question Answer Notes LastModified by Organizat ion Details LastModified Time Tobacco Smoking Status Never [facility]oker [facility] 11/25/2014 15:39:46 Do You Have An Advance Directive? No Information n ot available 11/25/2014 Are You Blind Or Do You Have Difficulty Seeing? No Information n ot available 12/29/2020 What Is Your Level Of Caffeine Consumption? Moderate Information not available 04/27/2021 How Much Tobacco Do You Chew? None [email or web address] Information not available 11/25/2014 In The 14 Days Before Symptom Onset, Have You Had Close Contact With A Laboratory-confirm ed COVID-19 While That Case Was Ill? No Information n ot available 04/18/2023 In The 14 Days Before Symptom Onset, Have You Had Close Contact With A Person Who Is Under Investigation For COVID-19 While That Person Was Ill? No Information not available 04/18/2023 Have You Been To An Area Known To Be High Risk For COVID-19? No Information not available 05/22/2022 Are You Deaf Or Do You Have Serious Difficulty Hearing? No Information not available 12/29/2020 What Type Of Diet Are You Following? REGULAR [email or web address] Information n ot available 11/25/2014 Education Less Than 8th Grade [email or web address] Information not available 11/25/2014 Are There Any Guns Present In Your Home? No [email or web address] Information not available 11/25/2014 Hard Of Hearing Or Deaf In One Or Both Ears? No [email or web address] Information not available 11/25/2014 Legally Blind In One Or Both Eyes? No [email or web address] Information no t available 11/25/2014 Marital Status [email or web address] Informati on not available 11/25/2014 What Was The Date Of Your Most Recent Tobacco Screening? 03/10/2025 Information not available 03/10/2025 How Many Children Do You Have? 4 Information not available 04/27/2021 Performs Monthly Self-breast Exam? Yes [email or web address] Information no t available 11/25/2014 What Is Your Relationship Status? Information not available 04/18/2023 Do You Use Your Seat Belt Or Car Seat Routinely? Yes Information not available 12/29/2020 Seat Belts Used Routinely Yes [email or web address] Information not available 11/25/2014 Smoke Alarm In Home Yes [email or web address] Information not available 11/25/2014 Do You Have Smoke And Carbon Monoxide Detectors In Your Home? Yes Information not available 12/29/2020 Are You Passively Exposed To Smoke? No Information no t available 12/29/2020 How Much Tobacco Do You Smoke? No [email or web address] Information not available 11/25/2014 General Stress Level Medium [email or web address] Information not available 11/25/2014 Do You Use Sunscreen Routinely? Yes [email or web address] Information not available 11/25/2014 Sex: Female Functional Status Question Answer Note LastModified by Organizat ion Details LastModified Time Do you use any illicit or recreational drugs? No Information not available 12/29/2020 What is your level of alcohol consumption? None [email or web address] Information not available 11/25/2014 Do you or have you ever used smokeless tobacco? Never used smokeless tobacco Information not available 11/22/2019 Are you currently employed? Yes Information not available 04/27/2021 Are you able to care for yourself? 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 Never used electronic cigarettes Information not available 11/22/2019 What is your exercise level? None Information not available 12/29/2020 Mental Status Question Answer Note LastModified by Organization D etails LastModified Time Do you feel stressed (tense, restless, nervous, or anxious, or unable to sleep at night)? [id number] Information not available 04/18/2023 Family History Relationship Description Onset Age of [...] History Condition Response High Blood Pressure Y Seizures/Epilepsy Y Allergies Y High Cholesterol Y Gynecological History Statement/Question Response Abnormal Pap [...] mcg/0.3 mL dose 1 completed Not Available [facility] 10/15/2023 17:10:17 SARS-COV-2 (COVID-19) vaccine, UNSPECIFIED 1 completed Not Available [facility] 10/15/2023 17:10:17 Influenza, split virus, quadrivalent, preservative 1 completed Not Available [facility] 10/15/2023 17:10:17 zoster recombinant 3 completed Not Available [facility] 10/15/2023 17:10:17 zoster recombinant 3 completed Not Available [facility] 10/15/2023 17:10:17 Influenza, split virus, quadrivalent, PF 6 completed Not Available [facility] 12/04/2019 02:32:38 Influenza, split virus, quadrivalent, preservative 7 completed Not Available [facility] 12/04/2019 02:34:20 Influenza, split virus, quadrivalent, PF 8 completed Not Available [facility] 12/04/2019 02:47:21 Tdap 8 completed Not Available [facility] 10/15/2023 17:10:17 Influenza, split virus, quadrivalent, PF 3 completed Not Available [facility] 10/15/2023 17:10:17 Influenza, split virus, quadrivalent, preservative 9 completed Not Available [facility] 12/04/2019 02:45:26 Influenza, split virus, quadrivalent, preservative 0 completed Rosa Isela Argueta RN null, [place] - [place] 08/30/2020 12:12:34 COVID-19, mRNA, LNP-S, PF, 30 mcg/0.3 mL dose 1 completed Rosa Isela Argueta [place], [place] 09/05/2021 16:47:53 Tdap 2 completed Yao Art MA null, [place] [facility] 01/29/2022 17:16:47 Influenza, split virus, quadrivalent, PF 2 completed DOLORES Catalan Attn: Accounting[address] [place], [address], [facility] - [facility] 08/26/2022 10:33:37 Influenza, split virus, trivalent, preservative 5 completed Not Available [facility] 12/04/2019 02:32:12 Influenza, split virus, quadrivalent, PF 3 completed Rosa Isela Argueta RN null, [place] 08/08/2023 16:59:58 Pneumococcal conjugate PCV 13 4 completed DOLORES Catalan Attn: Accounting[address] [place], [address], [place] [facility] 01/12/2024 17:44:31 Influenza, split virus, trivalent, preservative 4 completed Ragini Mckeon [place] null, [place] [facility] 08/27/2024 17:31:08 Past Encounters Encounter ID Performer Location Encounter Start Date Encounter Closed Date Diagnosis/Indication Diagnosis SNOMED-CT Code Diagnosis ICD10 Code Diagnosis Note [id number] Brandon Joe MD [facility] [address] [address] 11/25/2014 15:04:28 11/28/2014 19:14:41 Essential hypertension 51465528 will stop Clonidine 0.1 mg as pt not having hot flashes 3 years with no menses Hyperlipidemia 63667522 Seizure disorder 276098605 Migraine 96541739 will increase Topamax 25mg bid to 50 mg bid Morbid obesity 703232457 Heel pain 0247240 Tinea pedis 7243492 milka ent completed 5 months of Lamisil 250mg now symptoms have cleared [id number] Brandon Joe MD [facility] [address] [address] 03/24/2015 14:55:01 03/31/2015 16:31:59 Allergic rhinitis 65399592 Essential hypertension 88096998 will stop Clonidine 0.1 mg as pt not having hot flashes 3 years with no menses Hyperlipidemia 06021317 Discussed test results stressed diet, weight loss, exercise will continue with current therapy Seizure disorder 482835117 patient to continue Topiramate 50mg bid for this problem Morbid obesity 501603240 stressed diet weight loss and exercise she has lost 9 pounds since last visit she has been watching her diet Migraine 78763963 will continue Topamax 50 mg bid Heel pain 7761965 resol ed she is now using heel cups Impaired g lucose tolerance 7795929 [id number] Brandon Joe MD [facility] [address], [place] [address] 03/30/2015 16:40:50 04/04/2015 13:32:23 Hyperlipidemia 82179355 Discussed test results stressed diet, weight loss, exercise will continue with current therapy [id number] Brandon Joe MD [facility] [address], [place] [address] 05/26/2015 12:30:08 06/06/2015 17:52:22 Screening for malignant neoplasm of breast 643274030 Gynecologi c examination 55160049 calcium rich foods handout vitamin D 2000 iu daily exercise weight loss diet Obesity 673730695 [id number] DOLORES Catalan [facility] [address] [address] 08/11/2015 15:52:07 08/17/2015 13:45:59 Allergic rhinitis 17199894 Essential hypertension 59331146 Hyperlipidemia 56132647 Discussed test results stressed diet, weight loss, exercise will continue with current therapy Seizure disorder 131940834 patient to continue Topiramate 50mg bid for this problem Morbid obesity 801591251 stressed diet weight loss and exercise she has lost4 pounds since last visit she has been watching her diet Migraine 83507530 will continue Topamax 50 mg bid Impaired g lucose tolerance 8309543 Acute sinusitis 26538677 [id number] TEO Catalan-BC [facility] [address] [address] 12/20/2015 15:48:43 12/28/2015 16:32:28 Allergic rhinitis 61161463 J30.9 Essential hypertension 30734824 I10 Hyperlipidemia 34659260 E78.5 stressed diet, weight loss, exercise will continue with current therapy Seizure disorder 1102307 02 G40.909 patient to continue Topiramate 50mg bid for this problem Morbid obesity 870101017 E66.01 stressed diet weight loss and exercise she has lost4 pounds since last visit she has been watching her diet Migraine 68520819 G43.90 9 will continue Topamax 50 mg bid Impaired g lucose tolerance 6466501 R73.02 Tinea pedis 7246349 B35. 3 Venous stasis 12305149 I 87.8 elevate legs wear support hose lose weight [id number] Brandon Joe MD [facility] [address], [place] [address] 06/13/2016 15:38:11 06/16/2016 19:10:32 Essential hypertension 50059894 I10 The patient is under increased stress secondary to in the family Denies any CP or SOB + Headaches and visual changes Hyperlipidemia 43556189 E78.5 stressed diet, weight loss, exercise will continue with current therapy Seizure disorder 9312578 02 G40.909 The patient lopez been having [...] Neurology consult Will consider EEG Morbid obesity 534295940 E66.01 stressed diet weight loss and exercise she has lost6 pounds since last visit she has been watching her diet Migraine 43637852 G43.90 9 The patient is under increased stress secondary to in the family Has been having breakthrou gh migraines for last week The patient will increase Topamax 50 mg bid to 100mg bid--patie nt to proceed initially taking Topamax 50mg in the morning and then 100mg at night for 2 weeks she then can increase to 100mg bid Impaired g lucose tolerance 7109200 R73.02 Tinea pedis 5024328 B35. 3 Venous stasis 80969312 I 87.8 elevate legs wear support hose lose weight Foot callus 537850357 L8 4 use corn and callouses treatment may need to wrap toe/area with mole skin [id number] [facility] [address] [address] 10/15/2016 15:57:57 10/16/2016 18:06:47 Hyperlipidemia 74508239 E78.5 stressed diet, weight loss, exercise will continue with current therapy Essential hypertension 63038914 I10 continue present meds Allergic rhinitis 352840 04 J30.9 Impaired g lucose tolerance 2105785 R73.02 Morbid obesity 844571430 E66.01 stressed diet weight loss and exercise she has gained lost 6 pounds since last visit she has been watching her diet Migraine 66265720 G43.90 9 Has not been having breakthrou gh migraines for last week The patient will continue Topamax 50 mg at noon one then 2 at night--edin l proceed 2 bid tomorrow Obesity 599588317 E66.9 diet weight loss and exercise Seizure disorder 4611425 02 G40.909 The patient lopez been having auras experienci ng bad taste in mouth which in the past correlated with her having a seizure Will continue Topiramate 100mg bid for this problem--a s patient not having any auras now Discussed potential side effects Will consider Neurology consult Will consider EEG Acute pharyngitis 005589 003 J02.9 Right uppe r quadrant pain 967653218 R10.11 Muscle pain 45003057 M79 .1 warm compressio n to right deltoid area may try using a wrist splint if symptoms persist will send for Nerve conduction Study [id number] Brandon Joe MD [facility] [address] [address] 02/14/2017 15:47:58 02/17/2017 21:58:11 Essential hypertension 92352444 I10 continue present meds Hyperlipidemia 98004994 E78.5 stressed diet, weight loss, exercise will continue with current therapy Allergic rhinitis 532741 04 J30.9 Impaired g lucose tolerance 7716465 R73.02 HA1C 6.0 Morbid obesity 942342281 E66.01 stressed diet weight loss and exercise she has gained lost 6 pounds since last visit she has been watching her diet Migraine 87905386 G43.90 9 Has not been having breakthrou gh migraines for last week The patient will continue Topamax 50 mg at noon one then 2 at night--edin l proceed 2 bid tomorrow Obesity 882407382 E66.9 diet weight loss and exercise Seizure disorder 8853767 02 G40.909 The patient lopez been having auras experienci ng bad taste in mouth which in the past correlated with her having a seizure Will continue Topiramate 100mg bid for this problem--a s patient not having any auras now Discussed potential side effects Will consider Neurology consult Will consider EEG Right uppe r quadrant pain 750697657 R10.11 Abnormal l iver function 08897318 K76.89 [id number] Almita Martinez [facility] [address], [place] [address] 08/08/2017 16:04:14 08/19/2017 10:02:44 Essential hypertension 15138003 I10 continue present meds Hyperlipidemia 73891497 E78.5 stressed diet, weight loss, exercise will continue with current therapy Allergic rhinitis 120477 04 J30.9 otc meds Impaired g lucose tolerance 3248297 R73.02 HA1C 6.0 Morbid obesity 772541341 E66.01 stressed diet weight loss and exercise she has gained lost 6 pounds since last visit she has been watching her diet Migraine 61954207 G43.90 9 Has not been having breakthrou gh migraines for last week The patient will continue Topamax 50 mg at noon one then 2 at night--edin l proceed 2 bid tomorrow Obesity 506859215 E66.9 diet weight loss and exercise Seizure disorder 5548300 02 G40.909 The patient lopez been having auras experienci ng bad taste in mouth which in the past correlated with her having a seizure Will continue Topiramate 100mg bid for this problem--a s patient not having any auras now Discussed potential side effects Will consider Neurology consult Will consider EEG Abnormal l iver function 75241932 K76.89 last measuremen t wnl HIV screening 195332774 Z11.4 Screening for malignant neoplasm of colon 086181047 Z12.11 [id number] Brandon Joe MD [facility] [address] [address] 08/11/2017 15:50:37 08/19/2017 09:48:26 HIV screening 535846952 Z11.4 Abnormal l iver function 19691116 K76.89 [id number] Brandon Joe MD [facility] [address] [address] 12/08/2017 15:47:55 12/16/2017 16:44:20 Essential hypertension 40231725 I10 continue present meds Hyperlipidemia 03240114 E78.5 stressed diet, weight loss, exercise will continue with current therapy Allergic rhinitis 066047 04 J30.9 otc meds Impaired g lucose tolerance 6853634 R73.02 HA1C 6.0 Morbid obesity 706335070 E66.01 stressed diet weight loss and exercise she has gained 6 pounds since last visit Migraine 32600781 G43.90 9 The patient will continue Topamax 50 mg at noon 2 then 2 at night will use Naprosyn for breakthrou gh headaches Obesity 482760951 E66.9 diet weight loss and exercise Seizure disorder 6429582 02 G40.909 The patient lopez been having auras experienci ng bad taste in mouth which in the past correlated with her having a seizure Will continue Topiramate 100mg bid for this problem--a s patient not having any auras now Discussed potential side effects Will consider Neurology consult Will consider EEG Screening for malignant neoplasm of breast 840037105 Z12.31 patient had last mammogram on 06/2015=nor mal needs one she is overdue [id number] Brandon Joe MD [facility] [address], [place] [address] 04/06/2018 15:40:39 04/07/2018 08:31:54 Essential hypertension 67430183 I10 continue present meds Hyperlipidemia 75930786 E78.5 stressed diet, weight loss, exercise will continue with current therapy Allergic rhinitis 228174 04 J30.9 otc meds Impaired g lucose tolerance 9626047 R73.02 HA1C 6.0 Migraine 77440549 G43.90 9 The patient will continue Topamax 50 mg at noon 2 then 2 at night will use Naprosyn for breakthrou gh headaches Obesity 478478059 E66.9 diet weight loss and exercise Seizure disorder 4702173 02 G40.909 The patient lopez been having auras experienci ng bad taste in mouth which in the past correlated with her having a seizure Will continue Topiramate 100mg bid for this problem--a s patient not having any auras now Discussed potential side effects Will consider Neurology consult Will consider EEG Tinea pedis 3290723 B35. 3 [id number] Toro Sales MD [facility] [address], [place] [address] 06/08/2018 15:49:54 06/15/2018 13:18:46 Gynecologic examination 06459740 Z01.419 calcium rich foods handout vitamin D 2000 iu daily exercise weight loss diet Obesity 201885141 E66.9 diet weight loss and exercise Screening for malignant neoplasm of breast [id number] Z12.31 patient had last mammogram on 06/2015=nor mal needs one she is overdue Screening for malignant neoplasm of colon 319909963 Z12.11 Patient has been referred for colonoscop y in the past. SHe has not had it done yet. SHe agrees to going to [facility]. [id number] Brandon Joe MD [facility] [address], [place] [address] 09/01/2018 16:00:40 09/10/2018 17:35:38 Essential hypertension 78005082 I10 continue present meds Hyperlipidemia 98133809 E78.5 stressed diet, weight loss, exercise will continue with current therapy Allergic rhinitis 019489 04 J30.9 otc meds Impaired g lucose tolerance 0985230 R73.02 04/2018 HA1C 5.5 Migraine 55681400 G43.90 9 The patient will continue Topamax 50 mg at noon 2 then 2 at night will use Naprosyn for breakthrou gh headaches Obesity 495722706 E66.9 diet weight loss and exercise Seizure disorder 5817113 02 G40.909 Will continue Topiramate 100mg bid for this problem--a s patient not having any auras now Discussed potential side effects Will consider Neurology consult Will consider EEG Tinea pedis 6369423 B35. 3 Administra tion of influenza vaccine 26926983 Z23 Venous stasis 87957402 I 87.8 elevate legs wear support hose lose weight Pain in bi lateral legs 3551054841 2655031 M79.604 M79.691 [id number] Brandon Joe MD [facility] [address], [place] [address] 01/05/2019 15:51:47 01/07/2019 09:52:20 Essential hypertension 25442964 I10 continue present meds Hyperlipidemia 04412103 E78.5 stressed diet, weight loss, exercise will continue with current therapy Migraine 73074980 G43.90 9 The patient will continue Topamax 50 mg at noon 2 then 2 at night will use Naprosyn for breakthrou gh headaches Allergic rhinitis 133510 04 J30.9 otc meds Impaired g lucose tolerance 7808089 R73.02 04/2018 HA1C 5.5 Obesity 255907906 E66.9 diet weight loss and exercise Seizure disorder 9557410 02 G40.909 Will continue Topamax 100mg bid for this problem--a s patient not having any auras now Discussed potential side effects Will consider Neurology consult Will consider EEG Venous stasis 31458247 I 87.8 elevate legs wear support hose lose weight Depression screening 171 272462 Z13.31 negative [id number] Toro Sales MD [facility] [address], [place] [address] 01/29/2019 11:46:37 01/29/2019 17:46:13 Gynecologic examination 15532814 Z01.411 Calcium Rich foods handout Vitamin D daily SBE teaching/ handout Screening for malignant neoplasm of breast 400920548 Z12.31 patient had last mammogram on 06/08/2018= normal Urinary tr act infectious disease 60928545 N39.0 Menopause present 381357 006 N95.1 calcium 1800mg daily in diet or supplement Vitamin D 800-2000 IU daily [id number] Brandon Joe MD [facility] [address] [address] 05/26/2019 13:59:52 05/28/2019 08:13:28 Essential hypertension 20677521 I10 continue present meds Seizure disorder 3570249 02 G40.909 Will add Tegretol 100mg XR [...] to Neurology consult Will order EEG Hyperlipidemia 55192833 E78.5 stressed diet, weight loss, exercise will continue with current therapy Migraine 51431749 G43.90 9 The patient will continue Topamax 50 mg at noon 2 then 2 at night will use Naprosyn for breakthrou gh headaches Allergic rhinitis 670104 04 J30.9 otc meds Impaired g lucose tolerance 8496154 R73.02 04/2018 HA1C 5.5 Obesity 677459401 E66.9 diet weight loss and exercise Venous stasis 27921513 I 87.8 elevate legs wear support hose lose weight Vitamin D deficiency 347 47810 E55.9 Morbid obesity 950682722 E66.01 stressed diet weight loss and exercise she has lost 4.5 pounds since last visit [id number] Brandon Joe MD [facility] [address], [place] [address] 07/30/2019 15:53:58 08/05/2019 10:44:18 Essential hypertension 05322517 I10 continue present meds Seizure disorder 0662275 02 G40.909 Patient to continue Tegretol (carbameza [...] effects Patient to follow upwith Neurology Hyperlipidemia 45591484 E78.5 stressed diet, weight loss, exercise will continue with current therapy Migraine 00485472 G43.90 9 Will start Propranolo l 40mg 1 p.o. bid The patient will continue Topamax 50 mg at noon 2 then 2 at night until Neurologis t stops it on f/uwill use Naprosyn for breakthrou gh headaches Allergic rhinitis 158198 04 J30.9 otc meds Impaired g lucose tolerance 9034407 R73.02 05/2019 HA1C 5.5 Obesity 132915454 E66.9 diet weight loss and exercise Diffuse alopecia 1364979 07 L65.9 Topamax will not be refilledNe urologist will stop it at end of month Administra tion of influenza vaccine 81882946 Z23 Acute left otitis media 980715502 H66.92 Body mass index 30+ - obesity 574990673 Z68.33 BMI 33.1Health y weight range 100-858 [id number] Brandon Joe MD [facility] [address] [address] 11/22/2019 15:58:59 11/23/2019 09:49:50 Allergic rhinitis 81457501 J30.9 otc meds Acute fron jayy sinusitis 82893590 J01.10 [id number] Brandon Joe MD [facility] [address], [place] [address] 12/01/2019 15:56:31 12/02/2019 11:09:43 Essential hypertension 82315171 I10 continue present meds Hyperlipidemia 96741826 E78.5 stressed diet, weight loss, exercise will continue with current therapy Seizure disorder 3132113 02 G40.909 Patient to continue Tegretol (carbameza pine) 100mg XR take at night x1 week then will increase to bid for seizure management --as patient has had 2 recent seizures after no seizures for 30 years--the patient was previously on Tegretol 200mg bid back in 2012-she was switched to Topamax for migraine management and seizure Discussed potential side effects Migraine 32710699 G43.90 9 Will continue Propranolo l 40mg 1 p.o. bid The patient has been weaned off Topamax by neurologis twill use Naprosyn for breakthrou gh headaches Allergic rhinitis 237278 04 J30.9 otc meds Impaired g lucose tolerance 1069158 R73.02 05/2019 HA1C 5.5 Obesity 597175158 E66.9 diet weight loss and exercise Body mass index 30+ - obesity 616357750 Z68.33 BMI 33.1Health y weight range 100-125 Subclinica l hypothyroidism 98434229 E02 Depression screening 171 549039 Z13.31 negative [id number] Brandon Joe MD [facility] [address], [place] [address] 01/14/2020 16:24:20 01/14/2020 18:48:05 Colitis 13043071 K52.9 eat small frequent meals do not skip meals/suri kfast avoid citric, spicy, fatty foods do not lay down soon after eating--wa it at least 2 hours may use OTC Tums/Pepci d/Ranitidi ne as needed if symptoms persist return for re-evaluat ion Follow-up visit 41717585 9 Z09 still having abdominal bloating discomfort but no bleeding Hiatal hernia 91346787 K 44.9 Patient has abdominal bloating and discomfort Inguinal hernia 66685462 0 K40.90 may send for surgical consult [id number] Brandon Joe MD [facility] [address] [place] [address] 02/16/2020 11:42:16 02/17/2020 12:38:00 Essential hypertension 19189608 I10 continue present meds Hyperlipidemia 12831706 E78.5 stressed diet, weight loss, exercise will continue with current therapy Seizure disorder 1959149 02 G40.909 Patient to continue Tegretol (carbameza pine) 100mg XR take at night x1 week then will increase to bid for seizure management --as patient has had 2 recent seizures after no seizures for 30 years--the patient was previously on Tegretol 200mg bid back in 2012-she was switched to Topamax for migraine management and seizure Discussed potential side effects Migraine 83961986 G43.90 9 Will continue Propranolo l 40mg 1 p.o. bid The patient has been weaned off Topamax by neurologis twill use Naprosyn for breakthrou gh headaches Allergic rhinitis 701095 04 J30.9 otc meds-advis ed to start MARTITA as having some allergy symptoms Impaired g lucose tolerance 1857234 R73.02 05/2019 HA1C 5.5 Obesity 067095248 E66.9 diet weight loss and exercise Body mass index 30+ - obesity 665963034 Z68.33 BMI 33.1Health y weight range 100-125 Subclinica l hypothyroidism 30772202 E02 Viral myalgia 983485936 M79.10 achy legs arms prior to having colitis 2 months ago [id number] Brandon Joe MD [facility] [address] [address] 05/26/2020 16:36:02 05/29/2020 06:18:31 Subclinical hypothyroidism 68346581 E02 Hyperlipidemia 77971987 E78.5 stressed diet, weight loss, exercise will continue with current therapy Essential hypertension 98190205 I10 continue present meds Seizure disorder 2187254 02 G40.909 Patient to continue Tegretol (carbameza pine) 100mg XR take at night x1 week then will increase to bid for seizure management --as patient has had 2 recent seizures after no seizures for 30 years--the patient was previously on Tegretol 200mg bid back in 2012-she was switched to Topamax for migraine management and seizure Discussed potential side effects Migraine 12067079 G43.90 9 Will continue Propranolo l 40mg 1 p.o. bid The patient has been weaned off Topamax by neurologis twill use Naprosyn for breakthrou gh headaches Allergic rhinitis 570746 04 J30.9 otc meds-advis ed to start MARTITA as having some allergy symptoms Impaired g lucose tolerance 3274655 R73.02 05/2019 HA1C 5.5 Obesity 014250662 E66.9 diet weight loss and exercise Body mass index 30+ - obesity 221443124 Z68.33 BMI 33.1Health y weight range 100-125 Constipation 68669279 K5 9.00 Fracture o f tibial plateau 298671567 S82.101D continue follow ups with Ortho Fracture of ankle 768876 01 S82.91XD continue follow ups with Ortho Anemia 518229359 D64.9 Iron rich foods every day Take Iron therapy as directed with vitamina C source Vitamin D deficiency 347 32448 E55.9 vitamin D 2000 IU daily+ calcium rich foods [id number] Brandon Joe MD [facility] [address] [address] 08/30/2020 10:09:52 09/01/2020 02:48:24 Persistent insomnia 404971782 G47.09 Patient has tried Melatonin not helpingPat ient has tried Benadryl not helpingPat ient has tried herbal teas not helpingWil l try Hydroxyzin e Administra tion of influenza vaccine 52711973 Z23 [id number] Brandon Joe MD [facility] [address] [address] 09/19/2020 14:34:21 09/20/2020 07:00:35 Essential hypertension 22020260 I10 continue present meds Hyperlipidemia 13008108 E78.5 stressed diet, weight loss, exercise will continue with current therapy Subclinica l hypothyroidism 06041172 E02 Seizure disorder 5671547 02 G40.909 Patient to continue Tegretol (carbameza pine) 100mg XR take at night x1 week then will increase to bid for seizure management --as patient has had 2 recent seizures after no seizures for 30 years--the patient was previously on Tegretol 200mg bid back in 2012-she was switched to Topamax for migraine management and seizure Discussed potential side effects Migraine 84149742 G43.90 9 Will continue Propranolo l 40mg 1 p.o. bid The patient has been weaned off Topamax by neurologis twill use Naprosyn for breakthrou gh headaches Allergic rhinitis 202136 04 J30.9 otc meds-advis ed to start MARTITA as having some allergy symptoms Impaired g lucose tolerance 6844607 R73.02 05/2019 HA1C 5.5 Obesity 859819137 E66.9 diet weight loss and exercise Body mass index 30+ - obesity 266766537 Z68.33 BMI 33.1Health y weight range 100-125 Constipation 83390765 K5 9.00 Fracture o f tibial plateau 531768295 S82.101D continue follow ups with Orthostart ed gabapentin 300mg 1 three times daily by orthopedic Fracture of ankle 491718 01 S82.91XD continue follow ups with Orthostart ed gabapentin 300mg 1 three times daily by orthopedic Anemia 252471561 D64.9 Iron rich foods every day Take Iron therapy as directed with vitamina C source Vitamin D deficiency 347 32269 E55.9 vitamin D 2000 IU daily+ calcium rich foods Persistent insomnia 1919 86380 G47.09 Patient has tried Melatonin not helpingPat ient has tried Benadryl not helpingPat ient has tried herbal teas not helpingWil l try Hydroxyzin e [id number] Brandon Joe MD [facility] [address] [address] 12/29/2020 15:30:09 01/01/2021 12:19:02 Essential hypertension 36863095 I10 continue present meds Hyperlipidemia 25572081 E78.5 stressed diet, weight loss, exercise will continue with current therapyLas t lipid levelcho 220trig 145HDL 57LDL 137 Subclinica l hypothyroidism 21210054 E02 TSH 3.0 Seizure disorder 2220484 02 G40.909 Patient to continue Tegretol (carbameza pine) 100mg XR take at night x1 week then will increase to bid for seizure management --as patient has had 2 recent seizures after no seizures for 30 years--the patient was previously on Tegretol 200mg bid back in 2012-she was switched to Topamax for migraine management and seizure Discussed potential side effects Migraine 61179196 G43.90 9 Will continue Propranolo l 40mg 1 p.o. bid The patient has been weaned off Topamax by neurologis twill use Naprosyn for breakthrou gh headaches Allergic rhinitis 320164 04 J30.9 otc meds-advis ed to start MARTITA as having some allergy symptoms Impaired g lucose tolerance 6456624 R73.02 05/2019 HA1C 5.511/14/2 020 HA1c 5.9 Obesity 851559635 E66.9 diet weight loss and exercise Body mass index 30+ - obesity 487557641 Z68.33 BMI 33.1Health y weight range 100-125 Fracture o f tibial plateau 365903217 S82.101D continue follow ups with Orthostart ed gabapentin 300mg 1 three times daily by orthopedic Fracture of ankle 011367 01 S82.91XD continue follow ups with Orthostart ed gabapentin 300mg 1 three times daily by orthopedic Anemia 709762504 D64.9 Iron rich foods every day Take Iron therapy as directed with vitamina C source Vitamin D deficiency 347 55728 E55.9 vitamin D 2000 IU daily+ calcium rich foods Persistent insomnia 1919 49964 G47.09 Patient has tried Melatonin not helpingPat ient has tried Benadryl not helpingPat ient has tried herbal teas not helpingWil l try Melatonin gummies Depression screening 171 571066 Z13.31 negative [id number] Brandon Joe MD [facility] [address] [address] 04/27/2021 15:19:31 05/01/2021 14:03:04 Essential hypertension 39769786 I10 continue present meds Hyperlipidemia 12150936 E78.5 stressed diet, weight loss, exercise will continue with current therapyLas t lipid levelcho 220trig 145HDL 57LDL 137 Subclinica l hypothyroidism 86085822 E02 TSH 3.0 Migraine 18572711 G43.90 9 Will continue Propranolo l 40mg 1 p.o. bid The patient has been weaned off Topamax by neurologis twill use Naprosyn for breakthrou gh headaches Anemia 665145197 D64.9 Iron rich foods every day Take Iron therapy as directed with vitamina C source Last CBC normal 09/30/2020 Seizure disorder 4766541 02 G40.909 Patient to continue Tegretol (carbameza pine) 100mg XR take at night x1 week then will increase to bid for seizure management --as patient has had 2 recent seizures after no seizures for 30 years--the patient was previously on Tegretol 200mg bid back in 2012-she was switched to Topamax for migraine management and seizure Discussed potential side effects Allergic rhinitis 571725 04 J30.9 otc meds-advis ed to start MARTITA as having some allergy symptoms Impaired g lucose tolerance 8831761 R73.02 05/2019 HA1C 5.511/14/2 020 HA1c 5.9 Obesity 257321297 E66.9 diet weight loss and exercise Body mass index 30+ - obesity 797591818 Z68.33 BMI 33.1Health y weight range 100-125 Fracture o f tibial plateau 897660430 S82.101D continue follow ups with Orthostart ed gabapentin 300mg 1 three times daily by orthopedic Fracture of ankle 244284 01 S82.91XD continue follow ups with Orthostart ed gabapentin 300mg 1 three times daily by orthopedic Vitamin D deficiency 347 31974 E55.9 vitamin D 2000 IU daily+ calcium rich foods Persistent insomnia 1919 32222 G47.09 Patient has tried Melatonin not helpingPat ient has tried Benadryl not helpingPat ient has tried herbal teas not helpingWil l try Melatonin gummies Lumbosacra l radiculopathy 1071460 M54.17 R>L [id number] Brandon Joe MD [facility] [address] [address] 07/27/2021 15:19:13 07/30/2021 07:24:20 Essential hypertension 48283216 I10 continue present meds12019BUN 12creatini ne 0.61eGFR 100 Hyperlipidemia 25128313 E78.5 stressed diet, weight loss, exercise will continue with current therapyLas t lipid level 09/30/2020 cho 220trig 145HDL 57LDL 137 Subclinica l hypothyroidism 13302487 E02 05/12/2021T SH 2.16 better Migraine 43221696 G43.90 9 Will continue Propranolo l 40mg 1 p.o. bid The patient has been weaned off Topamax by neurologis twill use Naprosyn for breakthrou gh headaches Anemia 407141521 D64.9 Iron rich foods every day Take Iron therapy as directed with vitamina C source Last CBC normal 09/30/2020 Seizure disorder 5932434 02 G40.909 Patient to continue Tegretol (carbameza pine) 100mg XR take at night x1 week then will increase to bid for seizure management --as patient has had 2 recent seizures after no seizures for 30 years--the patient was previously on Tegretol 200mg bid back in 2012-she was switched to Topamax for migraine management and seizure Discussed potential side effects Allergic rhinitis 905920 04 J30.9 otc meds-advis ed to start MARTITA as having some allergy symptoms Impaired g lucose tolerance 3170985 R73.02 05/2019 HA1C 5.511/14/2 020 HA1c 5.9 Obesity 618040442 E66.9 diet weight loss and exercise Body mass index 30+ - obesity 025575163 Z68.33 BMI 33.1Health y weight range 100-125 Fracture o f tibial plateau 531823525 S82.101D continue follow ups with Orthostart ed gabapentin 300mg 1 three times daily by orthopedic patient wants to continue Gabapentin 300mg (same dosage) Vitamin D deficiency 347 78713 E55.9 vitamin D 2000 IU daily+ calcium rich foods Persistent insomnia 1919 12863 G47.09 Patient has tried Melatonin not helpingPat ient has tried Benadryl not helpingPat ient has tried herbal teas not helpingWil l try Melatonin gummies Lumbosacra l radiculopathy 3864787 M54.17 R>LMRI LSS w/o contrast on 05/18/2021 shows DJD, OA, lumbar spondylosi spatient aware of results refuses pain mgmt referral for nowill restart Gabapentin 300mg tid Generalize d osteoarthritis 289677333 M15.9 R>LMRI LSS w/o contrast on 05/18/2021 shows DJD, OA, lumbar spondylosi spatient aware of results refuses pain mgmt referral for nowill restart Gabapentin 300mg tid [id number] TEO [facility] [address] [address] 09/05/2021 15:41:35 09/10/2021 06:43:43 Administration of SARS-CoV-2 antigen vaccine 595069553 Z23 [id number] Brandon Joe MD [facility] [address] [address] 10/29/2021 15:04:39 10/30/2021 06:40:02 Subclinical hypothyroidism 50362625 E02 05/12/2021T SH 2.16 better Seizure disorder 3526429 02 G40.909 Patient to continue Tegretol (carbameza pine) 100mg XR take at night x1 week then will increase to bid for seizure management --as patient has had 2 recent seizures after no seizures for 30 years--the patient was previously on Tegretol 200mg bid back in 2012-she was switched to Topamax for migraine management and seizure Discussed potential side effects Essential hypertension 34927755 I10 continue present meds1.14. 2019BUN 12creatini ne 0.61eGFR 100 Hyperlipidemia 65764483 E78.5 stressed diet, weight loss, exercise will continue with current therapyLas t lipid level 09/30/2020 cho 220trig 145HDL 57LDL 137 Migraine 76820988 G43.90 9 Will continue Propranolo l 40mg 1 p.o. bid The patient has been weaned off Topamax by neurologis twill use Naprosyn for breakthrou gh headaches Anemia 406185821 D64.9 Iron rich foods every day Take Iron therapy as directed with vitamina C source Last CBC normal 09/30/2020 Allergic rhinitis 957977 04 J30.9 otc meds-advis ed to start MARTITA as having some allergy symptoms Impaired g lucose tolerance 1605116 R73.02 05/2019 HA1C 5.511/14 020 HA1c 5.9 Obesity 435528534 E66.9 diet weight loss and exercise Body mass index 30+ - obesity 406933755 Z68.33 BMI 33.1Health y weight range 100-125 Fracture o f tibial plateau 250593992 S82.101D continue follow ups with Orthostart ed gabapentin 300mg 1 three times daily by orthopedic patient wants to continue Gabapentin 300mg (same dosage) Vitamin D deficiency 347 95597 E55.9 vitamin D 2000 IU daily+ calcium rich foods Persistent insomnia 1919 41353 G47.09 Patient has tried Melatonin not helpingPat ient has tried Benadryl not helpingPat ient has tried herbal teas not helpingWil l try Melatonin gummies Lumbosacra l radiculopathy 7461108 M54.17 R>LMRI LSS w/o contrast on 05/18/2021 shows DJD, OA, lumbar spondylosi spatient aware of results refuses pain mgmt referral for nowill restart Gabapentin 300mg tid Generalize d osteoarthritis 467053110 M15.9 R>LMRI LSS w/o contrast on 05/18/2021 shows DJD, OA, lumbar spondylosi spatient aware of results refuses pain mgmt referral for nowcontinu e Gabapentin 300mg tid Bilateral chronic serous otitis 533744832 H65.23 [id number] Brandon Joe MD [facility] [address], [place] [address] 12/18/2021 16:26:35 12/19/2021 10:55:26 Lumbosacral radiculopathy 9665222 M54.17 R>LMRI LSS w/o contrast on 05/18/2021 shows DJD, OA, lumbar spondylosi spatient aware of results refused pain mgmt referral in the past but wishes to go nowcontinu e Gabapentin 300mg tidPatient referred to pain mgmt - has appt next week Pain of bi lateral hip joints 0644487597 7949668 M25.551 M25.552 04/27/2020 xrays shows Oa Osteoarthr itis of knee 416363793 M17.9 04/27/2020 XR femur shows tiny osteophyte s [id number] Brandon Joe MD [facility] [address] [address] 01/29/2022 15:29:22 02/01/2022 07:01:49 Hyperlipidemia 13232112 E78.5 stressed diet, weight loss, exercise will continue with current [id number] 220trig 145HDL 57LDL 137 12/31/2021 cho 194trig 131HDL 52LDL 126non-HDL 142 Seizure disorder 5124598 02 G40.909 Patient to continue Tegretol (carbameza pine) 100mg XR take at night x1 week then will increase to bid for seizure management --as patient has had 2 recent seizures after no seizures for 30 years--the patient was previously on Tegretol 200mg bid back in 2012-she was switched to Topamax for migraine management and seizure Discussed potential side effects Vitamin D deficiency 347 70989 E55.9 vitamin D 2000 IU daily+ calcium rich foods Essential hypertension 71668000 I10 continue present meds11BUN 9creatinin e 0.54eGFR 104 Subclinica l hypothyroidism 14140284 E02 05/12/2021T SH 2.16 yzfqqn67/2 07/2021TSH 2.7 Migraine 42927621 G43.90 9 Will continue Propranolo l 40mg 1 p.o. bid The patient has been weaned off Topamax by neurologis twill use Naprosyn for breakthrou gh headaches Allergic rhinitis 497233 04 J30.9 otc meds-advis ed to start MARTITA as having some allergy symptoms Impaired g lucose tolerance 9373683 R73.02 05/2019 HA1C 5.511/14/2 020 HA1c 5.912/29/2 021 HA1C 6.4 Obesity 003301423 E66.9 diet weight loss and exercise Body mass index 30+ - obesity 042225660 Z68.33 BMI 40.1Health y weight range 100-125 Lumbosacra l radiculopathy 8693844 M54.17 R>LMRI LSS w/o contrast on 05/18/2021 shows DJD, OA, lumbar spondylosi spatient aware of results refuses pain mgmt referral for nowill restart Gabapentin 300mg tid Generalize d osteoarthritis 736780464 M15.9 R>LMRI LSS w/o contrast on 05/18/2021 shows DJD, OA, lumbar spondylosi spatient aware of results refuses pain mgmt referral for nowcontinu e Gabapentin 300mg tid Swollen abdomen 90376072 R14.0 Diverticul osis of colon 760676486 K57.30 high fiber dietie metamucil or fibercon Hiatal hernia 37170033 K 44.9 Patient has abdominal bloating and discomfort after mealswill try pepcid 20mg bid Adenomatou s polyp of colon 825483345 D12.6 01/28/2019 colonoscop y shows adenomatou s polypneeds repeat colonoscop y in 2023 Vaginitis 33503994 N76.0 Administra tion of diphtheria, pertussis, and tetanus vaccine 562961795 Z23 Numbness of hand 4379767 04 R20.0 anni finger numbnessco ntinue wrist splintstry NSAIDS PRNMay need a NCS/Neurol ogy referral at later time Depression screening 171 445846 Z13.31 negative [id number] Brandon Joe MD [facility] [address] [address] 03/04/2022 15:36:35 03/06/2022 14:21:22 Essential hypertension 93897555 I10 BP Goal: Less than 140/90BP Controlled : noHealthy Weight: 5'1= 100-131 lbsDiscuss ed: Low sodium balanced diet, moderate exercise at least 3-4 times per week for an average of 40 minutesNex t Visit: 3month(s)1 UN 9creatinin e 0.54eGFR 104 02/02/2022 BUN 10Creat 0.69 continue Losartan 100mg/Hydr ochlorothi azide 12.5mg dailyconti nue Atenolol 50mg one tab dailystart amlodipine 2.5mg dailycheck b/p at home keep logB/P elevated today L arm 180/100 will give Captopril 12.5mg onceRechec k b/p 172/92 L arm after 15 minutes after 5 more minutes 138/92 L arm [facility] hypothy[facility] 04202171 E02 05/12/2021T SH 2.16 /2 07/2021TSH 2.703/05/01 022TSH 3.17 Body mass index 30+ - obesity 570651943 Z68.33 BMI 41Healthy weight range 100-125 Swollen abdomen 92073544 R14.0 she had been having mid epigastric [...] u/s was all normal. CT abd/Pelvis from [facility] shows sliding hiatal herniadive rticulosis of sigmoid colonbilat eral fat containing inguinal herniaspat ient tried on Pepcid 20mg bid did not helpWill try on Omeprazole 20mg bid 1/2 hour before mealswill send for EGD Hiatal hernia 34589511 K 44.9 Patient has abdominal bloating and discomfort after mealsTried pepcid 20mg bid not helpingPat ient will now try Omeprazole 20mg bidGet an EGD Epigastric pain 66819964 R10.13 she had been having mid epigastric [...] u/s was all normal. CT abd/Pelvis from [facility] shows sliding hiatal herniadive rticulosis of sigmoid colonbilat eral fat containing inguinal herniaspat ient tried on Pepcid 20mg bid did not helpWill try on Omeprazole 20mg bid 1/2 hour before mealswill send for EGD Lumbosacra l radiculopathy 5612016 M54.17 R>LMRI LSS w/o contrast on 05/18/2021 [...] consult note from pain management Venous stasis 40008162 I 87.8 elevate legs wear support hose lose weight [id number] Brandon Joe MD [facility] [address] [address] 05/22/2022 15:26:04 05/23/2022 15:41:54 Essential hypertension 12551062 I10 BP Goal: Less than 140/90BP Controlled : noHealthy Weight: 5'1= 100-131 lbsDiscuss ed: Low sodium balanced diet, moderate exercise at least 3-4 times per week for an average of 40 minutesNex t Visit: 3month(s)1 UN 9creatinin e 0.54eGFR 104 02/02/2022 BUN 10Creat 0.69 continue Losartan 100mg/Hydr ochlorothi azide 12.5mg dailyconti nue Atenolol 50mg one tab dailystart amlodipine 2.5mg dailycheck b/p at home keep logB/P elevated today L arm 180/100 will give Captopril 12.5mg onceRechec k b/p 172/92 L arm after 15 minutes after 5 more minutes 138/92 L arm Hyperlipidemia 32613655 E78.5 stressed diet, weight loss, exercise will continue with current sqrntcd02cho 220trig 145HDL 57LDL 137 12/31/2021 cho 194trig 131HDL 52LDL 126non-HDL 142 [facility] hypothyroidism 66287448 E02 05/12/2021T SH 2.16 ejxlmd15/2 07/2021TSH 2.703/19/2 022TSH 3.17 Allergic rhinitis 448080 04 J30.9 otc meds-advis ed to start MARTITA as having some allergy symptoms Impaired g lucose tolerance 8265942 R73.02 05/2019 HA1C 5.511/14/2 020 HA1c 5.912/29/2 021 HA1C 6.407/06/2 022 HA1C 6.3 Body mass index 30+ - obesity 768807661 Z68.33 BMI 40Healthy weight range 100-125 Epigastric pain 79350762 R10.13 she had been having mid epigastric [...] u/s was all normal. CT abd/Pelvis from [facility] shows sliding hiatal herniadive rticulosis of sigmoid colonbilat eral fat containing inguinal herniaspat ient tried on Pepcid 20mg bid did not helpWill try on Omeprazole 20mg bid 1/2 hour before mealswill send for EGD Hiatal hernia 35560078 K 44.9 Patient has abdominal bloating and discomfort after mealsTried pepcid 20mg bid not helpingPat ient will now try Omeprazole 20mg bidGet an EGD Lumbosacra l radiculopathy 4323898 M54.17 R>LMRI LSS w/o contrast on 05/18/2021 [...] HS to 900mg at HS Venous stasis 52650512 I 87.8 elevate legs wear support hose lose weight Depression screening 171 481467 Z13.31 negative [id number] Brandon Joe MD [facility] [address] [address] 08/23/2022 15:39:55 08/26/2022 11:46:07 Essential hypertension 70124702 I10 BP Goal: Less than 140/90BP Controlled : noHealthy Weight: 5'1= 100-131 lbsDiscuss ed: Low sodium balanced diet, moderate exercise at least 3-4 times per week for an average of 40 minutesNex t Visit: 3month(s)1 UN 9creatinin e 0.54eGFR 104 02/02/2022 BUN 10Creat 0.69 continue Losartan 100mg/Hydr ochlorothi azide 12.5mg dailyconti nue Atenolol 50mg one tab dailystart amlodipine 2.5mg dailycheck b/p at home keep logB/P elevated today L arm 180/100 will give Captopril 12.5mg onceRechec k b/p 172/92 L arm after 15 minutes after 5 more minutes 138/92 L arm Hyperlipidemia 20357020 E78.5 stressed diet, weight loss, exercise will continue with current ktjmmzh05cho 220trig 145HDL 57LDL 137 12/31/2021 cho 194trig 131HDL 52LDL 126non-HDL 142 Impaired g lucose tolerance 9673700 R73.02 05/2019 HA1C 5.511/14/2 020 HA1c 5.912//2 021 HA1C 6.407//2 022 HA1C 6.310//2 022 HA1C 5.4did not tolerate metformins tarted on Ozempic 0.25mg once weekly on 05/22/2022 Has lost 11 poundsPati ent wants to continue treatment [facility] hypothyroidism 25337542 E02 05/12/2021T SH 2.16 bnadxg36/2 07/2021TSH 2.703/05/01 022TSH 3.17 Allergic rhinitis 387224 04 J30.9 otc meds-advis ed to start MARTITA as having some allergy symptoms Body mass index 30+ - obesity 583925121 Z68.33 BMI 38.1Health y weight range 100-125 Epigastric pain 42844391 R10.13 she had been having mid epigastric [...] u/s was all normal. CT abd/Pelvis from [facility] shows sliding hiatal herniadive rticulosis of sigmoid colonbilat eral fat containing inguinal herniaspat ient tried on Pepcid 20mg bid did not helpWill try on Omeprazole 20mg bid 1/2 hour before mealsNeeds to get EGD Hiatal hernia 41372596 K 44.9 Patient has abdominal bloating and discomfort after mealsTried pepcid 20mg bid not helpingPat ient will now try Omeprazole 20mg bidGet an EGD-referr al given on 03/04/2022- patient did not want to go to [facility] Lumbosacra l radiculopathy 2260925 M54.17 R>LMRI LSS w/o contrast on 05/18/2021 [...] HS to 900mg at HS Venous stasis 60219421 I 87.8 elevate legs wear support hose lose weight Depression screening 171 784664 Z13.31 PHQ2-9 negative Administra tion of influenza vaccine 91685485 Z23 Mental hea lth screening 607059546 Z13.39 NADIRA-7 negative Eruption 185072948 R21 Onychomyco sis of toenails 321107808 B35.1 Great toenails dark black thickened Diarrhea 34149812 R19.7 Traveler's diarrhea Acute sero us otitis media of left ear 8746266681 224780 H65.02 [id number] Brandon Joe MD [facility] [address] [address] 12/20/2022 15:24:39 12/25/2022 10:48:57 Subclinical hypothyroidism 55366420 E02 05/12/2021T SH 2.16 dkhwyu68/2 07/2021TSH 2.703/05/01 022TSH 3.1705/2021TSH 1.79 Hyperlipidemia 23408190 E78.5 stressed diet, weight loss, exercise will continue with current dhjumsn05cho 220trig 145HDL 57LDL 137 12/31/2021 cho 194trig 131HDL 52LDL 126non-HDL 142 Essential hypertension 60134428 I10 BP Goal: Less than 140/90BP Controlled : noHealthy Weight: 5'1= 100-131 lbsDiscuss ed: Low sodium balanced diet, moderate exercise at least 3-4 times per week for an average of 40 minutesNex t Visit: 3month(s)1 UN 9creatinin e 0.54eGFR 104 02/02/2022 BUN 10Creat 0.69 continue Losartan 100mg/Hydr ochlorothi azide 12.5mg dailyconti nue Atenolol 50mg one tab dailystart amlodipine 2.5mg dailycheck b/p at home keep logB/P elevated today L arm 180/100 will give Captopril 12.5mg onceRechec k b/p 172/92 L arm after 15 minutes after 5 more minutes 138/92 L arm Impaired g lucose tolerance 9916088 R73.02 05/2019 HA1C 5.511/14/2 020 HA1c 5.912//2 021 HA1C 6.407/06/2 022 HA1C 6.310//2 022 HA1C 5.402//2 023 HA1C 5.4did not tolerate metformins tarted on Ozempic 0.25mg once weekly on 05/22/2022 Has lost 11 poundsPati ent wants to continue treatment Obesity 382402100 E66.9 diet weight loss and exerciseBM I 38.5Health y weight range 100-125 Allergic rhinitis 599598 04 J30.9 otc meds-advis ed to start MARTITA as having some allergy symptoms Body mass index 30+ - obesity 390647493 Z68.33 BMI 38.5Health y weight range 100-125 Epigastric pain 63943801 R10.13 she had been having mid epigastric [...] u/s was all normal. CT abd/Pelvis from [facility] shows sliding hiatal herniadive rticulosis of sigmoid colonbilat eral fat containing inguinal herniaspat ient tried on Pepcid 20mg bid did not helpWill try on Omeprazole 20mg bid 1/2 hour before mealsNeeds to get EGD Hiatal hernia 36847680 K 44.9 Patient has abdominal bloating and discomfort after mealsTried pepcid 20mg bid not helpingPat ient will now try Omeprazole 20mg bidGet an EGD-referr al given on 03/04/2022- patient did not want to go to [facility] Lumbosacra l radiculopathy 4828793 M54.17 R>LMRI LSS w/o contrast on 05/18/2021 [...] HS to 900mg at HS Mental hea lth screening 104581077 Z13.39 NADIRA-7 negative Venous stasis 38840693 I 87.8 elevate legs wear support hose lose weight Depression screening 171 749937 Z13.31 PHQ2-9 negative Onychomyco sis of toenails 398231877 B35.1 Great toenails dark black thickened Exposure t o herpes simplex virus 2669411153 58556 Z20.828 Positive for HSV Adenomatou s polyp of colon 311672423 D12.6 01/28/2019 colonoscop y shows adenomatou s polypneeds repeat colonoscop y in [id number] Brandon Joe MD [facility] [address] [address] 04/18/2023 15:28:07 04/21/2023 15:08:50 Body mass index 30+ - obesity 589560409 Z68.33 BMI 38.Healthy weight range 100-125 Hyperlipidemia 10599032 E78.5 stressed diet, weight loss, exercise will continue with current plqungg94cho 220trig 145HDL 57LDL 137 12/31/2021 cho 194trig 131HDL 52LDL 126non-HDL 142 Essential hypertension 18902050 I10 BP Goal: Less than 140/90BP Controlled : noHealthy Weight: 5'1= 100-131 lbsDiscuss ed: Low sodium balanced diet, moderate exercise at least 3-4 times per week for an average of 40 minutesNex t Visit: 3month(s)1 UN 9creatinin e 0.54eGFR 104 02/02/2022 BUN 10Creat 0.69 continue Losartan 100mg/Hydr ochlorothi azide 12.5mg dailyconti nue Atenolol 50mg one tab dailystart amlodipine 2.5mg dailycheck b/p at home keep log Impaired g lucose tolerance 0410682 R73.02 05/2019 HA1C 5.511/14/2 020 HA1c 5.912/29/2 021 HA1C 6.407/06/2 022 HA1C 6.310/07/2 022 HA1C 5.402/03/2 023 HA1C 5.4did not tolerate metformin Patient wants to continue treatment [facility] hypothyroidism 52474894 E02 05/12/2021T SH 2.16 inzjgz33/2 07/2021TSH 2.703/19/2 022TSH 3.1705/2021TSH 1.79 Obesity 366725616 E66.9 diet weight loss and exerciseBM I 38.5Health y weight range 100-125 Allergic rhinitis 078466 04 J30.9 otc meds-advis ed to start MARTITA as having some allergy symptoms Epigastric pain 95172718 R10.13 she had been having mid epigastric [...] u/s was all normal. CT abd/Pelvis from [facility] shows sliding hiatal herniadive rticulosis of sigmoid colonbilat eral fat containing inguinal herniaspat ient tried on Pepcid 20mg bid did not helpWill try on Omeprazole 20mg bid 1/2 hour before mealsNeeds to get EGD Hiatal hernia 31686517 K 44.9 Patient has abdominal bloating and discomfort after mealsTried pepcid 20mg bid not helpingPat ient will now try Omeprazole 20mg bidGet an EGD-referr al given on 03/04/2022- patient did not want to go to [facility] Lumbosacra l radiculopathy 4459035 M54.17 R>LMRI LSS w/o contrast on 05/18/2021 [...] HS to 900mg at HS Venous stasis 87613638 I 87.8 elevate legs wear support hose lose weight Onychomyco sis of toenails 319292332 B35.1 Great toenails dark black thickened Depression screening 171 773448 Z13.31 PHQ2-9 negative Mental hea lth screening 984019983 Z13.39 NADIRA-7 negative Adenomatou s polyp of colon 678191391 D12.6 01/28/2019 colonoscop y shows adenomatou s polypneeds repeat colonoscop y in 7762-9304 Herpes simplex 26810317 B00.9 Seizure disorder 2603144 02 G40.909 Patient to continue Tegretol (carbameza pine) 100mg XR take at night x1 week then will increase to bid for seizure management --as patient has had 2 recent seizures after no seizures for 30 years--the patient was previously on Tegretol 200mg bid back in 2012-she was switched to Topamax for migraine management and seizure [id number] Renan Snell MD [facility] [address] [address] 06/20/2023 15:31:27 06/23/2023 14:13:05 Gynecologic examination 97520291 Z01.411 Calcium Rich foods handout Vitamin D daily SBE teaching/ handout Screening for malignant neoplasm of breast 351409674 Z12.31 patient had last mammogram on 06/08/2018= normal Depression screening 171 004093 Z13.31 PHQ2-9 negative Mental hea lth screening 058018411 Z13.39 NADIRA-7 negative Postmenopausal state 764 25303 Z78.0 vitamin DCalciumwe ight bearing exercises Diverticul osis of colon 293728487 K57.30 high fiber dietie metamucil or fibercon Internal hemorrhoids 904 06751 K64.8 increase waterincre ase fiber Change in stool consistency 727319489 R19.5 passed two balls in stool last weekshe brought them in a container for eval Screening for disorder 654875593 Z13.9 [id number] Brandon Joe MD [facility] [address], [place] [address] 08/08/2023 15:20:56 08/11/2023 14:30:17 Hyperlipidemia 97672946 E78.5 stressed diet, weight loss, exercise will continue with current edgnwgj27cho 220trig 145HDL 57LDL 137 12/31/2021 cho 194trig 131HDL 52LDL 126non-HDL 142 05/03/2023 cho 189Trig 157HDL 57LDL 105 Essential hypertension 21568436 I10 BP Goal: Less than 140/90BP Controlled : noHealthy Weight: 5'1= 100-131 lbsDiscuss ed: Low sodium balanced diet, moderate exercise at least 3-4 times per week for an average of 40 minutesNex t Visit: 3month(s)1 UN 9creatinin e 0.54eGFR 104 02/02/2022 BUN 10Creat 0.69 continue Losartan 100mg/Hydr ochlorothi azide 12.5mg dailyconti nue Atenolol 50mg one tab dailystart amlodipine 2.5mg dailycheck b/p at home keep log Impaired g lucose tolerance 9252755 R73.02 05/2019 HA1C 5.511/14/2 020 HA1c 5.912/29/2 021 HA1C 6.407/06/2 022 HA1C 6.310/07/2 022 HA1C 5.402/03/2 023 HA1C 5.4did not tolerate metformin Patient wants to continue treatment Allergic rhinitis 134424 04 J30.9 otc meds-advis ed to start MARTITA as having some allergy symptoms Migraine 34038229 G43.90 9 Will continue Propranolo l 40mg 1 p.o. bidThe patient has been weaned off Topamax by neurologis twill use Naprosyn for breakthrou gh headaches Seizure disorder 1610465 02 G40.909 Patient to continue Tegretol (carbameza [...] 200mg 1 p.o. tid [facility] hypothyroidism 90095606 E02 05/12/2021T SH 2.16 zqpqej79/2 07/2021TSH 2.703/19/2 022TSH 3.1705/2021TSH 1.7906/2022TSH 1.90 Body mass index 30+ - obesity 231433972 Z68.33 BMI 40Healthy weight range 100-125 Obesity 720406022 E66.9 diet weight loss and exerciseBM I 40Healthy weight range 100-125 Epigastric pain 06046598 R10.13 she had been having mid epigastric [...] u/s was all normal. CT abd/Pelvis from [facility] shows sliding hiatal herniadive rticulosis of sigmoid colonbilat eral fat containing inguinal herniaspat ient tried on Pepcid 20mg bid did not helpWill try on Omeprazole 20mg bid 1/2 hour before mealsNeeds to get EGD Hiatal hernia 40365269 K 44.9 Patient has abdominal bloating and discomfort after mealsTried pepcid 20mg bid not helpingPat ient will now try Omeprazole 20mg bidGet an EGD-referr al given on 03/04/2022- patient did not want to go to [facility] Lumbosacra l radiculopathy 9994524 M54.17 R>LMRI LSS w/o contrast on 05/18/2021 [...] HS to 900mg at HS Venous stasis 25419021 I 87.8 elevate legs wear support hose lose weight Onychomyco sis of toenails 335181661 B35.1 Great toenails dark black thickened Adenomatou s polyp of colon 124210794 D12.6 01/28/2019 colonoscop y shows adenomatou s polypneeds repeat colonoscop y in 6485-1784 Herpes simplex 90460708 B00.9 Gave prophylaxi s treatment for 1 year Depression screening 171 333718 Z13.31 PHQ2-9 negative Mental hea [facility] screening 561388021 Z13.39 NADIRA-7 negative Administra tion of influenza vaccine 71050676 Z23 [id number] Brandon Joe MD [facility] [address] [address] 01/08/2024 15:54:18 01/14/2024 11:19:19 Essential hypertension 06812254 I10 BP Goal: Less than 140/90BP Controlled : noHealthy Weight: 5'1= 100-131 lbsDiscuss ed: Low sodium balanced diet, moderate exercise at least 3-4 times per week for an average of 40 minutesNex t Visit: 3month(s)1 UN 9creatinin e 0.54eGFR 104 02/02/2022 BUN 10Creat 0.69 continue Losartan 100mg/Hydr ochlorothi azide 12.5mg dailyconti nue Atenolol 50mg one tab dailystart amlodipine 2.5mg dailycheck b/p at home keep log Hyperlipidemia 92524457 E78.5 stressed diet, weight loss, exercise will continue with current awnjypc39cho 220trig 145HDL 57LDL 137 12/31/2021 cho 194trig 131HDL 52LDL 126non-HDL 142 05/03/2023 cho 189Trig 157HDL 57LDL 105 Seizure disorder 2052055 02 G40.909 Patient to continue Tegretol (carbameza [...] ine ER 200mg 1 p.o. tid Migraine 37980338 G43.90 9 Will continue Propranolo l 40mg 1 p.o. bidThe patient has been weaned off Topamax by neurologis twill use Naprosyn for breakthrou gh headaches [facility]clin[facility] hypothyroidism 24454293 E02 05/12/2021T SH 2.16 ihjhol65/2 07/2021TSH 2.703/19/2 022TSH 3.1705/2021TSH 1.7906/2022TSH 1.90 Body mass index 30+ - obesity 663009271 Z68.33 BMI 40.4Health y weight range 100-125 Obesity 164202707 E66.9 diet weight loss and exerciseBM I 40Healthy weight range 100-125 Impaired g lucose tolerance 4452040 R73.02 05/2019 HA1C 5.511/14/2 020 HA1c 5.912/29/2 021 HA1C 6.407/06/2 022 HA1C 6.310/07/2 022 HA1C 5.402/03/2 023 HA1C 5.4did not tolerate metformin Patient wants to continue treatment Allergic rhinitis 400482 04 J30.9 otc meds-advis ed to start MARTITA as having some allergy symptoms Epigastric pain 97711348 R10.13 she had been having mid epigastric [...] u/s was all normal. CT abd/Pelvis from [facility] shows sliding hiatal herniadive rticulosis of sigmoid colonbilat eral fat containing inguinal herniaspat ient tried on Pepcid 20mg bid did not helpWill try on Omeprazole 20mg bid 1/2 hour before mealsNeeds to get EGD Hiatal hernia 86277905 K 44.9 Patient has abdominal bloating and discomfort after mealsTried pepcid 20mg bid not helpingPat ient will now try Omeprazole 20mg bidGet an EGD-referr al given on 03/04/2022- patient did not want to go to [facility] Lumbosacra l radiculopathy 0932110 M54.17 R>LMRI LSS w/o contrast on 05/18/2021 [...] HS to 900mg at HS Venous stasis 27082895 I 87.8 elevate legs wear support hose lose weight Onychomyco sis of toenails 249783007 B35.1 Great toenails dark black thickened Adenomatou s polyp of colon 923627886 D12.6 01/28/2019 colonoscop y shows adenomatou s polypneeds repeat colonoscop y in 2023 Herpes simplex 19285360 B00.9 Gave prophylaxi s treatment for 1 year Depression screening 171 508129 Z13.31 PHQ2-9 negative Mental hea lth screening 585286730 Z13.39 NADIRA-7 negative Administra tion of pneumococcal vaccine 43863156 Z23 [id number] Brandon Joe MD [facility] [address] [place] [address] 05/04/2024 14:59:26 05/10/2024 09:26:40 Essential hypertension 92758410 I10 BP Goal: Less than 140/90BP Controlled : noHealthy Weight: 5'1= 100-131 lbsDiscuss ed: Low sodium balanced diet, moderate exercise at least 3-4 times per week for an average of 40 minutesNex t Visit: 3month(s)1 UN 9creatinin e 0.54eGFR 104 02/02/2022 BUN 10Creat 0.69 05/03/2023 BUN 9Creat 0.58eGFR 103 continue Losartan 100mg/Hydr ochlorothi azide 12.5mg dailyconti nue Atenolol 50mg one tab dailyconti nue amlodipine 2.5mg dailycheck b/p at home keep log Hyperlipidemia 51692447 E78.5 stressed diet, weight loss, exercise will continue with current ylcfota77cho 220trig 145HDL 57LDL 137 12/31/2021 cho 194trig [...] fat or skim), cream in your coffee. [facility]clin[facility] hypothyroidism 51058755 E02 05/12/2021T SH 2.16 tmivdj66/2 07/2021TSH 2.703/05/01 022TSH 3.1705/2021TSH 1.7906/2022TSH 1.90 Body mass index 30+ - obesity 570779247 Z68.33 BMI 40.4Health y weight range 100-125 Impaired g lucose tolerance 4947270 R73.02 05/2019 HA1C 5.511/14/2 020 HA1c 5.912/29/2 021 HA1C 6.407/06/2 022 HA1C 6.310/07/2 022 HA1C 5.402/03/2 023 HA1C 5.4did not tolerate metformin Patient wants to continue treatment Obesity 755953089 E66.8 diet weight loss and exerciseBM I 40.4Health y weight range 100-125 Seizure disorder 0058839 02 G40.909 Patient to continue Tegretol (carbameza [...] ine ER 200mg 1 p.o. tid Migraine 93425889 G43.90 9 Will continue Propranolo l 40mg 1 p.o. bidThe patient has been weaned off Topamax by neurologis twill use Naprosyn for breakthrou gh headaches Allergic rhinitis 382962 04 J30.9 otc meds-advis ed to start MARTITA as having some allergy symptoms Epigastric pain 96668239 R10.13 she had been having mid epigastric [...] u/s was all normal. CT abd/Pelvis from [facility] shows sliding hiatal herniadive rticulosis of sigmoid colonbilat eral fat containing inguinal herniaspat ient tried on Pepcid 20mg bid did not helpWill try on Omeprazole 20mg bid 1/2 hour before mealsNeeds to get EGD Hiatal hernia 72953284 K 44.9 Patient has abdominal bloating and discomfort after mealsTried pepcid 20mg bid not helpingPat ient will now try Omeprazole 20mg bidGet an EGD-referr al given on 03/04/2022- patient did not want to go to [facility] Lumbosacra l radiculopathy 1555121 M54.17 R>LMRI LSS w/o contrast on 05/18/2021 [...] HS to 900mg at HS Venous stasis 10168898 I 87.8 elevate legs wear support hose lose weight Onychomyco sis of toenails 119718034 B35.1 Great toenails dark black thickened Adenomatou s polyp of colon 777495609 D12.6 01/28/2019 colonoscop y shows adenomatou s polypneeds repeat colonoscop y in 2023Had normal repeat colonoscop y on 04/30/2024 no polyps seen but had hemorrhoid s and diverticul osis Herpes simplex 75662161 B00.9 Gave prophylaxi s treatment for 1 year Depression screening 171 355198 Z13.31 PHQ2-9 negative Mixed hyperlipidemia 267 189999 E78.2 stressed diet, weight loss, exercise will continue with current jemskmx77cho 220trig 145HDL 57LDL 137 12/31/2021 cho 194trig [...] coffee. Multiple s kin tags on neck 356873411 L91.8 patient wants removal of 2 skin tag s on neck bothering her with clothesPat ient doesnt want tissue to send for pathology secondary to insurance [id number] Brandon Joe MD [facility] [address], [place] [address] 08/27/2024 15:54:34 08/30/2024 09:57:25 Mixed hyperlipidemia 743186871 E78.2 stressed diet, weight loss, exercise will continue with current plvqnti67cho 220trig 145HDL 57LDL 137 12/31/2021 cho 194trig [...] and Atorvastat in 40mg daily Essential hypertension 14445265 I10 BP Goal: Less than 140/90BP Controlled : noHealthy Weight: 5'1= 100-131 lbsDiscuss ed: Low sodium balanced diet, moderate exercise at least 3-4 times per week for an average of 40 minutesNex t Visit: 3month(s)1 UN 9creatinin e 0.54eGFR 104 02/02/2022 BUN 10Creat 0.69 05/03/2023 BUN 9Creat 0.58eGFR 103 continue Losartan 100mg/Hydr ochlorothi azide 12.5mg dailyconti nue Atenolol 50mg one tab dailyconti nue amlodipine 2.5mg dailycheck b/p at home keep log [facility]clin[facility] hypothyroidism 89333393 E02 05/12/2021T SH 2.16 zwafkm80/2 07/2021TSH 2.703/05/01 022TSH 3.1705/2021TSH 1.7906/2022TSH 1.9006/2023TSH 4.440 pt voices taking medication Body mass index 30+ - obesity 674455402 Z68.33 BMI 40.4Health y weight range 100-125 Seizure disorder 2911777 02 G40.909 Patient to continue Tegretol (carbameza [...] ine ER 200mg 1 p.o. tid Hyperlipidemia 65238560 E78.5 stressed diet, weight loss, exercise will continue with current zkaosso58cho 220trig 145HDL 57LDL 137 12/31/2021 cho 194trig [...] in your coffee. Impaired g lucose tolerance 3364145 R73.02 05/2019 HA1C 5.511/14/2 020 HA1c 5.912/29/2 021 HA1C 6.407/06/2 022 HA1C 6.310/07/2 022 HA1C 5.402/03/2 023 HA1C 5.4did not tolerate metformin Patient wants to continue treatment with [facility] Obesity 367382341 E66.01 diet weight loss and exerciseBM I 40.4Health y weight range 100-125 Migraine 62170473 G43.90 9 Will continue Propranolo l 40mg 1 p.o. bidThe patient has been weaned off Topamax by neurologis twill use Naprosyn for breakthrou gh headaches Allergic rhinitis 108629 04 J30.9 otc meds-advis ed to start MARTITA as having some allergy symptoms Epigastric pain 48190602 R10.13 she had been having mid epigastric [...] u/s was all normal. CT abd/Pelvis from [facility] shows sliding hiatal herniadive rticulosis of sigmoid colonbilat eral fat containing inguinal herniaspat ient tried on Pepcid 20mg bid did not helpWill try on Omeprazole 20mg bid 1/2 hour before mealsNeeds to get EGD Hiatal hernia 65107295 K 44.9 Patient has abdominal bloating and discomfort after mealsTried pepcid 20mg bid not helpingPat ient will now try Omeprazole 20mg bidGet an EGD-referr al given on 03/04/2022- patient did not want to go to [facility] Lumbosacra l radiculopathy 8706168 M54.17 R>LMRI LSS w/o contrast on 05/18/2021 [...] HS to 900mg at HS Venous stasis 27431187 I 87.8 elevate legs wear support hose lose weight Adenomatou s polyp of colon 377453981 D12.6 01/28/2019 colonoscop y shows adenomatou s polypneeds repeat colonoscop y in 2023Had normal repeat colonoscop y on 04/30/2024 no polyps seen but had hemorrhoid s and diverticul osis Herpes simplex 10188829 B00.9 Gave prophylaxi s treatment for 1 year Pain of mu ltiple joints 52555573 M25.50 c/o left shoulder pain, neck pain, hand pain, back painswelli ng of handsdropp ing thingsfeel s weak Pain of le ft shoulder joint 4496137294 3678910 M25.512 seen [place] [facility] [place] this problemtak ing Gabapentin 300mg 3 at nightNapro syn 500mgadvis ed on NSAIDS BBBdoesnt want to go to PT right now Administra tion of influenza vaccine 83536768 Z23 Subconjunc tival hemorrhage of left eye 5016584610 92534 H11.32 [id number] Brandon Joe MD [facility] [address] [address] 12/01/2024 14:58:42 12/02/2024 13:09:54 Essential hypertension 90743432 I10 BP Goal: Less than 140/90BP Controlled : yesHealthy Weight: 5'1= 100-131 lbsDiscuss ed: Low sodium balanced diet, moderate exercise at least 3-4 times per week for an average of 40 minutesNex t Visit: 3month(s)1 UN 9creatinin e 0.54eGFR 104 02/02/2022 BUN 10Creat 0.69 05/03/2023 BUN 9Creat 0.58eGFR 103 continue Losartan 100mg/Hydr ochlorothi azide 12.5mg dailyconti nue Atenolol 50mg one tab dailyconti nue amlodipine 2.5mg dailycheck b/p at home keep log Hyperlipidemia 96783480 E78.5 stressed diet, weight loss, exercise will continue with current hsbqtye81cho 220trig 145HDL 57LDL 137 12/31/2021 cho 194trig [...] or skim), cream in your coffee. Migraine 73055980 G43.90 9 Will continue Propranolo l 40mg 1 p.o. bidThe patient has been weaned off Topamax by neurologis twill use Naprosyn for breakthrou gh headaches Seizure disorder 6650650 02 G40.909 Patient to continue Tegretol (carbameza [...] tid Body mass index 30+ - obesity 346710367 Z68.33 BMI 41.3Health y weight range 100-125 Mixed hyperlipidemia 267 732597 E78.2 stressed diet, weight loss, exercise will continue with current zkscyxg45cho 220trig 145HDL 57LDL 137 12/31/2021 cho 194trig [...] Atorvastat in 40mg daily Subclinica l hypothyroidism 39391626 E02 05/12/2021T SH 2.16 efyhca80/2 07/2021TSH 2.703/19/2 022TSH 3.1705/2021TSH 1.7906/2022TSH 1.9006/2023TSH 4.440 pt voices taking medication 08/28/2024 TSH 1.9 Impaired g lucose tolerance 2489426 R73.02 05/2019 HA1C 5.511/14/2 020 HA1c 5.912/29/2 021 HA1C 6.407/06/2 022 HA1C 6.310/07/2 022 HA1C 5.402/03/2 023 HA1C 5.410/14/2 024 HA1C 6.3%did not tolerate metformin Patient wants to continue treatment with [facility] Obesity 669634029 E66.01 diet weight loss and exerciseBM I 41.3Health y weight range 100-125 Allergic rhinitis 512900 04 J30.9 otc meds-advis ed to start MARTITA as having some allergy symptoms Epigastric pain 11379730 R10.13 she had been having mid epigastric [...] u/s was all normal. CT abd/Pelvis from [facility] shows sliding hiatal herniadive rticulosis of sigmoid colonbilat eral fat containing inguinal herniaspat ient tried on Pepcid 20mg bid did not helpWill try on Omeprazole 20mg bid 1/2 hour before mealsNeeds to get EGD Hiatal hernia 72329991 K 44.9 Patient has abdominal bloating and discomfort after mealsTried pepcid 20mg bid not helpingPat ient will now try Omeprazole 20mg bidGet an EGD-referr al given on 03/04/2022- patient did not want to go to [facility] she feels better from this problem on 12/01/2024 Lumbosacra l radiculopathy 6990061 M54.17 R>LMRI LSS w/o contrast on 05/18/2021 [...] HS to 900mg at HS Venous stasis 11813408 I 87.8 elevate legs wear support hose lose weight Adenomatou s polyp of colon 580562700 D12.6 01/28/2019 colonoscop y shows adenomatou s polypneeds repeat colonoscop y in 2023Had normal repeat colonoscop y on 04/30/2024 no polyps seen but had hemorrhoid s and diverticul osis Herpes simplex 89089167 B00.9 Gave prophylaxi s treatment for 1 year Pain of mu ltiple joints 93745487 M25.50 c/o left shoulder pain, neck pain, hand pain, back painswelli ng of handsdropp ing thingsfeel s weak2023 FER positivean ti-centrom ere B antibodies >8+Patient given referral to rheumatolo gist t has appt 12/10/2024 Pain of le ft shoulder joint 1105429585 9498730 M25.512 seen at [facility] for this problemtak ing Gabapentin 300mg 3 at nightNapro syn 500mgadvis ed on NSAIDS BBBdoesnt want to go to PT right noworder for shoulder x ray given on 10/2024 shoulder xray shows osteopenia weight bearing exercises, calcium plus vitamin T6jtnghgbn cular arthritis of L shoulder Postnasal discharge on posterior wall of pharynx 012316207 R09.82 Screening for malignant neoplasm of breast 524505855 Z12.31 patient had last mammogram on 06/08/2018= normal Pleuritic pain 8913461 R 07.81 R chest wallvoltar en gel prn [id number] Glenny Rudolph MD [facility] [address] [place] [address] 03/10/2025 15:31:11 03/11/2025 15:24:49 Subclinical hypothyroidism 67316163 E02 Labs 08/28/24: TSH 1.900Labs todayC/w levothyrox ine 75mcg Hyperlipidemia 67958502 E78.5 stressed diet, weight loss, exercise will continue with current therapy 09/30/2020 cho 220trig 145HDL 57LDL 137 12/31/2021 cho 194trig 131HDL 52LDL 126non-HDL 142 05/03/2023 cho 189Trig 157HDL 57LDL 105 05/05/2024 cho 165trig 90HDL 63LDL 85 Avoid all breads, potatoes, cereal, pasta, rice, margarine, refined sugars, milk yogurt, ice cream, juices, soda (including diet), beer, and manmade or manufactur ed desserts. Enjoy steak, fish, chicken (no skin), pork, butter, vegetables , beans, nuts, whole eggs, cheese (low fat or skim), cream in your coffee. Continue with atorvastat in 40 mg daily Essential hypertension 77409331 I10 BP today: 128/80BP Goal: Less than 140/90 BP Controlled : yes Healthy Weight: 4'11= 94-123 lbs Discussed: Low sodium balanced diet, moderate exercise at least 3-4 times per week for an average of 40 minutes, limiting alcohol to 1 drink per day (F) or 2 drinks per day (M), and smoking cessation if currently smoking. Uncontroll ed Hypertensi on potential risks, heart attack, , stroke, kidney failure etc. Hypertensi on is the silent Killer Take your Hypertensi on medication daily keep appointmen ts stop concentrat ed sugars--fo llow 1500 meal plan exercise 50-60 minutes daily on most days see eye doctor once a year see dentist every 6 months Next Visit: 3month(s) Continue with amlodipine 2.5 mg daily Continue with atenolol 50 mg daily Continue with losartan 100 mg-hydroch lorothiazi de 12.5 mg daily Obese class III 02901398 5 E66.813 BMI 42.4 Seizure disorder 0272907 02 G40.909 Denies seizure activityCo ntinue with carbamazep ine ER 200 mg 3 times a day Migraine 60711414 G43.90 9 Will continue Propranolo l 40mg 1 p.o. bidThe patient has been weaned off Topamax by neurologis twill use Naprosyn for breakthrou gh headaches Mixed hyperlipidemia 267 110829 E78.2 stressed diet, weight loss, exercise will continue with current equlivr78cho 220trig 145HDL 57LDL 137 12/31/2021 cho 194trig [...] with [facility] and Atorvastat in 40mg daily Impaired g lucose tolerance 0692726 R73.02 05/2019 HA1C 5.511/14/2 020 HA1c 5.912/29/2 021 HA1C 6.407/06/2 022 HA1C 6.310/07/2 022 HA1C 5.402/03/2 023 HA1C 5.410/14/2 024 HA1C 6.3%2024: 6.1%did not tolerate metformin Patient wants to continue treatment with [facility] Allergic rhinitis 883018 04 J30.9 otc meds-advis ed to start MARTITA as having some allergy symptoms Epigastric pain 47224447 R10.13 she had been having mid epigastric [...] u/s was all normal. CT abd/Pelvis from [facility] shows sliding hiatal herniadive rticulosis of sigmoid colonbilat eral fat containing inguinal herniaspat ient tried on Pepcid 20mg bid did not helpWill try on Omeprazole 20mg bid 1/2 hour before mealsNeeds to get EGD Hiatal hernia 72644384 K 44.9 Patient has abdominal bloating and discomfort after mealsTried pepcid 20mg bid not helpingPat ient will now try Omeprazole 20mg bidGet an EGD-referr al given on 03/04/2022- patient did not want to go to [facility] ports she feels better from this problem on 12/01/2024 Lumbosacra l radiculopathy 9743271 M54.17 R>LMRI LSS w/o contrast on 05/18/2021 [...] HS to 900mg at HS Venous stasis 43282673 I 87.8 elevate legs wear support hose lose weight Adenomatou s polyp of colon 828992813 D12.6 01/28/2019 colonoscop y shows adenomatou s polypneeds repeat colonoscop y in 2023Had normal repeat colonoscop y on 04/30/2024 no polyps seen but had hemorrhoid s and diverticul osis Pain of mu ltiple joints 28490560 M25.50 c/o left shoulder pain, neck pain, hand pain, back painswelli ng of handsdropp ing thingsfeel s weak2023 FER positivean ti-centrom ere B antibodies >8+Patient given referral to rheumatolo gist t had appt 12/10/2024 Pain of le ft shoulder joint 1852329551 2438091 M25.512 seen at [facility] for this problemtak ing Gabapentin 300mg 3 at nightNapro syn 500mgadvis ed on NSAIDS BBBorder for shoulder x ray given on 10/2024 shoulder xray shows osteopenia weight bearing exercises, calcium plus vitamin X6qmavshxo cular arthritis of L shoulder Finished PT 03/09/25Has appt on 04/02/25 with ortho- keep appt Health Concerns Section Related Observation LastModified by Organization Detai ls LastModified Time None Recorded Concern Status LastModified by Organization Details LastModified Time None Recorded Advance Directives Directive N: Payers Encounter Date Sequence Insurance Name Policy Number Policy Byers Covered Member ID Byers Member ID Guarantor Name 01/08/2024 1 [facility] [id number] Tania Mak [id number] Tania Mak 05/04/2024 1 [facility] [id number] Tania Mak [id number] Tania Mak 08/27/2024 1 [employer] [id number] Tania Mak [id number] Tania Mak 12/01/2024 2 *SELF PAY* Ro feroz Mak 12/01/2024 1 [employer] [id number] Tania Mak [id number] Tania Mak 03/10/2025 1 [employer] [id number] Tania Mak [id number] Tania Mak Notes Date Note Type Note Provider Name and Address Organization Details Recorded Time 01/08/20 24 text/htm l HeadacheReported bypatient.Onset/Timing:better Context:not [...] to get ozempic via mail service or getbetter! to get coverage. Amlita Martinez, ABLE SEAMAN- Attn: Accounting[address] [place], [address], [facility] - [facility] 01/12/2024 17:46:08 05/04/20 24 text/htm l HeadacheReported [...] feels its makes her hair fall off. TEO Catalan-ANIVAL Attn: Accounting[address] [place], [address], [facility] - [facility] 05/07/2024 15:33:17 08/27/20 24 text/htm l HeadacheReported [...] get influenza vaccine. She has no contraindications. DOLORES Catalan Attn: Accounting[address] [place], [address], [place] - [facility] 08/27/2024 17:23:18 12/01/19 25 text/htm l HeadacheReported [...] of the shoulder. She was referred to distance education coordinator for further management and has appointment at [...] Reports her sister told her to get Tesleatha Castellanos. Reports she has been having some R lateral chest wall pain for a few days. It hurts to breathe in sometimes.Patient is requesting an order for mammogram as she is due. TRACEY CatalanP- Attn: Accounting[address] [place], [address], [place] [facility] 12/01/2024 17:46:20 03/10/20 25 text/htm l Hypertension F/UReported bypatient.Associated Symptoms:no dizziness; no lightheadedness; no chest pain; no shortness of breath; no palpitations; no edema; no calf pain with exertion Lifestyle:regular exercise; limiting/avoiding salt Medications:taking medications as directed; no side effects from medication 64-year-old female here for follow-up chronic conditions. Patient states she finished PT yesterday for her left shoulder pain. Patient states PT did not really help much but has an appointment with ortho on 04/02/2025. SHANTI KNOTT PA-C Attn: Accounting[address] [facility], [place], [address], [place] [facility] 03/10/2025 16:42:53 OBGyn Episode Ob Episode Information Episode Created Date Number of Fetuses Patient Bloodtype Patient rh Status Prepregnancy Weight lbs Domestic Partner Domestic Partner Phone Father Name Insurance Underwriter Status 05/26/20 15 1 CLOSED Fetus Data First Name Last Name Admitted to NICU Weight (g) Sex Living Outcome Pediatric Complications Fetus ID Race Codes Race Delivery Type [id number] Cody Calculation Initial Cody Date Initial Exam [...] Domestic Partner Domestic Partner Phone Father Name Insurance Underwriter Status 05/26/20 15 1 CLOSED Fetus Data First Name Last Name Admitted to NICU Weight (g) Sex Living Outcome Pediatric Complications Fetus ID Race Codes Race Delivery Type [id number] Vaginal Cody Calculation Initial Cody Date Initial [...] Domestic Partner Domestic Partner Phone Father Name Insurance Underwriter Status 05/26/20 15 1 CLOSED Fetus Data First Name Last Name Admitted to NICU Weight (g) Sex Living Outcome Pediatric Complications Fetus ID Race Codes Race Delivery Type [id number] Vaginal Cody Calculation Initial Cody Date Initial [...] Domestic Partner Domestic Partner Phone Father Name Insurance Underwriter Status 05/26/20 15 1 CLOSED Fetus Data First Name Last Name Admitted to NICU Weight (g) Sex Living Outcome Pediatric Complications Fetus ID Race Codes Race Delivery Type [id number] Vaginal Cody Calculation Initial Cody Date Initial [...]
--- OUTSIDE RECORDS SUMMARY | 2025-04-12 11:11 | XMS_ITS | Referral Summary ---
Author Organization [facility] Address [address] [place] [address] Care Team Providers Care Electrophysiology Technologist Name Role Phone MehranAlmita ISA Primary Care Provider [phone] Encounters Date Type Department Care Team Description 04/01/2025 11:15 AM CDT Office Visit [facility] Rheumatology [address] [facility] [address] [place] [id number] Josef Sampson MD Centromere antibody positive (Primary Dx); Bradycardia; Cervical radiculopathy; Trigger ring finger of left hand 01/21/2025 11:45 AM LINE O SCRIBE OPERATOR Office Visit [facility] Surgery [address] [facility] Medicine 6th [address] [place] [id number] Faye Walker MD PhD Trigger ring finger of left hand (Primary Dx) from Last 3 Months Allergies No known active allergies Medications atenoloL (TENORMIN) 50 mg tablet Take 1 tablet (50 mg total) by mouth daily Active losartan-hydroC HLOROthiazide (HYZAAR) [...] a day 180 capsule 3 07/18/2020 Active amLODIPine (NORVASC) 2.5 mg tablet Take 1 tablet every day by oral route, for for Hypertension . 12/01/2024 Active atorvastatin (LIPITOR) 40 mg tablet Take 1 tablet every day by oral route, for cholesterol. 12/01/2024 Active levothyroxine (SYNTHROID) 75 mcg tablet Take 1 tablet every day by oral route, for thyroid. 12/01/2024 Active cholecalciferol (VITAMIN D-3) 2000 unit capsule Take 1 capsule every day by oral route. 09/19/2020 Active cetirizine (ZyrTEC) 10 mg capsule Take by oral route. Active gabapentin (NEURONTIN) 300 mg capsule Take 1 capsule (300 mg total) by mouth 3 (three) times a day 90 capsule 2 12/27/2024 Active Active Problems Problem Noted Date Diagnosed [...] usage. Fall 04/28/2020 Vitamin D deficiency 04/28/2020 HTN (hypertension) Seizures Social History Tobacco Use Types Packs/Day Years Used Date Smoking Tobacco: Never Smokeless Tobacco: Never Tobacco Cessation:Counseling Given: Not Answered Comments Unknown Sex and Gender Information Value Date Recorded Sex Assigned at Not on file Legal Sex Female 7:43 PM LINE O SCRIBE OPERATOR Gender Identity Not on file Sexual Orientation Not on file Last Filed Vital Signs Vital Sign Reading Time Taken Comments Blood Pressure 138/69 04/01/2025 11:38 AM CDT Pulse 50 04/01/2025 11:38 AM CDT Temperature 36.9 C (98.4 F) 04/01/2025 11:38 AM CDT Respiratory Rate 20 04/01/2025 11:38 AM CDT Oxygen Saturation 98% 04/01/2025 11:38 AM CDT Inhaled Oxygen Concentration - - Weight 91.4 kg (201 lb 6.4 oz) 04/01/2025 11:38 AM CDT Height 152.4 cm (5') 04/01/2025 11:38 AM CDT Body Mass Index 39.33 04/01/2025 11:38 AM CDT Plan of Treatment Not on file Insurance [employer] Care Teams Electrophysiology Technologist Relationship Specialty Start Date End Date Almita Laurent NP [address] [place] [address] PCP - General Nurse Practitioner 06/21/20
--- OUTSIDE RECORDS SUMMARY | 2025-04-12 11:11 | XMS_ITS | Clinical Summary ---
Author Organization [facility] Address [address] [place] [address] Phone Care Team Providers Care Machine Baster Name Role Phone Unavailable Primary Care Provider [...] Comments DTAP/TDAP/TD VACCINES (1 - Tdap) 1980 HPV/Cotest (21-29) 1982 CERVICAL CANCER SCREENING 1991 HPV/Cotest (30-65) 1991 PAP SMEAR 1991 COLORECTAL SCREENING 2006 Colorectal Cancer Screening 2006 FIT-DNA Q 3 years 2006 FIT/FOBT Q 1 year 2006 Flex Sig/CT Colonography Q 5 years 2006 ZOSTER VACCINE (1 of 2) 2011 BREAST CANCER SCREENING 02/22/2014 02/22/2013 INFLUENZA VACCINE (#1) 2024 RSV VACCINE (60+ or ) (1 - 1-dose 75+ series) 2036 Procedures Procedure Name Priority Date/Time Associated Diagnosis [...] COMPARISON: Made to multiple prior studies from [facility] dating back to June 2002. BREAST COMPOSITION: Predominantly fatty replaced. FINDINGS: No dominant masses, suspicious calcifications, parenchymal asymmetry or areas of architectural distortion are identified in either breast. OVERALL ASSESSMENT: BI-RADS Category 1: Negative. RECOMMENDATIONS: Recommend continued annual mammography. Dictated from [facility] Procedure Note Og Arnold MD - 02/24/2013 BILATERAL DIGITAL SCREENING MAMMOGRAM WITH CAD , Feb 22, 2013 01:07:00 PM INDICATION: Routine screening. TECHNIQUE: Standard images were obtained of both breasts on a digital system. CAD was utilized. COMPARISON: Made to multiple prior studies from [facility] dating back to June 2002. BREAST COMPOSITION: Predominantly fatty replaced. FINDINGS: No dominant masses, suspicious calcifications, parenchymal asymmetry or areas of architectural distortion are identified in either breast. OVERALL ASSESSMENT: BI-RADS Category 1: Negative. RECOMMENDATIONS: Recommend continued annual mammography. Dictated from [facility] Only Yy MAMMO ORDERABLES Final Res ult from Last 3 Months or Most Recently Relevant to Health Maintenance
--- OUTSIDE RECORDS SUMMARY | 2025-04-12 11:11 | XMS_ITS | Clinical Summary ---
Author Organization [facility] Address [address] [place] [address] Care Team Providers Care Ceramic Plater Name Role Phone Almita Laurent PROPELLER INSPECTOR-DIRT CONTRACTOR Primary Care Pro vider Source Comments [facility],non-owned Affiliates and Associated Physician Practices is amultiple site organization consisting of ambulatory clinics and hospital sitesin [place], [place], [place] and [place]. This disclosure is being madepursuant to the Care Everywhere program and may not contain all information available regarding this patient. Last updated 18.[facility] Allergies No known active allergies Medications * Be aware that medications may not be up to date on this document. Alwaysverify current medications with the patient. losartan - hydroCHLOROthiazide (HYZAAR) 50-12.5 MG tabletIndications:Hyper tension Take 1 tablet by mouth once daily Reasons: High Blood Pressure Disorder Active atenolol (TENORMIN) 50 MG tabletIndications:Hyper tension Take 50 mg by mouth once daily [...] of Binge Drinking Not on file 04/17 Comments No Sex and Gender Information Value Date Recorded Sex Assigned at Not on file Legal Sex Female 10:05 AM CDT Gender Identity Not on file Sexual Orientation Not on file Last Filed Vital Signs Vital Sign Reading Time Taken Comments Blood Pressure 160/77 05/05/2020 12:03 PM CDT Pulse 63 05/05/2020 12:03 PM CDT Temperature 36.7 C (98 F) 05/05/2020 12:03 PM CDT Respiratory Rate 18 05/05/2020 12:03 PM CDT Oxygen Saturation 97% 05/05/2020 12:03 PM CDT Inhaled Oxygen Concentration - - Weight 81.6 kg (180 lb) 06/11/2021 9:59 AM CDT Height 157.5 cm (5' 2) 06/11/2021 9:59 AM CDT Body Mass Index 32.92 06/11/2021 9:59 AM CDT Plan of Treatment Health Maintenance Due Date Last Done Comments COLOGUARD (AGES 45-75) - COLON CA SCREENING 1961 COLON MONITORING 1961 COLONOSCOPY - COLON CA SCREENING 1961 CT COLONOGRAPHY - COLON CA SCREENING 1961 Colorectal Cancer Screening 1961 FIT - COLON CA SCREENING 1961 FLEX SIG - COLON CA SCREENING 1961 HIV SCREENING 1976 HEPATITIS C SCREENING 11/20/1979 DTAP/TDAP/TD VACCINES (1 - Tdap) 1980 PNEUMOCOCCAL VACCINE 50+ (1 of 1 - PCV) 2011 ZOSTER VACCINE (1 of 2) 2011 MAMMOGRAM 02/22/2015 02/22/2013 SCREENING FOR DIABETES 05/05/2023 0, 05/04/2020, 05/03/2020, Additional history exists COVID-19 VACCINE (2023- season) 2024 DEPRESSION SCREENING 11/17/2024 INFLUENZA VACCINE (Season Ended) 2025 Respiratory Syncytial Virus (RSV) Vaccine Pt: or over 60 yrs (1 - 1-dose 75+ series) 2036 HEPATITIS B VACCINE Aged Out No longe r eligible based on patient's age to complete this topic HIB VACCINE Aged Out No longer eligi ble based on patient's age to complete this topic HPV VACCINE Aged Out No longer eligi ble based on patient's age to complete this topic MENINGOCOCCAL (Group B) VACCINE SHARED DECISION-MAKING Aged Out No longer eligible based on patient's age to complete this topic MENINGOCOCCAL GROUPS A/C/Y/W VACCINE Aged Out No longer eligible based on patient's age to complete this topic Goals Goal Patient Goal Type Associated Problems Recent Progress Patient-Stated? Author Mobility General Improving(02/16 9:58 AM CDT) Roberta Irving, RN Note: Expected end date: ongoing The goal is to maintain or improve your mobility at the optimum level for you. Interventions: Medical Devices Implanted Type Area Marker Maker Device Identifier Shelf Expiration Date Model / Serial / Lot Plate 3 Hl Lck Tib Rt Prox Std Crv Alps Implanted:Qty: 1 on 05/03/2020 by Dorothy Acosta MD at [facility] Right: [employer] [id number] / / Screw 3.5mm 18mm 2.5mm Slf-Tap Sm Hex Implanted:Qty: 1 on 05/03/2020 by Dorothy Acosta MD at [facility] Right: [employer] [id number] / / Screw 4mm 2.5mm 20mm P/T Canc Sm Hex Implanted:Qty: 1 on 05/03/2020 by Dorothy Acosta MD at [facility] Right: [employer] [id number] / / Screw 4mm 18mm 2.5mm P/T Slf-Tap Sm Hex Implanted:Qty: 1 on 05/03/2020 by Dorothy Acosta MD at [facility] Right: [employer] [id number] / / Plate 6 Hl 2 Comp Colr 73mm 1/3 Tblr Implanted:Qty: 1 on 05/03/2020 by Dorothy Acosta MD at [facility] Right: [employer] [id number] / / Screw 3.5mm 60mm 2.2mm Mldir Lck Sq Drv Implanted:Qty: 1 on 05/03/2020 by Dorothy Acosta MD at [facility] Right: [employer] [id number] / / Screw 3.5mm 28mm Ft Nonlock Hex Drv Elb Implanted:Qty: 1 on 05/03/2020 by Dorothy Acosta MD at [facility] Right: [employer] [id number] / / Screw 3.5mm 58mm T15 Slf-Tap Lck Tpr Implanted:Qty: 1 on 05/03/2020 by Dorothy Acosta MD at [facility] Right: [employer] [id number] / / Screw 3.5mm 60mm T15 Lck Slf-Tap Tip Tpr Implanted:Qty: 3 on 05/03/2020 by Dorothy Acosta MD at [facility] Right: [employer] [id number] / / Screw 3.5mm 65mm T15 Lck Slf-Tap Tip Tpr Implanted:Qty: 2 on 05/03/2020 by Dorothy Acosta MD at [facility] Right: [employer] [id number] / / Wire K 1.6mm 150mm 1 End Troc Pnt Ss Sm Implanted:Qty: 1 on 05/03/2020 by Dorothy Acosta MD at [facility] Right: [employer] [id number] / / Screw 3.5mm 14mm 2.5mm Slf-Tap Sm Hex Implanted:Qty: 2 on 05/03/2020 by Dorothy Acosta MD at [facility] Right: [employer] [id number] / / Explanted Type Area Marker Maker Device Identifier Shelf Expiration Date Model / Serial / Lot Screw 3.5mm 75mm T15 Lck Lopro Slf-Tap Explanted:Qty: 1 on 05/03/2020 by Dorothy Acosta MD at [facility] Right: [employer] [id number] / / Procedures Procedure Name Priority Date/Time [...] 7 - 26 mg/dL 05/05/2020 3:34 AM [facility] Creatinine 0.5(L) 0.6 - 1.2 mg/dL 05/05/2020 3:34 AM [facility] Sodium 139 136 - 145 mmol/L 05/05/2020 3:34 AM [facility] Potassium 3.7 3.5 - 4.5 mmol/L 05/05/2020 3:34 AM [facility] Chloride 105 98 - 107 mmol/L 05/05/2020 3:34 AM [facility] CO2 24 22 - 29 mmol/L 05/05/2020 3:34 AM [facility] Glucose 126(H) 70 - 115 mg/dL 05/05/2020 3:34 AM [facility] Calcium 8.5 8.4 - 10.2 mg/dL 05/05/2020 3:34 AM T [facility] Anion Gap 14 8 - 18 05/05/2020 3:34 AM [facility] BUN/Creatinine Ratio 16 7 - 23 05/05/2020 3:34 AM [facility] Osmolality Calculated 288 270 - 300 mOsm/kg 05/05/2020 3:34 AM [facility] eGFR >60 >60 mL/min/1.7 3 m2 05/05/2020 3:34 AM [facility] Blood BLOOD SPECIMEN / Unknown Lab Venipuncture / Unknown 05/05/2020 1:59 AM CDT 05/05/2020 2:54 AM CDT Eusebio Pederson MD LAB - CHEMISTRY ORDERABLES Cathy davila Result Performing Organization Address City/State/[facility] Co de Phone Number [address] [id number] [phone] from Last 3 Months or Most Recently Relevant to Health Maintenance Insurance [facility] Advance Directives * Full Code (Latest Code Status on File) Date Activated Date Inactivated Comments 04/28/2020 3:46 AM 05/05/2020 5:26 PM Care Teams Ceramic Plater Relationship Specialty Start Date End Date Almita Laurent APRN-SOUTH [address] [place] [id number] PCP - General 05/26/19
--- OUTSIDE RECORDS SUMMARY | 2025-04-12 11:11 | XMS_ITS | Clinical Summary ---
Author Organization [facility] Address [address] [place] [address] Care Team Providers Care Adult Services Librarian Name Role Phone Almita Laurent NP Primary Care Provider Allergies No known active allergies Medications atenoloL [...] Vitamin D deficiency 04/28/2020 HTN (hypertension) Seizures Encounters Date Type Department Care Team Description 04/01/2025 11:15 AM CDT Office Visit [facility] Rheumatology [address] [facility] Medicine 5th [place] [address] [place] [address] Josef Sampson MD Centromere antibody positive (Primary Dx); Bradycardia; Cervical radiculopathy; Trigger ring finger of left hand 01/21/2025 11:45 AM BELT SANDER Office Visit [facility] Surgery [address] [facility] 6th [place] [address] [place] [address] Faye Walker MD PhD Trigger ring finger of left hand (Primary Dx) from Last 3 Months Surgical History Surgery Date Site/Laterality Comments LEG SURGERY SECTION EAR SURGERY Medical History Medical History Date Comments Seizures (HCC) HTN (hypertension) Migraines Family History Medical History Relation Name Comments [...] on file Legal Sex Female 7:43 PM BELT SANDER Gender Identity Not on file Sexual Orientation [...] 04/01/2025 11:38 AM CDT Plan of Treatment Health Maintenance Due Date Last Done Comments Cervical Cancer Screening 1961 Colon Cancer Screening-Colonoscopy 1961 Depression Screening 1961 Hepatitis C Screening 1961 Hepatitis B Screening 1979 Regular Well Visit/Exam 18-64 1979 Covid-19 Vaccine ( season) 2024 09/05/2021, 02/03/2021 Breast Cancer Screening-Mammogram 12/07/2025 12/07/2024, 09/27/2023, 02/22/2013 DTaP/Tdap/Td Vaccine (4 - Td or Tdap) 01/30/2032 01/29/2022, 03/15/2014, 02/25/2008 Zoster Vaccine Completed 04/11/2023, 01/12/2023 Pneumococcal vaccine <65 Aged Out 01/08/2024, 02/16 No longer eligible based on patient's age to complete this topic Influenza Vaccine Completed 08/27/2024, , 08/23/2022, Additional history exists Insurance [employer] ACCESS O[employer]OS Care Teams Adult Services Librarian Relationship Specialty Start Date End Date Almita Laurent NP [address] [place] [address] PCP - General Nurse Practitioner 06/21/20
[2025-04-12 11:16] VITALS: BP 148/59; PULSE 55; RESP 16; TEMP 36.6; O2SAT 100
--- NOTE | 2025-04-12 12:32 | ECG_ITS ---
Test Date: 2025-04-12 13:23:15 Measurements Intervals [place] Rate: 53 P: 45 VA: 180 QRS: 24 QRSD: 90 T: 82 QT: 457 QTc: 430 Interpretive Statements SINUS BRADYCARDIA POSSIBLE RIGHT VENTRICULAR CONDUCTION DELAY [RSR (QR) IN V1/V2] NONSPECIFIC T-WAVE ABNORMALITY No previous ECG available for comparison Electronically Signed On 04-12-2025 14:28:23 CDT by Yamilex Acosta M.D.
[2025-04-12 12:33] VITALS: BP 151/74; PULSE 56; RESP 18; O2SAT 98
--- OUTSIDE RECORDS SUMMARY | 2025-04-12 12:55 | XMS_ITS | Clinical Summary ---
Author Organization [facility] Address [address] [facility] [facility] [address] [place] [address] Phone Care Team Providers Care Cell Geneticist Name Role Phone Almita Laurent APRN Primary Care Provider [phone] Social History Tobacco Use Types Packs/Day Years [...] Recently Relevant to Health Maintenance Care Teams Cell Geneticist Relationship Specialty Start Date End Date Almita Laurent APRN [address] [place] [address] PCP - General Advanced Practice Nurse 09/02/17
--- NOTE | 2025-04-12 13:10 | ED_ITS ---
HPI - General Adult General Chief complaint: Headache Stated complaint: Migraine, joint pain, nausea x 3 days Time Seen by Provider: 04/12/25 12:44 History of Present Illness HPI narrative: 64-year-old female with history of migraines presenting to the emergency department for evaluation for 4 days of body aches fatigue nausea without vomiting and migraine. Patient states typical migraines for her located at the front and top of her head. Patient states her current headache has the top and back of her head. Is complaining increased muscular soreness does have nausea without vomiting. Patient states she has not been wearing a fevers. Patient is present with her daughter and daughter is translating. They preferred not to use the translation services Related Data Home Medications ?Medication ?Instructions ?Recorded ?Confirmed ?Last Taken ?Type atenolol 50 mg tablet 50 mg PO DAILY 01/03/20 08/10/24 Unknown History amlodipine 2.5 mg tablet 2.5 mg PO DAILY 04/15/24 08/10/24 Unknown History atorvastatin 40 mg tablet 40 mg PO HS 04/15/24 08/10/24 Unknown History carbamazepine 200 mg 300 mg PO TID 04/15/24 08/10/24 Unknown History tablet,extended release,12 hr gabapentin 300 mg capsule 900 mg PO HS 04/15/24 08/10/24 Unknown History levothyroxine 75 mcg tablet 75 mcg PO DAILY 04/15/24 08/10/24 Unknown History losartan 100 1 tablet PO DAILY 04/15/24 08/10/24 Unknown History mg-hydrochlorothiazide 12.5 mg tablet mv,Ca,wug-bsjt-awbah acid-lutein 1 tablet PO DAILY 04/15/24 08/10/24 Unknown History 18 mg iron-400 mcg-6 mg tablet (One-A-Day Women's Healthy Skin) Allergies Allergy/AdvReac Type Severity Reaction Status Date / Time No Known Allergies Allergy Verified 04/12/25 11:09 Review of Systems 2 Review of Systems: All systems reviewed & are unremarkable except as noted in HPI and below PMFSH Past Medical History Medical History Colon cancer screening Epilepsy HTN (hypertension) Hyperlipidemia Hyperthyroidism Migraines Surgical History Surgical History Hx of section Social History Social History Smoking status: Never smoker Alcohol intake: never Substance use: never Substance use type: does not use Living arrangements: with family Gender identity (if verbalized by the patient): Female Spiritual care concerns: No Exam 2 Narrative: APPEARANCE: Well appearing, no pain, no distress, well-nourished. HEAD: normocephalic, atraumatic. EYES: PERRLA/EOMI, conjunctivae clear. NOSE: Normal no drainage EARS:TMS clear with good light reflex. THROAT: Pharynx clear, no exudate. NECK: Supple. No adenopathy, no masses. RESPIRATORY: Airway patent, respirations nonlabored. Clear to auscultation bilaterally, no rales, rhonchi, wheezing. CARDIOVASCULAR: Regular rate and rhythm without murmurs rubs or gallops. ABDOMINAL: Soft, nontender, nondistended, normal bowel sounds MUSCULOSKELETAL: Bilateral muscular tenderness to the trapezius muscles. NEURO: Alert. Cranial nerves II through XII intact. Good gait. Good coordination SKIN: Warm, dry. Normal Color Course Vital Signs Vital signs: Vital Signs Temperature 97.9 F 04/12/25 11:16 Pulse Rate 55 L 04/12/25 11:16 Respiratory Rate 16 04/12/25 11:16 Blood Pressure 148/59 H 04/12/25 11:16 Pulse Oximetry 100 04/12/25 11:16 Oxygen Delivery Room Air 04/12/25 11:16 Temperature 97.6 F 04/12/25 16:40 Pulse Rate 56 L 04/12/25 16:40 Respiratory Rate 19 04/12/25 16:40 Blood Pressure 133/64 04/12/25 16:40 Pulse Oximetry 100 04/12/25 16:40 Oxygen Delivery Room Air 04/12/25 11:16 Medical Decision Making MDM Narrative Medical decision making narrative: 64-year-old female presents to the emergency department for evaluation for fatigue, body aches and headache. Patient does describe muscular tenderness and does have bilateral trapezius tenderness to palpation. Patient does have a history of migraines but states this headache is different. Patient states that her typical migraines are more anterior this is more posterior. Patient does have reproducible tenderness to the trapezius muscles. Patient is currently afebrile with no leukocytosis hemoglobin of 12.0. No acute abnormalities on her CMP UA was negative for infection. Patient was negative for influenza RSV and for COVID. Chest x-ray showed no acute abnormalities. Suspect viral etiology and muscle ache. Patient did feel improved with IV fluids, IV Compazine, IV Benadryl and IV Toradol. Patient family updated the results of the workup. All questions concerns were addressed. Differential Diagnosis Differential Diagnosis: Meningitis, viral syndrome, COVID, RSV, influenza, muscular strain, dehydration, migraine, headache Vital Signs Vital Signs: Vital Signs Temperature 97.9 F 04/12/25 11:16 Pulse Rate 55 L 04/12/25 11:16 Respiratory Rate 16 04/12/25 11:16 Blood Pressure 148/59 H 04/12/25 11:16 Pulse Oximetry 100 04/12/25 11:16 Oxygen Delivery Room Air 04/12/25 11:16 Temperature 97.6 F 04/12/25 16:40 Pulse Rate 56 L 04/12/25 16:40 Respiratory Rate 19 04/12/25 16:40 Blood Pressure 133/64 04/12/25 16:40 Pulse Oximetry 100 04/12/25 16:40 Oxygen Delivery Room Air 04/12/25 11:16 Lab Data Lab results reviewed: Yes I reviewed the patient's lab results. 04/12/25 14:21 04/12/25 14:21 Labs: Lab Results 04/12/25 04/12/25 04/12/25 Range/Units 13:21 14:21 15:27 WBC 3.4 L (4.5-10.0) K/mm3 RBC 3.71 L (4.2-5.4) M/mm3 Hgb 12.0 (12.0-15.0) g/dL Hct 36.8 L (37.0-47.0) % MCV 99.2 (80-100) fl MCH 32.3 (26-34) pg MCHC 32.6 (32-36) g/dl RDW 12.0 (11.5-14.5) % Plt Count 158 (150-375) k/mm3 MPV 10.7 H (7.4-10.4) fl Immature Gran % (Auto) 0.3 (0-0.5) % Neut % (Auto) 45.5 (45.5-73.1) % Lymph % (Auto) 41.3 (18.3-44.2) % [place] % (Auto) 7.9 (2.6-8.5) % Eos % (Auto) 4.1 (0-4.4) % Baso % (Auto) 0.9 (0.2-1.2) % Lymph # (Auto) 1.41 (0.9-3.2) K/mm3 [place] # (Auto) 0.3 (0.1-0.6) K/mm3 Eos # (Auto) 0.1 (0-0.3) K/mm3 Baso # (Auto) 0.0 (0.0-0.1) K/mm3 Abs Immat Gran (auto) 0.01 (0.00-0.031) K/mm3 Absolute Neuts (auto) 1.6 (1.3-6.7) K/mm3 Absolute Nucleated RBC 0.000 (0.0-0.012) K/mm3 Nucleated RBC % 0.0 (0.0-0.2) % Sodium 139 (137-145) mmol/L Potassium 3.6 (3.4-5.0) mmol/L Chloride 104 (98-107) mmol/L Carbon Dioxide 31 H (22-30) mmol/L Anion Gap 4 (4-12) mmol/L BUN 8 (7-17) mg/dL Creatinine 0.50 L (0.7-1.0) mg/dL Estim Creat Clear Calc 97 ml/min Estimated GFR > 60 (59 - ) Glucose 105 (65-110) mg/dL Calcium 8.6 (8.4-10.2) mg/dL Total Bilirubin 0.2 (0.2-1.3) mg/dL AST 36 (14-36) U/L ALT 28 (6-35) U/L Alkaline Phosphatase 75 (38-126) U/L Total Protein 6.0 L (6.3-8.2) g/dL Albumin 3.9 (3.5-5.1) g/dL Urine Color Yellow (Yellow) Urine Appearance Clear (Clear) Urine pH 7.0 (5.0-9.0) Ur Specific [place] 1.006 (1.001-1.035) Urine Protein Negative (Negative) mg/dL Urine Glucose (UA) Negative (Negative) mg/dL Urine Ketones Negative (Negative) mg/dL Ur Blood (Man) Negative (Negative) Urine Nitrate Negative (Negative) Urine Bilirubin Negative (Negative) Urine Urobilinogen 0.2 (<2.0) mg/dL Leukocyte Esterase Rfl Trace H (Negative) MART/UL Urine RBC 0-2 (0-2) /hpf Urine WBC 0-5 (0-3) /hpf Ur Squamous Epith Cells None seen (Few) /hpf Urine Bacteria None seen /hpf Urine Casts 0-2 Influenza A (RT-PCR) Negative (Negative) Influenza B (RT-PCR) Negative (Negative) RSV (RT-PCR) Negative (Negative) SARS-CoV-2 RNA (RT-PCR) Negative (Negative) Imaging Data Radiologist's impression: Impressions Chest X-Ray 04/12/25 12:59 Impression: Normal chest. ECG Data EKG #1: EKG Interpretation: bradycardia, sinus rhythm, no ectopy, non-specific ST changes, normal QRS and NL axis Discharge Plan Discharge Clinical Impression: Myalgia, Headache, Acute viral syndrome Patient Disposition: Home Condition: Stable Instructions: Antibiotic Form, Viral Syndrome (ED) Additional Instructions: Tylenol and ibuprofen for pain control. Drink plenty of fluids. Have close follow-up with your primary care physician. If you have any worsening symptoms then please call or return to the emergency department. Patient Language: Nepali Prescriptions: New cyclobenzaprine 10 mg tablet 10 mg PO BID PRN (Reason: muscle spasm) Qty: 14 0RF No Action naproxen 500 mg tablet 500 mg PO BID PRN (Reason: pain) Qty: 20 0RF atenolol 50 mg Tablet 50 mg PO DAILY atorvastatin 40 mg tablet 40 mg PO HS amlodipine 2.5 mg tablet 2.5 mg PO DAILY levothyroxine 75 mcg tablet 75 mcg PO DAILY carbamazepine 200 mg tablet extended release 12 hr 300 mg PO TID gabapentin 300 mg capsule 900 mg PO HS losartan-hydrochlorothiazide 100-12.5 mg tablet 1 tablet PO DAILY One-A-Day Women's Healthy Skin 18 mg iron-400 mcg-6 mg Tablet 1 tablet PO DAILY Follow-up/Referrals: PHYSICIAN,BILINGUAL CUSTOMER SERVICE SPECIALIST [Primary Care Provider] -
[2025-04-12] MEDS: LACTATED RINGERS 1,000 ML 999 ML IV CONT (13:38)
[2025-04-12 13:41] LABS: Add Urine Microscopic? YES; Appearance Urine Clear (Clear); Bacteria Urine None Seen /hpf; Bilirubin Urine Negative (Negative); Blood Urine Negative (Negative); Color Urine Yellow (Yellow); Glucose Urine UA Negative (Negative); Ketones Urine Negative (Negative); Leukocyte Esterase Ur Trace LEU/UL (Negative); Nitrate Urine Negative (Negative); Non Pathogenic Casts 0-2; Protein Urine Negative (Negative); RBC Urine 0-2 /hpf (0-2); Specific Grav Ur 1.006 (1.001-1.035); Squamous Epithelial Cell Urine None Seen /hpf (Few); Urobilinogen Urine 0.2 mg/dL (<2.0); WBC Urine 0-5 /hpf (0-3)
[2025-04-12] MEDS: diphenhydrAMINE HCl INJ 50 MG/ML VIAL 25 MG IV PUSH (13:44)
[2025-04-12] MEDS: KETOROLAC 15 MG/ML VIAL (*BKC) IV PUSH (14:17)
[2025-04-12] MEDS: PROCHLORPERAZINE EDISYLATE 10 MG/2 ML VIAL IV PUSH (14:17)
[2025-04-12] MEDS: CYCLOBENZAPRINE HCL 10 MG TABLET PO (14:17)
[2025-04-12 14:42] LABS: Alanine Aminotransferase 28 U/L (6-35); Albumin Level 3.9 g/dL (3.5-5.1); Alkaline Phosphatase 75 U/L (38-126); Anion Gap 4 mmol/L (4-12); Aspartate Amino Transferase 36 U/L (14-36); Bilirubin,Total 0.2 mg/dL (0.2-1.3); Blood Urea Nitrogen 8 mg/dL (7-17); Calcium 8.6 mg/dL (8.4-10.2); Carbon Dioxide 31 mmol/L (22-30); Chloride 104 mmol/L (98-107); Estimated CRCL calculation 97 ml/min; Estimated Glomerular Filt Rate > 60; Glucose 105 mg/dL (65-110); Potassium 3.6 mmol/L (3.4-5.0); Sodium 139 mmol/L (137-145)
[2025-04-12 14:57] LABS: Basophils Percent Auto 0.9 % (0.2-1.2); Eosinophils Absolute Auto 0.1 K/mm3 (0-0.3); Eosinophils Percent Auto 4.1 % (0-4.4); Hematocrit 36.8 % (37.0-47.0); Immature Granulocyte Absolute 0.01 K/mm3 (0.00-0.031); Immature Granulocyte Percent A 0.3 % (0-0.5); Lymphocytes Absolute Auto 1.41 K/mm3 (0.9-3.2); Lymphocytes Percent Auto 41.3 % (18.3-44.2); Mean Corpuscular HGB Conc 32.6 g/dl (32-36); Mean Corpuscular Hemoglobin 32.3 pg (26-34); Mean Corpuscular Volume 99.2 fl (80-100); Mean Platelet Volume 10.7 fl (7.4-10.4); Monocytes Absolute Auto 0.3 K/mm3 (0.1-0.6); Monocytes Percent Auto 7.9 % (2.6-8.5); Neutrophils Absolute Auto 1.6 K/mm3 (1.3-6.7); Neutrophils Percent Auto 45.5 % (45.5-73.1); Platelet Count Result 158 k/mm3 (150-375); Red Blood Count 3.71 M/mm3 (4.2-5.4); White Blood Count 3.4 K/mm3 (4.5-10.0)
[2025-04-12 15:26] VITALS: BP 167/83; PULSE 61; RESP 18; O2SAT 99
[2025-04-12 16:08] LABS: Influenza A QL RT-PCR Negative (Negative); Influenza B QL RT-PCR Negative (Negative); RSV RNA, RT-PCR Negative (Negative); SARS-CoV-2 RNA PCR Negative (Negative)
[2025-04-12 16:40] VITALS: BP 133/64; PULSE 56; RESP 19; TEMP 36.4; O2SAT 100
== END 2025-04-12 16:48 | disposition home or self-care (01) ==
PROVIDERS: Emergency Provider Emergency Medicine
DX: R51.9 Headache, unspecified (principal); B34.9 Viral infection, unspecified; M79.10 Myalgia, unspecified site; Z20.822 Contact with and (suspected) exposure to COVID-19; G40.909 Epilepsy, unspecified, not intractable, without status epilepticus; I10 Essential (primary) hypertension; E78.5 Hyperlipidemia, unspecified; Z79.899 Other long term (current) drug therapy
CPT/HCPCS: 36415; 71046; 80053; 81001; 85025; 87637; 93005; 96361; 96374; 96375; 99284; A9270; J0780; J1200; J1885; J7120

== ENCOUNTER 2025-11-10 10:45 | Emergency (ER) | payer SELFPAY ==
--- NOTE | ~2025-11-10 | CT_ITS ---
EXAMINATION: CT BRAIN W/O DATE: 11/10/2025 12:27 INDICATION: Status post fall. Head trauma. TECHNIQUE: Computed tomography (CT) of the head was performed without intravenous contrast. The dose-length product was 605.33 mGy-cm. Automated exposure control and iterative reconstruction technique were employed. COMPARISON: No prior studies for comparison. FINDINGS: Normal brain parenchymal volume for age. Normal leon-white differentiation. No acute intracranial hemorrhage, infarction, mass or mass effect. No ventriculomegaly or midline shift. Midline sagittal images demonstrate a normal corpus callosum, craniovertebral junction and sella turcica. Basilar cisterns are patent. Paranasal sinuses and mastoids are pneumatized. No depressed skull fractures. Right posterior parietal scalp hematoma. IMPRESSION: 1. No acute intracranial abnormality. Reviewed, dictated and finalized at location O. [facility]
[2025-11-10 11:02] VITALS: BP 146/56; PULSE 80; RESP 16; TEMP 37.6; O2SAT 99
--- NOTE | 2025-11-10 11:06 | ECG_ITS ---
Test Date: 2025-11-10 11:10:09 Measurements Intervals [place] Rate: 80 P: 16 IN: 162 QRS: 21 QRSD: 78 T: 95 QT: 344 QTc: 397 Interpretive Statements SINUS RHYTHM LEFT VENTRICULAR HYPERTROPHY WITH ST-T CHANGE BASELINE ARTIFACT- I, III, AVL BORDERLINE ECG Compared to ECG 04/12/2025 13:23:15 HEART RATE HAS INCREASED Electronically Signed On 11-10-2025 16:31:36 HAND PACKER/PACKAGER by Devonte Love D.O.
[2025-11-10 11:52] VITALS: BP 145/62; PULSE 80; RESP 20; TEMP 37.5; O2SAT 98
--- NOTE | 2025-11-10 13:00 | ED.SYNCOPE ---
HPI - Syncope General Chief Complaint: Syncope Stated Complaint: syncope Time Seen by Provider: 11/10/25 11:57 Source: patient, family and certified court/medical interpreter Mode of arrival: EMS Limitations: no limitations History of Present Illness HPI narrative: This is a 64-year-old female with history of epilepsy who presents the ED for syncope. Per family, patient was working in the kitchen when she began to feel hot and lightheaded had an episode of syncope falling back and hitting her left head on the floor. Daughter estimates that she was out for a few seconds. Patient does feel that she is at her baseline at this time. Family denies any seizure activity. Patient does note that she has had a sore throat for the last couple days and her had similar symptoms denies fevers, chills. Does report some body aches. Related Data Home Medications ?Medication ?Instructions ?Recorded ?Confirmed ?Last Taken ?Type atenolol 50 mg tablet 50 mg PO DAILY 01/03/20 08/10/24 Unknown History amlodipine 2.5 mg tablet 2.5 mg PO DAILY 04/15/24 08/10/24 Unknown History atorvastatin 40 mg tablet 40 mg PO HS 04/15/24 08/10/24 Unknown History carbamazepine 200 mg 300 mg PO TID 04/15/24 08/10/24 Unknown History tablet,extended release,12 hr gabapentin 300 mg capsule 900 mg PO HS 04/15/24 08/10/24 Unknown History levothyroxine 75 mcg tablet 75 mcg PO DAILY 04/15/24 08/10/24 Unknown History losartan 100 1 tablet PO DAILY 04/15/24 08/10/24 Unknown History mg-hydrochlorothiazide 12.5 mg tablet mv,Ca,oub-pagw-hzrwg acid-lutein 1 tablet PO DAILY 04/15/24 08/10/24 Unknown History 18 mg iron-400 mcg-6 mg tablet (One-A-Day Women's Healthy Skin) Allergies Allergy/AdvReac Type Severity Reaction Status Date / Time No Known Allergies Allergy Verified 04/12/25 11:09 Review of Systems Review of Systems: All systems reviewed & are unremarkable except as noted in HPI and below PMFSH Past Medical History Medical History Colon cancer screening Hyperthyroidism HTN (hypertension) Hyperlipidemia Epilepsy Migraines Surgical History Surgical History Hx of section Social History Social History Smoking status: Never smoker Alcohol intake: never Substance use: never Substance use type: does not use Living arrangements: with family Gender identity (if verbalized by the patient): Female Spiritual care concerns: No Exam Narrative: APPEARANCE: No acute distress, nontoxic, resting in bed EYES: EOMI HEENT: Normocephalic, atraumatic, OMM RESPIRATORY: No respiratory distress Clear to auscultation bilaterally with no rhonchi wheezing or rales. CARDIOVASCULAR: Regular rate and rhythm without murmurs rubs or gallops. ABDOMINAL: Soft, nontender, nondistended, no rebound or guarding MUSCULOSKELETAl: Moves all extremities. No clubbing, cyanosis or edema. NEURO: Awake and alert. Following commands, speech normal, no focal deficits SKIN:: Warm, dry. No rashes lesions or abrasions PSYCHIATRIC: Normal affect/mood, Course Vital Signs Vital signs: Vital Signs Temperature 99.6 F 11/10/25 11:02 Pulse Rate 80 11/10/25 11:02 Respiratory Rate 16 11/10/25 11:02 Blood Pressure 146/56 H 11/10/25 11:02 Pulse Oximetry 99 11/10/25 11:02 Temperature 99.5 F 11/10/25 11:52 Pulse Rate 87 11/10/25 14:25 Respiratory Rate 22 H 11/10/25 14:25 Blood Pressure 154/73 H 11/10/25 14:25 Pulse Oximetry 95 11/10/25 14:25 Oxygen Delivery Room Air 11/10/25 11:52 Discharge Plan Discharge Clinical Impression: Vasovagal syncope CHI (closed head injury) Qualifiers: Encounter type: initial encounter Qualified Code(s): S09.90XA - Unspecified injury of head, initial encounter Patient Disposition: Home Condition: Stable Instructions: Antibiotic Form, Syncope (ED) Additional Instructions: Workup was reassuring. Drink plenty of water at home. Follow-up with your PCP in the next week for re-evaluation. Return to the ED for any new or worsening symptoms. Patient Language: [place] Prescriptions: No Action naproxen 500 mg tablet 500 mg PO BID PRN (Reason: pain) Qty: 20 0RF cyclobenzaprine 10 mg tablet 10 mg PO BID PRN (Reason: muscle spasm) Qty: 14 0RF atenolol 50 mg Tablet 50 mg PO DAILY atorvastatin 40 mg tablet 40 mg PO HS amlodipine 2.5 mg tablet 2.5 mg PO DAILY levothyroxine 75 mcg tablet 75 mcg PO DAILY carbamazepine 200 mg tablet extended release 12 hr 300 mg PO TID gabapentin 300 mg capsule 900 mg PO HS losartan-hydrochlorothiazide 100-12.5 mg tablet 1 tablet PO DAILY One-A-Day Women's Healthy Skin 18 mg iron-400 mcg-6 mg Tablet 1 tablet PO DAILY Follow-up/Referrals: PHYSICIAN NOT ON STAFF,NONSTAFF [Primary Care Provider] MDM MDM Narrative Medical decision making narrative: [age] year Presenting for syncope. On initial evaluation patient was in no acute distress afebrile, hemodynamic stable. Differentials include but are not limited to: Cardiogenic syncope, vasovagal syncope, orthostatic hypotension, PE, electrolyte abnormality hypoglycemia, seizure, CVA Notable exam findings: Nonfocal neuro exam, heart and lungs clear I personally reviewed the patient's lab result. Notable lab findings: CBC without significant abnormalities. Mild hyponatremia. CT head negative. I personally reviewed the patient's EKGs: Normal sinus rhythm, normal axis, intervals, left ventricular hypertrophy, no acute ST or T-wave changes Patient was given 1 L NS bolus. She was able to ambulate without any significant difficulty. Based on the history, patient likely had a vasovagal syncopal episode cooking dinner. Patient was advised follow-up with her PCP in the next week for re-evaluation. Patient and family were agreeable to this plan. Given strict return precautions. Differential Diagnosis Differential Diagnosis: Cardiogenic syncope, vasovagal syncope, orthostatic hypotension, PE, electrolyte abnormality hypoglycemia, seizure, CVA Lab Data 11/10/25 13:16 11/10/25 13:16 Labs: Lab Results 11/10/25 Range/Units 13:16 WBC 5.7 (4.5-10.0) K/mm3 RBC 4.06 L (4.2-5.4) M/mm3 Hgb 12.8 (12.0-15.0) g/dL Hct 38.7 (37.0-47.0) % MCV 95.3 (80-100) fl MCH 31.5 (26-34) pg MCHC 33.1 (32-36) g/dl RDW 12.6 (11.5-14.5) % Plt Count 132 L (150-375) k/mm3 MPV 10.4 (7.4-10.4) fl Immature Gran % (Auto) 0.4 (0-0.5) % Neut % (Auto) 87.1 H (45.5-73.1) % Lymph % (Auto) 6.4 L (18.3-44.2) % [place] % (Auto) 5.0 (2.6-8.5) % Eos % (Auto) 0.7 (0-4.4) % Baso % (Auto) 0.4 (0.2-1.2) % Lymph # (Auto) 0.36 L (0.9-3.2) K/mm3 [place] # (Auto) 0.3 (0.1-0.6) K/mm3 Eos # (Auto) 0.0 (0-0.3) K/mm3 Baso # (Auto) 0.0 (0.0-0.1) K/mm3 Abs Immat Gran (auto) 0.02 (0.00-0.031) K/mm3 Absolute Neuts (auto) 4.9 (1.3-6.7) K/mm3 Absolute Nucleated RBC 0.000 (0.0-0.012) K/mm3 Nucleated RBC % 0.0 (0.0-0.2) % % Immature Plt Fraction 3.8 (0.9-11.2) % Sodium 134 L (137-145) mmol/L Potassium 3.7 (3.4-5.0) mmol/L Chloride 97 L (98-107) mmol/L Carbon Dioxide 27 (22-30) mmol/L Anion Gap 10 (4-12) mmol/L BUN 7 (7-17) mg/dL Creatinine 0.57 L (0.7-1.0) mg/dL Estim Creat Clear Calc 90 ml/min Estimated GFR > 60 (59 - ) Glucose 141 H (65-110) mg/dL Calcium 9.0 (8.4-10.2) mg/dL Total Bilirubin 0.6 (0.2-1.3) mg/dL AST 38 H (14-36) U/L ALT 25 (6-35) U/L Alkaline Phosphatase 92 (38-126) U/L Total Protein 8.1 (6.3-8.2) g/dL Albumin 4.6 (3.5-5.1) g/dL Imaging Data Radiologist's impression: ITS Impressions Head CT 11/10/25 12:31 IMPRESSION: 1. No acute intracranial abnormality.
[2025-11-10 13:05] VITALS: BP 134/55; PULSE 86; RESP 23; O2SAT 98
[2025-11-10] MEDS: SODIUM CHLORIDE 0.9% IV 1,000 ML 999 ML IV CONT (13:11)
[2025-11-10] MEDS: ACETAMINOPHEN 500 MG TABLET 1000 MG PO (13:12)
[2025-11-10 13:24] LABS: Hematocrit 38.7 % (37.0-47.0); Hemoglobin 12.8 g/dL (12.0-15.0); Immature Granulocyte Percent A 0.4 % (0-0.5); Immature Platelet Fraction Pct 3.8 % (0.9-11.2); Lymphocytes Absolute Auto 0.36 K/mm3 (0.9-3.2); Mean Corpuscular HGB Conc 33.1 g/dl (32-36); Mean Corpuscular Hemoglobin 31.5 pg (26-34); Mean Corpuscular Volume 95.3 fl (80-100); Nucleated Red Blood Cells Absolute Auto 0.000 K/mm3 (0.0-0.012); Nucleated Red Blood Cells Perc 0.0 % (0.0-0.2); Platelet Count Result 132 k/mm3 (150-375); Red Blood Count 4.06 M/mm3 (4.2-5.4); White Blood Count 5.7 K/mm3 (4.5-10.0)
[2025-11-10 13:34] LABS: Alanine Aminotransferase 25 U/L (6-35); Albumin Level 4.6 g/dL (3.5-5.1); Alkaline Phosphatase 92 U/L (38-126); Anion Gap 10 mmol/L (4-12); Aspartate Amino Transferase 38 U/L (14-36); Bilirubin,Total 0.6 mg/dL (0.2-1.3); Blood Urea Nitrogen 7 mg/dL (7-17); Calcium 9.0 mg/dL (8.4-10.2); Carbon Dioxide 27 mmol/L (22-30); Chloride 97 mmol/L (98-107); Estimated CRCL calculation 90 ml/min; Estimated Glomerular Filt Rate > 60; Glucose 141 mg/dL (65-110); Potassium 3.7 mmol/L (3.4-5.0); Sodium 134 mmol/L (137-145); Total Protein 8.1 g/dL (6.3-8.2)
[2025-11-10 14:25] VITALS: BP 154/73; PULSE 87; RESP 22; O2SAT 95
== END 2025-11-10 15:16 | disposition home or self-care (01) ==
PROVIDERS: Emergency Provider Student in an Organized Health Care Education/Training Program
DX: R55 Syncope and collapse (principal); S09.90XA Unspecified injury of head, initial encounter; W18.30XA Fall on same level, unspecified, initial encounter; I10 Essential (primary) hypertension; E78.5 Hyperlipidemia, unspecified; G40.909 Epilepsy, unspecified, not intractable, without status epilepticus
CPT/HCPCS: 36415; 70450; 80053; 85025; 85055; 93005; 96360; 99284; A9270; J7030